=== PATIENT | male | born 1955 | race Caucasian/White ===

== ENCOUNTER 2016-12-11 21:05 | Inpatient (IN) | payer BC, OTHER ==
[~2016-12-11] VITALS: Ht 185.4 cm; Wt 97.2 kg
[~2016-12-11 21:05] MED LIST: ASPI81TA28 PO; ATOR-22 PO; CEPH-571 PO; GABA1CAP PO; GLC500 PO; GLIP5TAB11 PO; GLIP5TAB3 PO; LSN25 PO; OXYC-57 PO; PROP20TA67 PO
[2016-12-11] MEDS ORDERED: METF1TAB53 PO (21:40)
[2016-12-11] MEDS ORDERED: LISI-789 PO (21:40)
[2016-12-11] MEDS ORDERED: CYAN10005 PO (21:42)
[2016-12-11] MEDS ORDERED: CHOL2000 PO (21:42)
[2016-12-11] MEDS ORDERED: ONDANSETRON INJ 2 MG/ML 2 ML VIAL IV STA (22:08)
[2016-12-11] MEDS ORDERED: SODIUM CHLORIDE 0.9% 1000ML 1,000 ML IV STA (22:08)
[2016-12-11 22:21] LABS: BASO % 0.3 %; BASO ABS # 0.03 K/uL (0-0.2); COMPLETE YES; EOS % 0.2 %; IG% 0.2 %; LYMPH % 9.6 %; LYMPH ABS # 1.02 K/uL (1.2-3.4); MEAN CELL VOLUME 92.5 fL (80-100); MEAN CORPUSCULAR HEMOGLOBIN 32.1 pg (25-34); MEAN CORPUSCULAR HGB CONC 34.7 g/dl (32-36); MEAN PLATELET VOLUME 12.1 fL (7.4-10.4); MONO % 3.7 %; PLATELET COUNT 166 K/uL (130-400); RED BLOOD COUNT 4.11 M/uL (4.7-6.1); WHITE BLOOD COUNT 10.67 K/uL (4.8-10.8)
[2016-12-11 22:30] LABS: BUN/CREATININE RATIO 16.3 (10-20); CALCIUM 9.6 mg/dl (8.5-10.1); CREATININE 0.76 mg/dl (0.60-1.40); POTASSIUM 4.8 mmol/L (3.5-5.1)
[2016-12-11] MEDS ORDERED: OPTIRAY 320 IV PRN (23:00)
[2016-12-11] MEDS ORDERED: PANTOprazole INJ 80 MG in DEXTROSE 5% 100ML IV SCH (23:15)
[2016-12-11] MEDS ORDERED: PANTOprazole INJ 40 MG in DEXTROSE 5% 100ML IV SCH (23:30)
[2016-12-12] VITALS (8 sets, daily range): BP systolic 134–193; BP diastolic 70–102; PULSE 74–97; TEMP 36.6–36.9; O2SAT 94–97; Ht 185.4 cm; Wt 97.2 kg
[2016-12-12] MEDS ORDERED: PROMETHAZINE HCL INJ 25 MG/ML 1 ML VIAL IM STA (00:24)
[2016-12-12] MEDS ORDERED: ZOLPIDEM TARTRATE 5 MG TAB PO PRN (00:45)
[2016-12-12] MEDS ORDERED: ONDANSETRON INJ 2 MG/ML 2 ML VIAL IV PRN (00:45)
[2016-12-12] MEDS ORDERED: PROMETHAZINE HCL INJ 25 MG in SODIUM CHLORIDE 0.9% 50ML 50 ML IV PRN (00:45)
[2016-12-12] MEDS ORDERED: PROMETHAZINE HCL INJ 25 MG in SODIUM CHLORIDE 0.9% 50ML 50 ML IV STA (00:47)
--- NOTE | 2016-12-12 01:42 | History and Physical ---
History & Physical Date & Time of Service: Dec 12, 2016 at 01:36 Chief Complaint: Had Foot Surgery Yesterday, Vomiting Ever Since Primary Care Physician: Mila Dean C.R.N.PJack History of Present Illness Source: patient, spouse Mr Sheldon is a 60 yo M who underwent left foot wound debridement on 12/10 at [facility], then presents today with frequent nausea and vomiting. His reports the pt threw up 7-8 times, she gave him Zofran, but he could not keep anything down. They were concerned since they saw his vomit become red- tinged. He has never had blood in his vomit before. He does not consume alcohol. He does not have any chest pain. Past Medical/Surgical History Medical Problems: (1) Diabetes Status: Chronic (2) Staph infection Status: Resolved Family History Patient reports no known family medical history. Social History Smoking Status: Never Smoker Alcohol Use: none Drug Use: none Marital Status: , Housing status: lives with family Occupational Status: employed Immunizations History of Influenza Vaccine: N/A History of Tetanus Vaccine?: Yes Tetanus Immunization Date: April 19, 2011 History of Pneumococcal: Yes Pneumococcal Date: Mar 05, 2007 History of Hepatitis B Vaccine: No Multi-Drug Resistant Organisms History of MDRO: No Allergies Coded Allergies: Sulfamethoxazole w/Trimethoprim (Verified Adverse Reaction, Unknown, nausea, 10/30/16) Home Medications Scheduled Aspirin (Aspirin Ec), 81 MG PO QAM Atorvastatin (Lipitor), 20 MG PO HS Cephalexin (Keflex), 1 CAP PO TID Cholecalciferol (Vitamin D3), 1 CAP PO DAILY Cyanocobalamin (Vitamin B-12), 1,000 MCG PO DAILY Gabapentin (Neurontin), 100 MG PO TID Glipizide (Glucotrol), 5 MG PO QPM Glipizide (Glucotrol), 2.5 MG PO QAM Lisinopril (Zestril), 2.5 MG PO DAILY Metformin Hcl (Glucophage Ext Rel), 1,000 MG PO BIDM Propranolol (Inderal), 40 MG PO BID Scheduled PRN Oxycodone/Acetaminophen 5MG/325MG (Percocet 5MG/325MG), 1-2 TABLETS PO Q4H PRN for Pain Review of Systems See HPI for pertinent positives & negatives. A total of 10 systems reviewed and were otherwise negative. Physical Exam Vital Signs Date Time Temp Pulse Resp B/P Pulse Ox O2 Delivery O2 Flow Rate FiO2 12/12/16 01:27 36.4 84 18 181/88 98 12/12/16 01:19 84 18 181/88 98 Room Air 12/12/16 00:02 84 18 168/91 98 Room Air 12/11/16 21:09 36.4 82 18 163/93 94 Room Air General Appearance: WD/WN, + mild distress Head: normocephalic, atraumatic Eyes: normal inspection ENT: hearing grossly normal Neck: supple, no JVD Respiratory/Chest: lungs clear, normal breath sounds, no respiratory distress Cardiovascular: regular rate, rhythm, no JVD, no murmur, normal peripheral pulses Abdomen/GI: non tender, soft Back: no CVA tenderness, no muscle spasm, normal range of motion Extremities/Musculoskelatal: no calf tenderness, no pedal edema Neurologic/Psych: alert, normal mood/affect, oriented x 3 Skin: no rash Diagnostics Laboratory Results Results Past 24 Hours Test 12/11/16 21:55 Range/Units White Blood Count 10.67 4.8-10.8 K/uL Red Blood Count 4.11 4.7-6.1 M/uL Hemoglobin 13.2 14.0-18.0 g/dL Hematocrit 38.0 42-52 % Mean Corpuscular Volume 92.5 80-100 fL Mean Corpuscular Hemoglobin 32.1 25-34 pg Mean Corpuscular Hemoglobin Concent 34.7 32-36 g/dl Platelet Count 166 130-400 K/uL Mean Platelet Volume 12.1 7.4-10.4 fL Neutrophils (%) (Auto) 86.0 % Lymphocytes (%) (Auto) 9.6 % Monocytes (%) (Auto) 3.7 % Eosinophils (%) (Auto) 0.2 % Basophils (%) (Auto) 0.3 % Neutrophils # (Auto) 9.19 1.4-6.5 K/uL Lymphocytes # (Auto) 1.02 1.2-3.4 K/uL Monocytes # (Auto) 0.39 0.11-0.59 K/uL Eosinophils # (Auto) 0.02 0-0.5 K/uL Basophils # (Auto) 0.03 0-0.2 K/uL RDW Standard Deviation 41.7 36.4-46.3 fL RDW Coefficient of Variation 12.3 11.5-14.5 % Immature Granulocyte % (Auto) 0.2 % Immature Granulocyte # (Auto) 0.02 0.00-0.02 K/uL Sodium Level 141 136-145 mmol/L Potassium Level 4.8 3.5-5.1 mmol/L Chloride Level 105 98-107 mmol/L Carbon Dioxide Level 25 21-32 mmol/L Anion Gap 11.0 3-11 mmol/L Blood Urea Nitrogen 12 7-18 mg/dl Creatinine 0.76 0.60-1.40 mg/dl Est Creatinine Clear Calc Drug Dose 127.1 ml/min Estimated GFR () 114.9 Estimated GFR (Non- 99.2 BUN/Creatinine Ratio 16.3 10-20 Random Glucose 194 70-99 mg/dl Calcium Level 9.6 8.5-10.1 mg/dl Total Bilirubin 0.6 0.2-1 mg/dl Direct Bilirubin 0.1 0-0.2 mg/dl Aspartate Amino Transf (AST/SGOT) 13 15-37 U/L Alanine Aminotransferase (ALT/SGPT) 17 12-78 U/L Alkaline Phosphatase 86 45-117 U/L Total Protein 7.4 6.4-8.2 gm/dl Albumin 3.8 3.4-5.0 gm/dl Lipase 80 73-393 U/L Diagnostic Radiology Abd/pelvis CT completed but results not imported into system yet Impression Assessment and Plan Documented By: Manohar Fournier 60 yo T2DM with post-operative nausea and vomiting, with new hematemesis - Abbie-Cowart tear vs variceal bleed Hematemesis: NPO, will consult GI for potential scope in AM Nausea/vomiting: Received bolus in ED, continue maintenance fluids, Zofran and Phenergan available Hypertension: Hydralazine 10mg IV PRN for SBP > 160 T2DM: Hold metformin and glucotrol - will place glycemic consult VTE: SCDs, hold heparin since concern for bleed Dispo: Med/Surg Code Status: FULL Resident Physician Supervision Note: I was present with [Name of resident] during the history and exam. I discussed the case with the resident and agree with the findings and plan as documented in the note. Any exceptions or clarifications are listed here: Pt seen/examined personally Plan Pt is minimally symptomatic - vomiting may have induced irritation or a small tear leading to blood streaking Will monitor Hb, provide antiemetics and fluids and keep NPO if GI eval is needed Placed on SS for DM Level of Care Med/Surg Resuscitation Status FULL RESUSCITATION VTE Prophylaxis VTE Risk Assessment Done? Y/N: Yes Risk Level: Moderate Given or contraindicated: SCD's Resident Tracking Resident Involvement: Resident Care Provided Care Provided: Adult Hospital Medicine
[2016-12-12] MEDS ORDERED: HydrALAZINE HCL 20 MG/ML VIAL IV. PRN (01:45)
--- NOTE | 2016-12-12 02:10 | EMERGENCY ROOM VISIT NOTE ---
History Report prepared by Allie: Shahid Mueller Under the Supervision of: Alina ThaoO. First contact with patient: 21:52 Chief Complaint: VOMITING Stated Complaint: HAD FOOT SURGERY YESTERDAY, VOMITING EVER SINCE History of Present Illness The patient is a 60 year old male who presents to the Emergency Room with complaints of persistent vomiting beginning several hours prior to arrival. He currently rates his discomfort as a 5/10 in severity. The patient associates nausea and abdominal pain with today's symptoms. He states he had left foot surgery on his bunion yesterday at [place]. The patient notes the vomiting began this morning and was greenish-brown in color. As per , the patient began vomiting a reddish-brown color later in the day. She states there was about a teaspoon of blood in the vomit. The patient notes he has vomited 7-8 times today. He states he takes aspiring daily. He states he still has his gallbladder and appendix. The notes, she gave the patient Zofran six hours ago, but he vomited following the medication. Pt denies headache, change in vision, fevers, chest pain, shortness of breath, diarrhea, pain with urination, and melena. 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 A total of 10 systems reviewed and were otherwise negative. Past Medical & Surgical Medical Problems: (1) Diabetes (2) Diabetic peripheral neuropathy associated with type 2 diabetes mellitus (3) Hematemesis (4) History of diabetic ulcer of foot (5) Loss of sensation (6) Osteomyelitis (7) Staph infection (8) Status post partial amputation of foot Family History Patient reports no known family medical history. Social History Smoking Status: Never Smoker Alcohol Use: none Drug Use: none Marital Status: , Occupation Status: employed Current/Historical Medications Scheduled Aspirin (Aspirin Ec), 81 MG PO QAM Atorvastatin (Lipitor), 20 MG PO HS Cephalexin (Keflex), 1 CAP PO TID Cholecalciferol (Vitamin D3), 1 CAP PO DAILY Cyanocobalamin (Vitamin B-12), 1,000 MCG PO DAILY Gabapentin (Neurontin), 100 MG PO TID Glipizide (Glucotrol), 5 MG PO QPM Glipizide (Glucotrol), 2.5 MG PO QAM Lisinopril (Zestril), 2.5 MG PO DAILY Metformin Hcl (Glucophage Ext Rel), 1,000 MG PO BIDM Propranolol (Inderal), 40 MG PO BID Scheduled PRN Oxycodone/Acetaminophen 5MG/325MG (Percocet 5MG/325MG), 1-2 TABLETS PO Q4H PRN for Pain Allergies Coded Allergies: Sulfamethoxazole w/Trimethoprim (Verified Adverse Reaction, Unknown, nausea, 10/30/16) Physical Exam Vital Signs Date Time Temp Pulse Resp B/P Pulse Ox O2 Delivery O2 Flow Rate FiO2 12/12/16 00:02 84 18 168/91 98 Room Air 12/11/16 21:09 36.4 82 18 163/93 94 Room Air Physical Exam GENERAL: sitting up in bed, no acute distress, non-toxic EYE EXAM: normal conjunctiva OROPHARYNX: no exudate, no erythema, lips, buccal mucosa, and tongue normal and mucous membranes are moist NECK: supple, no nuchal rigidity, no adenopathy, non-tender LUNGS: Clear to auscultation. Normal chest wall mechanics HEART: no murmurs, S1 normal and S2 normal ABDOMEN: abdomen soft, non-tender, normo-active bowel sounds, no masses, no rebound or guarding. BACK: Back is symmetrical on inspection and there is no deformity, no midline tenderness, no CVA tenderness. RECTAL: No hemorrhoids or fissures. Heme negative. SKIN: no rashes and no bruising UPPER EXTREMITIES: upper extremities are grossly normal. LOWER EXTREMITIES: No pitting edema. Left foot was wrapped, good capillary refill. NEURO EXAM: Normal sensorium, cranial nerves II-XII grossly intact, normal speech, no gross weakness of arms, no gross weakness of legs. Medical Decision & Procedures ER Provider Diagnostic Interpretation: CT ABDOMEN & PELVIS No bowel dilation, free air, free fluid or evidence of wall thickening Solid organs and gallbladder appear within limits Normal caliber appendix without secondary signs Radiologist: Vikram Calderon M.D. Study ready at 23:34 and initial results transmitted at 23:56 Laboratory Results 12/11/16 21:55 Red Blood Count 4.11, Mean Corpuscular Volume 92.5, Mean Corpuscular Hemoglobin 32.1, Mean Corpuscular Hemoglobin Concent 34.7, Mean Platelet Volume 12.1, Neutrophils (%) (Auto) 86.0, Lymphocytes (%) (Auto) 9.6, Monocytes (%) (Auto) 3.7, Eosinophils (%) (Auto) 0.2, Basophils (%) (Auto) 0.3, Neutrophils # (Auto) 9.19, Lymphocytes # (Auto) 1.02, Monocytes # (Auto) 0.39, Eosinophils # (Auto) 0.02, Basophils # (Auto) 0.03 12/11/16 21:55 Test 12/11/16 21:55 White Blood Count 10.67 K/uL (4.8-10.8) Red Blood Count 4.11 M/uL (4.7-6.1) Hemoglobin 13.2 g/dL (14.0-18.0) Hematocrit 38.0 % (42-52) Mean Corpuscular Volume 92.5 fL (80-100) Mean Corpuscular Hemoglobin 32.1 pg (25-34) Mean Corpuscular Hemoglobin Concent 34.7 g/dl (32-36) Platelet Count 166 K/uL (130-400) Mean Platelet Volume 12.1 fL (7.4-10.4) Neutrophils (%) (Auto) 86.0 % Lymphocytes (%) (Auto) 9.6 % Monocytes (%) (Auto) 3.7 % Eosinophils (%) (Auto) 0.2 % Basophils (%) (Auto) 0.3 % Neutrophils # (Auto) 9.19 K/uL (1.4-6.5) Lymphocytes # (Auto) 1.02 K/uL (1.2-3.4) Monocytes # (Auto) 0.39 K/uL (0.11-0.59) Eosinophils # (Auto) 0.02 K/uL (0-0.5) Basophils # (Auto) 0.03 K/uL (0-0.2) RDW Standard Deviation 41.7 fL (36.4-46.3) RDW Coefficient of Variation 12.3 % (11.5-14.5) Immature Granulocyte % (Auto) 0.2 % Immature Granulocyte # (Auto) 0.02 K/uL (0.00-0.02) Anion Gap 11.0 mmol/L (3-11) Est Creatinine Clear Calc Drug Dose 127.1 ml/min Estimated GFR () 114.9 Estimated GFR (Non- 99.2 BUN/Creatinine Ratio 16.3 (10-20) Calcium Level 9.6 mg/dl (8.5-10.1) Total Bilirubin 0.6 mg/dl (0.2-1) Direct Bilirubin 0.1 mg/dl (0-0.2) Aspartate Amino Transf (AST/SGOT) 13 U/L (15-37) Alanine Aminotransferase (ALT/SGPT) 17 U/L (12-78) Alkaline Phosphatase 86 U/L (45-117) Total Protein 7.4 gm/dl (6.4-8.2) Albumin 3.8 gm/dl (3.4-5.0) Lipase 80 U/L (73-393) Laboratory results per my review. Medications Administered Medications (Trade) Dose Ordered Sig/Isael Route Start Time Stop Time Status Last Admin Dose Admin Sodium Chloride (Nss 1000ml) 1,000 ml @ 999 mls/hr Q1H1M STAT IV 12/11/16 22:08 12/11/16 23:08 DC 12/11/16 22:31 999 MLS/HR Ondansetron HCl (Zofran Inj) 4 mg NOW STAT IV 12/11/16 22:08 12/11/16 22:11 DC 12/11/16 22:30 4 MG Pantoprazole Sodium 1 ea 1 ea NOW STAT IV 12/11/16 22:58 12/11/16 22:59 DC 12/11/16 23:48 1 EA Pantoprazole Sodium 80 mg/ Dextrose 120 ml @ 480 mls/hr TODAY@2315 IV 12/11/16 23:15 12/11/16 23:29 DC 12/11/16 23:46 480 MLS/HR Pantoprazole Sodium/Dextrose (Protonix Inj/D5 100ml) 100 ml @ 20 mls/hr Q5H IV 12/11/16 23:30 12/12/16 04:29 12/11/16 23:47 20 MLS/HR ED Course ED COURSE: Vital signs were reviewed and showed normal vitals. The patients medical record was reviewed The above diagnostic studies were performed and reviewed. ED treatments and interventions as stated above. 2157: The patient was evaluated in room B6. A complete history and physical examination was performed. 2207: Ordered Zofran Inj 4 mg IV, Sodium Chloride 1,000 ml @ 999 mls/hr IV. 2257: Ordered Pantoprazole Sodium 1 ea IV. 2300: Reevaluated the patient at this time, and he is going over to CT. 2315: Ordered Pantoprazole Sodium 80 mg/ Dextrose 120 ml @ 480 mls/hr IV. 2330: Ordered Pantoprazole Sodium 40 mg/ Dextrose 100 ml @ 20 mls/hr IV. 000: I spoke to LINDY Nguyen (Hospitalist) about the patient's case, and he will follow the patient for further evaluation. []: Upon reevaluation, the patient is [].I discussed my findings with the [ patient] and [] understands and agrees with the treatment plan. Based on the patients age, coexisting illnesses, exam and lab findings the decision to treat as an [inpatient][outpatient] was made. The patient remained stable while under my care. [The patient appeared well at the time of discharge.] [The patient will be evaluated for further management.] Medical Decision Differential diagnosis: Etiologies such as gastroenteritis, food borne illness, infections, appendicitis , diverticulitis, inflammatory bowel disease, obstruction, GI bleed, biliary pathology, as well as others were entertained. Patient is a 60-year-old male who presents the ER with persistent vomiting. This started earlier today and has progressed to hematemesis and coffee-ground emesis. Patient denies any blood thinners. Vitals are stable. Hemoglobin is 13. BMP is unremarkable with a normal BUN. LFTs along with bilirubin and lipase are normal. CT of his abdomen pelvis was nondiagnostic. Patient was given a Protonix drip along with a bolus normal saline. I do favor his hematemesis is likely secondary to irritation of the esophagus/milton Eufemia tear. Cannot be certain at this time but since the patient admits to vomiting a tablespoon of blood with each vomited I did discuss case with GI who agreed with observation overnight and nothing by mouth. No additional vomiting while in the ER. Consults Time Called: 7 Consulting Physician: LINDY Nguyen (Hospitalist) Returned Call: 8 I spoke to LINDY Nguyen (Hospitalist) about the patient's case, and he will follow the patient for further evaluation. Impression Primary Impression: Upper GI bleed Scribe Attestation The scribe's documentation has been prepared under my direction and personally reviewed by me in its entirety. I confirm that the note above accurately reflects all work, treatment, procedures, and medical decision making performed by me. Departure Information Dispostion Being Evaluated By Hospitalist (LINDY Nguyen (Hospitalist)) Referrals Mila Dean C.R.N.PJack (PCP)
[2016-12-12] MEDS ORDERED: CEFTRIAXONE SOD INJ 2,000 MG in DEXTROSE 5% 50ML 50 ML IV SCH (03:00)
[2016-12-12] MEDS ORDERED: GLUCAGON FOR INJ 1 MG VIAL SQ PRN ×2 (03:15→17:00)
[2016-12-12] MEDS ORDERED: PHARMACY GLYCEMIC MGMT CONSULT PRN (03:15)
[2016-12-12] MEDS ORDERED: GLUCOSE 10 TABS/TUBE PO PRN ×2 (03:15→17:00)
[2016-12-12] MEDS ORDERED: DEXTROSE 50% 50 ML SYR IV PRN ×2 (03:15→17:00)
[2016-12-12] MEDS ORDERED: GLUCOSE 40% GEL 15 GM TUBE PO PRN ×2 (03:15→17:00)
[2016-12-12] MEDS: SODIUM CHLOR 0.45% + 20MEQ KCL 1,000 ML IV SCH ×2 (03:24→11:14)
[2016-12-12] MEDS: PANTOprazole INJ 40 MG in DEXTROSE 5% 100ML IV SCH ×3 (04:25→14:36)
[2016-12-12 06:10] LABS: ESTIMATED AVERAGE GLUCOSE 146 mg/dl; HA1C FLAG Normal (Normal)
--- NOTE | 2016-12-12 07:03 | DIAGNOSTIC IMAGING REPORT ---
CT ABD/PELVIS IV CONTRAST ONLY CLINICAL HISTORY: Hematemesis COMPARISON STUDY: None. TECHNIQUE: Following the IV administration of 92 mL of Optiray-320, CT scan of the abdomen and pelvis was performed from the lung bases to the proximal femurs. Images are reviewed in the axial, sagittal, and coronal planes. IV contrast was administered without complication. CT DOSE: 712.70 mGy.cm FINDINGS: Lower chest: There are minor basilar atelectatic changes. Liver: The contrast-enhanced liver is normal in size, contour, and attenuation. There is no intrahepatic biliary ductal dilatation. The hepatic veins and portal veins are patent. Gallbladder: Unremarkable. Spleen: Normal in size and attenuation. Pancreas: Unremarkable. Adrenal glands: Unremarkable. Kidneys: There is a to small to characterize 8 mm left renal hypodensity likely representing a cyst Bowel: There is small hiatal hernia. There are no transition zones indicate bowel obstruction. There is no evidence of acute appendicitis. There is no evidence of acute diverticulitis. Peritoneum: There is no intraperitoneal free air or abdominal ascites. Vasculature: The abdominal aorta is normal in course and caliber. Adenopathy: None. Pelvic viscera: There is mild prostamegaly. Skeletal structures: No destructive osseous lesions are seen. IMPRESSION: 1. No acute intra-abdominal findings 2. No evidence of bowel obstruction. No evidence of free air 3. Small hiatal hernia 4. No evidence of acute appendicitis. No evidence of acute diverticulitis. Electronically signed by: Lion Elam M.D. 12/12/2016 7:02 AM Dictated Date/Time: 12/12/2016 6:59 AM
[2016-12-12] MEDS: INSULIN ASPART 100 UNITS/ML 3 ML PEN SC SCH ×4 (08:56→20:41)
--- NOTE | 2016-12-12 10:05 | Gastrointestinal Consultation ---
Gastrointestinal Consultation Date of Consultation: Dec 12, 2016 Attending Physician: Dr. Chapa Consulting Physician: Dr. Saldana/BECKY Felipe Reason for Consultation: Hematemesis History of Present Illness Patient is a 60 year old male with a history of diabetes status post left foot wound debridement at [facility] on 12/10/16 admitted with intractable nausea with vomiting as well as hematemesis prior to arrival to the ER. He states he had taken 2 oxycodone for pain prior to the nausea and vomiting starting. He has not had any further episodes of vomiting or hematemesis since arrival. No reports of bloody or melanotic stools. On arrival , his hemoglobin was noted to be 13.2. Patient was started on a Protonix ggt at 8 mg/hr. He denies any dysphagia, odynophagia,abdominal pain or other GI complaints. Patient states that he has never undergone an upper endoscopy in the past. Last colonoscopy was performed by Dr. Carrero in 2012. Past Medical/Surgical History Medical Problems: (1) Diabetic ulcer of toe Status: Acute (2) Lymphangitis Status: Acute (3) Upper GI bleed Status: Acute Past Medical History: 1.Diabetes with complications 2. Anemia 3. Cellulitis 4. Obesity 5. Osteomyelitis 6. Sexual Dysfunction 7. Tremor Past Surgical History: 1. Complete colonoscopy 2. Foot debridement Family History Patient reports no known family medical history. Negative for GI malignancy and IBD Social History Smoking Status: Never Smoker Alcohol Use: other (history of use) Drug Use: none Marital Status: Occupation Status: employed Allergies Coded Allergies: Sulfamethoxazole w/Trimethoprim (Verified Adverse Reaction, Unknown, nausea, 10/30/16) Current Medications Home Meds and Scripts Medications Dose Route/Sig Max Daily Dose Days Date Category Dose Instructions Vitamin D3 (Cholecalciferol) 2,000 Unit Cap 1 Cap PO DAILY 90 12/11/16 Reported Vitamin B-12 (Cyanocobalamin) 1,000 Mcg Tab 1,000 Mcg PO DAILY 12/11/16 Reported Glucophage Ext Rel (Metformin Hcl) 1,000 Mg Tab 1,000 Mg PO BIDM 12/11/16 Reported Zestril (Lisinopril) 2.5 Mg Tab 2.5 Mg PO DAILY 12/11/16 Reported Keflex (Cephalexin) 500 Mg Cap 1 Cap PO TID 7 11/06/16 Rx Inderal (Propranolol HCl) 20 Mg Tab 40 Mg PO BID 09/28/16 Reported Percocet 5MG/325MG (Oxycodone/Acetaminophen) Tab 1-2 Tablets PO Q4H PRN 07/11/16 Rx Glucotrol (Glipizide) 5 Mg Tab 2.5 Mg PO QAM 06/08/16 Reported Glucotrol (Glipizide) 5 Mg Tab 5 Mg PO QPM 06/08/16 Reported Aspirin Ec (Aspirin) 81 Mg Tab 81 Mg PO QAM 06/08/16 Reported Lipitor (Atorvastatin Calcium) 20 Mg Tab 20 Mg PO HS 06/08/16 Reported Neurontin (Gabapentin) 100 Mg Cap 100 Mg PO TID 10/30/13 Reported CAN TAKE UP TO THREE TIMES DAILY Review of Systems Constitutional: No chills, No fever Eyes: No problem reported ENT: + see HPI Respiratory: No problem reported Cardiac: No problem reported Abdomen: + see HPI Musculoskeletal: + see HPI Neuro: No problem reported Psych: No problem reported Skin: No problem reported Physical Exam Date Time Temp Pulse Resp B/P Pulse Ox O2 Delivery O2 Flow Rate FiO2 12/12/16 08:02 36.9 88 18 171/90 96 Room Air 12/12/16 08:00 Room Air 12/12/16 04:08 36.8 87 18 193/102 95 Room Air 146/75 12/12/16 02:00 Room Air 12/12/16 01:27 36.4 84 18 181/88 98 12/12/16 01:19 84 18 181/88 98 Room Air 12/12/16 00:02 84 18 168/91 98 Room Air 12/11/16 21:09 36.4 82 18 163/93 94 Room Air General Appearance: WD/WN, no apparent distress Eyes: EOMI ENT: hearing grossly normal Neck: supple Respiratory/Chest: lungs clear, normal breath sounds, no respiratory distress Cardiovascular: regular rate, rhythm, no gallop, no murmur Abdomen: normal bowel sounds, non tender, soft Extremities: no pedal edema Neurologic/Psych: alert, normal mood/affect, oriented x 3 Skin: warm/dry Laboratory Results Last 24 Hours Test 12/11/16 21:55 12/12/16 07:43 12/12/16 09:15 White Blood Count 10.67 K/uL Red Blood Count 4.11 M/uL Hemoglobin 13.2 g/dL Hematocrit 38.0 % Mean Corpuscular Volume 92.5 fL Mean Corpuscular Hemoglobin 32.1 pg Mean Corpuscular Hemoglobin Concent 34.7 g/dl Platelet Count 166 K/uL Mean Platelet Volume 12.1 fL Neutrophils (%) (Auto) 86.0 % Lymphocytes (%) (Auto) 9.6 % Monocytes (%) (Auto) 3.7 % Eosinophils (%) (Auto) 0.2 % Basophils (%) (Auto) 0.3 % Neutrophils # (Auto) 9.19 K/uL Lymphocytes # (Auto) 1.02 K/uL Monocytes # (Auto) 0.39 K/uL Eosinophils # (Auto) 0.02 K/uL Basophils # (Auto) 0.03 K/uL RDW Standard Deviation 41.7 fL RDW Coefficient of Variation 12.3 % Immature Granulocyte % (Auto) 0.2 % Immature Granulocyte # (Auto) 0.02 K/uL Sodium Level 141 mmol/L Potassium Level 4.8 mmol/L Chloride Level 105 mmol/L Carbon Dioxide Level 25 mmol/L Anion Gap 11.0 mmol/L Blood Urea Nitrogen 12 mg/dl Creatinine 0.76 mg/dl Est Creatinine Clear Calc Drug Dose 127.1 ml/min Estimated GFR () 114.9 Estimated GFR (Non- 99.2 BUN/Creatinine Ratio 16.3 Random Glucose 194 mg/dl Estimated Average Glucose 146 mg/dl Hemoglobin A1c 6.7 % Calcium Level 9.6 mg/dl Total Bilirubin 0.6 mg/dl Direct Bilirubin 0.1 mg/dl Aspartate Amino Transf (AST/SGOT) 13 U/L Alanine Aminotransferase (ALT/SGPT) 17 U/L Alkaline Phosphatase 86 U/L Total Protein 7.4 gm/dl Albumin 3.8 gm/dl Lipase 80 U/L Bedside Glucose 173 mg/dl Impression Patient is a 60 year old male with a history of diabetes with complications of left foot ulceration [place] [facility] [place] with nausea and vomiting as well as hematemesis after initiating opioid analgesic therapy. Diff dx: PUD vs Doron's erosion vs Abbie-Cowart tear vs esophagitis vs malignancy vs other. Plan 1. Keep NPO for now. 2. EGD today with Dr. Saldana. 3. Continue Protonix ggt at 8 mg/hr at present. 4. Additional recommendations pending results of testing. Agree with BECKY Felipe as above Abd: Soft, NT, ND, +BS Proceed with EGD today Continue Protonix gtt.
[2016-12-12 10:47] LABS: BASO % 0.2 %; BASO ABS # 0.02 K/uL (0-0.2); COMPLETE YES; EOS % 0.1 %; HEMATOCRIT 35.1 % (42-52); IG% 0.3 %; LYMPH ABS # 1.68 K/uL (1.2-3.4); MEAN CELL VOLUME 90.9 fL (80-100); MEAN CORPUSCULAR HEMOGLOBIN 31.3 pg (25-34); MEAN CORPUSCULAR HGB CONC 34.5 g/dl (32-36); MEAN PLATELET VOLUME 11.4 fL (7.4-10.4); MONO % 6.8 %; NEUT % 78.6 %; PLATELET COUNT 166 K/uL (130-400); RED BLOOD COUNT 3.86 M/uL (4.7-6.1); WHITE BLOOD COUNT 11.99 K/uL (4.8-10.8)
[2016-12-12 11:09] LABS: CREATININE 0.8 mg/dl (0.60-1.40)
[2016-12-12 11:10] LABS: BUN/CREATININE RATIO 13.4 (10-20); CALCIUM 8.7 mg/dl (8.5-10.1); POTASSIUM 4.7 mmol/L (3.5-5.1)
--- NOTE | 2016-12-12 13:17 | Family Medicine Progress Note ---
Progress Note Date of Service Dec 12, 2016. Subjective Pt evaluation today including: conversation w/ patient, physical exam, chart review, lab review Pain: denies Voiding: no voiding problems 60 y/o M with a diabetic foot ulcer s/p debridement yesterday at [place] here after he had several episodes of blood tinged vomiting. denied any fevers/chills , abdominal pain, diarrhea/constipation, BRBPR, melena. Denied any sick contacts , travel, antibiotic use. - No new episodes today , has been fairly well controlled with Zofran. Constitutional: No chills, No fever Eyes: No worsening of vision ENT: No hearing loss Respiratory: No cough, No shortness of breath Cardiovascular: No chest pain Abdomen: + GI bleeding (hematemesis), + nausea, + vomiting Musculoskeletal: + problem reported (left foot diabetic ulcer) Male : No dysuria Medications Current Inpatient Medications Medications (Trade) Dose Ordered Sig/Isael Route Start Time Stop Time Status Last Admin Dose Admin Ioversol (Optiray 320) 100 ml UD PRN IV 12/11/16 23:00 12/15/16 22:59 Zolpidem Tartrate (Ambien Tab) 5 mg HSZ PRN PO 12/12/16 00:45 01/11/17 00:44 Ondansetron HCl 4 mg 4 mg Q6H PRN IV 12/12/16 00:45 01/11/17 00:44 Potassium Chloride/Sodium Chloride 1,000 ml @ 125 mls/hr Q8H IV 12/12/16 03:15 01/11/17 03:14 12/12/16 11:14 125 MLS/HR Promethazine HCl 25 mg/Sodium Chloride 51 ml @ 204 mls/hr Q6H PRN IV 12/12/16 00:45 01/11/17 00:44 Ceftriaxone Sodium/Dextrose (Rocephin Inj/D5 50ml) 70 ml @ 100 mls/hr Q24H IV 12/12/16 03:00 12/17/16 02:59 12/12/16 03:24 100 MLS/HR Hydralazine HCl (HydrALAZINE INJ) 10 mg Q6H PRN IV. 12/12/16 01:45 01/11/17 01:44 Miscellaneous Information 1 ea 1 ea UD PRN N/A 12/12/16 03:15 01/11/17 03:14 Pantoprazole Sodium/Dextrose (Protonix Inj/D5 100ml) 100 ml @ 20 mls/hr Q5H IV 12/12/16 04:30 01/11/17 04:29 12/12/16 08:58 20 MLS/HR Insulin Aspart (novoLOG ASPART) SLIDING SCALE ACHS SC 12/12/16 06:30 01/11/17 06:29 12/12/16 08:56 1 UNITS Glucose (Glucose 40% Gel) 15-30 GRAMS 15 GRAMS... UD PRN PO 12/12/16 03:15 01/11/17 03:14 Glucose (Glucose Chew Tab) 4-8 Tablets 4 Tabl... UD PRN PO 12/12/16 03:15 01/11/17 03:14 Dextrose (Dextrose 50% 50ML Syringe) 25-50ML OF 50% DW IV FOR... UD PRN IV 12/12/16 03:15 01/11/17 03:14 Glucagon (Glucagon Inj) 1 mg UD PRN SQ 12/12/16 03:15 01/11/17 03:14 Objective Vital Signs Date Time Temp Pulse Resp B/P Pulse Ox O2 Delivery O2 Flow Rate FiO2 12/12/16 12:28 36.3 83 18 137/73 95 Room Air 12/12/16 11:15 36.9 88 20 171/90 96 Room Air 12/12/16 08:02 36.9 88 18 171/90 96 Room Air 12/12/16 08:00 Room Air 12/12/16 04:08 36.8 87 18 193/102 95 Room Air 146/75 12/12/16 02:00 Room Air 12/12/16 01:27 36.4 84 18 181/88 98 12/12/16 01:19 84 18 181/88 98 Room Air 12/12/16 00:02 84 18 168/91 98 Room Air 12/11/16 21:09 36.4 82 18 163/93 94 Room Air Physical Exam General Appearance: WD/WN, no apparent distress Eyes: normal inspection ENT: normal ENT inspection, hearing grossly normal Neck: supple Respiratory/Chest: chest non-tender, lungs clear, normal breath sounds, no respiratory distress, no accessory muscle use Cardiovascular: regular rate, rhythm Abdomen: normal bowel sounds, soft Extremities: normal range of motion, + pertinent finding (diabetic foot ulcer left leg s/p debridement yesterday , covered in dressing) Neurologic/Psychiatric: alert, normal mood/affect, oriented x 3 Laboratory Results Last 24 Hours Test 12/11/16 21:55 12/12/16 07:43 12/12/16 10:27 12/12/16 11:40 White Blood Count 10.67 K/uL 11.99 K/uL Red Blood Count 4.11 M/uL 3.86 M/uL Hemoglobin 13.2 g/dL 12.1 g/dL Hematocrit 38.0 % 35.1 % Mean Corpuscular Volume 92.5 fL 90.9 fL Mean Corpuscular Hemoglobin 32.1 pg 31.3 pg Mean Corpuscular Hemoglobin Concent 34.7 g/dl 34.5 g/dl Platelet Count 166 K/uL 166 K/uL Mean Platelet Volume 12.1 fL 11.4 fL Neutrophils (%) (Auto) 86.0 % 78.6 % Lymphocytes (%) (Auto) 9.6 % 14.0 % Monocytes (%) (Auto) 3.7 % 6.8 % Eosinophils (%) (Auto) 0.2 % 0.1 % Basophils (%) (Auto) 0.3 % 0.2 % Neutrophils # (Auto) 9.19 K/uL 9.44 K/uL Lymphocytes # (Auto) 1.02 K/uL 1.68 K/uL Monocytes # (Auto) 0.39 K/uL 0.81 K/uL Eosinophils # (Auto) 0.02 K/uL 0.01 K/uL Basophils # (Auto) 0.03 K/uL 0.02 K/uL RDW Standard Deviation 41.7 fL 41.2 fL RDW Coefficient of Variation 12.3 % 12.4 % Immature Granulocyte % (Auto) 0.2 % 0.3 % Immature Granulocyte # (Auto) 0.02 K/uL 0.03 K/uL Sodium Level 141 mmol/L 143 mmol/L Potassium Level 4.8 mmol/L 4.7 mmol/L Chloride Level 105 mmol/L 107 mmol/L Carbon Dioxide Level 25 mmol/L 26 mmol/L Anion Gap 11.0 mmol/L 10.0 mmol/L Blood Urea Nitrogen 12 mg/dl 11 mg/dl Creatinine 0.76 mg/dl 0.80 mg/dl Est Creatinine Clear Calc Drug Dose 127.1 ml/min 120.6 ml/min Estimated GFR () 114.9 112.5 Estimated GFR (Non- 99.2 97.1 BUN/Creatinine Ratio 16.3 13.4 Random Glucose 194 mg/dl 182 mg/dl Estimated Average Glucose 146 mg/dl Hemoglobin A1c 6.7 % Calcium Level 9.6 mg/dl 8.7 mg/dl Total Bilirubin 0.6 mg/dl Direct Bilirubin 0.1 mg/dl Aspartate Amino Transf (AST/SGOT) 13 U/L Alanine Aminotransferase (ALT/SGPT) 17 U/L Alkaline Phosphatase 86 U/L Total Protein 7.4 gm/dl Albumin 3.8 gm/dl Lipase 80 U/L Bedside Glucose 173 mg/dl 155 mg/dl Assessment and Plan 60 y/o M with a diabetic foot ulcer s/p debridement yesterday at [place] here after he had several episodes of blood tinged vomiting. New onset Hematemesis: - Advance diet as tolerated - GI consult- appreciate input . - Endoscopy : Normal esophagus. - Small hiatus hernia. - Gastritis. Biopsied. - Normal examined duodenum. - Protonix drip switched to Protonix BID - Continue IV fluids - Zofran/Phenergan for N/V Elevated BP: ranging >160/90 - No known h/o HTN - Restart lisinopril 2.5 mg and propranolol 40 mg BID - Hydralazine 10mg IV PRN for SBP > 160 Diabetic foot ulcer: s/p debridement - Keflex 500 mg TID - Gabapentin for neuropathy - Morphine q4h for pain control DMT2: - Metformin restarted and Glucotrol held - Glycemic consult DVT; chemical anticoagulation contraindicated SCDs Full code Dispo: Med/Surg Reviewed: Pt Seen/Exam by Me, ANNA MARIE Notes, Labs History Resident Physician Supervision Note: I interviewed and examined the patient. Discussed with Dr. Graham and agree with findings and plan as documented in the note. Any exceptions or clarifications are listed here: Doing very well. Neto clears for dinner tonight and no more N/V, thinks it was from the oxycodone he took post-op. Foot feels fine, no pain, no CP/SOB/Abd pain. Vitals reviewed, BP improved CV RRR no mgr Pulm ctab no wcr Abd +BS, soft NT ND Left foot in large wrap with ANDI and not to be removed as per pt by direction of his Surgeon until Dec 25. A/p: 60 yo male with intractable N/V and very scant hematemesis, found to have mild gastritis on EGD. Continue PPI bid Plan for dc to home tomorrow if neto DM diet for breakfast Documented By: Bharti Wheeler
--- NOTE | 2016-12-12 13:32 | GI REPORT ---
Procedure Date: 12/12/2016 1:24 PM Procedure: Upper GI endoscopy Indications: Hematemesis Medicines: Monitored Anesthesia Care Complications: No immediate complications. Estimated Blood Loss: Estimated blood loss: none. Procedure: Pre-Anesthesia Assessment: - Prior to the procedure, a History and Physical was performed, and patient medications and allergies were reviewed. The patient's tolerance of previous anesthesia was also reviewed. The risks and benefits of the procedure and the sedation options and risks were discussed with the patient. All questions were answered, and informed consent was obtained. Prior Anticoagulants: The patient has taken aspirin, last dose was 1 day prior to procedure. ASA Grade Assessment: III - A patient with severe systemic disease. After reviewing the risks and benefits, the patient was deemed in satisfactory condition to undergo the procedure. After obtaining informed consent, the endoscope was passed under direct vision. Throughout the procedure, the patient's blood pressure, pulse, and oxygen saturations were monitored continuously. The scope was introduced through the mouth, and advanced to the second part of duodenum. The upper GI endoscopy was accomplished without difficulty. The patient tolerated the procedure well. Findings: The esophagus was normal. A small hiatus hernia was present. Localized mild inflammation characterized by erythema was found in the gastric antrum. Biopsies were taken with a cold forceps for histology. The examined duodenum was normal. Impression: - Normal esophagus. - Small hiatus hernia. - Gastritis. Biopsied. - Normal examined duodenum. Recommendation: - Return patient to hospital guidry for ongoing care. - Advance diet as tolerated. - Stop Protonix gtt. Start Protonix 40mg by mouth twice daily 1/2 hour prior to breakfast and dinner. Amadeo Saldana, DO 12/12/2016 1:32:14 PM This report has been signed electronically. Note Initiated On: 12/12/2016 1:24 PM
[2016-12-12] MEDS ORDERED: PROPOFOL IV EMULSION 10 MG/ML 20 ML VIAL IV ONE ×2 (13:37)
[2016-12-12] MEDS ORDERED: LIDOCAINE HCL 2% 2 ML VIAL (20MG/ML) ONE ×2 (13:37)
--- NOTE | 2016-12-12 14:33 | Anesthesiology Progress Note ---
Anesthesia Post Op Note Date & Time Dec 12, 2016 at 14:33 Vital Signs Pain Intensity: 0.0 Vital Signs Past 12 Hours Date Time Temp Pulse Resp B/P Pulse Ox O2 Delivery O2 Flow Rate FiO2 12/12/16 14:21 76 20 152/71 96 Room Air 12/12/16 13:51 80 20 136/66 97 Room Air 12/12/16 13:40 78 20 86/54 97 Room Air 12/12/16 12:28 36.3 83 18 137/73 95 Room Air 12/12/16 11:15 36.9 88 20 171/90 96 Room Air 12/12/16 08:02 36.9 88 18 171/90 96 Room Air 12/12/16 08:00 Room Air 12/12/16 04:08 36.8 87 18 193/102 95 Room Air 146/75 Notes Mental Status: alert / awake / arousable, participated in evaluation Pt Amnestic to Procedure: Yes Nausea / Vomiting: adequately controlled Pain: adequately controlled Airway Patency, RR, SpO2: stable & adequate BP & HR: stable & adequate Hydration State: stable & adequate Anesthetic Complications: no major complications apparent
--- NOTE | 2016-12-12 16:12 | Pharmacy Progress Note ---
Glycemic Control Intl Consult Date of Service Dec 12, 2016. Scope Glycemic Pharmacist consulted by Dr Chapa on 12/12/16 for glycemic control and to write orders per [facility] inpatient glycemic control protocol Objective Weight (Kilograms): 97.200 Accuchecks BSG (last 24hrs): Test 12/11/16 21:55 12/12/16 07:43 12/12/16 10:27 12/12/16 11:40 Random Glucose 194 mg/dl (70-99) 182 mg/dl (70-99) Bedside Glucose 173 mg/dl (70-99) 155 mg/dl (70-99) Laboratory Data (last 24hrs) Test 12/11/16 21:55 12/12/16 10:27 Anion Gap 11.0 mmol/L 10.0 mmol/L BUN/Creatinine Ratio 16.3 13.4 Blood Urea Nitrogen 12 mg/dl 11 mg/dl Creatinine 0.76 mg/dl 0.80 mg/dl Hemoglobin A1c 6.7 % Potassium Level 4.8 mmol/L 4.7 mmol/L Sodium Level 141 mmol/L 143 mmol/L White Blood Count 10.67 K/uL 11.99 K/uL Red Blood Count 4.11 M/uL 3.86 M/uL Hemoglobin 13.2 g/dL 12.1 g/dL Hematocrit 38.0 % 35.1 % Mean Corpuscular Volume 92.5 fL 90.9 fL Mean Corpuscular Hemoglobin 32.1 pg 31.3 pg Mean Corpuscular Hemoglobin Concent 34.7 g/dl 34.5 g/dl Platelet Count 166 K/uL 166 K/uL Mean Platelet Volume 12.1 fL 11.4 fL Neutrophils (%) (Auto) 86.0 % 78.6 % Lymphocytes (%) (Auto) 9.6 % 14.0 % Monocytes (%) (Auto) 3.7 % 6.8 % Eosinophils (%) (Auto) 0.2 % 0.1 % Basophils (%) (Auto) 0.3 % 0.2 % Neutrophils # (Auto) 9.19 K/uL 9.44 K/uL Lymphocytes # (Auto) 1.02 K/uL 1.68 K/uL Monocytes # (Auto) 0.39 K/uL 0.81 K/uL Eosinophils # (Auto) 0.02 K/uL 0.01 K/uL Basophils # (Auto) 0.03 K/uL 0.02 K/uL HbA1c Test 12/11/16 21:55 Hemoglobin A1c 6.7 % (4.5-5.6) H Recent Pertinent Medications Outpatient Anti-diabetic Regimen: * Glipizide 2.5 mg qam, 5 mg qpm, metformin 1 Gm bid * A1c = 6.7% 12/11/16 The patient is currently receiving: * Basal insulin: none * Correctional Insulin: Novolog Correction per scale ACHS Goal Range: Low 120 mg/dL - High 160 mg/dL Correction Factor: 25 mg/dL/unit * Prandial insulin: Per carb ratio of 1 unit per 8 grams CHO consumed * Oral Agents: none Risk Factors for Insulin Resistance: * Steroids: no * Infection: cellulitis, on Rocephin * Pressors: no * IVF: 1/2NS +KCl @ 125 ml/hr, Protonix drip mixed in D5W * Recent Surgery: EGD today * Diet: npo * Mechanical Ventilation: Assessment & Plan ASSESSMENT: * ADA & AACE recommend a goal blood sugar range 140-180 mg/dl for the majority of critically ill & non-critically ill patients. However, more stringent targets may be selected in individual cases. * 60 yo type 2 diabetic , well-controlled on oral meds (A1c 6.7%). Now with continuing foot infection and hematemesis. S/P EGD today.Will start weight- based Novolog coverage and reassess in am. PLAN FOR INPATIENT GLYCEMIC CONTROL: * Holding outpatient oral diabetes medications * No basal insulin at this time * Correctional Insulin with NOVOLOG per scale ACHS or Q6hrs while NPO * Goal Range: Low 120 mg/dL - High 160 mg/dL * Correction Factor: 25 mg/dL/unit * Nutritional / Prandial insulin per carb ratio of 1 unit per 8 grams CHO consumed * Please note that the plan above was derived based on current level of insulin resistance and hospital stress. These recommendations are appropriate for inpatient admission only. Plan of care upon discharge will need to be reassessed to avoid potential outpatient hypo/hyperglycemia. Thank you.
[2016-12-12] MEDS ORDERED: METFORMIN HCL 500 MG TABCR PO SCH (17:00)
[2016-12-12] MEDS ORDERED: OXYCODONE/ACETAMINOPHEN 5-325 TAB PO PRN (17:00)
[2016-12-12] MEDS: PROPRANOLOL HCL 20 MG TAB PO SCH (20:35)
[2016-12-12] MEDS: CEPHALEXIN MONOHYDRATE 500 MG CAP PO SCH (20:38)
[2016-12-12] MEDS: PANTOprazole SOD 40 MG TAB PO SCH (20:39)
[2016-12-12] MEDS: GABAPENTIN 100 MG CAP PO SCH (20:39)
[2016-12-12] MEDS ORDERED: INSULIN ASPART 100 UNITS/ML 3 ML PEN SC SCH (21:00)
[2016-12-12] MEDS ORDERED: ATORVASTATIN 20 MG TAB PO SCH (21:00)
[2016-12-13 07:27] VITALS: BP 143/83; PULSE 61; TEMP 36.6; O2SAT 92
[2016-12-13] MEDS: PROPRANOLOL HCL 20 MG TAB PO SCH (07:34)
[2016-12-13] MEDS: CEPHALEXIN MONOHYDRATE 500 MG CAP PO SCH ×2 (07:35→13:19)
[2016-12-13] MEDS: GABAPENTIN 100 MG CAP PO SCH ×2 (07:35→13:19)
[2016-12-13] MEDS: PANTOprazole SOD 40 MG TAB PO SCH (07:35)
[2016-12-13 07:52] LABS: BASO % 1.1 %; BASO ABS # 0.08 K/uL (0-0.2); COMPLETE YES; EOS % 1.1 %; HEMATOCRIT 33.8 % (42-52); IG% 0.1 %; LYMPH % 33.9 %; LYMPH ABS # 2.42 K/uL (1.2-3.4); MEAN CELL VOLUME 91.6 fL (80-100); MEAN CORPUSCULAR HEMOGLOBIN 31.7 pg (25-34); MEAN CORPUSCULAR HGB CONC 34.6 g/dl (32-36); MEAN PLATELET VOLUME 11.6 fL (7.4-10.4); MONO % 8.8 %; PLATELET COUNT 152 K/uL (130-400); RED BLOOD COUNT 3.69 M/uL (4.7-6.1); WHITE BLOOD COUNT 7.14 K/uL (4.8-10.8)
[2016-12-13 08:23] LABS: BUN/CREATININE RATIO 11.7 (10-20); CALCIUM 9.2 mg/dl (8.5-10.1); CREATININE 0.7 mg/dl (0.60-1.40); POTASSIUM 3.8 mmol/L (3.5-5.1)
[2016-12-13] MEDS: INSULIN ASPART 100 UNITS/ML 3 ML PEN SC SCH ×2 (08:26→12:03)
[2016-12-13] MEDS ORDERED: ASPIRIN 81 MG ECTAB PO SCH (09:00)
[2016-12-13] MEDS ORDERED: LISINOPRIL 2.5 MG TAB PO SCH (09:00)
[2016-12-13] MEDS ORDERED: CYANOCOBALAMIN 500 MCG TAB (VIT B-12) PO SCH (09:00)
--- NOTE | 2016-12-13 09:42 | Gastroenterology Progress Note ---
Progress Note Date of Service: Dec 13, 2016 Subjective Pt evaluation today including: conversation w/ patient, physical exam, lab review, review of inpatient medication list Patient reports feeling well. He has had complete resolution of symptoms of n/v and hematemesis. EGD performed yesterday with findings of small hiatus hernia and gastritis. No potential source of bleeding. Continues Protonix 40 mg BID. Patient verbalizes readiness for discharge. Review of Systems Constitutional: No problem reported Respiratory: No problem reported Cardiac: No problem reported Abdomen: + see HPI Medications Current Inpatient Medications Medications (Trade) Dose Ordered Sig/Isael Route Start Time Stop Time Status Last Admin Dose Admin Ioversol (Optiray 320) 100 ml UD PRN IV 12/11/16 23:00 12/15/16 22:59 Zolpidem Tartrate (Ambien Tab) 5 mg HSZ PRN PO 12/12/16 00:45 01/11/17 00:44 Ondansetron HCl 4 mg 4 mg Q6H PRN IV 12/12/16 00:45 01/11/17 00:44 Promethazine HCl/ Sodium Chloride (Phenergan Inj/ Nss 50ml) 51 ml @ 204 mls/hr Q6H PRN IV 12/12/16 00:45 01/11/17 00:44 Hydralazine HCl (HydrALAZINE INJ) 10 mg Q6H PRN IV. 12/12/16 01:45 01/11/17 01:44 Miscellaneous Information (Consult Glycemic Management Pharmacy) 1 ea UD PRN N/A 12/12/16 03:15 01/11/17 03:14 Insulin Aspart (novoLOG ASPART) SLIDING SCALE ACHS SC 12/12/16 06:30 01/11/17 06:29 12/13/16 08:26 9 UNITS Glucose (Glucose 40% Gel) 15-30 GRAMS 15 GRAMS... UD PRN PO 12/12/16 03:15 01/11/17 03:14 Glucose (Glucose Chew Tab) 4-8 Tablets 4 Tabl... UD PRN PO 12/12/16 03:15 01/11/17 03:14 Dextrose (Dextrose 50% 50ML Syringe) 25-50ML OF 50% DW IV FOR... UD PRN IV 12/12/16 03:15 01/11/17 03:14 Glucagon (Glucagon Inj) 1 mg UD PRN SQ 12/12/16 03:15 01/11/17 03:14 Pantoprazole Sodium (Protonix Tab) 40 mg BID PO 12/12/16 21:00 01/11/17 20:59 12/13/16 07:35 40 MG Aspirin (Ecotrin Tab) 81 mg QAM PO 12/13/16 09:00 01/12/17 08:59 12/13/16 07:34 81 MG Atorvastatin Calcium (Lipitor Tab) 20 mg HS PO 12/12/16 21:00 01/11/17 20:59 12/12/16 20:39 20 MG Cyanocobalamin (Vitamin B-12 Tab) 1,000 mcg DAILY PO 12/13/16 09:00 01/12/17 08:59 12/13/16 07:35 1,000 MCG Gabapentin (Neurontin Cap) 100 mg TID PO 12/12/16 21:00 01/11/17 20:59 12/13/16 07:35 100 MG Lisinopril (Zestril Tab) 2.5 mg DAILY PO 12/13/16 09:00 01/12/17 08:59 12/13/16 07:35 2.5 MG Oxycodone/ Acetaminophen (Percocet 5-325mg Tab) 1 tab Q4H PRN PO 12/12/16 17:00 12/26/16 16:59 Propranolol HCl (Inderal Tab) 40 mg BID PO 12/12/16 21:00 01/11/17 20:59 12/13/16 07:34 40 MG Cephalexin Monohydrate (Keflex Cap) 500 mg TID PO 12/12/16 21:00 12/22/16 20:59 12/13/16 07:35 500 MG Glucose (Glucose 40% Gel) 15-30 GRAMS 15 GRAMS... UD PRN PO 12/12/16 17:00 01/11/17 16:59 Glucose (Glucose Chew Tab) 4-8 Tablets 4 Tabl... UD PRN PO 12/12/16 17:00 01/11/17 16:59 Dextrose (Dextrose 50% 50ML Syringe) 25-50ML OF 50% DW IV FOR... UD PRN IV 12/12/16 17:00 01/11/17 16:59 Glucagon (Glucagon Inj) 1 mg UD PRN SQ 12/12/16 17:00 01/11/17 16:59 Objective Vital Signs Date Time Temp Pulse Resp B/P Pulse Ox O2 Delivery O2 Flow Rate FiO2 12/13/16 08:00 Room Air 12/13/16 07:27 36.6 61 20 143/83 92 12/13/16 00:00 Room Air 12/12/16 23:33 36.6 97 17 134/70 94 Room Air 12/12/16 20:37 74 144/85 12/12/16 15:50 97 Room Air 12/12/16 15:35 36.6 74 20 137/79 97 Room Air 12/12/16 14:36 36.6 87 20 146/82 94 Room Air 12/12/16 14:21 76 20 152/71 96 Room Air 12/12/16 13:51 80 20 136/66 97 Room Air 12/12/16 13:40 78 20 86/54 97 Room Air 12/12/16 12:28 36.3 83 18 137/73 95 Room Air 12/12/16 11:15 36.9 88 20 171/90 96 Room Air Physical Exam General Appearance: no apparent distress Eyes: EOMI ENT: hearing grossly normal Neck: supple Respiratory/Chest: lungs clear, normal breath sounds, no respiratory distress Cardiovascular: regular rate, rhythm, no gallop, no murmur Abdomen: normal bowel sounds, non tender, soft Neurologic/Psych: alert, normal mood/affect, oriented x 3 Laboratory Results Last 24 Hours Test 12/12/16 10:27 12/12/16 11:40 12/13/16 07:03 White Blood Count 11.99 K/uL 7.14 K/uL Red Blood Count 3.86 M/uL 3.69 M/uL Hemoglobin 12.1 g/dL 11.7 g/dL Hematocrit 35.1 % 33.8 % Mean Corpuscular Volume 90.9 fL 91.6 fL Mean Corpuscular Hemoglobin 31.3 pg 31.7 pg Mean Corpuscular Hemoglobin Concent 34.5 g/dl 34.6 g/dl Platelet Count 166 K/uL 152 K/uL Mean Platelet Volume 11.4 fL 11.6 fL Neutrophils (%) (Auto) 78.6 % 55.0 % Lymphocytes (%) (Auto) 14.0 % 33.9 % Monocytes (%) (Auto) 6.8 % 8.8 % Eosinophils (%) (Auto) 0.1 % 1.1 % Basophils (%) (Auto) 0.2 % 1.1 % Neutrophils # (Auto) 9.44 K/uL 3.92 K/uL Lymphocytes # (Auto) 1.68 K/uL 2.42 K/uL Monocytes # (Auto) 0.81 K/uL 0.63 K/uL Eosinophils # (Auto) 0.01 K/uL 0.08 K/uL Basophils # (Auto) 0.02 K/uL 0.08 K/uL RDW Standard Deviation 41.2 fL 42.2 fL RDW Coefficient of Variation 12.4 % 12.6 % Immature Granulocyte % (Auto) 0.3 % 0.1 % Immature Granulocyte # (Auto) 0.03 K/uL 0.01 K/uL Sodium Level 143 mmol/L 145 mmol/L Potassium Level 4.7 mmol/L 3.8 mmol/L Chloride Level 107 mmol/L 110 mmol/L Carbon Dioxide Level 26 mmol/L 24 mmol/L Anion Gap 10.0 mmol/L 11.0 mmol/L Blood Urea Nitrogen 11 mg/dl 8 mg/dl Creatinine 0.80 mg/dl 0.70 mg/dl Est Creatinine Clear Calc Drug Dose 120.6 ml/min 137.8 ml/min Estimated GFR () 112.5 118.9 Estimated GFR (Non- 97.1 102.6 BUN/Creatinine Ratio 13.4 11.7 Random Glucose 182 mg/dl 130 mg/dl Calcium Level 8.7 mg/dl 9.2 mg/dl Bedside Glucose 155 mg/dl Assessment and Plan Patient is a 60 year old male with a history of diabetes with complications of left foot ulceration status post debridement at [facility] presenting with nausea and vomiting as well as hematemesis (now resolved) after initiating opioid analgesic therapy with findings of gastritis on EGD yesterday. 1. Continue Protonix 40 mg po BID. 2. Diabetic diet as tolerated. 3. Stable for discharge from GI standpoint if cleared by primary team. Patient discharged prior to my evaluation.
--- NOTE | 2016-12-13 11:49 | Discharge Instructions ---
Discharge Instructions Admission Reason for Admission: Hematemesis (See Pinon MD) Discharge Discharge Diagnosis / Problem: Gastritis (See Pinon MD) Discharge Goals Goal(s): Decrease discomfort, Improve function, Increase independence, Improve disease control, Improve nutritional status, Learn about illness, Diagnostic testing, Therapeutic intervention, Screening, Prevent Disease Progression (See Pinon MD) Activity Recommendations Activity Limitations: per Instructions/Follow-up section . (See Pinon MD) Instructions / Follow-Up Instructions / Follow-Up 1.Followup with Gastroenterology for Biopsy results from Endoscopy 2. Take Protonix (Pantoprazole) 40 mg orally twice a day 3. Followup with primary care doctor 4. Continue to take Antibiotics (Keflex) as prescribed (See Pinon MD) Current Hospital Diet Patient's current hospital diet: Diabetes Type 2 Diet (See Pinon MD) Discharge Diet Recommended Diet: Diabetes Type 2 Diet (See Pinon MD) Procedures Procedures Performed: EGD WITH BIOPSY (See Pinon MD) Pending Studies Studies pending at discharge: yes List of pending studies: Gastric Biopsy Pathology (See Pinon MD) Laboratory Results Hemoglobin A1c Test 12/11/16 21:55 Range/Units Estimated Average Glucose 146 mg/dl Hemoglobin A1c 6.7 H 4.5-5.6 % Lipid Panel Test 09/17/16 07:37 Range/Units Triglycerides Level 194 H 0-150 mg/dl Cholesterol Level 205 H 0-200 mg/dl HDL Cholesterol 56 mg/dl Cholesterol/HDL Ratio 3.7 LDL Cholesterol, Calculated 110 mg/dl (See Pinon MD) Medical Emergencies . Who to Call and When: Medical Emergencies: If at any time you feel your situation is an emergency, please call 911 immediately. . (See Pinon MD) Non-Emergent Contact Non-Emergency issues call your: Primary Care Provider, Tobacco Drying Machine Operator Call Non-Emergent contact if: you have a fever, your pain is not controlled, your pain is worsening, your pain is concerning you . (See Pinon MD) . "Provider Documentation" section prepared by See Pinon. (See Pinon MD) VTE Core Measure Inpt VTE Proph given/why not?: SCD's, Contraindicated (Hematemesis) (See Pinon MD)
[2016-12-13] MEDS ORDERED: PRT40 PO (13:42)
[2016-12-13 13:54] VITALS: BP 143/83; PULSE 61; TEMP 36.6; O2SAT 92
--- NOTE | 2016-12-13 21:24 | Discharge Summary ---
Discharge Summary Admission Date: Dec 12, 2016 at 00:39 Discharge Date: Dec 13, 2016 Discharge Disposition: Home Principal Diagnosis: Hematemesis Problems/Secondary Diagnoses: gatritis Immunizations: Have You Had Influenza Vaccine: N/A History of Tetanus Vaccine?: Yes Tetanus Immunization Date: April 19, 2011 History of Pneumococcal: Yes Pneumococcal Date: Mar 05, 2007 History of Hepatitis B Vaccine: No Procedures: EGD - Normal esophagus. - Small hiatus hernia. - Gastritis. Biopsied. Normal examined duodenum. Bx Pathology FINAL DIAGNOSIS STOMACH, ANTRUM, BIOPSY: 1. CHRONIC GASTRITIS WITH SOME FEATURES OF LYMPHOCYTIC GASTRITIS. 2. MILD ACTIVITY (ACUTE INFLAMMATION) PRESENT. 3. IMMUNOSTAIN FOR HELICOBACTER PYLORI: NEGATIVE. Consultations: Gastroenterology (See Pinon MD) Medication Reconciliation New Medications: Pantoprazole (Pantoprazole Sodium) 40 Mg Tab 40 MG PO BID for 14 Days, #28 TAB Continued Medications: Aspirin (Aspirin Ec) 81 Mg Tab 81 MG PO QAM Atorvastatin (Lipitor) 20 Mg Tab 20 MG PO HS, TAB Cephalexin (Keflex) 500 Mg Cap 1 CAP PO TID for 7 Days, #21 CAP Cholecalciferol (Vitamin D3) 2,000 Unit Cap 1 CAP PO DAILY for 90 Days Cyanocobalamin (Vitamin B-12) 1,000 Mcg Tab 1000 MCG PO DAILY, TAB Gabapentin (Neurontin) 100 Mg Cap 100 MG PO TID, CAP CAN TAKE UP TO THREE TIMES DAILY Glipizide (Glucotrol) 5 Mg Tab 5 MG PO QPM, TAB Glipizide (Glucotrol) 5 Mg Tab 2.5 MG PO QAM, TAB Lisinopril (Zestril) 2.5 Mg Tab 2.5 MG PO DAILY Metformin Hcl (Glucophage Ext Rel) 1,000 Mg Tab 1000 MG PO BIDM, TAB Propranolol (Inderal) 20 Mg Tab 40 MG PO BID, TAB Discontinued Medications: Oxycodone/Acetaminophen 5MG/325MG (Percocet 5MG/325MG) Tab 1-2 TABLETS PO Q4H PRN for Pain, #30 TAB Discharge Exam Review of Systems: Constitutional: No chills, No fever Respiratory: No cough, No shortness of breath Cardiovascular: No chest pain, No edema, No palpitations Abdomen: No constipation, No diarrhea, No nausea, No pain, No vomiting Genitourinary - Male: No urinary frequency, No urinary urgency Integumentary: No itch, No rash Physical Exam: General Appearance: WD/WN, no apparent distress Eyes: PERRL, EOMI Neck: supple, trachea midline Respiratory/Chest: lungs clear, normal breath sounds, no respiratory distress Cardiovascular: regular rate, rhythm, no murmur Abdomen / GI: normal bowel sounds, non tender, soft Extremities: normal inspection, no calf tenderness Neurologic/Psychiatric: alert, normal mood/affect Skin: normal color, warm/dry (See Pinon MD) Hospital Course 60 yo M w/ hx of diabetic foot ulcer s/p left foot wound debridement ( 12/10) at [facility], on keflex prior to arrival, p/w (12/11/16) N/v with blood. Pt was stable, afebrile. White ct normal. H/H 13.2/38. Pt received IV fluids, Zofran, Phenergan. Pt was admitted, GI consulted.No acute intra- abdominal findings per CT Abdomen. Pt sent for EGD which showed Gatritis. Final Pathological dx showed CHRONIC GASTRITIS WITH SOME FEATURES OF LYMPHOCYTIC GASTRITIS. Pt discharged 12/13 with Followup with Gastroenterology on Protonix ( Pantoprazole) 40 mg orally twice a day with Followup to primary care doctor and Gastroenterology Dr. Saldana Total Time Spent: Less than 30 minutes This includes examination of the patient, discharge planning, medication reconciliation, and communication with other providers. (See Pinon MD) Discharge Instructions Please refer to the electronic Patient Visit Report (Discharge Instructions) for additional information. (See Pinon MD) Follow-Up Dr. Saldana, Gastroenterolgy, 1-2 wks Primary care Provider (See Pinon MD) Additional Copies To Mila Dean C.[email or web address] Resident Tracking Resident Involvement: Resident Care Provided Care Provided: Adult Hospital Medicine (See Pinon MD) Reviewed: Pt Seen/Exam by Me, HO Notes, Labs (Bharti Weheler MD) History Resident Physician Supervision Note: I interviewed and examined the patient. Discussed with Dr. Pinon and agree with findings and plan as documented in the note. Any exceptions or clarifications are listed here: Doing very well. Neto diabetic diet the day after EGD and no more N/V, no more hematemesis which was quite scant to begin with on admisison. Pt thinks it was from the oxycodone he took post-op. Foot feels fine, no pain, no CP/SOB/Abd pain. Vitals reviewed, BP improved CV RRR no mgr Pulm ctab no wcr Abd +BS, soft NT ND Left foot in large wrap with ANDI and not to be removed as per pt by direction of his Surgeon until Dec 25. A/p: 60 yo male with intractable N/V and very scant hematemesis, found to have mild gastritis on EGD. H/H fairly stable, was 11.7 on day of duscharge which was somewhat hemodiluted from IVFs received. Continue PPI bid Plan for dc to home today F/U as scheduled with surgeon at [facility] for foot surgery and remain on keflex as per Surgeon Documented By: Bharti Wheeler (Bharti Wheeler MD)
[2016-12-31] MEDS ORDERED: AMOX500T PO (10:28)
[2017-01-04] MEDS ORDERED: AMOX400C PO (10:16)
== END 2016-12-13 14:40 | disposition home or self-care (01) | DRG 379 ==
LOC: ENRESERVTM → ENRESERVDT → C.EDB 21:06 → C.MS2W 12-12 00:39
PROVIDERS: ADMIT Internal Medicine; ATTEND Family Medicine
PROC: 0DB68ZX Excision of Stomach, Via Natural or Artificial Opening Endoscopic, Diagnostic (ICD-10-PCS; principal; 2016-12-12 12:25)
DX: K92.0 Hematemesis (principal); K29.50 Unspecified chronic gastritis without bleeding; I10 Essential (primary) hypertension; E66.9 Obesity, unspecified; D64.9 Anemia, unspecified; E78.5 Hyperlipidemia, unspecified; K44.9 Diaphragmatic hernia without obstruction or gangrene; R25.1 Tremor, unspecified; N53.9 Unspecified male sexual dysfunction; E11.42 Type 2 diabetes mellitus with diabetic polyneuropathy; K29.60 Other gastritis without bleeding; Z87.2 Personal history of diseases of the skin and subcutaneous tissue; Z87.39 Personal history of other diseases of the musculoskeletal system and connective tissue; Z86.14 Personal history of Methicillin resistant Staphylococcus aureus infection; Z89.439 Acquired absence of unspecified foot; Z86.31 Personal history of diabetic foot ulcer; Z79.82 Long term (current) use of aspirin; Z79.84 Long term (current) use of oral hypoglycemic drugs; Z79.899 Other long term (current) drug therapy; Z79.891 Long term (current) use of opiate analgesic

== ENCOUNTER → 2017-01-09 | Outpatient (CLI) | payer BC ==
[~2017-01-09] MED LIST changes: +AMOX400C PO; -CEPH-571 PO; +CHOL2000 PO; +CIPR1TAB11 PO; +CYAN10005 PO; -GLC500 PO; +LISI-789 PO; -LSN25 PO; +METF1TAB53 PO; -OXYC-57 PO; +PRT40 PO
[2017-01-09 12:55] LABS: HEMATOCRIT 37.2 % (42-52); MEAN CELL VOLUME 92.5 fL (80-100); MEAN CORPUSCULAR HEMOGLOBIN 31.3 pg (25-34); MEAN CORPUSCULAR HGB CONC 33.9 g/dl (32-36); MEAN PLATELET VOLUME 11.8 fL (7.4-10.4); PLATELET COUNT 178 K/uL (130-400); RED BLOOD COUNT 4.02 M/uL (4.7-6.1); WHITE BLOOD COUNT 7.85 K/uL (4.8-10.8)
--- NOTE | 2017-02-13 05:56 | CODING QUERY NO DIAGNOSIS ---
TREATMENT RENDERED WITHOUT A DIAGNOSIS To promote full compliance with coding requirements relating to patient care, physician participation is requested in all cases of braille coder uncertainty. Please assist us with providing a diagnosis/symptom for the test(s) below: A diagnosis/symptom was not documented on your Order. A valid diagnosis/symptom is required to bill all insurances. Please remember that we are unable to code a diagnosis of rule out, probable, possible, questionable, or suspected. Tests that require a diagnosis: * CBC W/O DIFF DIAGNOSIS: * ERYTHROCYTE SEDIMENTATION RATE DIAGNOSIS: * C-REACTIVE PROTEIN DIAGNOSIS: Provider Signature: Date: Thank you [place] [email or web address] Information Management Once completed, please kindly fax back to [phone] For questions please call [phone]
== END | disposition home or self-care (01) ==
LOC: C.LABBFT 08:17
PROVIDERS: ATTEND Student in an Organized Health Care Education/Training Program
DX: Z00.00 Encounter for general adult medical examination without abnormal findings (principal)

== ENCOUNTER → 2017-03-20 | Outpatient (CLI) | payer BC ==
[2017-03-20 12:48] LABS: ALT/SGPT 16 U/L (12-78); BLOOD UREA NITROGEN 13 mg/dl (7-18); CARBON DIOXIDE 29 mmol/L (21-32); CHLORIDE 107 mmol/L (98-107); CHOLESTEROL 194 mg/dl (0-200); CREATININE 0.71 mg/dl (0.60-1.40); GLUCOSE 123 mg/dl (70-99); POTASSIUM 4.7 mmol/L (3.5-5.1); SODIUM 143 mmol/L (136-145)
[2017-03-20 12:50] LABS: ESTIMATED AVERAGE GLUCOSE 134 mg/dl; HA1C FLAG Normal (Normal)
[2017-03-20 12:52] LABS: ALB/GLOB RATIO 1.1 (0.9-2); ALKALINE PHOSPHATASE 92 U/L (45-117); AST/SGOT 9 U/L (15-37); CHOLESTEROL/HDL RATIO 3.8; HDL CHOLESTEROL 51 mg/dl; LDL CHOLESTEROL CALCULATED 106 mg/dl; TRIGLYCERIDES 187 mg/dl (0-150); VERY LOW DENSITY LIPOPROT CALC 37 mg/dl
[2017-03-20 13:03] LABS: CALCIUM 9.6 mg/dl (8.5-10.1)
== END | disposition home or self-care (01) ==
LOC: C.LABBFT 07:36
PROVIDERS: ATTEND Nurse Practitioner
DX: Z12.5 Encounter for screening for malignant neoplasm of prostate (principal); E11.49 Type 2 diabetes mellitus with other diabetic neurological complication

== ENCOUNTER → 2017-04-01 | Outpatient (CLI) | payer BC ==
--- NOTE | 2017-04-01 11:45 | DIAGNOSTIC IMAGING REPORT ---
RIGHT FOOT MIN 3 VIEWS ROUTINE CLINICAL HISTORY: Right foot pain and deformity. Hallux rigidus. COMPARISON: Right foot radiograph November 30, 2010. FINDINGS: Tarsometatarsal joints are intact. Hallux valgus deformity is noted. This is increased since exam of November 30, 2010. Moderate joint space narrowing with extensive osteophytosis of the right first metatarsophalangeal joint has progressed. This reflects severe osteoarthritis. Extensive vascular calcification is present. There is chronic deformity of the second, third and fourth toes which makes evaluation difficult. IMPRESSION: 1. 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 These findings have significantly progressed since exam of November 30, 2010. 2. No acute fracture or dislocation of the right foot. 3. Deformity of the second, third and fourth toes which is chronic but make evaluation difficult. Electronically signed by: Gurmeet Galindo M.D. 04/01/2017 11:43 AM Dictated Date/Time: 04/01/2017 11:40 AM
== END | disposition home or self-care (01) ==
LOC: C.RAD1850 11:01
PROVIDERS: ATTEND Student in an Organized Health Care Education/Training Program
DX: Z09 Encounter for follow-up examination after completed treatment for conditions other than malignant neoplasm (principal); M20.22 Hallux rigidus, left foot; M79.671 Pain in right foot

== ENCOUNTER → 2017-04-04 | Outpatient (CLI) | payer BC ==
--- NOTE | 2017-04-04 11:04 | DIAGNOSTIC IMAGING REPORT ---
LEFT FOOT MIN 3 VIEWS ROUTINE CLINICAL HISTORY: Left foot infection. History of surgery March 14, 2017 COMPARISON: 06/08/2016 DISCUSSION: There are no acute fractures. The bones are osteopenic. There are vascular calcifications present. There is an amputation the fourth toe at the level of the proximal phalanx. Postsurgical changes involve the second and third metatarsal heads. There are postsurgical changes of a first metatarsal bunionectomy and first metatarsal phalangeal joint fusion with a dorsal metallic plate and multiple screws. There is no evidence of bony fusion. There is possible loosening of the hardware at the level of the proximal phalanx. There is no conventional radiographic evidence of osteomyelitis. IMPRESSION: 1. No acute fractures 2. Postsurgical changes as described above 3. Possible loosening of the first digit hardware at the level of the proximal phalanx. 4. No conventional radiographic evidence of osteomyelitis. Electronically signed by: Lion Elam M.D. 04/04/2017 11:03 AM Dictated Date/Time: 04/04/2017 11:00 AM
== END | disposition home or self-care (01) ==
LOC: C.RAD1850 10:40
PROVIDERS: ATTEND Nurse Practitioner
DX: L08.9 Local infection of the skin and subcutaneous tissue, unspecified (principal)

== ENCOUNTER 2017-10-12 13:58 | Emergency (ER) | payer BC ==
[~2017-10-12] VITALS: Ht 185.4 cm; Wt 98.0 kg
[~2017-10-12 13:58] MED LIST changes: -AMOX400C PO; -CIPR1TAB11 PO; -PRT40 PO
[2017-10-12 14:01] VITALS: TEMP 36.6; Ht 185.4 cm; Wt 98.0 kg
[2017-10-12] MEDS ORDERED: SODIUM CHLORIDE 0.9% 500ML 500 ML IV STA (14:23)
[2017-10-12] MEDS ORDERED: ONDANSETRON 8 MG/54 ML D5W IV STA (14:23)
[2017-10-12 14:30] LABS: BASO % 0.7 %; BASO ABS # 0.08 K/uL (0-0.2); COMPLETE YES; EOS % 2.1 %; HEMATOCRIT 39.6 % (42-52); IG% 0.3 %; LYMPH % 12.9 %; LYMPH ABS # 1.56 K/uL (1.2-3.4); MEAN CELL VOLUME 93.8 fL (80-100); MEAN CORPUSCULAR HEMOGLOBIN 31.3 pg (25-34); MEAN CORPUSCULAR HGB CONC 33.3 g/dl (32-36); MEAN PLATELET VOLUME 10.9 fL (7.4-10.4); MONO % 2.9 %; NEUT % 81.1 %; PLATELET COUNT 190 K/uL (130-400); RED BLOOD COUNT 4.22 M/uL (4.7-6.1); WHITE BLOOD COUNT 12.11 K/uL (4.8-10.8)
[2017-10-12] MEDS ORDERED: ONDANSETRON INJ 8 MG in DEXTROSE 5% 50ML 50 ML IV ONE (14:45)
[2017-10-12 14:49] LABS: BUN/CREATININE RATIO 14.7 (10-20); CALCIUM 9.4 mg/dl (8.5-10.1); CREATININE 0.86 mg/dl (0.60-1.40); POTASSIUM 4.4 mmol/L (3.5-5.1)
[2017-10-12 14:57] LABS: URINE APPEARANCE CLEAR (CLEAR); URINE BILIRUBIN NEG (NEG); URINE COLOR YELLOW; URINE NITRITE NEG (NEG); URINE SPECIFIC GRAVITY 1.018 (1.000-1.030); UROBILINOGEN NEG (NEG); ZZUR CULT IF INDIC CLEAN CATCH NO
[2017-10-12 14:58] LABS: REVIEW REQ? NO
[2017-10-12 14:59] LABS: MANUAL MICROSCOPIC REQUIRED? NO
[2017-10-12] MEDS ORDERED: METOCLOPRAMIDE HCL INJ 5 MG/ML 2 ML VIAL IV STA (15:00)
[2017-10-12] MEDS ORDERED: DiphenhydrAMINE HCL 50 MG/ML VIAL IV STA (15:00)
[2017-10-12] MEDS ORDERED: ONDANSETRON HOME PACK 4MG OD TAB PO ONE (17:00)
[2017-10-12 17:10] VITALS: BP 145/83; PULSE 67; O2SAT 97
--- NOTE | 2017-10-12 18:11 | EMERGENCY ROOM VISIT NOTE ---
History Report prepared by Allie: Dacia Stubbs Under the Supervision of: Dr. Alfie Ivory M.D. First contact with patient: 14:09 Chief Complaint: VOMITING Stated Complaint: VOMITING FOR 2 HOURS PT IS DIABETIC Nursing Triage Summary: triage note: pt reports nausea and vomitting since this am. History of Present Illness The patient is a 61 year old male who presents to the Emergency Room with complaints of episodes of vomiting beginning 3 hours ago. The patient denies any sick contact. His blood sugar this morning was 124. The patient has a history of diabetes. The patient has no history of abdominal surgeries. He was released yesterday from wound clinic for his foot. Pt denies LOC, headache, fevers, chills, diaphoresis, visual changes, neck pain , chest pain, breathing difficulties, abdominal pain, back pain, melena, hematochezia, urinary symptoms, numbness, weakness, lymphadenopathy, rash, or other complaints. Source of History: patient Onset: 3 hours ago Position: other (generalized) Quality: other (vomiting) Timing: other (episode) Associated Symptoms: + nausea, + vomiting Review of Systems See HPI for pertinent positives and negatives. A total of ten systems were reviewed and were otherwise negative. Past Medical & Surgical Medical Problems: (1) Diabetes (2) Diabetic peripheral neuropathy associated with type 2 diabetes mellitus (3) Hematemesis (4) History of diabetic ulcer of foot (5) Loss of sensation (6) Osteomyelitis (7) Staph infection (8) Status post partial amputation of foot Family History Patient reports no known family medical history. Social History Smoking Status: Never Smoker Alcohol Use: other Drug Use: none Marital Status: , in relationship Occupation Status: disabled Current/Historical Medications Scheduled Aspirin (Aspirin Ec), 81 MG PO QAM Atorvastatin (Lipitor), 20 MG PO HS Cholecalciferol (Vitamin D3), 1 CAP PO DAILY Cyanocobalamin (Vitamin B-12), 1,000 MCG PO DAILY Gabapentin (Neurontin), 100 MG PO TID Glipizide (Glucotrol), 5 MG PO QPM Glipizide (Glucotrol), 2.5 MG PO QAM Lisinopril (Zestril), 2.5 MG PO DAILY Metformin Hcl (Glucophage Ext Rel), 1,000 MG PO BIDM Propranolol (Inderal), 40 MG PO BID Allergies Coded Allergies: Sulfamethoxazole w/Trimethoprim (Verified Adverse Reaction, Unknown, nausea, 10/12/17) Physical Exam Vital Signs Date Time Temp Pulse Resp B/P (MAP) Pulse Ox O2 Delivery O2 Flow Rate FiO2 10/12/17 17:10 67 18 145/83 97 10/12/17 16:02 69 18 165/74 97 Room Air 10/12/17 15:05 62 10/12/17 14:01 36.6 58 20 188/83 97 Room Air Physical Exam GENERAL: Awake, alert, mildly ill-appearing, in no distress HENT: Normocephalic, atraumatic. Oropharynx unremarkable. EYES: Normal conjunctiva. Sclera non-icteric. NECK: Supple. No nuchal rigidity. FROM. No JVD. RESPIRATORY: Clear to auscultation. CARDIAC: Regular rate, normal rhythm. Extremities warm and well perfused. Pulses equal. ABDOMEN: Soft, non-distended. No tenderness to palpation. No rebound or guarding. No masses. RECTAL: Deferred. MUSCULOSKELETAL: Chest examination reveals no tenderness. The back is symmetrical on inspection without obvious abnormality. There is no CVA tenderness to palpation. No joint edema. LOWER EXTREMITIES: Calves are equal size bilaterally and non-tender. No edema. No discoloration. NEURO: Normal sensorium. No sensory or motor deficits noted. SKIN: No rash or jaundice noted. Medical Decision & Procedures Laboratory Results 10/12/17 14:21 Red Blood Count 4.22, Mean Corpuscular Volume 93.8, Mean Corpuscular Hemoglobin 31.3, Mean Corpuscular Hemoglobin Concent 33.3, Mean Platelet Volume 10.9, Neutrophils (%) (Auto) 81.1, Lymphocytes (%) (Auto) 12.9, Monocytes (%) (Auto) 2.9, Eosinophils (%) (Auto) 2.1, Basophils (%) (Auto) 0.7, Neutrophils # (Auto) 9.82, Lymphocytes # (Auto) 1.56, Monocytes # (Auto) 0.35, Eosinophils # (Auto) 0.26, Basophils # (Auto) 0.08 10/12/17 14:21 Test 10/12/17 14:21 10/12/17 14:36 10/12/17 16:46 White Blood Count 12.11 K/uL (4.8-10.8) Red Blood Count 4.22 M/uL (4.7-6.1) Hemoglobin 13.2 g/dL (14.0-18.0) Hematocrit 39.6 % (42-52) Mean Corpuscular Volume 93.8 fL (80-100) Mean Corpuscular Hemoglobin 31.3 pg (25-34) Mean Corpuscular Hemoglobin Concent 33.3 g/dl (32-36) Platelet Count 190 K/uL (130-400) Mean Platelet Volume 10.9 fL (7.4-10.4) Neutrophils (%) (Auto) 81.1 % Lymphocytes (%) (Auto) 12.9 % Monocytes (%) (Auto) 2.9 % Eosinophils (%) (Auto) 2.1 % Basophils (%) (Auto) 0.7 % Neutrophils # (Auto) 9.82 K/uL (1.4-6.5) Lymphocytes # (Auto) 1.56 K/uL (1.2-3.4) Monocytes # (Auto) 0.35 K/uL (0.11-0.59) Eosinophils # (Auto) 0.26 K/uL (0-0.5) Basophils # (Auto) 0.08 K/uL (0-0.2) RDW Standard Deviation 43.2 fL (36.4-46.3) RDW Coefficient of Variation 12.6 % (11.5-14.5) Immature Granulocyte % (Auto) 0.3 % Immature Granulocyte # (Auto) 0.04 K/uL (0.00-0.02) Anion Gap 6.0 mmol/L (3-11) Est Creatinine Clear Calc Drug Dose 111.2 ml/min Estimated GFR () 108.5 Estimated GFR (Non- 93.6 BUN/Creatinine Ratio 14.7 (10-20) Calcium Level 9.4 mg/dl (8.5-10.1) Total Bilirubin 0.7 mg/dl (0.2-1) Direct Bilirubin 0.1 mg/dl (0-0.2) Aspartate Amino Transf (AST/SGOT) 15 U/L (15-37) Alanine Aminotransferase (ALT/SGPT) 18 U/L (12-78) Alkaline Phosphatase 88 U/L (45-117) Total Protein 7.7 gm/dl (6.4-8.2) Albumin 4.0 gm/dl (3.4-5.0) Lipase 201 U/L (73-393) Urine Color YELLOW Urine Appearance CLEAR (CLEAR) Urine pH 5.0 (4.5-7.5) Urine Specific [place] 1.018 (1.000-1.030) Urine Protein NEG (NEG) Urine Glucose (UA) 1+ (NEG) Urine Ketones NEG (NEG) Urine Occult Blood NEG (NEG) Urine Nitrite NEG (NEG) Urine Bilirubin NEG (NEG) Urine Urobilinogen NEG (NEG) Urine Leukocyte Esterase NEG (NEG) Bedside Glucose 153 mg/dl (70-99) Laboratory results reviewed by me Medications Administered Medications (Trade) Dose Ordered Sig/Isael Route Start Time Stop Time Status Last Admin Dose Admin Sodium Chloride 500 ml @ 999 mls/hr Q31M STAT IV 10/12/17 14:23 10/12/17 14:53 DC 10/12/17 14:49 999 MLS/HR Ondansetron HCl 8 mg/Dextrose 54 ml @ 216 mls/hr NOW ONCE IV 10/12/17 14:45 10/12/17 14:59 DC 10/12/17 14:49 216 MLS/HR Metoclopramide HCl (Reglan Inj) 10 mg NOW STAT IV 10/12/17 15:00 10/12/17 15:01 DC 10/12/17 15:07 10 MG Diphenhydramine HCl (Benadryl Inj) 12.5 mg NOW STAT IV 10/12/17 15:00 10/12/17 15:01 DC 10/12/17 15:07 12.5 MG Ondansetron HCl (ZOFRAN ODT 4MG Home Pack) 1 homepack UD ONCE PO 10/12/17 17:00 10/12/17 17:01 DC 10/12/17 17:05 1 HOMEPACK ECG Indication: vomiting Rate (beats per minute): 62 Rhythm: normal sinus Findings: no acute ischemic change, no ectopy ED Course 1422: The patient was evaluated in room B11B. A complete history and physical exam was performed. 1423:Sodium Chloride 500 ml @ 999 mls/hr IV. 1445: Ondansetron HCl 8 mg/Dextrose 54 ml @ 216 mls/hr. 1458:I reevaluated the patient, he is still nauseated. 1500: Benadryl Inj 12.5 mg IV, Reglan Inj 10 mg IV. 1619: The patient is doing well and is resting comfortably. 1653: The patient is feeling much better and was able to keep down crackers and tri brandi. 1700: Ondansetron HCl 1 homepack PO. 1704: I reevaluated the patient. Discussed results and discharge instructions: He verbalized understanding and agreement. The patient is ready for discharge. Medical Decision Triage Nursing notes reviewed. The patient's presentation and history were concerning for vomiting. Etiologies such as food borne illness, infections, obstruction, pancreatitis, appendicitis, diverticulitis, inflammatory bowel disease, gastroenteritis,GI bleed, biliary pathology, toxicologic as well as others were entertained. The patient was evaluated. Clinically looks well. He had a benign abdomen. He had no abdominal pain. The patient had no chest pain. He has been diabetic for about 5-6 years. The patient had an ECG performed and this was unremarkable. His blood work was unremarkable except for a slight leukocytosis. The patient was hydrated. He was given Zofran. He was reassessed and was doing better but still had some slight nausea. He was given a dose of Reglan and Benadryl. He was reassessed and felt much better. She was observed. The patient was given an oral challenge and did very well with this. He had complete resolution of symptoms. The patient has no other complaints and review of systems otherwise completely negative. As he is doing very well and all symptoms have resolved I discussed conservative management with him and family. He will follow-up closely in the outpatient clinic. I'll give him a home pack of Zofran. If he has any recurrent vomiting or other symptoms develop he will come back to the department for reevaluation. I gave my usual and customary discussion regarding this issue. By the evaluation outlined above other emergent etiologies such as those listed in the differential, as well as others, were deemed relatively unlikely. The patient was educated about the findings as listed above. All questions were answered and the patient was pleased with the treatment. Return instructions were outlined and the patient was discharged in stable condition. The patient was referred to his PCP for follow-up for a recheck of the current condition. Blood Pressure Screening Patient's blood pressure: Elevated blood pressure Blood pressure disposition: Referred to PCP Impression Primary Impression: Vomiting Scribe Attestation The scribe's documentation has been prepared under my direction and personally reviewed by me in its entirety. I confirm that the note above accurately reflects all work, treatment, procedures, and medical decision making performed by me. Departure Information Dispostion Home / Self-Care Referrals Mila Dean C.R.N.P. (PCP) Forms HOME CARE DOCUMENTATION FORM, IMPORTANT VISIT INFORMATION Patient Instructions My [facility] Additional Instructions VOMITING INSTRUCTIONS: DO NOT drive, drink alcohol, operate machinery, or perform dangerous activities today. You were given medications in the ER that can affect your ability to safely function or operate a vehicle. Zofran(odansetron) tablets 4mg: Take one and allow it to dissolve in your mouth every four to six hours as needed for nausea or vomiting. Ibuprofen(Motrin, Advil) may be used for fever or pain. Use 600mg every six hours as needed. Take with food. Avoid using more than 2400mg in a 24 hour period. Do not use 2400mg per day for more than three consecutive days without physician direction. Prolonged inappropriate use can lead to stomach upset or ulcers. (AND/OR) Acetaminophen(Tylenol) may be used for fever or pain. Use 1000mg every six hours as needed. Avoid using more than 4000mg in a 24 hour period. Rest and drink plenty of fluids as tolerated. Slow sips of water or sports drinks are recommended instead of large amounts all at once. Continue current medications. Once your stomach is settled start with a clear liquid diet (jello, soup broth, etc.) and then advance as tolerated. You should avoid full, heavy meals for about 24 hrs from the time your symptoms resolved. Return to the ER for persistent vomiting, fevers, abdominal pain, chest pains, difficulty breathing, black or bloody stools, worsening of your condition, or as needed. Follow up with your primary physician in 2-3 days for a recheck of your current condition
== END 2017-10-12 17:11 | disposition home or self-care (01) ==
LOC: C.EDB 13:59
DX: R11.10 Vomiting, unspecified (principal); E11.40 Type 2 diabetes mellitus with diabetic neuropathy, unspecified; Z79.82 Long term (current) use of aspirin; Z79.899 Other long term (current) drug therapy

== ENCOUNTER → 2017-10-16 | Outpatient (CLI) | payer BC ==
[2017-10-16 12:19] LABS: BASO % 1.8 %; BASO ABS # 0.13 K/uL (0-0.2); COMPLETE YES; EOS % 2.5 %; HEMATOCRIT 37.6 % (42-52); IG% 0.3 %; LYMPH ABS # 1.86 K/uL (1.2-3.4); MEAN CELL VOLUME 94.2 fL (80-100); MEAN CORPUSCULAR HEMOGLOBIN 30.8 pg (25-34); MEAN CORPUSCULAR HGB CONC 32.7 g/dl (32-36); MEAN PLATELET VOLUME 11.6 fL (7.4-10.4); MONO % 6.8 %; NEUT % 62.6 %; PLATELET COUNT 176 K/uL (130-400); RED BLOOD COUNT 3.99 M/uL (4.7-6.1); WHITE BLOOD COUNT 7.16 K/uL (4.8-10.8)
== END | disposition home or self-care (01) ==
LOC: C.LABBFT 09:28
PROVIDERS: ATTEND Nurse Practitioner
DX: R11.2 Nausea with vomiting, unspecified (principal)

== ENCOUNTER → 2018-04-07 | Outpatient (CLI) | payer BC ==
[~2018-04-07] MED LIST changes: +GABA100C13 PO; -GABA1CAP PO
[2018-04-07 12:24] LABS: HEMATOCRIT 40.2 % (42-52); HEMOGLOBIN 13.2 g/dL (14.0-18.0); MEAN CELL VOLUME 93.9 fL (80-100); MEAN CORPUSCULAR HEMOGLOBIN 30.8 pg (25-34); MEAN CORPUSCULAR HGB CONC 32.8 g/dl (32-36); MEAN PLATELET VOLUME 11.2 fL (7.4-10.4); PLATELET COUNT 213 K/uL (130-400); RED CELL DISTRIBUTION WIDTH CV 12.7 % (11.5-14.5); RED CELL DISTRIBUTION WIDTH SD 43.6 fL (36.4-46.3); WHITE BLOOD COUNT 9.97 K/uL (4.8-10.8)
[2018-04-07 12:42] LABS: HEMOGLOBIN A1C 7.6 % (4.5-5.6)
[2018-04-07 12:50] LABS: ALBUMIN 3.8 gm/dl (3.4-5.0); ALKALINE PHOSPHATASE 84 U/L (45-117); ALT/SGPT 20 U/L (12-78); AST/SGOT 15 U/L (15-37); BLOOD UREA NITROGEN 18 mg/dl (7-18); CALCIUM 9.2 mg/dl (8.5-10.1); CARBON DIOXIDE 28 mmol/L (21-32); CHOLESTEROL 215 mg/dl (0-200); CREATININE 0.98 mg/dl (0.60-1.40); GLUCOSE 162 mg/dl (70-99); POTASSIUM 4.7 mmol/L (3.5-5.1); SODIUM 140 mmol/L (136-145)
[2018-04-07 13:00] LABS: LDL CHOLESTEROL CALCULATED 122 mg/dl; TOTAL PROTEIN 7.4 gm/dl (6.4-8.2)
== END | disposition home or self-care (01) ==
LOC: C.LABBFT 08:50
PROVIDERS: ATTEND Nurse Practitioner Adult Health
DX: E11.42 Type 2 diabetes mellitus with diabetic polyneuropathy (principal); E78.00 Pure hypercholesterolemia, unspecified; E11.49 Type 2 diabetes mellitus with other diabetic neurological complication; E11.319 Type 2 diabetes mellitus with unspecified diabetic retinopathy without macular edema; Z12.5 Encounter for screening for malignant neoplasm of prostate

== ENCOUNTER 2019-07-29 11:53 | Inpatient (IN) ==
[2019-07-29] MEDS ORDERED: ONDANSETRON INJ 2 MG/ML 2 ML VIAL IV STA (12:33)
[2019-07-29] MEDS ORDERED: MoRPHine SULFATE 4 MG/ML 1 ML CARP\\VIAL IV PRN (12:34)
[2019-07-29] MEDS ORDERED: SODIUM CHLORIDE 0.9% 1000ML 1,000 ML IV SCH (12:45)
--- NOTE | 2019-07-29 12:47 | XRay Report ---
XR chest 1V portable CLINICAL HISTORY: Pain, radiating to the abdomen. COMPARISON STUDY: 03/31/2019 FINDINGS: The cardiac and mediastinal contours are normal. There is no evidence of focal pulmonary co nsolidation. There is no evidence of failure. No pleural effusions are visualized.[There is no free i ntraperitoneal air. IMPRESSION: No active disease in the chest. Electronically signed by: Lion Elam M.D. 07/29/2019 12:45 PM
[2019-07-29 12:55] LABS: iSTAT Creatinine 1.4 mg/dl (0.6-1.3); iSTAT Hemoglobin 11.6 g/dl (14.0-18.0); iSTAT Ionized Calcium 1.28 mmol/l (1.12-1.32); iSTAT Potassium 5.1 mEq/L (3.3-5.0)
[2019-07-29 12:56] LABS: Basophils # (auto) 0.06 K/uL (0-0.2); Basophils % (auto) 0.7 %; Eosinophils # (auto) 0.05 K/uL (0-0.5); Eosinophils % (auto) 0.6 %; Hematocrit (blood only) 36.1 % (42-52); Immature Granulocytes # (auto) 0.02 K/uL (0.00-0.02); Immature Granulocytes % (auto) 0.2 %; Mean Corpuscular Hgb Conc 33.2 g/dL (32-36); Mean Platelet Volume 11.3 fL (7.4-10.4); Monocytes % (auto) 3.5 %; Neutrophils # (auto) 6.96 K/uL (1.4-6.5); Platelet Count 180 K/uL (130-400); RDW Coefficient of Variation 12.4 % (11.5-14.5); RDW Standard Deviation 42.2 fL (36.4-46.3); Red Blood Count 3.88 M/uL (4.7-6.1); White Blood Count 8.69 K/uL (4.8-10.8)
[2019-07-29] MEDS ORDERED: IOVERSOL 100ml IV PRN (13:05)
[2019-07-29 13:06] LABS: INR 1.1 (0.9-1.1); Prothrombin Time 11.1 Seconds (9.0-12.0)
[2019-07-29 13:14] LABS: Albumin Level 3.5 gm/dl (3.4-5.0); BUN Creatinine Ratio 15.1 (10-20); Calcium 9.3 mg/dl (8.5-10.1); Est GFR (African American) 62.6; Potassium 4.9 mmol/L (3.5-5.1)
[2019-07-29 13:17] LABS: Albumin Globulin Ratio 0.9 (0.9-2); Bilirubin,Total 0.4 mg/dl (0.2-1); Globulin 3.7 gm/dl (2.5-4.0); Total Protein 7.2 gm/dl (6.4-8.2)
--- NOTE | 2019-07-29 13:44 | CT Scan Report ---
ABDOMEN AND PELVIS CT WITH IV CONTRAST CT DOSE: 843.34 mGy.cm HISTORY: Acute vomiting vomiting TECHNIQUE: Multiaxial CT images of the abdomen and pelvis were performed following the IV administrat ion of 93 cc of Optiray 320, A dose lowering technique was utilized adhering to the principles of AL NILA. COMPARISON STUDY: CT abdomen and pelvis 12/11/2016 FINDINGS: Lung bases are generally clear. There is no pneumatosis or pneumoperitoneum. The imaged inferior card iac chambers are unremarkable with coronary arterial calcifications. Spleen, pancreas, adrenal glands , gallbladder and liver appear unremarkable. There is no biliary ductal dilation. Mild nonspecific bi lateral perinephric stranding. No renal or ureteral calculi or obstructive uropathy. Probable cyst of the inferior pole left kidney, 5 mm. Ureters are unremarkable. Prostamegaly with median lobe hypertr ophy. Mild urinary bladder wall thickening with mild perivesicular stranding. Calcified plaque of the abdominal aorta without aneurysm. No adenopathy. Small hiatal hernia with mild wall thickening of the distal esophagus. There is no bowel obstruction or bowel wall thickening identified. Normal appendix. Soft tissues are within normal limits. Degenera tive changes of the spine, pelvis and hips. No suspicious bone lesions or acute fracture. IMPRESSION: 1. No bowel obstruction or bowel wall thickening. Normal appendix. 2. Prostamegaly with mild urinary bladder wall thickening suggestive of chronic bladder outlet obstru ction. Correlate with urinalysis to exclude cystitis. 3. Small hiatal hernia with mild wall thickening of the distal esophagus. 4. Additional findings as above. Electronically signed by: Manoj Lei M.D. 07/29/2019 1:43 PM
[2019-07-29 15:17] LABS: Appearance Urine Clear (Clear); Bacteria Urine Automated Negative (Negative); Bilirubin Urine Negative (Negative); Blood Urine 2+ (Negative); Color Urine Yellow; Epithelial Cell Urine Auto >30 /lpf (0-5); Glucose Urine UA 1+ (Negative); Ketones Urine Trace (Negative); Leukocyte Esterase Urine Negative (Negative); Nitrite Urine Negative (Negative); Protein Urine 1+ (Negative); Specific Gravity Urine > 1.045 (1.000-1.030); Urobilinogen Urine Negative (Negative)
[2019-07-29] MEDS ORDERED: ACETAMINOPHEN 325 MG TAB ONE (15:26)
[2019-07-29] MEDS ORDERED: SODIUM CHLORIDE 0.9% 1000ML 1,000 ML IV ONE ×2 (15:28→17:21)
[2019-07-29 15:40] LABS: Cast Urine Automated >30 /lpf (0-5)
[2019-07-29 15:41] LABS: Renal Epithelial Cells Urine 0-5 /lpf (0-5)
[2019-07-29] MEDS ORDERED: CIPROFLOXACIN 500 MG TAB PO STA (16:48)
--- NOTE | 2019-07-29 17:03 | Emergency Department Note ---
Entered by Patrick Fierro acting as a scribe for History of Present Illness General Chief complaint: Vomiting Stated complaint: vomit/nausea Source: patient History of Present Illness Onset (ago): day(s) 5 Location: abdomen Radiation: non-radiation Pain Consistency: + other (multiple episodes) Maximum Pain Intensity: 4 Quality: + other (nausea and vomiting ) Associated symptoms: + other (+felt sick; +abdominal pain and cramps; +sweats; -black/bloody stool ) The patient is a 63 year old male who presents to the Emergency Room with complaints of multiple episodes of nausea and vomiting beginning 5 days ago. The patient states he has felt sick beginning 5 days ago and has been experiencing abdominal cramps and pain as well. The patient reports the abdominal pain does not radiate to chest or back. The patient also notes episodes of sweats. The patient denies black or bloody stool. The patient states he still has his gallbladder and appendix, and he denies ever having abdominal surgeries. The patient states he does not smoke and drinks very little alcohol. The patient notes history of diabetes. The patient also reports taking aspirin. Home Medications Home Medications Medication Instructions Recorded Confirmed Type aspirin 81 mg PO QAM 12/24/18 07/29/19 History cholecalciferol (vitamin D3) 5,000 unit PO QAM 12/24/18 07/29/19 History [Vitamin D3] cyanocobalamin (vitamin B-12) 1,000 mcg PO QAM 12/24/18 07/29/19 History [Vitamin B-12] duloxetine 60 mg PO QAM 12/24/18 07/29/19 History glipizide 5 mg PO BID 12/24/18 07/29/19 History rosuvastatin 40 mg PO QPM 12/24/18 07/29/19 History lisinopril 2.5 mg tablet 2.5 mg PO QAM #90 tab 05/18/19 07/29/19 Rx lancets MS 07/13/19 07/13/19 History semaglutide 0.25 mg or 0.5 mg (2 0.5 mg SQ WEEKLY #3 ml 07/15/19 07/29/19 Rx mg/1.5 mL) subcutaneous pen injector gabapentin 0 mg PO BID 07/29/19 07/29/19 History insulin glargine [Basaglar KwikPen 30 unit SUBCUT DAILY 07/29/19 07/29/19 History U-100 Insulin] metformin 1,000 mg PO BID 07/29/19 07/29/19 History Allergies Allergy/AdvReac Type Severity Reaction Status Date / Time Bactrim AdvReac Unknown nausea Verified 10/12/17 14:46 sulfamethoxazole AdvReac Unknown nausea Verified 07/29/19 13:28 trimethoprim AdvReac Unknown nausea Verified 07/29/19 13:28 oxycodone AdvReac Nausea Verified 07/29/19 13:28 Past Med/Surg History Medical History Diabetes mellitus with diabetic polyneuropathy (Acute) Type 2 diabetes mellitus with diabetic peripheral angiopathy without gangrene (Acute) Acquired hallux valgus of right foot (Acute) Hallux valgus (acquired), left foot (Acute) Diabetes mellitus, type 2 NIDDM Hyperlipidemia Hypertension PVD (peripheral vascular disease) Parkinsonism Presence of arterial stent LEFT LEG Snores Surgical History History of amputation of lesser toe of left foot (Acute) History of amputation LEFT TOE History of bunionectomy History of cataract surgery RIGHT CATARACT. 01/07/2019. 2mg versed. no issues History of colonoscopy History of esophagogastroduodenoscopy (EGD) History of tonsillectomy Status post arterial stent LEFT LEG Family History Family/Other No pertinent family history Social History Preferred Language: Sinhala Communication Ability: Effective Park Attendant Required: No Beliefs That Will Affect Care: None Current Living Situation: Spouse Feels Safe at Home: Yes Smoking Status: Never smoker Second Hand Exposure: No ; Hx Alcohol Use: No Hx Substance Use: No Review of Systems See HPI for pertinent positives & negatives. and A total of 10 systems reviewed and were otherwise negative Physical Exam Vital Signs Vital Signs - 24 hr 07/29/19 11:44 07/29/19 12:00 07/29/19 12:04 Temperature 36.7 C Temperature Source Oral Sepsis Recent Fever Within 48 Hours No Sepsis New/Unexplained Change in Mental Status No Sepsis Action Taken by Nursing No Action Required Pulse Rate - Lying Pulse Rate - Sitting Pulse Rate - Standing Pulse Rate 82 77 77 Pulse Rate from SpO2 Sensor Pulse Rhythm Regular Pulse Strength Normal Respiratory Rate 20 19 24 Respiratory Effort / Characteristics Non-Labored Spontaneous Respiratory Depth Normal Respiratory Pattern Regular Blood Pressure - Lying Blood Pressure - Sitting Blood Pressure- Standing Blood Pressure 150/79 H 97/59 L Blood Pressure Mean 102 71 Blood Pressure Position Sitting Pulse Oximetry 99 Oxygen Delivery Method Room Air 07/29/19 12:13 07/29/19 12:23 07/29/19 12:30 Temperature Temperature Source Sepsis Recent Fever Within 48 Hours Sepsis New/Unexplained Change in Mental Status Sepsis Action Taken by Nursing Pulse Rate - Lying 81 Pulse Rate - Sitting 79 Pulse Rate - Standing 93 H Pulse Rate 77 75 Pulse Rate from SpO2 Sensor 77 75 Pulse Rhythm Pulse Strength Respiratory Rate 18 19 Respiratory Effort / Characteristics Respiratory Depth Respiratory Pattern Blood Pressure - Lying 150/79 H Blood Pressure - Sitting 154/68 H Blood Pressure- Standing 98/59 L Blood Pressure 125/68 124/73 Blood Pressure Mean 87 90 Blood Pressure Position Pulse Oximetry 98 97 Oxygen Delivery Method 07/29/19 12:33 07/29/19 13:14 07/29/19 13:15 Temperature Temperature Source Sepsis Recent Fever Within 48 Hours Sepsis New/Unexplained Change in Mental Status Sepsis Action Taken by Nursing Pulse Rate - Lying Pulse Rate - Sitting Pulse Rate - Standing Pulse Rate 86 83 Pulse Rate from SpO2 Sensor Pulse Rhythm Pulse Strength Respiratory Rate 18 18 Respiratory Effort / Characteristics Respiratory Depth Respiratory Pattern Blood Pressure - Lying Blood Pressure - Sitting Blood Pressure- Standing Blood Pressure 143/69 H Blood Pressure Mean 93 Blood Pressure Position Pulse Oximetry 97 Oxygen Delivery Method Room Air 07/29/19 13:30 07/29/19 14:00 07/29/19 14:38 Temperature Temperature Source Sepsis Recent Fever Within 48 Hours Sepsis New/Unexplained Change in Mental Status Sepsis Action Taken by Nursing Pulse Rate - Lying Pulse Rate - Sitting Pulse Rate - Standing Pulse Rate 81 78 77 Pulse Rate from SpO2 Sensor Pulse Rhythm Pulse Strength Respiratory Rate 15 14 15 Respiratory Effort / Characteristics Respiratory Depth Respiratory Pattern Blood Pressure - Lying Blood Pressure - Sitting Blood Pressure- Standing Blood Pressure 127/61 140/74 122/68 Blood Pressure Mean 83 96 86 Blood Pressure Position Pulse Oximetry Oxygen Delivery Method 07/29/19 15:00 07/29/19 15:30 07/29/19 16:00 Temperature Temperature Source Sepsis Recent Fever Within 48 Hours Sepsis New/Unexplained Change in Mental Status Sepsis Action Taken by Nursing Pulse Rate - Lying Pulse Rate - Sitting Pulse Rate - Standing Pulse Rate 76 75 76 Pulse Rate from SpO2 Sensor Pulse Rhythm Pulse Strength Respiratory Rate 21 17 20 Respiratory Effort / Characteristics Respiratory Depth Respiratory Pattern Blood Pressure - Lying Blood Pressure - Sitting Blood Pressure- Standing Blood Pressure 118/64 145/80 H 124/77 Blood Pressure Mean 82 101 92 Blood Pressure Position Pulse Oximetry Oxygen Delivery Method 07/29/19 16:30 07/29/19 16:53 07/29/19 16:54 Temperature Temperature Source Sepsis Recent Fever Within 48 Hours Sepsis New/Unexplained Change in Mental Status Sepsis Action Taken by Nursing Pulse Rate - Lying 69 Pulse Rate - Sitting 73 Pulse Rate - Standing 82 Pulse Rate 75 70 73 Pulse Rate from SpO2 Sensor Pulse Rhythm Pulse Strength Respiratory Rate 17 14 18 Respiratory Effort / Characteristics Respiratory Depth Respiratory Pattern Blood Pressure - Lying 131/72 Blood Pressure - Sitting 139/80 Blood Pressure- Standing 100/65 Blood Pressure 131/71 131/72 139/80 Blood Pressure Mean 91 91 99 Blood Pressure Position Pulse Oximetry Oxygen Delivery Method 07/29/19 16:55 07/29/19 17:00 07/29/19 17:30 Temperature Temperature Source Sepsis Recent Fever Within 48 Hours Sepsis New/Unexplained Change in Mental Status Sepsis Action Taken by Nursing Pulse Rate - Lying Pulse Rate - Sitting Pulse Rate - Standing Pulse Rate 76 71 72 Pulse Rate from SpO2 Sensor Pulse Rhythm Pulse Strength Respiratory Rate 17 20 24 Respiratory Effort / Characteristics Respiratory Depth Respiratory Pattern Blood Pressure - Lying Blood Pressure - Sitting Blood Pressure- Standing Blood Pressure 100/65 147/85 H Blood Pressure Mean 76 105 Blood Pressure Position Pulse Oximetry Oxygen Delivery Method 07/29/19 17:31 Temperature Temperature Source Sepsis Recent Fever Within 48 Hours Sepsis New/Unexplained Change in Mental Status Sepsis Action Taken by Nursing Pulse Rate - Lying Pulse Rate - Sitting Pulse Rate - Standing Pulse Rate 77 Pulse Rate from SpO2 Sensor Pulse Rhythm Pulse Strength Respiratory Rate 15 Respiratory Effort / Characteristics Respiratory Depth Respiratory Pattern Blood Pressure - Lying Blood Pressure - Sitting Blood Pressure- Standing Blood Pressure 165/87 H Blood Pressure Mean 113 Blood Pressure Position Pulse Oximetry Oxygen Delivery Method GENERAL: Patient is awake, alert, and somewhat anxious appearing and uncomfortable. EYES: The conjunctivae are clear. The pupils are round and reactive. EARS, NOSE, MOUTH AND THROAT: The nose is without any evidence of any deformity. Mucous membranes are moist.Tongue is midline NECK: The neck is nontender and supple. RESPIRATORY: Normal respiratory effort is noted. There is no evidence of whe ezing rhonchi or rales to auscultation. CARDIOVASCULAR: Regular rate and rhythm noted. There no murmurs rubs or gallops normal S1 normal S2 GASTROINTESTINAL: The abdomen is moderately distended, diffused tenderness to palpation, guarding noted in right lower quadrant. MUSCULOSKELETAL/EXTREMITIES: There is no evidence of gross deformity. Full range of motion is noted in the hips and shoulders. SKIN: There is no obvious evidence of any rash. There are no petechiae, pallor or cyanosis noted. NEUROLOGIC: Patient is awake alert and oriented x3. Strength is symmetric. Patellar reflexes are 2+ bilaterally. Course 1231: Past medical records reviewed. The patient was evaluated in room C8. A complete history and physical exam was performed. 1616: I reevaluated and updated the patient on his case. 1735: I reviewed the patient's case with Dr. Wilkins-Savage Sousa. Dr. Wilkins will evaluate the patient for further management. Consultations Consultation #1: I reviewed the patient's case with Dr. Wilkins-Savage Sousa. Dr. Wilkins will evaluate the patient for further management. Time: 17:35 Administered Medications Sodium Chloride (Nss 1000ml) 1,000 mls @ 999 mls/hr IV .Q1H1M ONE Stop: 07/29/19 18:21 Last Admin: 07/29/19 17:40 Dose: 999 mls/hr Documented by: [id number] Ioversol (Optiray 320 100ml) 95 ml IV ONCE PRN PRN Reason: Interaction Checking Stop: 08/02/19 13:04 Last Admin: 07/29/19 13:05 Dose: 95 ml Documented by: [id number] Discontinued Medications Acetaminophen (Tylenol) Confirm Administered Dose 650 mg .ROUTE .STK-MED ONE Stop: 07/29/19 15:27 Last Admin: 07/29/19 15:28 Dose: 650 mg Documented by: [id number] Ciprofloxacin (Cipro) 500 mg PO NOW STA Stop: 07/29/19 16:49 Last Admin: 07/29/19 16:56 Dose: 500 mg Documented by: [id number] Sodium Chloride (Nss 1000ml) 1,000 mls @ 999 mls/hr IV .Q1H1M JOESPH Stop: 07/29/19 13:45 Last Infusion: 07/29/19 13:31 Dose: 0 mls/hr Documented by: [id number] Admin: 07/29/19 11:58 Dose: 999 mls/hr Documented by: [id number] Sodium Chloride (Nss 1000ml) 1,000 mls @ 999 mls/hr IV .Q1H1M ONE Stop: 07/29/19 16:28 Last Infusion: 07/29/19 17:41 Dose: 999 mls/hr Documented by: [id number] Admin: 07/29/19 15:29 Dose: 999 mls/hr Documented by: [id number] Ondansetron HCl (Zofran) 4 mg IV NOW STA Stop: 07/29/19 12:34 Last Admin: 07/29/19 12:49 Dose: 4 mg Documented by: [id number] Ondansetron HCl (Zofran) Confirm Administered Dose 4 mg .ROUTE .STK-MED ONE Stop: 07/29/19 17:38 Last Admin: 07/29/19 17:40 Dose: 4 mg Documented by: [id number] Medical Decision Making Differential Diagnosis Etiologies such as appendicitis, diverticulitis, obstruction, inflammatory bowel disease, renal colic, PUD, biliary pathology, pancreatitis, mesenteric ischemia, aortic pathology, infections, genitourinary, UTI, perforated viscus, as well as others were entertained. Medical Records Attestation: I reviewed the patient's medical records. Home Medications Current Medication List: was personally reviewed by me Laboratory Data Attestation: I reviewed the patient's lab results. Result diagrams: 07/29/19 12:40 07/29/19 12:40 Lab Results 07/29/19 07/29/19 07/29/19 Range/Units 12:40 12:40 12:40 WBC 8.69 (4.8-10.8) K/uL RBC 3.88 L (4.7-6.1) M/uL Hgb 12.0 L (14.0-18.0) g/dL POC Hgb (14.0-18.0) g/dl Hct 36.1 L (42-52) % POC Hct (42-52) % MCV 93.0 (80-100) fL MCH 30.9 (25-34) pg MCHC 33.2 (32-36) g/dL RDW Std Deviation 42.2 (36.4-46.3) fL RDW Coeff of Margarito 12.4 (11.5-14.5) % Plt Count 180 (130-400) K/uL MPV 11.3 H (7.4-10.4) fL Immature Gran % (Auto) 0.2 % Neut % (Auto) 80.0 % Lymph % (Auto) 15.0 % [place] % (Auto) 3.5 % Eos % (Auto) 0.6 % Baso % (Auto) 0.7 % Immature Gran # (Auto) 0.02 (0.00-0.02) K/uL Neut # (Auto) 6.96 H (1.4-6.5) K/uL Lymph # (Auto) 1.30 (1.2-3.4) K/uL [place] # (Auto) 0.30 (0.11-0.59) K/uL Eos # (Auto) 0.05 (0-0.5) K/uL Baso # (Auto) 0.06 (0-0.2) K/uL PT 11.1 (9.0-12.0) Seconds INR 1.1 (0.9-1.1) POC Sodium (135-144) mEq/L Sodium 141 (136-145) mmol/L POC Potassium (3.3-5.0) mEq/L Potassium 4.9 (3.5-5.1) mmol/L POC Chloride (101-112) mEq/L Chloride 110 H (98-107) mmol/L Carbon Dioxide 26 (21-32) mmol/L POC Total CO2 (24-31) mEq/l Anion Gap 5.0 (3-11) POC Anion Gap (16-25) mmol/L POC BUN (7-18) mg/dl BUN 21 H (7-18) mg/dl Creatinine 1.38 (0.6-1.4) mg/dl POC Creatinine (0.6-1.3) mg/dl Est Cr Clr Drug Dosing 60.0 ml/min Est GFR ( Amer) 62.6 Est GFR (Non-Af Amer) 54.0 BUN/Creatinine Ratio 15.1 (10-20) Glucose 186 H (70-99) mg/dl POC Glucose (70-99) POC Glucose (other) (70-99) mg/dl Calcium 9.3 (8.5-10.1) mg/dl POC Ioniz Calcium Luke (1.12-1.32) mmol/l Total Bilirubin 0.4 (0.2-1) mg/dl AST 14 L (15-37) U/L ALT 26 (12-78) U/L Alkaline Phosphatase 60 (45-117) U/L Total Protein 7.2 (6.4-8.2) gm/dl Albumin 3.5 (3.4-5.0) gm/dl Globulin 3.7 (2.5-4.0) gm/dl Albumin/Globulin Ratio 0.9 (0.9-2) Lipase 151 (73-393) U/L Urine Color Urine Appearance (Clear) Urine pH (4.5-7.5) Ur Specific [place] (1.000-1.030) Urine Protein (Negative) Urine Glucose (UA) (Negative) Urine Ketones (Negative) Urine Blood (Negative) Urine Nitrite (Negative) Urine Bilirubin (Negative) Urine Urobilinogen (Negative) Ur Leukocyte Esterase (Negative) Urine WBC (Auto) (0-5) /hpf Urine RBC (Auto) (0-4) /hpf U Hyaline Cast (Auto) (0-5) /lpf U Epithel Cells (Auto) (0-5) /lpf Urine Bacteria (Auto) (Negative) Ur Renal Epithelial Cell (0-5) /lpf Granular Casts (0) /lpf RBC Casts (0) /lpf 07/29/19 07/29/19 07/29/19 Range/Units 12:43 14:39 16:58 WBC (4.8-10.8) K/uL RBC (4.7-6.1) M/uL Hgb (14.0-18.0) g/dL POC Hgb 11.6 L (14.0-18.0) g/dl Hct (42-52) % POC Hct 34 L (42-52) % MCV (80-100) fL MCH (25-34) pg MCHC (32-36) g/dL RDW Std Deviation (36.4-46.3) fL RDW Coeff of Margarito (11.5-14.5) % Plt Count (130-400) K/uL MPV (7.4-10.4) fL Immature Gran % (Auto) % Neut % (Auto) % Lymph % (Auto) % [place] % (Auto) % Eos % (Auto) % Baso % (Auto) % Immature Gran # (Auto) (0.00-0.02) K/uL Neut # (Auto) (1.4-6.5) K/uL Lymph # (Auto) (1.2-3.4) K/uL [place] # (Auto) (0.11-0.59) K/uL Eos # (Auto) (0-0.5) K/uL Baso # (Auto) (0-0.2) K/uL PT (9.0-12.0) Seconds INR (0.9-1.1) POC Sodium 141 (135-144) mEq/L Sodium (136-145) mmol/L POC Potassium 5.1 H (3.3-5.0) mEq/L Potassium (3.5-5.1) mmol/L POC Chloride 107 (101-112) mEq/L Chloride (98-107) mmol/L Carbon Dioxide (21-32) mmol/L POC Total CO2 24 (24-31) mEq/l Anion Gap (3-11) POC Anion Gap 16.0 (16-25) mmol/L POC BUN 22 H (7-18) mg/dl BUN (7-18) mg/dl Creatinine (0.6-1.4) mg/dl POC Creatinine 1.4 H (0.6-1.3) mg/dl Est Cr Clr Drug Dosing ml/min Est GFR ( Amer) Est GFR (Non-Af Amer) BUN/Creatinine Ratio (10-20) Glucose (70-99) mg/dl POC Glucose 110 H (70-99) POC Glucose (other) 187 H (70-99) mg/dl Calcium (8.5-10.1) mg/dl POC Ioniz Calcium Luke 1.28 (1.12-1.32) mmol/l Total Bilirubin (0.2-1) mg/dl AST (15-37) U/L ALT (12-78) U/L Alkaline Phosphatase (45-117) U/L Total Protein (6.4-8.2) gm/dl Albumin (3.4-5.0) gm/dl Globulin (2.5-4.0) gm/dl Albumin/Globulin Ratio (0.9-2) Lipase (73-393) U/L Urine Color Yellow Urine Appearance Clear (Clear) Urine pH 5.0 (4.5-7.5) Ur Specific [place] > 1.045 H (1.000-1.030) Urine Protein 1+ H (Negative) Urine Glucose (UA) 1+ H (Negative) Urine Ketones Trace H (Negative) Urine Blood 2+ H (Negative) Urine Nitrite Negative (Negative) Urine Bilirubin Negative (Negative) Urine Urobilinogen Negative (Negative) Ur Leukocyte Esterase Negative (Negative) Urine WBC (Auto) 5-10 H (0-5) /hpf Urine RBC (Auto) 5-10 H (0-4) /hpf U Hyaline Cast (Auto) >30 H (0-5) /lpf U Epithel Cells (Auto) >30 H (0-5) /lpf Urine Bacteria (Auto) Negative (Negative) Ur Renal Epithelial Cell 0-5 (0-5) /lpf Granular Casts 5-10 H (0) /lpf RBC Casts 1-5 H (0) /lpf Imaging Data Radiologist's Impression: Radiology results as stated below per my review and the radiologist's interpretation: ABDOMEN AND PELVIS CT WITH IV CONTRAST CT DOSE: 843.34 mGy.cm HISTORY: Acute vomiting vomiting TECHNIQUE: Multiaxial CT images of the abdomen and pelvis were performed following the IV administration of 93 cc of Optiray 320, A dose lowering technique was utilized adhering to the principles of ALARA. COMPARISON STUDY: CT abdomen and pelvis 12/11/2016 FINDINGS: Lung bases are generally clear. There is no pneumatosis or pneumoperitoneum. The imaged inferior cardiac chambers are unremarkable with coronary arterial calcifications. Spleen, pancreas, adrenal glands, gallbladder and liver appear unremarkable. There is no biliary ductal dilation. Mild nonspecific bilateral perinephric stranding. No renal or ureteral calculi or obstructive uropathy. Probable cyst of the inferior pole left kidney, 5 mm. Ureters are unremarkable. Prostamegaly with median lobe hypertrophy. Mild urinary bladder wall thickening with mild perivesicular stranding. Calcified plaque of the abdominal aorta without aneurysm. No adenopathy. Small hiatal hernia with mild wall thickening of the distal esophagus. There is no bowel obstruction or bowel wall thickening identified. Normal appendix. Soft tissues are within normal limits. Degenerative changes of the spine, pelvis and hips. No suspicious bone lesions or acute fracture. IMPRESSION: 1. No bowel obstruction or bowel wall thickening. Normal appendix. 2. Prostamegaly with mild urinary bladder wall thickening suggestive of chronic bladder outlet obstruction. Correlate with urinalysis to exclude cystitis. 3. Small hiatal hernia with mild wall thickening of the distal esophagus. 4. Additional findings as above. Electronically signed by: Manoj Lei M.D. 07/29/2019 1:43 PM XR chest 1V portable CLINICAL HISTORY: Pain, radiating to the abdomen. COMPARISON STUDY: 03/31/2019 FINDINGS: The cardiac and mediastinal contours are normal. There is no evidence of focal pulmonary consolidation. There is no evidence of failure. No pleural effusions are visualized.[There is no free intraperitoneal air. IMPRESSION: No active disease in the chest. Electronically signed by: Lion Elam M.D. 07/29/2019 12:45 PM ECG Data Attestation: I personally reviewed and interpreted this ECG as follows: Indication: vomiting Rate (beats per minute): 78 Rhythm: normal sinus Findings: + other (No acute ST segment ); no PAC, no PVC and no ectopy Comparison ECG Date: from (03/31/19) Change: no significant change Blood Pressure Blood Pressure Findings: Elevated blood pressure Blood Pressure Disposition: further management by hospitalist ALYSON Anderson The patient is a 63-year-old male who presented to the emergency department for an evaluation of abdominal pain. The patient has been having abdominal pain nausea and vomiting over the last few days. The patient's abdominal exam was consistent with very significant abdominal tenderness and some guarding. I was concerned that this represented a surgical abdomen. For this reason further lab oratory and radiographic studies were obtained. The patient was treated with IV fluids as well as IV antiemetics. He was also started on an antibiotic for possible urinary infection. I discussed the patient's laboratory and radiographic studies with him and his family member. At this time he was able to tolerate liquids. He did have some orthostatic hypotension but this appears to have improved. I did recommend that he rest and avoid any strenuous activity. He was also encouraged to continue drinking plenty clear liquids. I did recommend that he call his family doctor to schedule a follow-up appointment or return to the emergency department immediately if symptoms do not improve if they worsen or if the need arises. The patient was reevaluated again prior to discharge. Standing and continues to have orthostatic hypotension. Given his past medical history and findings I will discuss his case with the on-call [facility] hospitalist group. They will evaluate the patient in the emergency department for further management disposition. I will offer give him further IV hydration. Impression & Plan Abdominal pain, Nausea & vomiting, Acute dehydration, Orthostatic hypotension, Acute UTI Discharge Plan Visit Data Chief Complaint: Vomiting Stated Complaint: vomit/nausea ED Provider: Erwin Armendariz Discharge Problem: Abdominal pain, Nausea & vomiting, Acute dehydration, Orthostatic hypotension, Acute UTI Patient Disposition: Being Evaluated by Hospitalist Forms Stand Alone Forms: My [facility] Prescriptions Prescriptions: No Action lisinopril 2.5 mg tablet 2.5 mg PO QAM Qty: 90 RF: 2 Ozempic 0.25 mg or 0.5 mg(2 mg/1.5 mL) pen injector 0.5 mg SQ WEEKLY Qty: 3 RF: 0 lancets MS RF: 0 cyanocobalamin (vitamin B-12) [Vitamin B-12] 1,000 mcg Tablet 1,000 mcg PO QAM RF: 0 aspirin 81 mg Tablet,Delayed Release (Dr/Ec) 81 mg PO QAM RF: 0 glipizide 5 mg Tablet 5 mg PO BID RF: 0 rosuvastatin 40 mg Tablet 40 mg PO QPM RF: 0 duloxetine 60 mg Capsule,Delayed Release(Dr/Ec) 60 mg PO QAM RF: 0 cholecalciferol (vitamin D3) [Vitamin D3] 5,000 unit Tablet 5,000 unit PO QAM RF: 0 metformin 500 mg tablet 1,000 mg PO BID RF: 0 Basaglar KwikPen U-100 Insulin 100 unit/mL (3 mL) Insulin Pen 30 unit SUBCUT DAILY RF: 0 gabapentin 300 mg Capsule PO BID RF: 0 Referrals Referrals: Mila Dean CRNP [Primary Care Provider] - Discharge Problem: Abdominal pain Qualifiers: Abdominal location: unspecified location Qualified Code(s): R10.9 - Unspecified abdominal pain Nausea & vomiting Qualifiers: Vomiting type: unspecified Vomiting Intractability: unspecified Qualified Code(s): R11.2 - Nausea with vomiting, unspecified The scribe's documentation has been prepared under my direction and personally reviewed by me in its entirety. I confirm that the note above accurately reflects all work, treatment, procedures, and medical decision making performed by me.
[2019-07-29] MEDS ORDERED: ONDANSETRON INJ 2 MG/ML 2 ML VIAL ONE (17:37)
[2019-07-29] MEDS ORDERED: GLUCAGON FOR INJ 1 MG VIAL SQ PRN (23:07)
[2019-07-29] MEDS ORDERED: PROMETHAZINE HCL 25 MG in SODIUM CHLORIDE 0.9% 50 ML IV PRN (23:07)
[2019-07-29] MEDS ORDERED: GLUCOSE 10 TABS/TUBE PO PRN (23:07)
[2019-07-29] MEDS ORDERED: DEXTROSE 50% 50 ML SYRINGE IV PRN (23:07)
[2019-07-29] MEDS ORDERED: ZOLPIDEM TARTRATE 5 MG TAB PO PRN (23:07)
[2019-07-29] MEDS ORDERED: CARBOHYDRATES FOR HYPOGLYCEMIA PO PRN (23:07)
[2019-07-29] MEDS ORDERED: ACETAMINOPHEN 325 MG TAB PO PRN (23:07)
[2019-07-29] MEDS ORDERED: GLUCOSE 40% GEL 15 GM TUBE PO PRN (23:07)
[2019-07-29] MEDS ORDERED: PHARMACY GLYCEMIC MGMT CONSULT PRN (23:25)
[2019-07-29] MEDS ORDERED: INSULIN ASPART 100 UNITS/ML 3 ML PEN SC SCH (23:30)
[2019-07-30] MEDS: ENOXAPARIN INJ 40 MG/0.4 ML SYR SQ SCH ×2 (00:09→21:17)
[2019-07-30] MEDS: ROSUVASTATIN CALCIUM 20 MG TAB PO SCH ×2 (00:10→21:17)
[2019-07-30] MEDS: GABAPENTIN 300 MG CAP PO SCH ×3 (00:10→21:17)
[2019-07-30] MEDS: SODIUM CHLORIDE 0.9% 1000ML 1,000 ML IV SCH ×2 (00:11→12:44)
[2019-07-30] MEDS: cefTRIAXone SODIUM 2,000 MG/70 ML BAG IV SCH (00:11)
--- NOTE | 2019-07-30 00:17 | History & Physical Report ---
Date of Service July 30, 2019 Assessment & Plan (1) Abdominal pain: Admit to inpatient on telemetry Vital signs every 4 hours CBC CMP BNP Replenish electrolytes A1c Continue ceftriaxone 2000 mg every 24 and ciprofloxacin 400 mg twice daily for urinary tract infection empirically Gentle IV fluid hydration Promethazine IV every 6 hours as needed for nausea and vomiting Monitoring in and out and daily weight to prevent volume overload DVT prophylaxis Lovenox Full code Present on Admission?: Yes (2) Nausea & vomiting: As above Present on Admission?: Yes (3) Acute dehydration: Gentle IV fluid hydration Monitor in and out to prevent volume overload Present on Admission?: Yes (4) Orthostatic hypotension: Patient received 3 L of fluid in the ER. Continue monitoring onto orthostatics. Prevent fall Present on Admission?: Yes (5) Acute UTI: Antibiotics as above Present on Admission?: Yes (6) Diabetes: Glycemic control per pharmacy Present on Admission?: Yes (7) Diabetic peripheral neuropathy associated with type 2 diabetes mellitus: As above Present on Admission?: Yes History of Present Illness Chief Complaint: Abdominal pain nausea and vomiting Primary Care Provider: BECKY Romano Patient is a 63 years old male with past medical history of diabetes mellitus type 2, peripheral neuropathy and peripheral angiopathy, who presents with acute dehydration, orthostatic hypotension tension, nausea vomiting and abdominal pain.. Patient said this started approximately last night. Patient reports that abdominal pain does not radiate to the chest or back. Patient reports no episodes of sweats syncope near syncope. Patient denies melena or bloody stool. Patient denies fever chills headache chest pain shortness of breath hemoptysis hematemesis frequency urgency melena. Labs are reviewed: White blood cell count 8.69, hemoglobin 12 hematocrit 36.1 platelet 180. PT 11.1 INR 1.1. Sodium 141, potassium 4.9 chloride 110 onion gap 5 BUN 21 creatinine 1.38 GFR 54 glucose 187. AST 14, ALT 26 . Urinary tract infection: 5-10 white blood cells, negative leukocyte esterase, negative nitrate, trace ketones. No active disease in the chest and the chest x-rays.. CT abdomen pelvis with IV contrast: No bowel obstruction or bowel wall thickening. Normal appendix. Prostatomegaly with mild urinary bladder wall thickening suggestive of chronic bladder outlet obstruction. Correlate with urine analysis to exclude cystitis. Small hiatal hernia with mild wall thickening of the distal esophagus. The case was discussed with patient and decision was made to admit him to the hospital for nausea and vomiting and dehydration. Allergies Allergy/AdvReac Type Severity Reaction Status Date / Time Bactrim AdvReac Unknown nausea Verified 10/12/17 14:46 sulfamethoxazole AdvReac Unknown nausea Verified 07/29/19 13:28 trimethoprim AdvReac Unknown nausea Verified 07/29/19 13:28 oxycodone AdvReac Nausea Verified 07/29/19 13:28 Home Medications Home Medications Medication Instructions Recorded Confirmed Type aspirin 81 mg PO QAM 12/24/18 07/29/19 History cholecalciferol (vitamin D3) 5,000 unit PO QAM 12/24/18 07/29/19 History [Vitamin D3] cyanocobalamin (vitamin B-12) 1,000 mcg PO QAM 12/24/18 07/29/19 History [Vitamin B-12] duloxetine 60 mg PO QAM 12/24/18 07/29/19 History glipizide 5 mg PO BID 12/24/18 07/29/19 History rosuvastatin 40 mg PO QPM 12/24/18 07/29/19 History lisinopril 2.5 mg tablet 2.5 mg PO QAM #90 tab 05/18/19 07/29/19 Rx lancets MS 07/13/19 07/13/19 History semaglutide 0.25 mg or 0.5 mg (2 0.5 mg SQ WEEKLY #3 ml 07/15/19 07/29/19 Rx mg/1.5 mL) subcutaneous pen injector gabapentin 0 mg PO BID 07/29/19 07/29/19 History insulin glargine [Basaglar KwikPen 30 unit SUBCUT DAILY 07/29/19 07/29/19 History U-100 Insulin] metformin 1,000 mg PO BID 07/29/19 07/29/19 History Past Med/Surg History Medical History Diabetes mellitus with diabetic polyneuropathy (Acute) Type 2 diabetes mellitus with diabetic peripheral angiopathy without gangrene (Acute) Acquired hallux valgus of right foot (Acute) Hallux valgus (acquired), left foot (Acute) Diabetes mellitus, type 2 NIDDM Hyperlipidemia Hypertension PVD (peripheral vascular disease) Parkinsonism Presence of arterial stent LEFT LEG Snores Surgical History History of amputation of lesser toe of left foot (Acute) History of amputation LEFT TOE History of bunionectomy History of cataract surgery RIGHT CATARACT. 01/07/2019. 2mg versed. no issues History of colonoscopy History of esophagogastroduodenoscopy (EGD) History of tonsillectomy Status post arterial stent LEFT LEG Family History Family/Other No pertinent family history Social History Preferred Language: German Communication Ability: Effective Gas Charger Required: No Beliefs That Will Affect Care: None Current Living Situation: Spouse Feels Safe at Home: Yes Smoking Status: Never smoker Second Hand Exposure: No ; Hx Alcohol Use: No Hx Substance Use: No Review of Systems Review of Systems: All systems reviewed & are unremarkable except as noted in HPI & below Physical Exam Constitutional: WD/WN, vitals as above Eyes: PERRL, conjunctivae normal, anicteric sclerae ENMT: external ear and nose normal, oropharynx normal Neck: trachea midline, no thyromegaly Respiratory: normal respiratory effort, lungs clear to auscultation Cardiovascular: RRR, no murmur, no edema Gastrointestinal (Abdomen): normal bowel sounds, soft, nontender, no hepatosplenomegaly Musculoskeletal: no cyanosis or clubbing, extremities motor strength 5/5 Skin: no rashes, warm and dry Neurologic: patellar DTR's 2+ bilat, sensation intact Psychiatric: A+Ox3, euthymic affect Genitourinary: no testicular masses, no penis abnormality Lymphatic: no cervical or axillary lymphadenopathy Results & Data Vital Signs (Past 12 Hours) Vital Signs Pulse Resp BP Pulse Ox 07/29/19 22:30 75 23 141/84 H 97 07/29/19 22:00 73 18 144/79 H 95 07/29/19 21:30 77 21 139/73 96 07/29/19 21:14 74 18 97 07/29/19 20:30 73 15 133/72 96 07/29/19 20:00 74 17 132/71 97 07/29/19 19:30 78 20 168/90 H 96 07/29/19 19:01 81 22 156/86 H 07/29/19 19:00 76 17 07/29/19 18:30 77 18 140/76 07/29/19 18:01 76 20 150/67 H 07/29/19 18:00 78 20 07/29/19 17:32 71 23 07/29/19 17:31 77 15 165/87 H 07/29/19 17:30 72 24 07/29/19 17:00 71 20 147/85 H 07/29/19 16:55 76 17 100/65 07/29/19 16:54 73 18 139/80 07/29/19 16:53 70 14 131/72 07/29/19 16:30 75 17 131/71 07/29/19 16:00 76 20 124/77 07/29/19 15:30 75 17 145/80 H 07/29/19 15:00 76 21 118/64 07/29/19 14:38 77 15 122/68 07/29/19 14:00 78 14 140/74 07/29/19 13:30 81 15 127/61 07/29/19 13:15 83 18 07/29/19 13:14 86 18 143/69 H 07/29/19 12:33 97 07/29/19 12:30 75 19 124/73 97 07/29/19 12:13 77 18 125/68 98 07/29/19 12:04 77 24 Code Status & VTE Plan Code Status Full code VTE Prophylaxis Plan VTE Prophylaxis will be ordered: Yes PG Care Time/CCT Total # of Minutes Spent Total Time Spent with Patient: Total time spent is greater than 50% in coordination of care (as documented) at patient's floor/unit and/or counseling patient: (1) Abdominal pain Abdominal location: unspecified location Qualified Code(s): R10.9 - Unspecified abdominal pain (2) Nausea & vomiting Vomiting Intractability: unspecified Vomiting type: unspecified Qualified Code(s): R11.2 - Nausea with vomiting, unspecified
[2019-07-30] MEDS ORDERED: CIPROFLOXACIN 400 MG/200 ML BAG IV SCH (06:00)
[2019-07-30] MEDS: INSULIN ASPART 100 UNITS/ML 3 ML PEN SC SCH ×5 (06:12→21:31)
[2019-07-30] MEDS: ASPIRIN 81 MG ECTAB PO SCH (07:27)
[2019-07-30] MEDS: DULOXETINE HCL 60 MG CAP PO SCH (07:27)
[2019-07-30] MEDS: CYANOCOBALAMIN 500 MCG TABLET (VITAMIN B-12) PO SCH (07:28)
[2019-07-30] MEDS: LISINOPRIL 2.5 MG TAB PO SCH (07:28)
[2019-07-30] MEDS: CHOLECALCIFEROL 1,000 UNITS TAB PO SCH (07:28)
[2019-07-30 08:00] LABS: Basophils # (auto) 0.06 K/uL (0-0.2); Basophils % (auto) 0.8 %; Eosinophils # (auto) 0.13 K/uL (0-0.5); Eosinophils % (auto) 1.7 %; Hemoglobin 11.6 g/dL (14.0-18.0); Immature Granulocytes # (auto) 0.01 K/uL (0.00-0.02); Immature Granulocytes % (auto) 0.1 %; Lymphocytes # (auto) 2.16 K/uL (1.2-3.4); Lymphocytes % (auto) 27.4 %; Mean Corpuscular Hgb Conc 33.1 g/dL (32-36); Mean Corpuscular Volume 94.3 fL (80-100); Monocytes # (auto) 0.54 K/uL (0.11-0.59); Monocytes % (auto) 6.9 %; Neutrophils # (auto) 4.97 K/uL (1.4-6.5); Neutrophils % (auto) 63.1 %; Platelet Count 160 K/uL (130-400); RDW Coefficient of Variation 12.3 % (11.5-14.5); Red Blood Count 3.71 M/uL (4.7-6.1); White Blood Count 7.87 K/uL (4.8-10.8)
[2019-07-30 08:18] LABS: Estimated Average Glucose 154 mg/dl
[2019-07-30 08:26] LABS: Albumin Level 3.2 gm/dl (3.4-5.0); BUN Creatinine Ratio 11.4 (10-20); Calcium 7.8 mg/dl (8.5-10.1); Creatinine Clr Calc Pharmacy 72.5 ml/min; Est GFR (African American) 70.6; Est GFR (Non-African American) 60.9; Potassium 4.7 mmol/L (3.5-5.1)
[2019-07-30 08:29] LABS: Albumin Globulin Ratio 0.9 (0.9-2); Bilirubin,Total 0.3 mg/dl (0.2-1); Globulin 3.5 gm/dl (2.5-4.0); Total Protein 6.7 gm/dl (6.4-8.2)
--- NOTE | 2019-07-30 09:04 | Pharmacy Report ---
Glycemic Control Consultation - Date of Service July 30, 2019 - Scope Scope: Glycemic Pharmacist consulted by Dr Wilkins on 07/29/19 for glycemic control and to write orders per [facility] inpatient glycemic control protocol - Objective Weight: 95.5 kg Accuchecks BSG (last 24hrs): 07/29/19 07/29/19 07/29/19 12:40 12:43 16:58 Glucose 186 H POC Glucose 110 H POC Glucose (other) 187 H 07/30/19 07/30/19 07/30/19 00:08 05:34 07:46 Glucose 119 H POC Glucose 83 96 POC Glucose (other) Laboratory Data (last 24hrs): 07/29/19 07/30/19 12:40 07:46 Potassium 4.9 4.7 Carbon Dioxide 26 26 Anion Gap 5.0 5.0 Creatinine 1.38 1.25 Est Cr Clr Drug Dosing 60.0 72.5 HbA1c: Hemoglobin A1c 7.0 % (4.5-5.6) H 07/30/19 07:46 - Recent Pertinent Medications Outpatient Anti-diabetic Regimen: * Lantus 30 units daily * Metformin 1000mg PO BID * Glimepiride 5mg PO BID * A1c = 7 % 07/30/19 Risk Factors for Insulin Resistance: * Infection: UTI? IV Cipro and Ceftriaxone * Diet: NPO - Assessment & Plan Assessment & Plan: ASSESSMENT: * 63 year old male admitted with nausea, vomiting, abdominal pain, possible UTI, started on IV antibiotics. UA likely contaminant/ negative, and urine culture normal beryl, non-symptomatic, will speak with provider about discontinuation. 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 * Will continue to hold basal insulin at this time and follow blood sugars/diet and resume when needed. Will place order on for tonight for elevated blood sugar. * Patient is also maintained on oral antidiabetic agents as an outpatient * Oral agents are not recommended for inpatient use d/t drug interactions, changing PO intake, and difficulty titrating for acute hyper/hypoglycemia. ADA recommends re-initiating outpatient oral agents 1-2 days prior to discharge if/when appropriate if they were held on admission. * ADA & AACE recommend a goal blood sugar range 140-180 mg/dl for the majority of critically ill & non-critically ill patients. However, more stringent targets may be selected in individual cases. Will utilize more stringent goal of 110-140mg/dl based on patient age & comorbidities. Additionally, tighter glycemic control is warranted to facilitate wound/infection healing. PLAN FOR INPATIENT GLYCEMIC CONTROL: * Holding outpatient oral diabetes medications * Basal insulin - none at this time, resume when diet resumed and/or blood sugars trend up. * PRN order tonight - BSG < 140mg/dl - 0 units; 140-180mg/dl - 15 units; > 180mg/dl - 30 units * Bolus insulin * NovoLog per scale ACHS or Q6hrs while NPO * Goal Range: Low 110 mg/dL - High 140 mg/dL * Correction Factor: 30 mg/dL/unit * Nutritional / Prandial insulin per carb ratio of 1 unit per 10 grams CHO consumed DISCHARGE RECOMMENDATIONS: * A1c 7.0%, at goal, continue home regimen as long as not having hypoglycemia. * Please note that the plan above was derived based on current level of insulin resistance and hospital stress. These recommendations are appropriate for inpatient admission only. Plan of care upon discharge will need to be reassessed to avoid potential outpatient hypo/hyperglycemia. Thank you.
[2019-07-30] MEDS ORDERED: Nursing to Pharmacy Communication ONE (12:51)
[2019-07-30] MEDS ORDERED: INSULIN GLARGINE SOLOSTAR 100 UNITS/ML 3 ML PEN SC ONE (13:00)
--- NOTE | 2019-07-30 20:15 | Communication Note ---
Date of Service: July 30, 2019 Patient was seen and examined and interviewed by myself I agree with physical exam, assessment and plan of my colleague that admitted the patient this morning Urine analysis appears to have lots of epithelial cells in blood We will repeat UA again Hold Cipro and continue only and ceftriaxone His abdominal pain resolved We will order CPK/troponin/lactic acid/procalcitonin Will order labs in a.m. Physical exam is within normal limits Discussed plan with patient and felt
[2019-07-30] MEDS ORDERED: INSULIN GLARGINE SOLOSTAR 100 UNITS/ML 3 ML PEN SC SCH (21:00)
[2019-07-30 21:46] LABS: Creatine Kinase MB 1.6 ng/ml (0.5-3.6); Troponin I 0.023 ng/ml (0-0.045)
[2019-07-30 22:20] LABS: Appearance Urine Clear (Clear); Bacteria Urine Automated Negative (Negative); Bilirubin Urine Negative (Negative); Blood Urine Trace (Negative); Color Urine Yellow; Glucose Urine UA Trace (Negative); Ketones Urine Negative (Negative); Leukocyte Esterase Urine Negative (Negative); Nitrite Urine Negative (Negative); Protein Urine Negative (Negative); RBC Urine Automated 0-4 /hpf (0-4); Specific Gravity Urine 1.015 (1.000-1.030); Urobilinogen Urine Negative (Negative); WBC Urine Automated 0 /hpf (0-5); pH Urine 5.5 (4.5-7.5)
[2019-07-31] MEDS: cefTRIAXone SODIUM 2,000 MG/70 ML BAG IV SCH (00:42)
[2019-07-31] MEDS: SODIUM CHLORIDE 0.9% 1000ML 1,000 ML IV SCH (00:42)
[2019-07-31] MEDS: GABAPENTIN 300 MG CAP PO SCH (08:06)
[2019-07-31] MEDS: ASPIRIN 81 MG ECTAB PO SCH (08:07)
[2019-07-31] MEDS: LISINOPRIL 2.5 MG TAB PO SCH (08:07)
[2019-07-31 08:16] LABS: Basophils # (auto) 0.07 K/uL (0-0.2); Basophils % (auto) 1.1 %; Eosinophils # (auto) 0.11 K/uL (0-0.5); Eosinophils % (auto) 1.7 %; Hematocrit (blood only) 36.4 % (42-52); Hemoglobin 12.2 g/dL (14.0-18.0); Immature Granulocytes # (auto) 0.01 K/uL (0.00-0.02); Immature Granulocytes % (auto) 0.2 %; Lymphocytes # (auto) 1.92 K/uL (1.2-3.4); Lymphocytes % (auto) 30.2 %; Mean Corpuscular Hgb Conc 33.5 g/dL (32-36); Mean Corpuscular Volume 93.1 fL (80-100); Mean Platelet Volume 11.1 fL (7.4-10.4); Monocytes # (auto) 0.38 K/uL (0.11-0.59); Neutrophils # (auto) 3.86 K/uL (1.4-6.5); Neutrophils % (auto) 60.8 %; Platelet Count 171 K/uL (130-400); RDW Coefficient of Variation 12.3 % (11.5-14.5); RDW Standard Deviation 41.8 fL (36.4-46.3); Red Blood Count 3.91 M/uL (4.7-6.1); White Blood Count 6.35 K/uL (4.8-10.8)
[2019-07-31] MEDS: INSULIN ASPART 100 UNITS/ML 3 ML PEN SC SCH ×2 (08:41→12:38)
[2019-07-31] MEDS ORDERED: INSULIN GLARGINE SOLOSTAR 100 UNITS/ML 3 ML PEN SC SCH (09:00)
[2019-07-31] MEDS: DULOXETINE HCL 60 MG CAP PO SCH (09:11)
[2019-07-31] MEDS: CHOLECALCIFEROL 1,000 UNITS TAB PO SCH (09:11)
[2019-07-31] MEDS: CYANOCOBALAMIN 500 MCG TABLET (VITAMIN B-12) PO SCH (09:11)
[2019-07-31 09:18] LABS: Albumin Level 3.3 gm/dl (3.4-5.0); BUN Creatinine Ratio 8.9 (10-20); Bilirubin,Total 0.3 mg/dl (0.2-1); Creatinine Clr Calc Pharmacy 79.1 ml/min; Est GFR (African American) 78.9; Est GFR (Non-African American) 68.1; Globulin 3.4 gm/dl (2.5-4.0); Potassium 4.1 mmol/L (3.5-5.1); Total Protein 6.7 gm/dl (6.4-8.2)
[2019-07-31 11:40] VITALS: TEMP 97.9; O2SAT 98
[2019-07-31 12:57] VITALS: BP 121/77; PULSE 77
--- NOTE | 2019-07-31 17:04 | Discharge Summary ---
Date of Service July 31, 2019 Admission HPI Per Admitting Provider Patient is a 63 years old male with past medical history of diabetes mellitus type 2, peripheral neuropathy and peripheral angiopathy, who presents with acute dehydration, orthostatic hypotension tension, nausea vomiting and abdominal pain.. Patient said this started approximately last night. Patient reports that abdominal pain does not radiate to the chest or back. Patient reports no episodes of sweats syncope near syncope. Patient denies melena or bloody stool. Patient denies fever chills headache chest pain shortness of breath hemoptysis hematemesis frequency urgency melena. Labs are reviewed: White blood cell count 8.69, hemoglobin 12 hematocrit 36.1 platelet 180. PT 11.1 INR 1.1. Sodium 141, potassium 4.9 chloride 110 onion gap 5 BUN 21 creatinine 1.38 GFR 54 glucose 187. AST 14, ALT 26 . Urinary tract infection: 5-10 white blood cells, negative leukocyte esterase, negative nitrate, trace ketones. No active disease in the chest and the chest x-rays.. CT abdomen pelvis with IV contrast: No bowel obstruction or bowel wall thickening. Normal appendix. Prostatomegaly with mild urinary bladder wall thickening suggestive of chronic bladder outlet obstruction. Correlate with urine analysis to exclude cystitis. Small hiatal hernia with mild wall thickening of the distal esophagus. The case was discussed with patient and decision was made to admit him to the hospital for nausea and vomiting and dehydration. Principal Diagnosis Abdominal pain/nausea/vomiting Suspected urinary tract infection Suspected gastroenteritis Diabetes mellitus type 2 with peripheral neuropathy Tremors for which she is following up with neurology Discharge Exam Physical examination General patient appears to be comfortable, not in acute distress HEENT: Atraumatic , normocephalic /no jaundice /no pallor /anicteric /no dry mucous membrane /normal external ear inspection Neck: Supple /no swelling /central trach Heart: S1/S2 normal/regular rate and rhythm/no gallop /no rub /no murmur Lungs: Clear to auscultation bilaterally/normal chest with expansion/no rhonchi/no rales/no wheezing/no use of accessory muscles of respiration Abdomen: Soft/nontender/no guarding/no rebound/no organomegaly/no pulsatile mass Musculoskeletal: No swelling/no edema/no tenderness/normal range of motion Neuro exam: Awake alert oriented 3/cranial nerves II through XII appear to be intact/sensation intact/moves all extremities/no abnormal movements Psychiatric evaluation: No depressed mood/normal affect Skin: No rash on exposed skin area/no erythema Extremity: Normal pulse/no pitting edema/no clubbing or cyanosis Endocrine/lymphatic: No obvious lymphadenopathy /no lymphedema Discharge Data Allergies Allergy/AdvReac Type Severity Reaction Status Date / Time Bactrim AdvReac Unknown nausea Verified 10/12/17 14:46 sulfamethoxazole AdvReac Unknown nausea Verified 07/29/19 13:28 trimethoprim AdvReac Unknown nausea Verified 07/29/19 13:28 oxycodone AdvReac Nausea Verified 07/29/19 13:28 Consultations 07/29/19 17:21 ED Decision to Admit Stat Ordered Studies 07/29/19 12:33 CT abd pelvis IV con only Stat Hospital Course (1) Abdominal pain: Sepsis present on admission secondary to below Suspected urinary tract infection, cannot clinically determine but improved on ceftriaxone Suspected gastroenteritis CT scan showed thickened urinary bladder wall and enlarged prostate, he was instructed to follow-up with his urologist. Also he had a colonoscopy about 8 years ago, he was instructed to follow-up with GI physician for possible repeat colonoscopy if the pain reoccurred His abdominal pain, his nausea all resolved And he was found to be within acceptable medical stability for discharge to (2) Nausea & vomiting: As above (3) Acute dehydration: Improved status post gentle IV fluid hydration (4) Orthostatic hypotension: Patient received 3 L of fluid in the ER. Was mainly secondary to dehydration Currently result (5) Acute UTI: Not confirmed but was treated empirically with ceftriaxone and improved Patient was discharged on cefdinir to continue 7 days total (6) Diabetes: Blood sugar was controlled here, he will follow-up with primary care physician about (7) Diabetic peripheral neuropathy associated with type 2 diabetes mellitus: As above Total Time Total Time Spent Total Time Spent (In Minutes): 30 minutes total time spent is greater than 50% in coordination of care (as documented) at patient's floor/unit and/or counseling patient/family discussion of care with nursing staff Discharge Plan Discharge Items Patient Disposition: Home - Self-Care Reason For Visit: ABDOMINAL PAIN, NAUSEA, VOMITING Discharge Diagnosis: Abdominal pain/nausea/vomiting Suspected urinary tract infection Suspected gastroenteritis Diabetes mellitus type 2 with peripheral neuropathy Tremors for which she is following up with neurology Discharge Goals: Decrease discomfort Activity: Resume your previous activity Lifting: Gradually increase as tolerated Bathing: May shower/bathe in 3 days Sexual Activity: When tolerated Exercise/Sports: Gradually increase as tolerated Driving/Machine Use: Resume 3 days after discharge Weightbearing: Full weightbearing Non-emergency contact: Primary Care Provider, Clinical Resource Director and Urologist Call non-emergency contact if: you have any medication questions, your symptoms worsen and your pain is worsening Follow-up/Referrals: Mila Dean CRNP [Primary Care Provider] - 08/11/19 2:00 pm (Please, follow up with Mila Dean on SaturdayAugust 11 at 2:00 pm. *If you have any questions, call the office at [phone].) Diet: Carb Consistent or DM2 Addtl Provider Instructions: You will be on antibiotics for 4 days With antibiotics you need to take probiotics to replace your good bacteria You need to follow-up with urologist for urinary obstruction You need to follow-up with GI doctor for abdominal pain, possible colonoscopy and endoscopy if you get the pain again. Also follow-up with neurologist if your tremors got worse Prescriptions: New cefdinir 300 mg capsule 300 mg PO BID 4 Days Qty: 8 RF: 0 Continued lisinopril 2.5 mg tablet 2.5 mg PO QAM Qty: 90 RF: 2 Ozempic 0.25 mg or 0.5 mg(2 mg/1.5 mL) pen injector 0.5 mg SQ WEEKLY Qty: 3 RF: 0 lancets MS RF: 0 cyanocobalamin (vitamin B-12) [Vitamin B-12] 1,000 mcg Tablet 1,000 mcg PO QAM RF: 0 aspirin 81 mg Tablet,Delayed Release (Dr/Ec) 81 mg PO QAM RF: 0 glipizide 5 mg Tablet 5 mg PO BID RF: 0 rosuvastatin 40 mg Tablet 40 mg PO QPM RF: 0 duloxetine 60 mg Capsule,Delayed Release(Dr/Ec) 60 mg PO QAM RF: 0 cholecalciferol (vitamin D3) [Vitamin D3] 5,000 unit Tablet 5,000 unit PO QAM RF: 0 metformin 500 mg tablet 1,000 mg PO BID RF: 0 Basaglar KwikPen U-100 Insulin 100 unit/mL (3 mL) Insulin Pen 10 unit SUBCUT DAILY RF: 0 gabapentin 300 mg Capsule PO BID RF: 0 Stand-Alone Forms: [facility] Discharge Orders: Discharge Order (Routine); Ordered 07/31/19 Ordered By: Brianne Gregory Admission Data Admit Date/Time: 07/29/19 21:03 Attending Provider: Brianne Mullins Admit Provider: Kirstyn Wilkins Primary Care Provider: Mila Dean Other Providers: Kristyn Wilkins Service: Telemetry Medical Other Interventions: Discharge Summary Assessment (RN) Last Done: 07/31/19 12:55 DC Date/Time DO NOT enter until pt leaves facility: 07/31/19 15:09
== END 2019-07-31 15:09 | disposition home or self-care (01) | DRG 872 ==
LOC: ED 11:53 → SUATTDRO 21:03 → 2W 21:03
DX: N40.1 Benign prostatic hyperplasia with lower urinary tract symptoms; Z88.1 Allergy status to other antibiotic agents; N13.8 Other obstructive and reflux uropathy; I95.1 Orthostatic hypotension; A41.9 Sepsis, unspecified organism; E86.0 Dehydration; Z79.82 Long term (current) use of aspirin; K52.9 Noninfective gastroenteritis and colitis, unspecified; Z89.422 Acquired absence of other left toe(s); N39.0 Urinary tract infection, site not specified; Z88.5 Allergy status to narcotic agent; E11.42 Type 2 diabetes mellitus with diabetic polyneuropathy; Z88.2 Allergy status to sulfonamides; E11.51 Type 2 diabetes mellitus with diabetic peripheral angiopathy without gangrene; Z79.899 Other long term (current) drug therapy; Z79.4 Long term (current) use of insulin

== ENCOUNTER 2019-08-08 13:04 | Inpatient (IN) ==
[2019-08-08] MEDS ORDERED: SODIUM CHLORIDE 0.9% 1000ML 1,000 ML IV ONE ×2 (13:42→15:51)
[2019-08-08] MEDS ORDERED: ONDANSETRON INJ 2 MG/ML 2 ML VIAL IV STA (13:45)
--- NOTE | 2019-08-08 14:16 | XRay Report ---
XR chest 1V portable CLINICAL HISTORY: 63 years-old Male presenting with nausea, weakness. TECHNIQUE: Portable upright AP view of the chest was obtained. COMPARISON: 08/05/2019. FINDINGS: Atherosclerosis of the aortic arch. Cardiac silhouette normal in size. No focal opacity. No large eff usion or pneumothorax. Osseous structures normal. Upper abdomen normal. IMPRESSION: 1. No acute cardiopulmonary disease. Electronically signed by: Ronaldo Gruber M.D. 08/08/2019 2:15 PM
[2019-08-08 14:40] LABS: Basophils # (auto) 0.04 K/uL (0-0.2); Basophils % (auto) 0.5 %; Eosinophils # (auto) 0.02 K/uL (0-0.5); Eosinophils % (auto) 0.3 %; Hematocrit (blood only) 35.8 % (42-52); Hemoglobin 11.9 g/dL (14.0-18.0); Immature Granulocytes # (auto) 0.01 K/uL (0.00-0.02); Immature Granulocytes % (auto) 0.1 %; Lymphocytes # (auto) 1.23 K/uL (1.2-3.4); Lymphocytes % (auto) 16.6 %; Mean Corpuscular Hemoglobin 31.1 pg (25-34); Mean Corpuscular Hgb Conc 33.2 g/dL (32-36); Mean Corpuscular Volume 93.5 fL (80-100); Mean Platelet Volume 10.8 fL (7.4-10.4); Monocytes % (auto) 5.4 %; Neutrophils # (auto) 5.69 K/uL (1.4-6.5); Neutrophils % (auto) 77.1 %; Platelet Count 188 K/uL (130-400); RDW Coefficient of Variation 12.6 % (11.5-14.5); RDW Standard Deviation 42.7 fL (36.4-46.3); Red Blood Count 3.83 M/uL (4.7-6.1); White Blood Count 7.39 K/uL (4.8-10.8)
--- NOTE | 2019-08-08 14:48 | Emergency Department Note ---
Entered by Shu Napoles acting as a scribe for Milind Chu MD History of Present Illness General Chief complaint: Nausea Stated complaint: headache/vomit Time Seen by Provider: 08/08/19 13:37 Source: patient History of Present Illness Provider complaint: nausea and vomiting Onset (ago): hour(s) 10 Severity: similar to prior episodes Pain Consistency: + constant Maximum Pain Intensity: 9 Relieved By: + none Associated symptoms: + fever/chills (-fever, +chills) and + headaches; no chest pain and no shortness of breath The patient is a 63 year old male who presents to the Emergency Room with complaints of nausea and vomiting for the past 10 hours. The patient reports that he woke up at 0400 today with nausea. He states that he vomited multiple times until 0800. He denies any blood in his vomit. He denies any chest pain, shortness of breath, or fever. He notes that he has been experiencing chills. He states that he has a headache. The patient reports that he was at an ED on Saturday for similar symptoms. He notes that they believed that it was a UTI. He reports that he is on Aspirin. Home Medications Home Medications Medication Instructions Recorded Confirmed Type aspirin 81 mg PO QAM 12/24/18 08/08/19 History cholecalciferol (vitamin D3) 5,000 unit PO QAM 12/24/18 08/08/19 History [Vitamin D3] cyanocobalamin (vitamin B-12) 1,000 mcg PO QAM 12/24/18 08/08/19 History [Vitamin B-12] duloxetine 60 mg PO QAM 12/24/18 08/08/19 History glipizide 5 mg PO BID 12/24/18 08/08/19 History rosuvastatin 40 mg PO QPM 12/24/18 08/08/19 History lisinopril 2.5 mg tablet 2.5 mg PO QAM #90 tab 05/18/19 08/08/19 Rx Basaglbianca AlonzoPen U-100 Insulin 10 unit SUBCUT DAILY 07/29/19 08/08/19 History metformin 1,000 mg PO BID 07/29/19 08/08/19 History ranitidine 150 mg tablet 150 mg PO DAILY 08/05/19 08/08/19 History ropinirole 1 mg tablet 1 mg PO TID 08/05/19 08/08/19 History semaglutide 0.25 mg or 0.5 mg (2 0.25 mg SQ WEEKLY #3 ml 08/05/19 08/08/19 Rx mg/1.5 mL) subcutaneous pen injector Allergies Allergy/AdvReac Type Severity Reaction Status Date / Time Bactrim AdvReac Unknown nausea Verified 10/12/17 14:46 sulfamethoxazole AdvReac Unknown nausea Verified 08/08/19 14:24 trimethoprim AdvReac Unknown nausea Verified 08/08/19 14:24 oxycodone AdvReac Nausea Verified 08/08/19 14:24 Past Med/Surg History Medical History History of diabetic ulcer of foot (Resolved) Osteomyelitis (Resolved) Type 2 diabetes mellitus with diabetic peripheral angiopathy without gangrene (Acute) Acquired hallux valgus of right foot (Acute) Hallux valgus (acquired), left foot (Acute) Diabetes mellitus, type 2 NIDDM Hyperlipidemia Hypertension PVD (peripheral vascular disease) Parkinsonism Presence of arterial stent LEFT LEG Snores Surgical History History of amputation of lesser toe of left foot (Acute) History of amputation LEFT TOE History of bunionectomy History of cataract surgery RIGHT CATARACT. 01/07/2019. 2mg versed. 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 and A total of 10 systems reviewed and were otherwise negative Physical Exam Vital Signs Vital Signs - 24 hr 08/08/19 13:05 08/08/19 13:22 08/08/19 14:19 Temperature 36.7 C Temperature Source Oral Sepsis Recent Fever Within 48 Hours No Sepsis Action Taken by Nursing No Action Required Pulse Rate - Lying Pulse Rate - Sitting Pulse Rate - Standing Pulse Rate 96 H Pulse Rate [Right Finger] 88 Respiratory Rate 20 20 Respiratory Effort / Characteristics Non-Labored Non-Labored Respiratory Depth Normal Normal Blood Pressure - Lying Blood Pressure - Sitting Blood Pressure- Standing Blood Pressure 111/66 Blood Pressure [Right Arm] 127/77 Blood Pressure Mean 81 Blood Pressure Mean [Right Arm] 93 Pulse Oximetry 96 95 Oxygen Delivery Method Room Air Room Air Room Air 08/08/19 15:52 08/08/19 16:58 Temperature Temperature Source Sepsis Recent Fever Within 48 Hours Sepsis Action Taken by Nursing Pulse Rate - Lying 78 Pulse Rate - Sitting 82 Pulse Rate - Standing 102 H Pulse Rate Pulse Rate [Right Finger] 82 Respiratory Rate 20 Respiratory Effort / Characteristics Non-Labored Respiratory Depth Normal Blood Pressure - Lying 158/82 H Blood Pressure - Sitting 123/85 Blood Pressure- Standing 120/66 Blood Pressure Blood Pressure [Right Arm] 145/77 H Blood Pressure Mean Blood Pressure Mean [Right Arm] 99 Pulse Oximetry 98 Oxygen Delivery Method Room Air General: Non-ill appearing older male in no acute distress. HEENT: Normal cephalic atraumatic. Pupils are equal round and reactive to light. Extraocular movements are intact. Oropharynx is pink with moist mucous membranes. No swelling of the mouth lips or tongue. Neck: Supple with a midline trachea. No meningeal signs or stiffness, no JVD or bruits. No Stridor. Chest: Clear to auscultation bilaterally. No wheezes or rhonchi. No increased work of breathing. Heart: regular rate and rhythm. Abdomen: Minimal tendnerness, nondistended without rebound guarding or rigidity. Extremities: No cyanosis clubbing or edema. No calf tenderness or asymmetry Spine/Back. Non tender to palpation. No CVA tenderness Skin: Good turgor without rashes. Neurologic exam: Cranial nerves two through 12 are intact. Motor and sensation are intact and symmetrical throughout. Course 1341: The patient was evaluated in room C2B, and a complete history and physical examination were performed. 19672: I reevaluated the patient and updated him on his results. The patient is feeling better and I gave him Toradol for his headache. 1720: I reevaluated the patient, and when he stood up, his blood pressure had dropped. The patient states that he does not feel well. The patient's family says that he falls a lot at home. 1736: I discussed the patient's case with Dr. Weber- [facility], she will accept the patient for further evaluation. Administered Medications Discontinued Medications Sodium Chloride (Nss 1000ml) 1,000 mls @ 999 mls/hr IV .Q1H1M ONE Stop: 08/08/19 14:42 Last Infusion: 08/08/19 16:52 Dose: 0 mls/hr Documented by: [id number] Admin: 08/08/19 14:15 Dose: 999 mls/hr Documented by: [id number] Sodium Chloride (Nss 1000ml) 1,000 mls @ 999 mls/hr IV .Q1H1M ONE Stop: 08/08/19 16:51 Last Infusion: 08/08/19 18:00 Dose: 0 mls/hr Documented by: [id number] Admin: 08/08/19 16:52 Dose: 999 mls/hr Documented by: [id number] Ketorolac Tromethamine (Toradol) 30 mg IV NOW ONE Stop: 08/08/19 15:53 Last Admin: 08/08/19 16:52 Dose: 30 mg Documented by: [id number] Ondansetron HCl (Zofran) 4 mg IV NOW STA Stop: 08/08/19 13:46 Last Admin: 08/08/19 14:15 Dose: 4 mg Documented by: [id number] Medical Decision Making Differential Diagnosis Differential diagnoses include but are not limited to intracranial process, dehydration, metabolic and electrolyte abnormality. Medical Records Attestation: I reviewed the patient's medical records. Home Medications Current Medication List: was personally reviewed by me Laboratory Data Attestation: I reviewed the patient's lab results. Result diagrams: 08/08/19 14:21 08/08/19 14:21 Lab Results 08/08/19 08/08/19 Range/Units 14:21 14:21 WBC 7.39 (4.8-10.8) K/uL RBC 3.83 L (4.7-6.1) M/uL Hgb 11.9 L (14.0-18.0) g/dL Hct 35.8 L (42-52) % MCV 93.5 (80-100) fL MCH 31.1 (25-34) pg MCHC 33.2 (32-36) g/dL RDW Std Deviation 42.7 (36.4-46.3) fL RDW Coeff of Margarito 12.6 (11.5-14.5) % Plt Count 188 (130-400) K/uL MPV 10.8 H (7.4-10.4) fL Immature Gran % (Auto) 0.1 % Neut % (Auto) 77.1 % Lymph % (Auto) 16.6 % [place] % (Auto) 5.4 % Eos % (Auto) 0.3 % Baso % (Auto) 0.5 % Immature Gran # (Auto) 0.01 (0.00-0.02) K/uL Neut # (Auto) 5.69 (1.4-6.5) K/uL Lymph # (Auto) 1.23 (1.2-3.4) K/uL [place] # (Auto) 0.40 (0.11-0.59) K/uL Eos # (Auto) 0.02 (0-0.5) K/uL Baso # (Auto) 0.04 (0-0.2) K/uL Sodium 140 (136-145) mmol/L Potassium 4.7 (3.5-5.1) mmol/L Chloride 107 (98-107) mmol/L Carbon Dioxide 28 (21-32) mmol/L Anion Gap 5.0 (3-11) BUN 21 H (7-18) mg/dl Creatinine 1.25 (0.6-1.4) mg/dl Est Cr Clr Drug Dosing Not Reportable Est GFR ( Amer) 70.6 Est GFR (Non-Af Amer) 60.9 BUN/Creatinine Ratio 16.7 (10-20) Glucose 156 H (70-99) mg/dl Calcium 9.5 (8.5-10.1) mg/dl Total Bilirubin 0.5 (0.2-1) mg/dl AST 18 (15-37) U/L ALT 29 (12-78) U/L Alkaline Phosphatase 57 (45-117) U/L Troponin I 0.024 (0-0.045) ng/ml Total Protein 7.4 (6.4-8.2) gm/dl Albumin 3.4 (3.4-5.0) gm/dl Globulin 4.0 (2.5-4.0) gm/dl Albumin/Globulin Ratio 0.8 L (0.9-2) Imaging Data Radiologist's Impression: Radiology results as stated below per my review and the radiologist's interpretation: CT head/brain wo con CLINICAL HISTORY: 63 years-old Male presenting with headache. TECHNIQUE: Multidetector CT imaging of the head was performed without the use of intravenous contrast. IV contrast: None. One or more dose lowering techniques were used consistent with the principles of ALARA (as low as reasonably achievable), including automatic exposure control, mA or kV adjustment to individual patient size, and/or use of iterative reconstruction. COMPARISON: Brain MR from 2008. CT DOSE (mGy.cm): The estimated cumulative dose is 537.48 mGy.cm. FINDINGS: Mineral Economist topogram: The patient is edentulous. Ventricles and sulci normal in size. No hemorrhage. Brain parenchyma normal in appearance with preserved zee-white differentiation. No acute territorial infarct. No mass effect or midline shift. No extra-axial fluid collection. Paranasal sinuses and mastoid air cells clear. Calvarium intact. IMPRESSION: 1. No acute intracranial abnormality. Electronically signed by: Ronaldo Gruber M.D. 08/08/2019 2:52 PM XR chest 1V portable CLINICAL HISTORY: 63 years-old Male presenting with nausea, weakness. TECHNIQUE: Portable upright AP view of the chest was obtained. COMPARISON: 08/05/2019. FINDINGS: Atherosclerosis of the aortic arch. Cardiac silhouette normal in size. No focal opacity. No large effusion or pneumothorax. Osseous structures normal. Upper abdomen normal. IMPRESSION: 1. No acute cardiopulmonary disease. Electronically signed by: Ronaldo Gruber M.D. 08/08/2019 2:15 PM ECG Data Attestation: I personally reviewed and interpreted this ECG as follows: Indication: nausea Rate (beats per minute): 91 Rhythm: normal sinus Findings: no PAC, no PVC, no acute ischemic change and no ectopy Comparison ECG Date: from (07/30/19) Change: no significant change Blood Pressure Blood Pressure Findings: Elevated blood pressure Blood Pressure Disposition: further management by hospitalist [facility] Narrative This patient comes in as described above he has had some nausea he is also had a headache. his headache is not severe he said he was admitted for similar symptoms about a week ago. He looks well on exam he has a normal logic afebrile. He had no fall or trauma. IV access established and he was given an IV normal saline bolus. He was reassessed frequently. He was also given IV Zofran. We did a CAT scan of his head and it was unremarkable. He has no acute electrolyte or metabolic abnormality. EKG does not suggest acute coronary syndrome. Urinalysis does not suggest a UTI. After 1 liter IV fluid, he does not feel much better. When I had him stand up his blood pressure went from 150 systolic to 120 systolic and the pulse went from 78 to 102. The family is concerned that he has been weak and dizzy at home with standing and is still orthostatic. They did stop his beta-gaurang couple days ago. He will be admitted/observe for further treatment and evaluation. Impression & Plan Dizziness, Nausea & vomiting, Orthostasis, Headache Discharge Plan Visit Data Chief Complaint: Nausea Stated Complaint: headache/vomit ED Provider: Milind Chu Discharge Problem: Dizziness, Nausea & vomiting, Orthostasis, Headache Patient Disposition: Being Evaluated by Hospitalist Forms Stand Alone Forms: My [facility] Prescriptions Prescriptions: No Action lisinopril 2.5 mg tablet 2.5 mg PO QAM Qty: 90 RF: 2 ranitidine HCl 150 mg tablet 150 mg PO DAILY RF: 0 ropinirole 1 mg tablet 1 mg PO TID RF: 0 Ozempic 0.25 mg or 0.5 mg(2 mg/1.5 mL) pen injector 0.25 mg SQ WEEKLY Qty: 3 RF: 0 cyanocobalamin (vitamin B-12) [Vitamin B-12] 1,000 mcg Tablet 1,000 mcg PO QAM RF: 0 aspirin 81 mg Tablet,Delayed Release (Dr/Ec) 81 mg PO QAM RF: 0 glipizide 5 mg Tablet 5 mg PO BID RF: 0 rosuvastatin 40 mg Tablet 40 mg PO QPM RF: 0 duloxetine 60 mg Capsule,Delayed Release(Dr/Ec) 60 mg PO QAM RF: 0 cholecalciferol (vitamin D3) [Vitamin D3] 5,000 unit Tablet 5,000 unit PO QAM RF: 0 metformin 500 mg tablet 1,000 mg PO BID RF: 0 Basaglar KwikPen U-100 Insulin 100 unit/mL (3 mL) Insulin Pen 10 unit SUBCUT DAILY RF: 0 Referrals Referrals: Mila Dean CRNP [Primary Care Provider] - Discharge Problem: Nausea & vomiting Qualifiers: Vomiting type: unspecified Vomiting Intractability: non-intractable Qualified Code(s): R11.2 - Nausea with vomiting, unspecified Headache Qualifiers: Headache type: unspecified Headache chronicity pattern: acute headache Intractability: not intractable Qualified Code(s): R51 - Headache The scribe's documentation has been prepared under my direction and personally reviewed by me in its entirety. I confirm that the note above accurately ref lects all work, treatment, procedures, and medical decision making performed by me.
[2019-08-08 14:53] LABS: Alanine Aminotransferase 29 U/L (12-78); Albumin Level 3.4 gm/dl (3.4-5.0); Aspartate Aminotransferase 18 U/L (15-37); BUN Creatinine Ratio 16.7 (10-20); Blood Urea Nitrogen 21 mg/dl (7-18); Calcium 9.5 mg/dl (8.5-10.1); Carbon Dioxide 28 mmol/L (21-32); Chloride 107 mmol/L (98-107); Est GFR (African American) 70.6; Est GFR (Non-African American) 60.9; Glucose 156 mg/dl (70-99); Potassium 4.7 mmol/L (3.5-5.1); Sodium 140 mmol/L (136-145)
--- NOTE | 2019-08-08 14:54 | CT Scan Report ---
CT head/brain wo con CLINICAL HISTORY: 63 years-old Male presenting with headache. TECHNIQUE: Multidetector CT imaging of the head was performed without the use of intravenous contrast . IV contrast: None. One or more dose lowering techniques were used consistent with the principles of ALARA (as low as reasonably achievable), including automatic exposure control, mA or kV adjustment t o individual patient size, and/or use of iterative reconstruction. COMPARISON: Brain MR from 2008. CT DOSE (mGy.cm): The estimated cumulative dose is 537.48 mGy.cm. FINDINGS: Vascular Neurologist topogram: The patient is edentulous. Ventricles and sulci normal in size. No hemorrhage. Brain parenchyma normal in appearance with preser shanika zee-white differentiation. No acute territorial infarct. No mass effect or midline shift. No ext ra-axial fluid collection. Paranasal sinuses and mastoid air cells clear. Calvarium intact. IMPRESSION: 1. No acute intracranial abnormality. Electronically signed by: Ronaldo Gruber M.D. 08/08/2019 2:52 PM
[2019-08-08 14:58] LABS: Albumin Globulin Ratio 0.8 (0.9-2); Alkaline Phosphatase 57 U/L (45-117); Bilirubin,Total 0.5 mg/dl (0.2-1); Total Protein 7.4 gm/dl (6.4-8.2); Troponin I 0.024 ng/ml (0-0.045)
[2019-08-08] MEDS ORDERED: KETOROLAC 30 MG/ML VIAL IV ONE (15:52)
[2019-08-08 18:38] LABS: Appearance Urine Clear (Clear); Bilirubin Urine Negative (Negative); Blood Urine 1+ (Negative); Color Urine Yellow; Glucose Urine UA Trace (Negative); Ketones Urine 1+ (Negative); Leukocyte Esterase Urine Negative (Negative); Nitrite Urine Negative (Negative); Protein Urine 2+ (Negative); Specific Gravity Urine >= 1.030 (1.000-1.030); Urobilinogen Urine Negative (Negative)
--- NOTE | 2019-08-08 18:41 | History & Physical Report ---
Date of Service August 08, 2019 Assessment & Plan (1) Nausea & vomiting: Uncertain etiology, however was notably improving while on abx and has return s/p completion of abx WBC WNL, afebrile ?? of UTI on prior admission given CTAP findings. UA at that time with blood only and no cx sent Presumed UTI and finished course of cefdenir as outpt Was on ceftriaxone and cipro during admission ?? Lyme vs prostatitis that was improving but requires longer course of tx?? UA today noted again for blood only, cx pending Lyme pending Will restart ceftriaxone and cipro given improvement on both and monitor t/c n/v is related to ozempic dosing. Sx were improving over the course of the week during admission as he moved away from day of dosing and then started to return after returning home and taking his next dose (2) Hematuria: Seen on prior admission and again today CTAP noted for prostatitis with urinary outlet obstruction Denies urinary sx Monitor for now Urine cx pending t/c urology c/s vs repeat CTAP vs US pending cx results Aspirin 81mg for prevention only, will hold for now (3) Orthostasis: Possibly related to untx infection Was also improving on abx Monitor (4) Hypertension: continue home meds (5) Periodic limb movement disorder: Hx of recent d/c of propranolol use to determine if this helped orthostatis Monitor (6) Uncontrolled type 2 diabetes mellitus with neurologic complication: SSI PRN during n/v and low PO intake Pt is on ozempic, new in the last month A1c pending (7) GERD (gastroesophageal reflux disease): continue home meds (8) Hypercholesterolemia: Holding for now (9) DVT prophylaxis: SCDs given hematuria History of Present Illness Primary Care Provider: BECKY Romano 63 y/o M c/o persistent n/v. Pt states this has been ongoing for the last 3 weeks. He was admitted to [facility] on 07/29 for the same sx. He was dx with possible UTI/GE and tx with IV cipro and ceftriaxone. His UA was noted for blood only (clean catch specimen), cx was not done. CTAP noted for possible cystitis. Pt was noted to have improved on 07/31 and was tolerating light PO intake of liquids. He was d/c'd home with cefdinir to finish abx course. He did complete this. He was continuing to feel improved until a few days off of abx when he had return of n/v with all PO intake. He was lightheaded with moving from standing to sitting, which had been an issue prior to admission but had resolved during abx tx. This returned and pt fell on Saturday x2. He did not pass out, but was "close to it". N/V had been associated with PO intake, however pt woke up from sleep around 4a today with emesis. He had another episode s/p breakfast around 8a and so they came to the ED. He has not eaten since this time. No other sx noted. Pt denies fever, SOB, chest pain, abd pain, c/d, LE pain or swelling. Denies any urinary sx or frequent urination. Pt had f/u with PCP and it was thought that his lightheadedness was possibly related to the propranolol he takes for management of a tremor. He has been off of this x4 days and feels no better. Pt and family were camping just prior to onset of sx. He has a dog and there are ticks in his area. He is outside a lot around his home. Pt was recently started on ozempic, a weekly injectable medication for diabetes. He was started on 5mg but this was decreased to 2.5mg recently. He takes this medication on Sundays. Saturday was when his sx returned. He has been on it for less than a month. Allergies Allergy/AdvReac Type Severity Reaction Status Date / Time Bactrim AdvReac Unknown nausea Verified 10/12/17 14:46 sulfamethoxazole AdvReac Unknown nausea Verified 08/08/19 14:24 trimethoprim AdvReac Unknown nausea Verified 08/08/19 14:24 oxycodone AdvReac Nausea Verified 08/08/19 14:24 Home Medications Home Medications Medication Instructions Recorded Confirmed Type aspirin 81 mg PO QAM 12/24/18 08/08/19 History cholecalciferol (vitamin D3) 5,000 unit PO QAM 12/24/18 08/08/19 History [Vitamin D3] cyanocobalamin (vitamin B-12) 1,000 mcg PO QAM 12/24/18 08/08/19 History [Vitamin B-12] duloxetine 60 mg PO QAM 12/24/18 08/08/19 History glipizide 5 mg PO BID 12/24/18 08/08/19 History rosuvastatin 40 mg PO QPM 12/24/18 08/08/19 History lisinopril 2.5 mg tablet 2.5 mg PO QAM #90 tab 05/18/19 08/08/19 Rx Isidoroaglbianca Hathaway U-100 Insulin 10 unit SUBCUT DAILY 07/29/19 08/08/19 History metformin 1,000 mg PO BID 07/29/19 08/08/19 History ranitidine 150 mg tablet 150 mg PO DAILY 08/05/19 08/08/19 History ropinirole 1 mg tablet 1 mg PO TID 08/05/19 08/08/19 History semaglutide 0.25 mg or 0.5 mg (2 0.25 mg SQ WEEKLY #3 ml 08/05/19 08/08/19 Rx mg/1.5 mL) subcutaneous pen injector Past Med/Surg History Medical History History of diabetic ulcer of foot (Resolved) Osteomyelitis (Resolved) Type 2 diabetes mellitus with diabetic peripheral angiopathy without gangrene (Acute) Acquired hallux valgus of right foot (Acute) Hallux valgus (acquired), left foot (Acute) Diabetes mellitus, type 2 NIDDM Hyperlipidemia Hypertension PVD (peripheral vascular disease) Parkinsonism Presence of arterial stent LEFT LEG Snores Surgical History History of amputation of lesser toe of left foot (Acute) History of amputation LEFT TOE History of bunionectomy History of cataract surgery RIGHT CATARACT. 01/07/2019. 2mg versed. 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: No Beliefs That Will Affect Care: None Current Living Situation: Significant Other Feels Safe at Home: Yes Smoking Status: Never smoker Second Hand Exposure: No ; Hx Alcohol Use: No Hx Substance Use: No Review of Systems Review of Systems: Pertinent positives and negatives reviewed in HPI--all others negative Physical Exam Constitutional: WD/WN, vitals as above Eyes: normal visual gomez by confrontation and + anicteric sclerae Neck: normal visual inspection and trachea midline Respiratory: normal respiratory effort, lungs clear to auscultation Cardiovascular: Rate/Rhythm: regular rate and regular rhythm Gastrointestinal (Abdomen): Inspection/Auscultation: + abdomen distended Percussion/Palpation: abdomen soft; abdomen nontender Musculoskeletal: Head/Neck/Chest: normocephalic and head atraumatic negative for edema, peripheral pulses intact Skin: no rashes, warm and dry Neurologic: awake; not confused Speech / Cognition: normal speech Psychiatric: A+Ox3, euthymic affect Results & Data Vital Signs (Past 12 Hours) Vital Signs Temp Pulse Pulse Resp BP BP Pulse Ox 08/08/19 15:52 82 20 145/77 H 98 08/08/19 14:19 88 20 127/77 95 08/08/19 13:05 36.7 C 96 H 20 111/66 96 Diagnostic Findings CXR: neg for acute CT head: neg for acute CTAP 07/29: 1. No bowel obstruction or bowel wall thickening. Normal appendix. 2. Prostamegaly with mild urinary bladder wall thickening suggestive of chronic bladder outlet obstruction. Correlate with urinalysis to exclude cystitis. 3. Small hiatal hernia with mild wall thickening of the distal esophagus. 4. Additional findings as above. ECG Rhythm: normal sinus Code Status & VTE Plan Code Status Full code VTE Prophylaxis Plan VTE Prophylaxis will be ordered: Yes PG Care Time/CCT Total # of Minutes Spent Total Time Spent with Patient: Total time spent is greater than 50% in coordination of care (as documented) at patient's floor/unit and/or counseling patient: (1) Nausea & vomiting Vomiting Intractability: non-intractable Vomiting type: unspecified Qualified Code(s): R11.2 - Nausea with vomiting, unspecified
[2019-08-08 18:53] LABS: Bacteria Urine Negative (Negative); RBC Urine 0-4 /hpf (0-4); WBC Urine 0-5 /hpf (0-5)
[2019-08-08 18:54] LABS: Uric Acid Crystals Urine Present (None Prsent)
[2019-08-08] MEDS ORDERED: MAGNESIUM HYDROXIDE SUSP 30 ML UDC PO PRN (20:30)
[2019-08-08] MEDS ORDERED: GLUCAGON FOR INJ 1 MG VIAL SQ PRN (20:30)
[2019-08-08] MEDS ORDERED: DEXTROSE 50% 50 ML SYRINGE IV PRN (20:30)
[2019-08-08] MEDS ORDERED: GLUCOSE 40% GEL 15 GM TUBE PO PRN (20:30)
[2019-08-08] MEDS ORDERED: CARBOHYDRATES FOR HYPOGLYCEMIA PO PRN (20:30)
[2019-08-08] MEDS ORDERED: GLUCOSE 10 TABS/TUBE PO PRN (20:30)
[2019-08-08] MEDS ORDERED: ACETAMINOPHEN 325 MG TAB PO PRN (20:30)
[2019-08-08] MEDS: SODIUM CHLORIDE 0.45 % 1,000 ML IV SCH (20:54)
[2019-08-08] MEDS ORDERED: cefTRIAXone SODIUM 2,000 MG in DEXTROSE 5% 50 ML IV SCH (21:00)
[2019-08-08] MEDS: ROPINIROLE HCL 1 MG TABLET PO SCH (21:24)
[2019-08-08] MEDS: CIPROFLOXACIN 400 MG/200 ML BAG IV SCH (22:14)
[2019-08-08] MEDS: INSULIN ASPART 100 UNITS/ML 3 ML PEN SC SCH (22:30)
[2019-08-09] MEDS: ONDANSETRON INJ 2 MG/ML 2 ML VIAL IV PRN ×2 (03:17→09:36)
[2019-08-09] MEDS: LISINOPRIL 2.5 MG TAB PO SCH ×2 (03:41→09:49)
[2019-08-09] MEDS ORDERED: LISINOPRIL 5 MG TAB PO ONE (03:45)
[2019-08-09] MEDS: PROMETHAZINE HCL 12.5 MG in SODIUM CHLORIDE 0.9% 50 ML IV PRN ×2 (06:41→13:21)
[2019-08-09 06:42] LABS: Basophils # (auto) 0.05 K/uL (0-0.2); Basophils % (auto) 0.6 %; Eosinophils # (auto) 0.06 K/uL (0-0.5); Eosinophils % (auto) 0.7 %; Hematocrit (blood only) 34.5 % (42-52); Hemoglobin 11.5 g/dL (14.0-18.0); Immature Granulocytes # (auto) 0.02 K/uL (0.00-0.02); Immature Granulocytes % (auto) 0.2 %; Lymphocytes # (auto) 1.48 K/uL (1.2-3.4); Mean Corpuscular Hemoglobin 31.1 pg (25-34); Mean Corpuscular Hgb Conc 33.3 g/dL (32-36); Mean Corpuscular Volume 93.2 fL (80-100); Mean Platelet Volume 11.3 fL (7.4-10.4); Monocytes # (auto) 0.62 K/uL (0.11-0.59); Monocytes % (auto) 7.1 %; Neutrophils # (auto) 6.49 K/uL (1.4-6.5); Neutrophils % (auto) 74.4 %; Platelet Count 160 K/uL (130-400); RDW Coefficient of Variation 12.5 % (11.5-14.5); RDW Standard Deviation 42.5 fL (36.4-46.3); White Blood Count 8.72 K/uL (4.8-10.8)
[2019-08-09 07:20] LABS: BUN Creatinine Ratio 13.8 (10-20); Calcium 8.8 mg/dl (8.5-10.1); Creatinine Clr Calc Pharmacy 74.4 ml/min; Est GFR (African American) 73.4; Est GFR (Non-African American) 63.3; Potassium 4.3 mmol/L (3.5-5.1)
[2019-08-09 07:58] LABS: Lyme Ab IgM w/WB Rflx Negative (Negative)
[2019-08-09 07:59] LABS: Lyme Ab IgG w/WB Rflx Negative (Negative)
[2019-08-09] MEDS: CIPROFLOXACIN 400 MG/200 ML BAG IV SCH (09:36)
[2019-08-09] MEDS: SODIUM CHLORIDE 0.45 % 1,000 ML IV SCH ×2 (09:36→20:07)
[2019-08-09] MEDS: INSULIN ASPART 100 UNITS/ML 3 ML PEN SC SCH ×4 (09:37→20:07)
[2019-08-09] MEDS: DULOXETINE HCL 60 MG CAP PO SCH (09:48)
[2019-08-09] MEDS: ROPINIROLE HCL 1 MG TABLET PO SCH ×3 (09:48→20:07)
--- NOTE | 2019-08-09 09:55 | Urology Consultation ---
Date of Consultation August 09, 2019 Assessment & Plan (1) Hematuria: Asymptomatic microscopic hematuria Incidental identification of microscopic hematuria does not appear to be contributing to current GI symptoms or admission Based on CT it appears that he likely has a small intravesical lobe of his prostate He can follow-up as an outpatient for completion of an asymptomatic microscopic hematuria work-up No other intervention from us, please call if there are any further issues chris guardado this hospitalization History of Present Illness Attending Physician: Oskar Sanchez History of Present Illness Consult placed for asymptomatic microscopic hematuria and age 63-year-old gentleman admitted with severe nausea and vomiting for several days He denies any urinary symptoms [place] nocturia, never gross hematuria, no dysuria, no infections He was previously admitted around a week agoCT at that time: Appears to have an intravesical median lobe of his prostate but no other gross abnormalities, no significant stranding around the bladder or prostate, no kidney stones, no hydro-process UA today with microscopic blood1+ only No recent PSA in our system He adamantly reports that his only complaint relates to GI issues Allergies Allergy/AdvReac Type Severity Reaction Status Date / Time Bactrim AdvReac Unknown nausea Verified 10/12/17 14:46 sulfamethoxazole AdvReac Unknown nausea Verified 08/08/19 14:24 trimethoprim AdvReac Unknown nausea Verified 08/08/19 14:24 oxycodone AdvReac Nausea Verified 08/08/19 14:24 Home Medications Home Medications Medication Instructions Recorded Confirmed Type aspirin 81 mg PO QAM 12/24/18 08/08/19 History cholecalciferol (vitamin D3) 5,000 unit PO QAM 12/24/18 08/08/19 History [Vitamin D3] cyanocobalamin (vitamin B-12) 1,000 mcg PO QAM 12/24/18 08/08/19 History [Vitamin B-12] duloxetine 60 mg PO QAM 12/24/18 08/08/19 History glipizide 5 mg PO BID 12/24/18 08/08/19 History rosuvastatin 40 mg PO QPM 12/24/18 08/08/19 History lisinopril 2.5 mg tablet 2.5 mg PO QAM #90 tab 05/18/19 08/08/19 Rx Esequiel Hathaway U-100 Insulin 10 unit SUBCUT DAILY 07/29/19 08/08/19 History metformin 1,000 mg PO BID 07/29/19 08/08/19 History ranitidine 150 mg tablet 150 mg PO DAILY 08/05/19 08/08/19 History ropinirole 1 mg tablet 1 mg PO TID 08/05/19 08/08/19 History semaglutide 0.25 mg or 0.5 mg (2 0.25 mg SQ WEEKLY #3 ml 08/05/19 08/08/19 Rx mg/1.5 mL) subcutaneous pen injector Patient History Medical History History of diabetic ulcer of foot (Resolved) Osteomyelitis (Resolved) Type 2 diabetes mellitus with diabetic peripheral angiopathy without gangrene (Acute) Acquired hallux valgus of right foot (Acute) Hallux valgus (acquired), left foot (Acute) Diabetes mellitus, type 2 NIDDM Hyperlipidemia Hypertension PVD (peripheral vascular disease) Parkinsonism Presence of arterial stent LEFT LEG Snores Surgical History History of amputation of lesser toe of left foot (Acute) History of amputation LEFT TOE History of bunionectomy History of cataract surgery RIGHT CATARACT. 01/07/2019. 2mg versed. 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 Beliefs That Will Affect Care: None Current Living Situation: Significant Other Feels Safe at Home: Yes Smoking Status: Never smoker Second Hand Exposure: No ; Hx Alcohol Use: No Hx Substance Use: No Review of Systems Constitutional: no fever, no chills and no fatigue Eyes: no worsening vision Ear, Nose, Mouth, Throat: no facial pain and no pain with swallowing Respiratory: no cough and no dyspnea Cardiovascular: no chest pain and no palpitations Gastrointestinal: + bloating, + nausea and + vomiting Genitourinary: no dysuria, no urinary frequency, no nocturia and no hematuria Musculoskeletal: no back pain Integumentary: no rash and no urticaria Neurologic: no gait abnormality and no unsteadiness Psychiatric: no behavioral changes and no depression Endocrine: no fatigue Physical Exam Constitutional: well developed and well nourished Uncomfortable appearing Neck: neck nontender Respiratory: normal respiratory effort; no respiratory distress and does not use accessory muscles Cardiovascular: Rate/Rhythm: regular rate Vessels: radial pulses present Extremities: no edema Gastrointestinal (Abdomen): Inspection/Auscultation: abdomen normal to inspection Percussion/Palpation: abdomen soft; abdomen nontender and no guarding Musculoskeletal: Head/Neck/Chest: normocephalic and head atraumatic Extremities: extremities normal to inspection Skin: no rashes and no lesions Trauma: no evidence of skin trauma Neurologic: awake; not obtunded Speech / Cognition: normal speech Motor/Sensory: no tremor Psychiatric: Orientation: alert and oriented x 3 Genitourinary: no CVA tenderness Lymphatic: no lymphadenopathy Results & Data Vital Signs (Past 12 Hours) Vital Signs Temp Pulse Pulse Pulse Resp BP BP 08/09/19 08:50 78 08/09/19 08:39 36.7 C 87 18 174/97 H 207/84 H 08/09/19 02:25 36.7 C 82 18 191/90 H 08/09/19 00:00 78 08/08/19 23:46 36.7 C 90 20 141/78 H Pulse Ox 08/09/19 08:50 08/09/19 08:39 95 08/09/19 02:25 95 08/09/19 00:00 08/08/19 23:46 97 PG Care Time/CCT Total # of Minutes Spent Total Time Spent with Patient: Total time spent is greater than 50% in coordination of care (as documented) at patient's floor/unit and/or counseling patient:
--- NOTE | 2019-08-09 09:56 | Hospitalist Progress Note ---
Date of Service August 09, 2019 Assessment & Plan (1) Nausea & vomiting: At this point, I am perplexed as to what is casuing his nausea vomiting as patient lacks any other symptoms. Reviewing his outpatient records, it is likely that patient has diabteic gastroparesis, and likely worsened by semglutide. This actually makes sense with the timing. This medicine was held last hospital stay, patient improved, then received a smaller dose of it when he returnned home, worsening his sympptoms. Family though is requesting GI consult, since they are interested in a Upper scope. Family is worried that this could be an ulcer. Will give reglan as this may help with gastroparesis. Will hold off further antibiotics as patient does not appear to be complainig of urinary tract symptoms. Had discussion with urology who do not believe patient has chronic prostatitis. I did order an anplasmosis smear. For the moment, will continue to monitor patient. Patient will either improve, or perhpas have a second complaint that would point towards an other etiology. Uncertain etiology, however was notably improving while on abx and has return s/p completion of abx WBC WNL, afebrile ?? of UTI on prior admission given CTAP findings. UA at that time with blood only and no cx sent Presumed UTI and finished course of cefdenir as outpt Was on ceftriaxone and cipro during admission Lyme negativee (2) Hematuria: Seen on prior admission and again today CTAP noted for prostatitis with urinary outlet obstruction Denies urinary sx Monitor for now appreciate input from urology Aspirin 81mg for prevention only, will hold for now (3) Orthostasis: Possibly related to untx infection Was also improving on abx Monitor (4) Hypertension: continue home meds (5) Periodic limb movement disorder: Hx of recent d/c of propranolol use to determine if this helped orthostatis Monitor (6) Uncontrolled type 2 diabetes mellitus with neurologic complication: SSI PRN during n/v and low PO intake Pt is on ozempic, new in the last month A1c pending (7) GERD (gastroesophageal reflux disease): continue home meds (8) Hypercholesterolemia: Holding for now (9) DVT prophylaxis: SCDs given hematuria Subjective 63 yo male reports he continues to have nausea, vomiting. Patient reports when he eats he throws up. He states he has been having this problem for the past 3 weeks. He improved in last hospital stay. But this returned when he came home. His PCP thinks it could be the semaglutide. Patient denies any other symptoms such as abd. pain, fever, chills. Review of Systems Review of Systems: All systems reviewed & are unremarkable except as noted in HPI & below Physical Exam Physical Exam: Constitutional: WD/WN, vitals as above Eyes: normal visual gomez by confrontation and + anicteric sclerae Neck: normal visual inspection and trachea midline Respiratory: normal respiratory effort, lungs clear to auscultation Cardiovascular: Rate/Rhythm: regular rate and regular rhythm Gastrointestinal (Abdomen): Inspection/Auscultation: + abdomen distended Percussion/Palpation: abdomen soft; abdomen nontender Musculoskeletal: Head/Neck/Chest: normocephalic and head atraumatic negative for edema, peripheral pulses intact Skin: no rashes, warm and dry Neurologic: awake; not confused Speech / Cognition: normal speech Psychiatric: A+Ox3, euthymic affect Results & Data Vital Signs (Past 12 Hours) Vital Signs Temp Pulse Pulse Pulse Resp BP BP 08/09/19 08:50 78 08/09/19 08:39 36.7 C 87 18 174/97 H 207/84 H 08/09/19 02:25 36.7 C 82 18 191/90 H 08/09/19 00:00 78 08/08/19 23:46 36.7 C 90 20 141/78 H Pulse Ox 08/09/19 08:50 08/09/19 08:39 95 08/09/19 02:25 95 08/09/19 00:00 08/08/19 23:46 97 PG Care Time/CCT Total # of Minutes Spent Total Time Spent with Patient: Total time spent is greater than 50% in coordination of care (as documented) at patient's floor/unit and/or counseling patient: Prolonged Care Time Prolonged Care Time: Yes Total Prolonged Care Time: 75 spent 9:00 to 9:30 18:00 to 18:45 (1) Nausea & vomiting Vomiting Intractability: non-intractable Vomiting type: unspecified Qualified Code(s): R11.2 - Nausea with vomiting, unspecified
[2019-08-09] MEDS ORDERED: PROCHLORPERAZINE 5 MG in SYRINGE 4 ML IV ONE (14:30)
[2019-08-09] MEDS ORDERED: METOCLOPRAMIDE HCL INJ 5 MG/ML 2 ML VIAL IV SCH (18:00)
[2019-08-09] MEDS ORDERED: PROCHLORPERAZINE 10 MG in SYRINGE 8 ML IV PRN (18:13)
[2019-08-09] MEDS: METOCLOPRAMIDE HCL INJ 5 MG/ML 2 ML VIAL IV SCH (20:05)
[2019-08-10] MEDS: METOCLOPRAMIDE HCL INJ 5 MG/ML 2 ML VIAL IV SCH ×3 (04:04→18:28)
[2019-08-10] MEDS: INSULIN ASPART 100 UNITS/ML 3 ML PEN SC SCH ×4 (08:30→21:16)
[2019-08-10] MEDS: SODIUM CHLORIDE 0.45 % 1,000 ML IV SCH ×2 (08:30→21:21)
[2019-08-10] MEDS: ROPINIROLE HCL 1 MG TABLET PO SCH ×3 (08:32→21:15)
[2019-08-10] MEDS: DULOXETINE HCL 60 MG CAP PO SCH (08:32)
[2019-08-10] MEDS: LISINOPRIL 2.5 MG TAB PO SCH (08:32)
--- NOTE | 2019-08-10 12:24 | Gastrointestinal Consultation ---
Date of Consultation August 10, 2019 Assessment & Plan (1) Nausea & vomiting: Agree with Dr. Sanchez. Would suspect gastroparesis as the etiology for his nausea/vomiting. There is CT evidence of distal esophageal thickening as well as clinical concern for gastroparesis. Nausea & vomiting has stopped with antiemetic therapy. 1) Our office will contact this patient to arrange outpatient EGD & gastric emptying study with subsequent office follow-up. Please do not have case management make duplicate appointment. 2) Continue anti-emetic therapy as this has resolved his nausea & vomiting 3) Emphasize good control of diabetes 4) Would keep on Protonix 40 mg BID until outpatient work-up complete 5) Further recommendations pending results of GI work-up Thank you for allowing us to participate in the care of this patient. If you should have any further questions or concerns, do not hesitate to contact our office. Supervising Physician Co-Signing Physician Notes Agree with LEENA Thomason as above He is feeling much better this evening Abd: Soft, NT, ND, +BS Continue current therapy Outpatient workup to ensue History of Present Illness Attending Physician: Darion Rod DO History of Present Illness Patient is a 63 yo male with a PMH of GERD, diabetes mellitus (type 2), HLD, HTN, lymphangitis, parkinsonism, peripheral arterial occlusive disease, & halux valgus. GI has been consulted for episodes of nausea & vomiting. He reports this has been ongoing for 2-3 weeks several times daily. He denies dietary changes. He does report changes to his diabetes medication regimen prior to the onset of his symptoms. He is concerned Trulicity may have caused this. He is currently managed on Promethazine and has had no further nausea & vomiting since yesterday. He denies abdominal pain. He has a history of reflux & intermittently takes PPI therapy at home. He does have Zantac listed on his home med list. He has never been diagnosed with gastroparesis. he had an EGD in 2017 that indicated a small hiatal hernia & gastritis. He has no other GI symptoms at present. He reports that he does not have a history of GI malignancy in his family. He had a CT scan on 07/29 of the abdomen/pelvis that indicated a hiatal hernia and mild wall thickening of the distal esophagus. He denies NSAID use. His H/H was 11.5/34.5. WBC count is unremarkable as is his metabolic panel. Amylase & lipase upon admission were unremarkable. Allergies Allergy/AdvReac Type Severity Reaction Status Date / Time Bactrim AdvReac Unknown nausea Verified 10/12/17 14:46 sulfamethoxazole AdvReac Unknown nausea Verified 08/08/19 14:24 trimethoprim AdvReac Unknown nausea Verified 08/08/19 14:24 oxycodone AdvReac Nausea Verified 08/08/19 14:24 Home Medications Home Medications Medication Instructions Recorded Confirmed Type aspirin 81 mg PO QAM 12/24/18 08/08/19 History cholecalciferol (vitamin D3) 5,000 unit PO QAM 12/24/18 08/08/19 History [Vitamin D3] cyanocobalamin (vitamin B-12) 1,000 mcg PO QAM 12/24/18 08/08/19 History [Vitamin B-12] duloxetine 60 mg PO QAM 12/24/18 08/08/19 History glipizide 5 mg PO BID 12/24/18 08/08/19 History rosuvastatin 40 mg PO QPM 12/24/18 08/08/19 History lisinopril 2.5 mg tablet 2.5 mg PO QAM #90 tab 05/18/19 08/08/19 Rx Basaglar KwikPen U-100 Insulin 10 unit SUBCUT DAILY 07/29/19 08/08/19 History metformin 1,000 mg PO BID 07/29/19 08/08/19 History ranitidine 150 mg tablet 150 mg PO DAILY 08/05/19 08/08/19 History ropinirole 1 mg tablet 1 mg PO TID 08/05/19 08/08/19 History semaglutide 0.25 mg or 0.5 mg (2 0.25 mg SQ WEEKLY #3 ml 08/05/19 08/08/19 Rx mg/1.5 mL) subcutaneous pen injector Patient History Medical History History of diabetic ulcer of foot (Resolved) Osteomyelitis (Resolved) Type 2 diabetes mellitus with diabetic peripheral angiopathy without gangrene (Acute) Acquired hallux valgus of right foot (Acute) Hallux valgus (acquired), left foot (Acute) Diabetes mellitus, type 2 NIDDM Hyperlipidemia Hypertension PVD (peripheral vascular disease) Parkinsonism Presence of arterial stent LEFT LEG Snores Surgical History History of amputation of lesser toe of left foot (Acute) History of amputation LEFT TOE History of bunionectomy History of cataract surgery RIGHT CATARACT. 01/07/2019. 2mg versed. no issues History of colonoscopy History of esophagogastroduodenoscopy (EGD) History of tonsillectomy Status post arterial stent LEFT LEG Family History Family/Other No pertinent family history Social History Preferred Language: Korean Communication Ability: Effective Director Hematology Required: No Beliefs That Will Affect Care: None Current Living Situation: Significant Other Feels Safe at Home: Yes Smoking Status: Never smoker Second Hand Exposure: No ; Hx Alcohol Use: No Hx Substance Use: No Review of Systems Constitutional: no fever and no chills Eyes: no acute issues Ear, Nose, Mouth, Throat: no acute issues Respiratory: no cough and no dyspnea Cardiovascular: no chest pain Gastrointestinal: no abdominal pain, no belching, no heartburn, no vomiting, no dysphagia, no change in bowel habits, no blood in stools and no melena Integumentary: no rash Neurologic: no acute issues Psychiatric: no acute issues Endocrine: no fatigue Physical Exam Constitutional: WD/WN, vitals as above Eyes: PERRL, conjunctivae normal, anicteric sclerae ENMT: external ear and nose normal, oropharynx normal Neck: normal visual inspection Respiratory: normal respiratory effort, lungs clear to auscultation normal respiratory effort Cardiovascular: RRR, no murmur, no edema Gastrointestinal (Abdomen): normal bowel sounds, soft, nontender, no hepatosplenomegaly Musculoskeletal: no cyanosis or clubbing, extremities motor strength 5/5 Skin: no rashes, warm and dry Neurologic: normal speech Psychiatric: A+Ox3, euthymic affect Results & Data Vital Signs (Past 12 Hours) Vital Signs Temp Pulse Pulse Resp BP BP Pulse Ox 08/10/19 11:23 36.4 C L 52 L 16 107/72 97 08/10/19 07:17 36.5 C 81 20 129/77 96 08/10/19 03:26 36.9 C 83 18 152/81 H 95 PG Care Time/CCT Total # of Minutes Spent Total Time Spent with Patient: Total time spent is greater than 50% in coordin ation of care (as documented) at patient's floor/unit and/or counseling patient: (1) Nausea & vomiting Vomiting Intractability: non-intractable Vomiting type: unspecified Qualified Code(s): R11.2 - Nausea with vomiting, unspecified
--- NOTE | 2019-08-10 13:26 | Medical Student Progress Note ---
Date of Service August 10, 2019 Assessment & Plan (1) Nausea & vomiting: His nausea and vomiting have improved with the metoclopramide. It is suspected this is due to diabetic gastroparesis. GI will be consulted. Vomiting Intractability: non-intractable Vomiting type: unspecified Qualified Code(s): R11.2 - Nausea with vomiting, unspecified Present on Admission?: Yes (2) Hematuria: Seen on admission. Patient denies other urinary symptoms. Urology believes this is not related to his current symptoms and recommends outpatient follow-up. Present on Admission?: Yes Subjective Patient was admitted after presenting to the ER with nausea and vomiting. As of this morning, his nausea has improved: "I don't feel nauseous anymore." He attributes this to the metoclopramide that he was given. He reports diffuse abdominal pain all day yesterday, with the pain being "bad enough that all I wanted to do was sleep." He cannot remember the consultation with Dr. Wu yesterday, which he attributes to the pain. Today, he reports being pain-free. His appetite was decreased before being admitted to the hospital, but his appetite has now returned, and he would like to be switched from a liquid diet to a solid one. Reports a bowel movement the day before that was of a consistency that is normal for him. He is not very concerned about the hematuria. Dr. Wu, the urology consult, agrees that the hematuria is probably not contributing to his current symptoms and recommends a follow-up with urology in the future to investigate further. Review of Systems Gastrointestinal: as per Subjective / HPI Physical Exam Respiratory: normal respiratory effort, lungs clear to auscultation Cardiovascular: RRR, no murmur, no edema Gastrointestinal (Abdomen): normal bowel sounds, soft, nontender, no hepatosplenomegaly Results & Data Vital Signs (Past 12 Hours) Vital Signs Temp Pulse Pulse Resp BP BP Pulse Ox 08/10/19 11:23 36.4 C L 52 L 16 107/72 97 08/10/19 07:17 36.5 C 81 20 129/77 96 08/10/19 03:26 36.9 C 83 18 152/81 H 95
--- NOTE | 2019-08-10 19:00 | Hospitalist Progress Note ---
Date of Service August 10, 2019 Assessment & Plan (1) Nausea & vomiting: most likely gastroparesis responded well to Reglan TID will continue on discharge plan for follow up EGD and gastric emptying study (2) Hematuria: Seen on prior admission and again today CTAP noted for prostatitis with urinary outlet obstruction Denies urinary sx Monitor for now appreciate input from urology no further work up inpatient, can see in the office (3) Orthostasis: Possibly related to untx infection Was also improving on abx resolved (4) Hypertension: continue home meds (5) Periodic limb movement disorder: Hx of recent d/c of propranolol use to determine if this helped orthostatis Monitor (6) Uncontrolled type 2 diabetes mellitus with neurologic complication: SSI PRN during n/v and low PO intake monitor for hypoglycemia likely need to stop GLP-1 inhibitor (7) GERD (gastroesophageal reflux disease): continue PPI BID (8) Hypercholesterolemia: Holding for now (9) DVT prophylaxis: SCDs plan to d/c in the morning if he tolerating diet Subjective patient feels a lot better, no further vomiting he tolerating lunch and dinner he attributes it to Reglan appreciate gastro consult, plan for follow up with GI for EGD and gastric emptying study updated his , plan to d/c in the morning Review of Systems Review of Systems: All systems reviewed & are unremarkable except as noted in HPI & below Respiratory: no cough and no dyspnea Cardiovascular: no chest pain and no edema Gastrointestinal: no abdominal pain, no nausea, no vomiting, no constipation and no diarrhea/loose stools Physical Exam Constitutional: WD/WN, vitals as above + obese Eyes: PERRL, conjunctivae normal, anicteric sclerae ENMT: external ear and nose normal, oropharynx normal Neck: trachea midline, no thyromegaly Respiratory: normal respiratory effort, lungs clear to auscultation Cardiovascular: RRR, no murmur, no edema Gastrointestinal (Abdomen): normal bowel sounds, soft, nontender, no hepatosplenomegaly Musculoskeletal: no cyanosis or clubbing, extremities motor strength 5/5 Skin: no rashes, warm and dry Neurologic: patellar DTR's 2+ bilat, sensation intact and PERRL, EOMI, accommodation nl, no face palsy, no dysarthria Psychiatric: A+Ox3, euthymic affect Lymphatic: no cervical or axillary lymphadenopathy Results & Data Vital Signs (Past 12 Hours) Vital Signs Temp Pulse Pulse Resp BP BP Pulse Ox 08/10/19 16:15 86 08/10/19 15:32 36.8 C 80 18 98/61 L 95 08/10/19 11:23 36.4 C L 52 L 16 107/72 97 08/10/19 07:17 36.5 C 81 20 129/77 96 Laboratory Results Laboratory Results - last 24 hr 08/10/19 08/10/19 08/10/19 07:37 11:56 16:33 POC Glucose 121 H 142 H 128 H 08/10/19 20:29 POC Glucose 76 Medications Administered Current Inpatient Medications Acetaminophen (Tylenol) 650 mg PO Q4H PRN PRN Reason: Pain or Fever Stop: 09/07/19 20:29 Last Admin: 08/09/19 03:35 Dose: 650 mg Documented by: Dextrose (Dextrose 50%) 25 - 50 ml IV UD PRN; Protocol PRN Reason: Hypoglycemia Protocol Stop: 09/07/19 20:29 Duloxetine HCl (Cymbalta) 60 mg PO [facility] Stop: 09/08/19 08:59 Last Admin: 08/10/19 08:32 Dose: 60 mg Documented by: Glucagon (Glucagen) 1 mg SQ UD PRN; Protocol PRN Reason: Hypoglycemia Protocol Stop: 09/07/19 20:29 Glucose (Glucose 40%) 15 - 30 gm PO UD PRN; Protocol PRN Reason: Hypoglycemia Protocol Stop: 09/07/19 20:29 Glucose (Dex4 Glucose) 4 - 8 tabs PO UD PRN; Protocol PRN Reason: Hypoglycemia Protocol Stop: 09/07/19 20:29 Sodium Chloride (1/2 Nss) 1,000 mls @ 80 mls/hr IV .[id number] [facility] Stop: 09/07/19 20:29 Last Admin: 08/10/19 21:21 Dose: 80 mls/hr Documented by: Insulin Aspart (Novolog Flexpen) 0 units SC ACHS [facility] Stop: 09/07/19 20:59 Last Admin: 08/10/19 21:16 Dose: Not Given Documented by: Lisinopril (Zestril) 2.5 mg [facility] Stop: 09/08/19 08:59 Last Admin: 08/10/19 08:32 Dose: 2.5 mg Documented by: Magnesium Hydroxide (Milk Of Magnesia) 30 ml PO Q12H PRN PRN Reason: Constipation Stop: 09/07/19 20:29 Metoclopramide HCl (Reglan) 5 mg IV Q8H JOESPH Stop: 09/08/19 18:44 Last Admin: 08/10/19 18:28 Dose: 5 mg Documented by: Miscellaneous (Carbohydrates For Hypoglycemia) 15 - 30 gm PO UD PRN PRN Reason: Hypoglycemia Treatment Stop: 09/07/19 20:29 Ondansetron HCl (Zofran) 4 mg IV Q6H PRN PRN Reason: Nausea Stop: 09/07/19 20:29 Last Admin: 08/09/19 09:36 Dose: 4 mg Documented by: Ranitidine HCl (Zantac) 150 mg PO DAILY JOESPH Stop: 09/08/19 08:59 Last Admin: 08/10/19 08:32 Dose: 150 mg Documented by: Ropinirole HCl (Requip) 1 mg PO TID JOESPH Stop: 09/07/19 20:59 Last Admin: 08/10/19 21:15 Dose: 1 mg Documented by: PG Care Time/CCT Total # of Minutes Spent Total Time Spent with Patient: Total time spent is greater than 50% in coordination of care (as documented) at patient's floor/unit and/or counseling patient: (1) Nausea & vomiting Vomiting Intractability: non-intractable Vomiting type: unspecified Qualified Code(s): R11.2 - Nausea with vomiting, unspecified
[2019-08-11] MEDS: METOCLOPRAMIDE HCL INJ 5 MG/ML 2 ML VIAL IV SCH (03:23)
[2019-08-11] MEDS: ROPINIROLE HCL 1 MG TABLET PO SCH (08:02)
[2019-08-11] MEDS: DULOXETINE HCL 60 MG CAP PO SCH (08:03)
[2019-08-11] MEDS: LISINOPRIL 2.5 MG TAB PO SCH (08:03)
[2019-08-11] MEDS: INSULIN ASPART 100 UNITS/ML 3 ML PEN SC SCH (08:22)
--- NOTE | 2019-08-11 08:42 | Discharge Summary ---
Date of Service August 11, 2019 Admission HPI Per Admitting Provider 63 y/o M c/o persistent n/v. Pt states this has been ongoing for the last 3 weeks. He was admitted to [facility] on 07/29 for the same sx. He was dx with possible UTI/GE and tx with IV cipro and ceftriaxone. His UA was noted for blood only (clean catch specimen), cx was not done. CTAP noted for possible cystitis. Pt was noted to have improved on 07/31 and was tolerating light PO intake of liquids. He was d/c'd home with cefdinir to finish abx course. He did complete this. He was continuing to feel improved until a few days off of abx when he had return of n/v with all PO intake. He was lightheaded with moving from standing to sitting, which had been an issue prior to admission but had resolved during abx tx. This returned and pt fell on Saturday x2. He did not pass out, but was "close to it". N/V had been associated with PO intake, however pt woke up from sleep around 4a today with emesis. He had another episode s/p breakfast around 8a and so they came to the ED. He has not eaten since this time. No other sx noted. Pt denies fever, SOB, chest pain, abd pain, c/d, LE pain or swelling. Denies any urinary sx or frequent urination. Pt had f/u with PCP and it was thought that his lightheadedness was possibly related to the propranolol he takes for management of a tremor. He has been off of this x4 days and feels no better. Pt and family were camping just prior to onset of sx. He has a dog and there are ticks in his area. He is outside a lot around his home. Pt was recently started on ozempic, a weekly injectable medication for diabetes. He was started on 5mg but this was decreased to 2.5mg recently. He takes this medication on Sundays. Saturday was when his sx returned. He has been on it for less than a month. Principal Diagnosis Nausea and vomiting likely due to gastroparesis Discharge Exam Constitutional WD/WN, vitals as above + obese Eyes PERRL, conjunctivae normal, anicteric sclerae ENMT external ear and nose normal, oropharynx normal Neck trachea midline, no thyromegaly Respiratory normal respiratory effort, lungs clear to auscultation Cardiovascular RRR, no murmur, no edema Gastrointestinal (Abdomen) normal bowel sounds, soft, nontender, no hepatosplenomegaly Musculoskeletal no cyanosis or clubbing, extremities motor strength 5/5 Skin no rashes, warm and dry Neurologic patellar DTR's 2+ bilat, sensation intact and PERRL, EOMI, accommodation nl, no face palsy, no dysarthria Psychiatric A+Ox3, euthymic affect Lymphatic no cervical or axillary lymphadenopathy Discharge Data Allergies Allergy/AdvReac Type Severity Reaction Status Date / Time Bactrim AdvReac Unknown nausea Verified 10/12/17 14:46 sulfamethoxazole AdvReac Unknown nausea Verified 08/08/19 14:24 trimethoprim AdvReac Unknown nausea Verified 08/08/19 14:24 oxycodone AdvReac Nausea Verified 08/08/19 14:24 Consultations 08/08/19 17:28 ED Decision to Admit Stat 08/09/19 08:50 Consult Urology Routine 08/09/19 18:07 Consult Gastroenterology Routine Ordered Studies 08/08/19 13:42 CT head/brain wo con Stat Hospital Course (1) Nausea & vomiting: most likely gastroparesis responded well to Reglan TID continue Reglan 5mg TID with meals on discharge prescribed 10 days supply, discussed with patient that this would not be ideal adjunct faculty for medical terminology plan plan for follow up EGD and gastric emptying study will hold GLP-1 inhibitor on discharge as this can impair gastric motility (2) Hematuria: Seen on prior admission and again today CTAP noted for prostatitis with urinary outlet obstruction Denies urinary sx appreciate input from urology no further work up inpatient, can see in the office (3) Orthostasis: resolved (4) Hypertension: continue home meds (5) Periodic limb movement disorder: mild tremor off of propranolol currently to see if it would help orthostasis recommend follow up with PCP (6) Uncontrolled type 2 diabetes mellitus with neurologic complication: SSI PRN during n/v and low PO intake monitor for hypoglycemia stop GLP-1 inhibitor continue glipizide, metformin diabetic diet (7) GERD (gastroesophageal reflux disease): continue Protonix 40mg BID plan for EGD as outpatient (8) Hypercholesterolemia: (9) DVT prophylaxis: SCDs Total Time Total Time Spent Total Time Spent (In Minutes): 32 minutes Total Time Includes: Examination of the Patient, Discharge Planning, Medication Reconciliation, Communication With Other Providers (Jen Recio) and Other (discussion with patient's family) Discharge Plan Discharge Items Patient Disposition: Home - Self-Care Reason For Visit: N/V,HEMATURIA Discharge Diagnosis: Nausea and vomiting Possible gastroparesis Hematuria Condition on Discharge: Good Goals: follow up with Jen Recio next week for assessment, possible EGD and gastric emptying study control symptoms with Reglan Activity: Resume your previous activity Non-emergency contact: Primary Care Provider and Equipment Superintendent Call non-emergency contact if: you have any medication questions, your symptoms worsen, your pain is not controlled and you have a fever Follow-up/Referrals: Mila Dean CRNP [Primary Care Provider] - Diet: Carb Consistent or DM2 Addtl Attending Provider Instructions: Medications: - METOCLOPRAMIDE: new medication to promote motility of stomach, take 5mg three times a day short term prescription for 10 days, would not recommend this medication chcf potential for interaction with Duloxetine but typically you need to be taking it for a long time - PROTONIX: 40mg twice a day for next two weeks then daily Nausea and vomiting most likely etiology is gastroparesis but would need confirmed with outpatient emptying study also with some thickening of distal esophagus on CT scan recommend twice a day Protonix, possible EGD arranged by gastroenterology please follow up with Jen Recio next week Pending Studies at Discharge: No Stand-Alone Forms: My [facility] [employer] Medications and DC Order Prescriptions: New metoclopramide HCl 5 mg tablet 5 mg PO TIDM Qty: 30 RF: 0 pantoprazole 20 mg tablet,delayed release (DR/EC) 40 mg PO BID 14 Days Qty: 56 RF: 1 Continued lisinopril 2.5 mg tablet 2.5 mg PO QAM Qty: 90 RF: 2 ranitidine HCl 150 mg tablet 150 mg PO DAILY RF: 0 ropinirole 1 mg tablet 1 mg PO TID RF: 0 cyanocobalamin (vitamin B-12) [Vitamin B-12] 1,000 mcg Tablet 1,000 mcg PO QAM RF: 0 aspirin 81 mg Tablet,Delayed Release (Dr/Ec) 81 mg PO QAM RF: 0 glipizide 5 mg Tablet 5 mg PO BID RF: 0 rosuvastatin 40 mg Tablet 40 mg PO QPM RF: 0 duloxetine 60 mg Capsule,Delayed Release(Dr/Ec) 60 mg PO QAM RF: 0 cholecalciferol (vitamin D3) [Vitamin D3] 5,000 unit Tablet 5,000 unit PO QAM RF: 0 metformin 500 mg tablet 1,000 mg PO BID RF: 0 Basaglar KwikPen U-100 Insulin 100 unit/mL (3 mL) Insulin Pen 10 unit SUBCUT DAILY RF: 0 Discontinued Ozempic 0.25 mg or 0.5 mg(2 mg/1.5 mL) pen injector 0.25 mg SQ WEEKLY Qty: 3 RF: 0 Discharge Orders: Discharge Order (Routine); Ordered 08/11/19 Ordered By: Darion Rod Admission Data Admit Date/Time: 08/09/19 18:39 Attending Provider: Darion Rod Admit Provider: Winsome Weber Primary Care Provider: Mila Dean Other Providers: Winsome Weber ; Jamel Wu ; Amadeo Saldana
== END 2019-08-11 09:47 | disposition home or self-care (01) | DRG 74 ==
LOC: ED 13:04 → 2N 13:04 → SUATTDRO 18:33 → 2N 20:15 → SUATTDRO 08-09 18:39

== ENCOUNTER 2022-05-04 09:14 | Observation (INO) ==
--- NOTE | 2022-04-10 16:14 | PAT Medication Instructions ---
Medication Instructions Date of Service April 10, 2022 Home Medications Medication Instructions Recorded clotrimazole 1 % topical cream 1 appln TOP BID #30 gm 03/07/20 (Lotrimin AF (clotrimazole)) metformin 500 mg tablet 1,000 mg PO BID #360 tab 09/14/21 blood sugar diagnostic (OneTouch #300 ea 09/15/21 Ultra Test) carbidopa 25 mg-levodopa 100 mg 2 tab PO QID 90 Days #720 tab 01/09/22 tablet (Sinemet) Basaglar KwikPen U-100 Insulin 100 10 unit SUBCUT QAM 90 Days #15 ml 01/11/22 unit/mL (3 mL) subcutaneous NS (insulin glargine) duloxetine 60 mg capsule,delayed 60 mg PO QAM 90 Days #90 cap 01/11/22 release flash glucose sensor (FreeStyle #2 ea 01/19/22 Jim 2 Sensor) BD Ultra-Fine Mini Pen Needle 31 #400 ea NS 01/29/22 gauge x 3/16" (pen needle, diabetic) aspirin 81 mg tablet,delayed release 81 mg PO QAM cholecalciferol (vitamin D3) 125 mcg (5,000 unit) tablet (Vitamin D3) 5,000 unit PO QAM cyanocobalamin (vitamin B-12) 1,000 mcg tablet (Vitamin B-12) 1,000 mcg PO QAM lancets 33 gauge (OneTouch Delica Lancets) clotrimazole 1 % topical cream (Lotrimin AF (clotrimazole)) 1 appln TOP BID metformin 500 mg tablet 1,000 mg PO BID blood sugar diagnostic (OneTouch Ultra Test) ascorbate calcium (vitamin C) 500 mg tablet 500 mg PO QAM carbidopa 25 mg-levodopa 100 mg tablet (Sinemet) 2 tab PO QID Basaglar KwikPen U-100 Insulin 100 unit/mL (3 mL) subcutaneous (insulin glargine) 10 unit SUBCUT QAM duloxetine 60 mg capsule,delayed release 60 mg PO QAM flash glucose sensor (FreeStyle Jim 2 Sensor) BD Ultra-Fine Mini Pen Needle 31 gauge x 3/16" (pen needle, diabetic) dapagliflozin 10 mg tablet 10 mg PO QAM famotidine 20 mg tablet 20 mg PO QAM insulin lispro-aabc 100 unit/mL subcutaneous pen (Lyumjev KwikPen U-100 Insulin) See Rx Instructions .ROUTE .COMPLEX magnesium oxide 400 mg PO QPM pantoprazole 20 mg tablet,delayed release 20 mg PO QPM rosuvastatin 40 mg tablet 40 mg PO QAM STOP taking 24 hours before surgery clotrimazole 1 % topical cream (Lotrimin AF (clotrimazole)) 1 appln TOP BID DO NOT take the morning of surgery cholecalciferol (vitamin D3) 125 mcg (5,000 unit) tablet (Vitamin D3) 5,000 unit PO QAM cyanocobalamin (vitamin B-12) 1,000 mcg tablet (Vitamin B-12) 1,000 mcg PO QAM metformin 500 mg tablet 1,000 mg PO BID ascorbate calcium (vitamin C) 500 mg tablet 500 mg PO QAM insulin lispro-aabc 100 unit/mL subcutaneous pen (Lyumjev KwikPen U-100 Insulin) See Rx Instructions .ROUTE .COMPLEX Take morning of surgery With a small sip of water, OTHERWISE NOTHING TO EAT OR DRINK AFTER MIDNIGHT: aspirin 81 mg tablet,delayed release 81 mg PO QAM (unless directed otherwise by surgeon) carbidopa 25 mg-levodopa 100 mg tablet (Sinemet) 2 tab PO QID duloxetine 60 mg capsule,delayed release 60 mg PO QAM dapagliflozin 10 mg tablet 10 mg PO QAM famotidine 20 mg tablet 20 mg PO QAM rosuvastatin 40 mg tablet 40 mg PO QAM Take evening before surgery metformin 500 mg tablet 1,000 mg PO BID carbidopa 25 mg-levodopa 100 mg tablet (Sinemet) 2 tab PO QID agnesium oxide 400 mg PO QPM pantoprazole 20 mg tablet,delayed release 20 mg PO QPM Insulin Dependent Diabetic Patients * Test your blood sugar the morning of surgery * If Blood Sugar is GREATER THAN 150, take HALF of your regular dose of: Basaglar KwikPen U-100 Insulin 100 unit/mL (3 mL) subcutaneous (insulin glargine) 10 unit SUBCUT QAM-take 5 units * If Blood Sugar is LESS THAN 150, DO NOT TAKE ANY: Basaglar KwikPen U-100 Insulin 100 unit/mL (3 mL) subcutaneous (insulin glargine) Other Notes If you have any questions please call us at [phone] or [phone] or [phone] or [phone]
--- NOTE | 2022-04-12 13:50 | Anesthesiology Consultation ---
Date of Service April 12, 2022 Assessment & Plan (1) Encounter for pre-operative examination: - check BSG am DOS. - COVID screening: Per assessment on 04/12/2022: Travel screen negative, no known COVID-19 positive contacts or current COVID-19 related symptoms in past 2 weeks. Patient vaccinated. Surgeon arranging preop COVID testing, scheduled 05/02/2022. Awaiting results. Chart Review Chart Review: Acceptable Risk for Surgery and Patient seen in Pre Admission Testing History Surgery Operation Date: 05/04/22 07:00 Proposed Procedures p Left Total Shoulder Arthroplasty Reverse - Milind Tong DO Height/Weight Height: 6 ft Weight: 88.1 kg Allergies Allergy/AdvReac Type Severity Reaction Status Date / Time metoclopramide Allergy Unknown Tremor Verified 04/10/22 11:47 oxycodone AdvReac Unknown Nausea Verified 04/10/22 11:47 sulfamethoxazole AdvReac Unknown Nausea Verified 04/10/22 11:47 trimethoprim AdvReac Unknown Nausea Verified 04/10/22 11:47 Medications Home Medications Medication Instructions Recorded Confirmed Last Taken aspirin 81 mg tablet,delayed 81 mg PO QAM 12/24/18 04/10/22 10/01/21 release cholecalciferol (vitamin D3) 125 5,000 unit PO QAM 12/24/18 04/10/22 10/01/21 mcg (5,000 unit) tablet (Vitamin D3) cyanocobalamin (vitamin B-12) 1,000 mcg PO QAM 12/24/18 04/10/22 10/01/21 1,000 mcg tablet (Vitamin B-12) lancets 33 gauge (OneTouch Delica #100 ea 10/27/19 04/10/22 Unknown Lancets) clotrimazole 1 % topical cream 1 appln TOP BID #30 gm 03/07/20 04/10/22 10/01/21 (Lotrimin AF (clotrimazole)) metformin 500 mg tablet 1,000 mg PO BID #360 tab 09/14/21 04/10/22 10/01/21 blood sugar diagnostic (AdRollTouch #300 ea 09/15/21 04/10/22 Unknown Ultra Test) ascorbate calcium (vitamin C) 500 500 mg PO QAM 10/09/21 04/10/22 Unknown mg tablet carbidopa 25 mg-levodopa 100 mg 2 tab PO QID 90 Days #720 tab 01/09/22 04/10/22 Unknown tablet (Sinemet) Basaglar KwikPen U-100 Insulin 100 10 unit SUBCUT QAM 90 Days #15 ml 01/11/22 04/10/22 Unknown unit/mL (3 mL) subcutaneous NS (insulin glargine) duloxetine 60 mg capsule,delayed 60 mg PO QAM 90 Days #90 cap 01/11/22 04/10/22 Unknown release flash glucose sensor (FreeStyle #2 ea 01/19/22 04/10/22 Unknown Jim 2 Sensor) BD Ultra-Fine Mini Pen Needle 31 #400 ea NS 01/29/22 04/10/22 Unknown gauge x 3/16" (pen needle, diabetic) dapagliflozin 10 mg tablet 10 mg PO QAM 04/10/22 04/10/22 Unknown famotidine 20 mg tablet 20 mg PO QAM 04/10/22 04/10/22 Unknown insulin lispro-aabc 100 unit/mL See Rx Instructions .ROUTE .COMPLEX 04/10/22 04/10/22 Unknown subcutaneous pen (Lyumjev KwikPen U-100 Insulin) magnesium oxide 400 mg PO QPM 04/10/22 04/10/22 Unknown pantoprazole 20 mg tablet,delayed 20 mg PO QPM 04/10/22 04/10/22 Unknown release rosuvastatin 40 mg tablet 40 mg PO QAM 04/10/22 04/10/22 Unknown Additional Notes: Pt and caregiver aware to NOT take dapagliflozin am DOS, written on medication instructions. They confirmed understanding. They state can adjust FreeStyle sensor to right arm. Past Medical History Medical History (Updated 04/12/22 @ 13:51 by Josefa Puentes PA-C) Diabetes mellitus, type 2 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 Wilhelm Peripheral neuropathy Poor circulation IN THE FEET Restless leg syndrome Patient denies h/o stroke, seizures, heart attack, heart failure, blood clots or blood transfusions. Exercise / Class Metabolic Activity II 4-5 Yardwork/Stairs/Walk up hill (denies CP or SOB with 1 FOS) Past Family History Family History Family/Other No pertinent family history Brother Family history of diabetes mellitus Other No family history of adverse response to anesthesia Denies family history of Ovarian cancer Prostate cancer Myocardial infarction Breast cancer Colorectal cancer Past Surgical History Surgical History H/O elbow surgery L olecranon ORIF: 05/25/21: LMA#5. History of amputation of lesser toe of left foot History of bunionectomy History of cataract surgery R/L History of colonoscopy History of esophagogastroduodenoscopy (EGD) History of tonsillectomy History of tooth extraction Status post arterial stent LLE Past Anesthesia History No Hx of Anesthesia Complications and No Family Hx of Anesthesia Complications History of PONV No Hx of PONV and No Hx of Motion Sickness Social History Smoking Status: Never smoker Do You Dip or Chew Tobacco: No Hx Alcohol Use: Yes (HX, NONE CURRENT) substance use type: does not use Review of Systems Patient denies chest pain, shortness of breath, dyspnea on exertion, snoring, witnessed apneas, fever, chills, cough, wheezing, or palpitations. Physical Exam Vital Signs Vitals BP 102/68 P 86 TEMP 98.9 SP02 97% on RA RESP 17 Physical Full cervical extension range of motion without pain TMD 3.5 finger breaths Mallampati Score 3 Dentition: edentulous, full upper and lower dentures Lungs: normal respiratory effort. Clear throughout to auscultation, no adventitious breath sounds Cardiac: regular rate and rhythm, no murmurs noted Carotid arteries: negative bruit bilat Lab Results Anesthesia Preop Results Results Anesthesia Widget: WBC 7.56 K/uL (4.8-10.8) 04/12/22 Hgb 13.7 g/dL (14.0-18.0) L 04/12/22 Hct 42.2 % (42-52) 04/12/22 Plt 207 K/uL (130-400) 04/12/22 Na 142 mmol/L (136-145) 04/12/22 K 4.9 mmol/L (3.5-5.1) 04/12/22 Cl 107 mmol/L (98-107) 04/12/22 CO2 26 mmol/L (21-32) 04/12/22 BUN 20 mg/dl (6-23) 04/12/22 Creat 1.06 mg/dl (0.6-1.4) 04/12/22 Glucose Level 123 mg/dl (70-99(Fasting)) H 04/12/22 PT 10.7 Seconds (9.0-12.0) 04/12/22 PTT 25.1 Seconds (21.0-31.0) 04/12/22 INR 1.0 (0.9-1.1) 04/12/22 HA1c 8.8 % (4.5-5.6) H 04/12/22 Blood Type A Positive 04/12/22 Antibody Screen NEGATIVE 04/12/22 Testing Laboratory Results Juliane at surgeon's office made aware of elevated A1c. Electrocardiogram Date: 10/12/21 NSR, rate 86 bpm Left axis deviation Chest X-Ray Date: 04/12/22 The cardiomediastinal and hilar silhouettes are within normal limits. No pneumothorax, pleural effusion, airspace consolidation or overt pulmonary edema. The bones of the chest appear grossly intact. IMPRESSION: No acute process. Other Testing Carotid doppler 04/10/19 Atherosclerosis without hemodynamically significant stenosis in the carotid a kathleen
[~2022-05-04 09:14] MED LIST changes: +ACETAMINOPHEN 500 MG TAB PO SCH; -ASPI81TA28 PO; -ATOR-22 PO; +BUPIVACAINE 0.25% 30 ML VIAL ONE; -CHOL2000 PO; -CYAN10005 PO; -GABA100C13 PO; +GABAPENTIN 300 MG CAP PO SCH; -GLIP5TAB11 PO; -GLIP5TAB3 PO; +Ketorolac (*for OR use only*) 30 MG, dexAMETHasone 4 MG, KETAMINE HCL (**OR use only) 1... INFIL SCH; -LISI-789 PO; +LR 15ML/HR IV SCH; +LR 60ML/HR IV SCH; -METF1TAB53 PO; +METOCLOPRAMIDE HCL 10 MG TABLET PO SCH; -PROP20TA67 PO; +TRANEXAMIC ACID 1,000 MG **IV Intra-op IV SCH; +TRANEXAMIC ACID 1,000 MG **IV Pre-op IV SCH; +ceFAZolin 2000MG 2,000 MG/15 ML SYR IV SCH; +dexAMETHasone 4 MG TAB PO SCH
[2022-05-04] MEDS ORDERED: fentaNYL citrate 100 MCG/2 ML VIAL ONE (11:38)
[2022-05-04] MEDS ORDERED: MIDAZOLAM HCL 1 MG/ML 2ML VIAL ONE (11:38)
--- NOTE | 2022-05-04 11:38 | History & Physical Bridge Note ---
Date of Service May 04, 2022 History & Physical Bridge Note I have examined the patient, reviewed the History & Physical and in the interval since the performance of the History & Physical I have noted the following changes of clinical significance: no changes noted
[2022-05-04] MEDS ORDERED: PROPOFOL IV EMULSION 10 MG/ML 20 ML VIAL IV ONE (11:39)
[2022-05-04] MEDS ORDERED: LIDOCAINE 2% 2 ML VIAL/AMP(20MG/ML) INFIL ONE (11:39)
[2022-05-04] MEDS ORDERED: ORTHO JOINT ANESTHETIC ONE (11:59)
[2022-05-04] MEDS ORDERED: PROMETHAZINE HCL 6.25 MG in SODIUM CHLORIDE 0.9% 50 ML IV PRN (12:16)
[2022-05-04] MEDS ORDERED: ATROPINE SULFATE 0.1 MG/ML 10ML SYR IV PRN (12:16)
[2022-05-04] MEDS ORDERED: ONDANSETRON INJ 2 MG/ML 2 ML VIAL IV PRN ×2 (12:16→15:56)
[2022-05-04] MEDS ORDERED: ePHEDrine sulfate 50 MG/ML AMP IV PRN (12:16)
[2022-05-04] MEDS ORDERED: fentaNYL citrate 100 MCG/2 ML VIAL IV PRN (12:16)
--- NOTE | 2022-05-04 14:23 | Operative Report ---
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 tendon I identified the patient and participated in the time-out.: Yes Procedure Operation Date: 05/04/22 12:10 Actual Procedures p Left Reverse Total Shoulder Arthroplasty--Uncemented(Left) with open biceps tenodesis as a distinct and separate procedure (modifier 59)- Milind Tong DO Surgeon Milind Tong DO Patient Relations Manager Milind Mendosa PAC Estimated Blood Loss 150 Findings Consistent with Post-Op Diagnosis Specimens Left humeral head Complications none Disposition Disposition: Recovery Room Indications Rodrigue is a pleasant six 6-year-old male who is been dealing with chronic increasing left shoulder pain. X-rays and clinical examination were diagnostic for cuff arthropathy of the left shoulder. After failing years of conservative treatment, he elected proceed with a left reverse shoulder arthroplasty. Description of Procedure A CPT code modifier 59: The long head of the biceps tendon was enlarged and inflamed consistent with tendinopathy. A tenodesis was opted. This was a separate and distinct portion of the procedure. For these reasons, a CPT code modifier 59 will be added to this case. Implants used: I used a Biomet Comprehensive reverse total shoulder arthroplasty system with a size 14 press fit micro humeral stem, a +6 offset humeral tray and a standard humeral bearing, a 25 mm medium augment baseplate with a 6.5 mm central screw and superior and inferior locking screws, and a size 40 mm eccentric glenosphere. Rodrigue arrived at [facility] for the above procedure. He was seen in the preoperative holding area and the operative extremity was identified and signed. He was given a preoperative antibiotic, TXA, and an interscalene nerve block. He was taken back to the operating room, laid on table in supine position, and put under general anesthesia. He was then put into the beachchair position. The shoulder was then prepped and draped in sterile fashion. A timeout was done and the patient and the operative extremity was properly identified. A deltopectoral approach was used. Dissection was taken down through the fascia and the deltoid was retracted laterally and the conjoined tendon was retracted medially. The anterior shoulder was exposed. The biceps groove was opened up and the biceps tendon was examined extensively. The biceps tendon demonstrated enlargement and inflammatory changes consistent with longstanding inflammation in the context of osteoarthritis and cuff arthropathy. The long head of the biceps tendon was then tenodesed to the upper border of the pectoralis major. This was a separate and distinct portion of the procedure. The subscapularis was then directly released off the lesser tuberosity with a peel technique. The inferior capsule was released and the humeral head was dislocated. A canal finding reamer was sent down the center of the humeral canal. Sequential reaming up to a size 14 reamer was done. Off that reamer, a proximal humeral resection guide was placed. The proximal humerus was resected at 135 of inclination and 25 of retroversion. Osteophytes were then removed and the glenoid was exposed. Time was spent doing a complete capsular and labral release. The glenoid guide was then placed in the inferior aspect of the glenoid. A 3.2 mm Steinmann pin was then placed into the glenoid vault at 10 of inclination. The glenoid baseplate was then reamed. The final size 25 mm medium augment baseplate was then impacted in the place. A 6.5 mm central screw was then placed followed by superior and inferior locking screws. A 40 mm eccentric glenosphere was then impacted into place. Surrounding soft tissues were then injected with 100 cc an orthopedic pain control cocktail. The proximal humerus was then exposed. Sequential broaching of the humerus up to a size 14 broach was done. Off that broach a +6 offset humeral tray was trialed. The shoulder was then reduced, brought through a full range of motion, and felt to be stable. The shoulder was then dislocated and the broach was removed. The final size 14 micro press-fit humeral stem was then impacted into place. A standard humeral bearing was then snapped onto a +6 offset humeral tray. The humeral tray was then impacted onto the humeral stem. The shoulder was once again reduced, brought through a full range of motion, and felt to be stable. The subscapularis was retracted and not able to be repaired. A dilute betadyne lavage was then done for 3 minutes. The joint was then irrigated with normal saline solution. Hemostasis was obtained. The interval was closed with 2-0 Vicryl suture. The skin was then closed with 2-0 Vicryl and gabby. A Silverlon dressing was placed and the arm was rested in a regular arm sling. He was then extubated and transferred to a hospital bed. He taken to the postanesthesia care unit in stable condition. He tolerated the procedure well. Milind Mendosa PA-C, was present for the entire procedure. He was critical for patient positioning, prepping, draping, retraction exposure, wound closure and application of sterile dressing. I attest to the content of the Intraoperative Record and any orders documented therein. Any exceptions are noted below.
--- NOTE | 2022-05-04 14:59 | XRay Report ---
XR shoulder LT min 2V routine HISTORY: 66 years-old Male Post shoulder surgery left shoulder total joint arthroplasty COMPARISON: Chest radiographs 04/12/2022 TECHNIQUE: 2 views of the left shoulder FINDINGS: Reverse total joint arthroplasty demonstrates satisfactory alignment. No acute fracture or unexpected opaque foreign body. Overlying skin gabby are noted along with expected postoperative soft tissue swelling and deep tissue air. IMPRESSION: Reverse left shoulder total joint arthroplasty with expected postoperative changes. ACT 112: Negative or not required by law. The above report was generated using voice recognition software. It may contain grammatical, syntax o r spelling errors. Electronically signed by: Kaz Lei M.D. 05/04/2022 2:56 PM
--- NOTE | 2022-05-04 15:26 | Anesthesiology Progress Note ---
Date of Service May 04, 2022 Anesthesia Post Procedure Vital Signs Vital Signs: Temp Pulse Pulse Resp BP Pulse Ox 05/04/22 15:20 75 13 95/55 L 93 05/04/22 15:10 75 17 103/60 94 05/04/22 15:00 36.4 C L 79 19 99/54 L 93 05/04/22 14:50 72 13 113/61 98 05/04/22 14:40 72 14 121/67 98 05/04/22 14:30 74 14 125/59 L 100 05/04/22 14:21 36.3 C L 75 16 140/61 96 05/04/22 10:15 37.2 C 80 20 142/88 H 96 Transfer of Care Handoff Completed per policy Notes Mental Status: alert / awake / arousable and participated in evaluation Patient Amnestic to Procedure: Yes Nausea / Vomiting: adequately controlled Pain: adequately controlled Airway Patency, RR, SpO2: stable & adequate BP & HR: stable & adequate Hydration State: stable & adequate Anesthetic Complications: no major complications apparent and Pt Satisfied with anesthetic care
[2022-05-04] MEDS ORDERED: HYDROmorphone INJ 0.5 MG/0.5 ML SYR IV PRN (15:56)
[2022-05-04] MEDS ORDERED: MAGNESIUM HYDROXIDE SUSP 30 ML UDC PO PRN (15:56)
[2022-05-04] MEDS ORDERED: PHARMACY GLYCEMIC MGMT CONSULT PRN (15:56)
[2022-05-04] MEDS ORDERED: METOCLOPRAMIDE HCL INJ 5 MG/ML 2 ML VIAL IV PRN (15:56)
[2022-05-04] MEDS ORDERED: oxyCODONE HCL IR 5 MG TAB (IMMEDIATE RELEASE) PO PRN (15:56)
[2022-05-04] MEDS ORDERED: bisacodyL 10 MG SUPP PR PRN (15:56)
[2022-05-04] MEDS ORDERED: NALOXONE HCL 0.4 MG/1 ML VIAL/CARP IV PRN (15:56)
[2022-05-04] MEDS ORDERED: GLUCOSE 10 TABS/TUBE PO PRN (17:00)
[2022-05-04] MEDS ORDERED: DEXTROSE 50% 50 ML SYRINGE IV PRN (17:00)
[2022-05-04] MEDS ORDERED: CARBOHYDRATES FOR HYPOGLYCEMIA PO PRN (17:00)
[2022-05-04] MEDS ORDERED: GLUCOSE 40% GEL 15 GM TUBE PO PRN (17:00)
[2022-05-04] MEDS ORDERED: GLUCAGON FOR INJ 1 MG VIAL IM PRN (17:00)
[2022-05-04] MEDS: CARBIDOPA/LEVODOPA 25/100MG TAB PO SCH ×2 (17:27→20:16)
[2022-05-04] MEDS: SODIUM CHLORIDE 0.9% 1000ML 1,000 ML IV SCH (17:28)
[2022-05-04] MEDS: KETOROLAC TROMETHAMINE 15 MG/ML VIAL IV SCH ×2 (17:28→22:51)
[2022-05-04] MEDS ORDERED: NovoLIN-N (NPH) PER UNIT CHARGE SQ ONE (17:30)
[2022-05-04] MEDS: INSULIN ASPART PER UNIT SC SCH ×2 (17:50→21:19)
[2022-05-04] MEDS: CLOTRIMAZOLE 1% CR 15 GM TUBE TOP SCH (20:18)
[2022-05-04] MEDS: DOCUSATE SODIUM 100 MG CAP PO SCH (20:18)
[2022-05-04] MEDS: ceFAZolin 2000MG 2,000 MG/15 ML SYR IV SCH (20:22)
[2022-05-04] MEDS ORDERED: SENNA 8.6 MG TAB PO SCH (21:00)
[2022-05-04] MEDS ORDERED: PANTOprazole 40 MG TAB PO SCH (21:00)
[2022-05-04] MEDS ORDERED: MAGNESIUM OXIDE 400 MG TAB PO SCH (21:00)
[2022-05-04] MEDS: ACETAMINOPHEN 500 MG TAB PO SCH (22:51)
[2022-05-05] MEDS: INSULIN ASPART PER UNIT SC SCH ×3 (00:29→09:06)
[2022-05-05] MEDS: SODIUM CHLORIDE 0.9% 1000ML 1,000 ML IV SCH (03:09)
[2022-05-05] MEDS: KETOROLAC TROMETHAMINE 15 MG/ML VIAL IV SCH ×2 (04:24→10:32)
[2022-05-05] MEDS: ceFAZolin 2000MG 2,000 MG/15 ML SYR IV SCH (04:25)
[2022-05-05] MEDS: ACETAMINOPHEN 500 MG TAB PO SCH (06:03)
--- NOTE | 2022-05-05 08:41 | Orthopedic Progress Note ---
Date of Service May 05, 2022 Assessment & Plan (1) Status post reverse total replacement of left shoulder: Overall he is doing very well. He is not have any pain in the left shoulder. He will be seen by physical therapy today for ambulation and range of motion exercises. He can be discharged home later today. He will follow-up with orthopedics in 2 weeks. Subjective Rodrigue was seen and examined at bedside this morning. Overall is doing very well. Is not having much pain in the left shoulder. He is wearing his sling as instructed and has no complaints. Review of Systems All systems reviewed & are unremarkable except as noted in HPI & below. Physical Exam On physical examination of the left shoulder, the dressing is clean and dry. He is wearing his sling as instructed. He has no motion of his hand or his wrist or digital block. Results & Data Results & Data Laboratory Results . Diagnostic Findings Postoperative x-rays of the left shoulder show the prosthesis to be in anatomic alignment without any evidence of fracture, desiccation, or loosening.. PG Care Time/CCT Total # of Minutes Spent Total Time Spent with Patient: Total time spent is greater than 50% in coordination of care (as documented) at patient's floor/unit and/or counseling patient: Coding Level of Care Code 85816 Post Operative Follow-Up Diagnoses Status post reverse total replacement of left shoulder Z96.612
--- NOTE | 2022-05-05 08:48 | Discharge Summary ---
Date of Service May 05, 2022 Principal Diagnosis Same as "Discharge Diagnosis" noted below under Discharge Instructions. Discharge Exam On physical examination of the left shoulder, the dressing is clean and dry. He is wearing his sling as instructed. He has no motion of his hand or his wrist or digital block. Discharge Data Procedures Performed Operation Date: 05/04/22 12:10 Actual Procedures p Left Reverse Total Shoulder Arthroplasty--Uncemented(Left) - Milind Tong DO Ordered Studies 05/04/22 05:00 US - OR guided needle placemen Routine Hospital Course (1) Status post reverse total replacement of left shoulder: On May 04, 2022 Rodrigue arrived at [facility] and underwent a left reverse shoulder replacement without complication. He had a general anesthetic and a left interscalene nerve block. Postoperatively he was placed in a sling and transferred to the general orthopedic floors. His hospital course was uneventful. On postop day #1, his vital signs were stable and his pain was well controlled. He was able to participate well with physical therapy doing ambulation and range of motion exercises. He was then discharged home. He will follow-up with orthopedics in 2 weeks. PG Care Time/CCT Total # of Minutes Spent Total Time Spent with Patient: Total time spent is greater than 50% in coordination of care (as documented) at patient's floor/unit and/or counseling patient: Discharge Plan Discharge Items Patient Disposition: Home - Home Health Services Reason For Visit: Osteoarthritis Shoulder Left Discharge Diagnosis: Left reverse shoulder replacement Activity: As commented below Non-emergency contact: Surgeon Call non-emergency contact if: your wound has increased redness and your wound has increased drainage Follow-up/Referrals: Mila Martinez CRNP [Primary Care Provider] - Diet: Regular Addtl Attending Provider Instructions: Activity and Therapy Recommendations: * If you are using [facility] then therapy will be provided at your home until they feel you have accomplished all of your goals. * If you are using [facility] then Physical Therapy will be provided until they feel you are ready to start Outpatient Physical Therapy. * If you are not using home therapy then Outpatient Physical Therapy should start about 3-5 days from your day of surgery. Therapy will last about 8-12 weeks * Wear your sling for 3 weeks, unless otherwise instructed. You may remove your sling to shower and to dress, but otherwise, you should be in your sling at all times, including while sleeping * The shoulder replacement is very stable and you can use your hand while in the sling * You were shown a series of exercises in the hospital. Do these exercises daily including the exercises you were shown in physical therapy. Medications: * Narcotic You will likely be sent home from the hospital with a prescription for the narcotic pain medication that worked best throughout your stay. * Other medications may be prescribed for specific circumstances. If you have any questions, please call the office at . * Resume previous home medications unless otherwise instructed Dressing Care: Leave the Silverlon dressing in place for 7 days. After 7 days you may remove the dressing. If the incision is not draining then you may leave the gabby open to air. If there is a little bit of drainage or if the gabby are getting stuck on your clothing then cover the incision with a dry dressing. The gabby will be removed at your 2 week follow-up appointment. Showering: You may shower with the Silverlon dressing in place. Do not let the shower spray hit the dressing directly. Pat the Silverlon dressing dry. If the dressing becomes wet underneath, then simply remove the dressing. Keep the incision dry until you are 7 days out from the day of surgery. After 7 days you may remove the Silverlon dressing and shower with the gabby exposed. Let soapy water run over the gabby and pat them dry. Do not scrub or soak the incision. Things To Watch For: * Drainage from the incision site that occurs more than one week after your surgery. * Increased redness at the incision site. * Fever above 102 degrees Fahrenheit. * Unusual chest pain or shortness of breath. * Call [facility] at with any of the above problems Follow-Up Visit: Follow-up with Dr. Tong's PA (Milind Mendosa) 2-3 weeks after your day of surgery. He will remove your gabby and answer any questions. If you have any additional questions or concerns, Dr Tong is usually in the office at the same time and will be available An appointment was probably scheduled when you signed-up for surgery in the office. If you have any questions call More detailed instructions as well as Frequently Asked Questions were provided in a folder by our office when you signed-up for surgery. Please review these instructions when you get home. If you have any further questions or concerns, please feel free to call the office at [phone] Pending Studies at Discharge: No Stand-Alone Forms: [facility] Medications and DC Order Prescriptions: New oxycodone-acetaminophen 5-325 mg tablet 1 tab PO Q6H PRN (Reason: pain) Qty: 30 RF: 0 Continued clotrimazole [Lotrimin AF (clotrimazole)] 1 % cream 1 appln TOP BID Qty: 30 RF: 3 (DME) lancets [OneTouch Delica Lancets] 33 gauge misc See Dose Instructions .ROUTE .MEDSUPPLY Qty: 100 RF: 0 metformin 500 mg tablet 1,000 mg PO BID Qty: 360 RF: 3 (DME) OneTouch Ultra Test Strip See Rx Instructions .Route Qty: 300 RF: 3 (DME) pen needle, diabetic [BD Ultra-Fine Mini Pen Needle] 31 gauge x 3/16" needle See Rx Instructions .ROUTE .MEDSUPPLY Qty: 400 RF: 3 insulin lispro-aabc [Lyumjev KwikPen U-100 Insulin] 100 unit/mL insulin pen 5 unit subcut DAILY RF: 0 ascorbate calcium (vitamin C) 500 mg tablet 500 mg PO QAM RF: 0 carbidopa-levodopa [Sinemet] 25-100 mg tablet 2 tab PO QID 90 Days Qty: 720 RF: 3 (DME) FreeStyle Jim 2 Sensor Kit See Rx Instructions .Route Qty: 2 RF: 11 Basaglar KwikPen U-100 Insulin 100 unit/mL (3 mL) insulin pen 10 unit SUBCUT QAM 90 Days Qty: 15 RF: 3 duloxetine 60 mg capsule,delayed release(DR/EC) 60 mg PO QAM 90 Days Qty: 90 RF: 3 cyanocobalamin (vitamin B-12) [Vitamin B-12] 1,000 mcg Tablet 1,000 mcg PO QAM RF: 0 aspirin 81 mg Tablet,Delayed Release (Dr/Ec) 81 mg PO QAM RF: 0 cholecalciferol (vitamin D3) [Vitamin D3] 5,000 unit Tablet 5,000 unit PO QAM RF: 0 pantoprazole 20 mg tablet,delayed release (DR/EC) 20 mg PO QPM RF: 0 famotidine 20 mg tablet 20 mg PO QAM RF: 0 rosuvastatin 40 mg tablet 40 mg PO QAM RF: 0 magnesium oxide 400 mg magnesium capsule 400 mg PO QPM RF: 0 dapagliflozin 10 mg tablet 10 mg PO QAM RF: 0 Discharge Orders: Discharge Order (Routine); Ordered 05/05/22 Ordered By: Milind Tong Admission Data Admit Date/Time: 05/04/22 14:22 Attending Provider: Milind Tong Admit Provider: Milind Tong Primary Care Provider: Mila Martinez
[2022-05-05] MEDS: DOCUSATE SODIUM 100 MG CAP PO SCH (08:59)
[2022-05-05] MEDS: CARBIDOPA/LEVODOPA 25/100MG TAB PO SCH (08:59)
[2022-05-05] MEDS ORDERED: ROSUVASTATIN CALCIUM 20 MG TAB PO SCH (09:00)
[2022-05-05] MEDS: CLOTRIMAZOLE 1% CR 15 GM TUBE TOP SCH (09:00)
[2022-05-05] MEDS ORDERED: ASPIRIN 81 MG ECTAB PO SCH (09:00)
[2022-05-05] MEDS ORDERED: DULoxetine HCL 60 MG CAP PO SCH (09:00)
[2022-05-05] MEDS ORDERED: CHOLECALCIFEROL 5,000 UNITS 125 MCG TAB PO SCH (09:00)
[2022-05-05] MEDS ORDERED: FAMOTIDINE 20 MG TAB PO SCH (09:00)
[2022-05-05] MEDS ORDERED: MULTIVITAMIN TAB PO SCH (09:00)
[2022-05-05] MEDS ORDERED: INSULIN GLARGINE SOLOSTAR 100 UNITS/ML 3 ML PEN SC SCH (09:00)
[2022-05-05] MEDS ORDERED: LANTUS PER UNIT CHARGE SQ ONE (09:30)
[2022-05-05] MEDS ORDERED: PANTOprazole 40 MG TAB PO SCH (21:00)
== END 2022-05-05 12:35 | disposition home or self-care (01) ==
LOC: 3N 09:14 → ASU 09:14

== ENCOUNTER 2023-07-15 13:51 | Observation (INO) ==
[2023-07-15] MEDS ORDERED: LIDO/EPINEPHRINE/SOD BICARB 50 ML VIAL INFIL ONE (14:11)
[2023-07-15] MEDS ORDERED: SODIUM CHLORIDE 0.9% 500 ML IV SCH (14:15)
--- NOTE | 2023-07-15 14:18 | Emergency Department Note ---
Impression & Plan Weakness, Fall, Acute head trauma, Facial laceration, Facial fracture, Tachycardia, COVID-19, Subconjunctival hemorrhage ED Provider Note NAME: MARIO LAWRENCE AGE: 67 SEX: M : 1955 ARRIVES VIA: Ambulance INFORMANT: [Patient][ems, family, nursing] ED PROVIDER(S): [Adam Ordaz MD] CHIEF COMPLAINT: Fall, head trauma HISTORY OF PRESENT ILLNESS: The patient is a 67-year-old male who states that about an hour or so ago, he fell. He was dizzy and there was a presumed brief loss of consciousness. The patient did strike his head above the right eyebrow and there is some bleeding. He has a mild headache. No neck pain or difficulty with his vision. No arm or leg pain, no back pain, chest pain or abdominal pain. The patient states his tetanus is current. The patient states that his tested positive for COVID today. He has had no symptoms, no fever, chills. He felt normal today all day. The patient does have Parkinson's disease. He does sometimes get dizzy. He is not on any strong blood thinners, he does take a baby aspirin. As per EMS, the blood sugar was 238. The patient is diabetic PMHx/PSHx: See Below SOCIAL HISTORY: See Below. PHYSICAL EXAM: GENERAL: Patient is in no acute distress. HEENT: The patient has a 4 cm laceration in the area just superior to the right eyebrow. No active bleeding but there is some dried blood across his face and scalp. The patient's right globe has a large primarily inferior subchorionic hematoma. The right pupil appears reactive to light and normal, there is no hyphema. Extraocular muscles seem intact. He has excellent vision from this right eye. His bite is normal. NECK: No stridor, no adenopathy, nontender cervical spine, trachea is midline. LUNGS: Clear to auscultation bilaterally, no wheeze, no rhonchi, breath sounds equal. HEART: Mildly tachycardic, regular rhythm, no murmurs. ABDOMEN: Soft, nontender, bowel sounds positive, no peritonitis. EXTREMITIES: No cyanosis or edema, full range of motion of all the joints without pain or difficulty, no signs for acute trauma. NEUROLOGIC: Awake and alert, no acute motor or sensory deficits, no focal weakness. SKIN: No rash, no jaundice, no diaphoresis. DIFFERENTIAL DIAGNOSIS: Intracranial bleeding, skull or facial fracture, C-spine injury, electrolyte imbalance, anemia, UTI, viral illness, COVID-19, dysrhythmia, among others. EMERGENCY DEPARTMENT COURSE/PROCEDURES: Prior/Outside records reviewed: Previous neurology note. ECG per my interpretation: Indication was syncope and fall. ECG shows a sinus tachycardia with a rate of 112. There is some baseline artifact. There is a potential old septal infarct. There is no ST elevation, no PVCs. The QTc is 428. Continuous Cardiac Monitoring per my interpretation: An order was placed for c ontinuous cardiac monitoring. The monitor shows a rate of 110 with sinus tachycardia. Critical Care Note: I have personally spent 46 minutes of critical care time in the direct management of this patient. This includes bedside care, interpretation of diagnostic studies, and testing, discussion with consultants, patient, and family members, and other required patient management activities. This 46 minutes is in excess of all separately billable procedures. MEDICAL DECISION MAKING: There is a mild leukocytosis which could be consistent with infection or just the stress of his presentation. There was a very mild anemia noted. There was a normal platelet count. No renal failure. Magnesium was somewhat low at 1.6. No concerning liver enzyme elevation. The patient appeared to be in a euthyroid state. ECG showed a sinus tachycardia, no obvious acute ischemia. Cardiac enzyme testing x1 was not consistent with acute cardiac injury. Urinalysis showed dehydration, no findings of infection. COVID test returned positive. Influenza and RSV test returned negative. Chest x-ray did not show pneumonia or CHF per my review. Brain CT showed no acute bleed or mass effect. C-spine CT showed no acute fracture. Facial CT showed a right maxillary fracture which was nondisplaced. There was some blood in the right maxillary sinus. The patient had the right facial laceration repaired by my PA, please see his note. The patient was given a liter of IV saline for hydration. He received IV magnesium. The patient was weak, tachycardic, falling. He was COVID-positive. He was going to require a hospital stay. I spoke to the patient and his family. I spoke to case management, the on-call hospitalist was consulted. I was asked by the hospitalist to have ophthalmology see the right eye because of the trauma sustained. Dr. Downing of ophthalmology was consulted. The eye injury consisted of a subconjunctival hemorrhage, there was no deeper globe involvement. DISPOSITION: Patient's presentation and findings warrant a hospital stay. Past Med/Surg History Medical History Diabetes mellitus, type 2 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 Wilhelm Peripheral neuropathy Poor circulation IN THE FEET Restless leg syndrome Surgical History H/O elbow surgery History of amputation of lesser toe of left foot History of bunionectomy History of cataract surgery History of colonoscopy History of esophagogastroduodenoscopy (EGD) History of tonsillectomy History of tooth extraction Status post arterial stent Family History Family/Other No pertinent family history Brother Family history of diabetes mellitus Other No family history of adverse response to anesthesia Denies family history of Ovarian cancer Prostate cancer Myocardial infarction Breast cancer Colorectal cancer Social History Smoking Status: Never smoker Second Hand Exposure: Yes (IN THE PAST); Do You Dip or Chew Tobacco: No; Hx Alcohol Use: No (HX, NONE CURRENT) Hx Substance Use: No Preferred Language: Frisian Communication Ability: Effective Communication Ability Comment: JARAD SHULTZ HELPS WITH READING/PT HAS TROUBLE COMPREHENDING MEDICAL INFO Visual Impairment: Limited Hearing Ability: Hard of Hearing Lunchroom Worker Required: No Beliefs That Will Affect Care: None marital status: Life Partner Current Living Situation: Significant Other Current Living Situation Comment: lives with Yari his girlfriend current occupational status: retired current occupation: retired working at [employer] How many Children do You have: 3 other: GIRLFRIEND ABLE TO ASSIST WITH CARE NEEDED Feels Safe at Home: Yes Childhood Exposure to Second-Hand Smoke: Yes Diet: regular caffeine: Yes during the past year weight has: remained stable Dental Care, Regularly: No Physical Activity Frequency: Does not Exercise Seatbelt Use: never Sunscreen Use: No Do you think of yourself as: straight/heterosexual Gender Identity: Male Assistive Devices: Denture - Upper, Denture - Lower, Glasses and Special Shoe Allergies Allergies Allergy/AdvReac Type Severity Reaction Status Date / Time metoclopramide Allergy Unknown Tremor Verified 07/15/23 17:23 acetaminophen [From Percocet] AdvReac Intermediate " sick " Verified 07/15/23 17:23 oxycodone AdvReac Unknown Nausea Verified 07/15/23 17:23 sulfamethoxazole AdvReac Unknown Nausea Verified 07/15/23 17:23 trimethoprim AdvReac Unknown Nausea Verified 07/15/23 17:23 Home Meds Home Medications Medication Instructions Recorded Confirmed aspirin 81 mg tablet,delayed 81 mg PO QAM 12/24/18 07/15/23 release cholecalciferol (vitamin D3) 125 5,000 unit PO QAM 12/24/18 07/15/23 mcg (5,000 unit) tablet (Vitamin D3) cyanocobalamin (vitamin B-12) 1,000 mcg PO QAM 12/24/18 07/15/23 1,000 mcg tablet (Vitamin B-12) ascorbate calcium (vitamin C) 500 500 mg PO QAM 10/09/21 07/15/23 mg tablet magnesium oxide 400 mg PO QPM 04/10/22 07/15/23 Previous Rx's Medication Instructions Recorded carbidopa 25 mg-levodopa 100 mg 2 tab PO QID 90 days #720 tabs 01/09/22 tablet (Sinemet) famotidine 20 mg tablet 20 mg PO QAM #90 tabs 10/23/22 metformin 500 mg tablet 1,000 mg PO BID #360 tabs 12/20/22 pantoprazole 20 mg tablet,delayed 20 mg PO QPM #90 tabs 12/21/22 release rosuvastatin 40 mg tablet 40 mg PO QAM #90 tabs 03/26/23 insulin glargine 100 unit/mL (3 8 unit (0.08 mL) subcut QAM #15 mL 04/08/23 mL) subcutaneous pen (Basaglar KwikPen U-100 Insulin) insulin lispro-aabc 100 unit/mL 5 unit (0.05 mL) subcut TID #15 mL 04/10/23 subcutaneous pen (Lyumjev KwikPen U-100 Insulin) duloxetine 60 mg capsule,delayed 60 mg PO QAM 30 days #30 caps 06/15/23 release dapagliflozin propanediol 5 mg 5 mg PO DAILY #30 tabs 06/19/23 tablet (Farxiga) Results & Data (ED) Vital Signs Vital Signs - 24 hr 07/15/23 14:09 07/15/23 14:31 07/15/23 14:48 Temperature 36.9 C Temperature Source Oral Pulse Rate 112 H 115 H Pulse Rate [Apical] Pulse Rhythm [Apical] Pulse Strength [Apical] Respiratory Rate 18 Respiratory Effort / Characteristics Respiratory Depth Respiratory Pattern Blood Pressure 164/94 H Blood Pressure [Right Arm] Blood Pressure Mean 117 Blood Pressure Mean [Right Arm] Pulse Oximetry 93 98 Oxygen Delivery Method Room Air Sepsis Recent Fever Within 48 Hours No Sepsis New/Unexplained Change in Mental Status No Sepsis Action Taken by Nursing No Action Required 07/15/23 15:00 07/15/23 17:53 07/15/23 17:00 Temperature Temperature Source Pulse Rate 102 H Pulse Rate [Apical] 112 H 105 H Pulse Rhythm [Apical] Regular Pulse Strength [Apical] Normal Respiratory Rate 18 17 Respiratory Effort / Characteristics Non-Labored Respiratory Depth Normal Respiratory Pattern Regular Blood Pressure Blood Pressure [Right Arm] 154/84 H 137/84 Blood Pressure Mean Blood Pressure Mean [Right Arm] 107 101 Pulse Oximetry 98 93 Oxygen Delivery Method Room Air Room Air Sepsis Recent Fever Within 48 Hours Sepsis New/Unexplained Change in Mental Status Sepsis Action Taken by Residential Medications Current Medication List: was personally reviewed by me Laboratory Data Attestation: I reviewed the patient's lab results. 07/15/23 14:15 07/15/23 14:15 Lab Results 07/15/23 07/15/23 07/15/23 Range/Units 14:15 14:15 14:15 WBC 12.67 H (4.8-10.8) K/ul RBC 4.19 L (4.70-6.10) M/uL Hgb 13.6 L (14.0-18.0) g/dl Hct 40.2 L (42.0-52.0) % MCV 95.9 (80.0-100.0) fL MCH 32.5 (25.0-34.0) pg MCHC 33.8 (32.0-36.0) g/dL RDW Std Deviation 41.5 (36.4-46.3) fL RDW Coeff of Margarito 11.8 (11.5-14.5) % Plt Count 143 (130-400) K/uL MPV 11.6 (9.4-12.4) fL Immature Gran % (Auto) 0.4 % Neut % (Auto) 86.0 % Lymph % (Auto) 5.9 % Greene % (Auto) 6.7 % Eos % (Auto) 0.3 % Baso % (Auto) 0.7 % Neut # (Auto) 10.89 H (1.40-6.50) K/uL Lymph # (Auto) 0.75 L (1.2-3.4) K/uL Greene # (Auto) 0.85 H (0.11-0.59) K/uL Eos # (Auto) 0.04 (0-0.50) K/uL Baso # (Auto) 0.09 (0-0.2) K/uL Immature Gran # (Auto) 0.05 (0.01-0.20) K/uL Sodium 139 (136-145) mmol/L Potassium 4.4 (3.5-5.1) mmol/L Chloride 105 (98-107) mmol/L Carbon Dioxide 23 (21-32) mmol/L Anion Gap 11 (3-11) BUN 20 (6-23) mg/dl Creatinine 1.02 (0.6-1.4) mg/dl Est Cr Clr Drug Dosing Not Reportable Est GFR ( Amer) 87.7 ml/min Est GFR (Non-Af Amer) 75.7 ml/min BUN/Creatinine Ratio 19.6 (10-20) Glucose 215 H (70-99(Fasting)) mg/dl Lactate (0.4-2.0) mmol/L Calcium 9.2 (8.6-10.3) mg/dl Magnesium 1.6 L (1.7-2.4) mg/dl Total Bilirubin 0.7 (0.2-1.0) mg/dl AST 12 L (13-39) U/L ALT 15 (7-52) U/L Alkaline Phosphatase 67 (34-104) U/L Troponin I High Sens 9.6 (0-20) pg/ml Total Protein 6.9 (6.0-8.3) gm/dl Albumin 4.1 (3.4-5.0) gm/dl Globulin 2.8 (2.5-4.0) gm/dl Albumin/Globulin Ratio 1.5 (0.9-2) TSH 0.511 (0.300-4.500) uIu/ml Urine Color Urine Appearance (Clear) Urine pH (4.5-7.5) Ur Specific [place] (1.000-1.030) Urine Protein (Negative) Urine Glucose (UA) (Negative) Urine Ketones (Negative) Urine Blood (Negative) Urine Nitrite (Negative) Urine Bilirubin (Negative) Urine Urobilinogen (Negative) Ur Leukocyte Esterase (Negative) SARS-CoV-2 (PCR) (Negative) Influenza Type A (PCR) (Neg) Influenza Type B (PCR) (Neg) RSV (RT-PCR) (Neg) 07/15/23 07/15/23 07/15/23 Range/Units 14:40 14:47 16:35 WBC (4.8-10.8) K/ul RBC (4.70-6.10) M/uL Hgb (14.0-18.0) g/dl Hct (42.0-52.0) % MCV (80.0-100.0) fL MCH (25.0-34.0) pg MCHC (32.0-36.0) g/dL RDW Std Deviation (36.4-46.3) fL RDW Coeff of Margarito (11.5-14.5) % Plt Count (130-400) K/uL MPV (9.4-12.4) fL Immature Gran % (Auto) % Neut % (Auto) % Lymph % (Auto) % Greene % (Auto) % Eos % (Auto) % Baso % (Auto) % Neut # (Auto) (1.40-6.50) K/uL Lymph # (Auto) (1.2-3.4) K/uL Greene # (Auto) (0.11-0.59) K/uL Eos # (Auto) (0-0.50) K/uL Baso # (Auto) (0-0.2) K/uL Immature Gran # (Auto) (0.01-0.20) K/uL Sodium (136-145) mmol/L Potassium (3.5-5.1) mmol/L Chloride (98-107) mmol/L Carbon Dioxide (21-32) mmol/L Anion Gap (3-11) BUN (6-23) mg/dl Creatinine (0.6-1.4) mg/dl Est Cr Clr Drug Dosing Est GFR ( Amer) ml/min Est GFR (Non-Af Amer) ml/min BUN/Creatinine Ratio (10-20) Glucose (70-99(Fasting)) mg/dl Lactate 1.1 (0.4-2.0) mmol/L Calcium (8.6-10.3) mg/dl Magnesium (1.7-2.4) mg/dl Total Bilirubin (0.2-1.0) mg/dl AST (13-39) U/L ALT (7-52) U/L Alkaline Phosphatase (34-104) U/L Troponin I High Sens (0-20) pg/ml Total Protein (6.0-8.3) gm/dl Albumin (3.4-5.0) gm/dl Globulin (2.5-4.0) gm/dl Albumin/Globulin Ratio (0.9-2) TSH (0.300-4.500) uIu/ml Urine Color Yellow Urine Appearance Clear (Clear) Urine pH 6.5 (4.5-7.5) Ur Specific [place] 1.030 (1.000-1.030) Urine Protein Negative (Negative) Urine Glucose (UA) 3+ H (Negative) Urine Ketones 2+ H (Negative) Urine Blood Negative (Negative) Urine Nitrite Negative (Negative) Urine Bilirubin Negative (Negative) Urine Urobilinogen Negative (Negative) Ur Leukocyte Esterase Negative (Negative) SARS-CoV-2 (PCR) POSITIVE A* (Negative) Influenza Type A (PCR) Negative (Neg) Influenza Type B (PCR) Negative (Neg) RSV (RT-PCR) Negative (Neg) Administered Medications Discontinued Medications Sodium Chloride (Nss) 500 mls @ 999 mls/hr IV .Q31M JOESPH Stop: 07/15/23 14:45 Last Admin: 07/15/23 14:49 Dose: 999 mls/hr Documented By: HNB Magnesium Sulfate/Dextrose (Magnesium Sulfate / D5w) 1 gm in 100 mls @ 100 mls/hr IV NOW STA Stop: 07/15/23 16:15 Last Admin: 07/15/23 16:09 Dose: 100 mls/hr Documented By: ACC Sodium Chloride (Nss 1000ml) 500 mls @ 999 mls/hr IV .Q31M ONE Stop: 07/15/23 16:59 Last Admin: 07/15/23 17:26 Dose: 999 mls/hr Documented By: ACC Lidocaine/Epinephrine (Lido/Epinephrine/Sod Bicarb 50 Ml Vial) 20 ml INFIL NOW ONE Stop: 07/15/23 14:12 Last Admin: 07/15/23 14:49 Dose: 20 ml Documented By: HNB Tropicamide (Tropicamide 0.5% Op Soln 15 Ml Btl) 2 drops OP NOW ONE Stop: 07/15/23 17:19 Last Admin: 07/15/23 17:23 Dose: 2 drops Documented By: ACC Imaging Data Radiologist's Impression: Cervical Spine CT 07/15/23 14:11 CT cervical spine wo con CLINICAL HISTORY: fall, trauma TECHNIQUE: Multidetector row helical CT of the cervical spine was performed without administration of intravenous contrast. Coronal and sagittal reforma tions were obtained. Automated dose lowering techniques and/or adjustment according to patient size were utilized for this exam. Comparison: None available at the time of this dictation. FINDINGS: No acute fractures or subluxations are identified. Degenerative changes are seen in the visualized spine. The alignment is normal. Right maxillary sinus disease is seen. IMPRESSION: Degenerative changes without evidence of acute bony injury. ACT 112: Negative or not required by law. Electronically signed by: Darion Reynoso M.D. 07/15/2023 4:[address] 07/15/23 14:11 CT facial bones wo con CLINICAL HISTORY: 67 years-old Male presenting with fall, trauma. Acute facial trauma status post fall COMPARISON STUDY: CT head and cervical spine studies of same day TECHNIQUE: High-resolution CT scan of the facial bones is performed. Images are reviewed in the axial, sagittal, and coronal planes. IV contrast was not administered for this examination. A dose lowering technique was utilized adhering to the principles of ALARA. FINDINGS: Acute fractures of the anterior and posterior nelson of the right maxillary sinus. Small amount of layering hemorrhage within the right maxillary sinus without air-fluid level. No acute bone fracture identified. Similar bowing spurring of the nasal septum. Pterygoid plates appear intact. The patient is edentulous. Degenerative changes of the imaged cervical spine. Moderate size right mastoid effusion. The left mastoid air cells are clear. Mild degeneration of the temporal mandibular joints. No additional acute fracture or dislocation identified. Small right parietal contusions with lacerations. Deep tissue air surrounding the right maxillary sinus fractures. Bilateral lens repair. IMPRESSION: 1. Acute nondisplaced right maxillary fractures with layering hemorrhage within the right maxillary sinus. 2. Periorbital contusions with laceration. 3. Right mastoid effusion. ACT 112: Negative or not required by law. The above report was generated using voice recognition software. It may contain grammatical, syntax or spelling errors. Electronically signed by: Kaz Lei M.D. 07/15/2023 4:[address] 07/15/23 14:11 CT SCAN OF THE BRAIN WITHOUT IV CONTRAST CLINICAL HISTORY: Trauma. Fall. COMPARISON STUDY: CT of the brain dated 08/08/2019. MRI of the brain dated 01/17/2022. TECHNIQUE: Unenhanced axial CT scan of the brain is performed from the vertex to the skull base. A dose lowering technique was utilized adhering to the princi ples of GIORGIO. CT DOSE: 1388.11 mGy.cm FINDINGS: Brain parenchyma: There is age-related involutional change noting mild s ubcortical and periventricular microangiopathic disease. There is no hemorrhage, mass effect, or evidence of acute territorial ischemia by CT criteria. Cain- white matter differentiation is preserved. No extra-axial fluid collection is seen. Ventricles, sulci, cisterns: Prominent secondary to involutional change. Intracranial vasculature: There is atherosclerotic calcification of the cavernous carotid and vertebral arteries. Calvarium: The skeletal structures are osteopenic. No depressed calvarial fracture is identified. Sinuses and mastoids: There is fracture of the right maxillary antrum with layering blood products within the sinus. Trace mucosal thickening seen within the left maxillary sinus. There is also mild mucosal thickening within the ethmoid sinuses. There is a right mastoid effusion. The left mastoid air cells are well pneumatized. Orbits: The bony orbits are grossly intact. There are bilateral ocular lens implants. IMPRESSION: 1. There is no hemorrhage, mass effect, or evidence of acute territorial ischemia by CT criteria. 2. Fracture through the wall of the right maxillary antrum with blood products in the right maxillary sinus. ACT 112: Negative or not required by law. Electronically signed by: Adam Culp M.D. 07/15/2023 3:55 PM Chest X-Ray 07/15/23 14:12 SINGLE VIEW CHEST CLINICAL HISTORY: Generalized weakness. FINDINGS: An AP, portable, upright chest radiograph is compared to study dated 05/26/2022. The cardiomediastinal silhouette is unremarkable noting atherosclerotic calcification of the thoracic aorta. Chronic interstitial thickening is similar to previous. There is bibasilar scarring/atelectasis. The lungs and pleural spaces are otherwise clear. No pneumothorax is seen. The skeletal structures are osteopenic. The bony thorax is grossly intact. A left shoulder arthroplasty is in place. IMPRESSION: No acute cardiopulmonary abnormality. ACT 112: Negative or not required by law. Electronically signed by: Adam Culp M.D. 07/15/2023 2:30 PM Discharge Plan Visit Data Chief Complaint: Fall ED Provider: Adam Ordaz Discharge Problem: Weakness, Fall, Acute head trauma, Facial laceration, Facial fracture, Tachycardia, COVID-19, Subconjunctival hemorrhage Patient Disposition: Admitted As Inpatient Condition: Fair Discharge Instructions Interventions: ED Discharge Assessment Last Done: 07/15/23 19:53
--- NOTE | 2023-07-15 14:32 | XRay Report ---
SINGLE VIEW CHEST CLINICAL HISTORY: Generalized weakness. FINDINGS: An AP, portable, upright chest radiograph is compared to study dated 05/26/2022. The cardiome diastinal silhouette is unremarkable noting atherosclerotic calcification of the thoracic aorta. Mental Measurements Teacher leticia interstitial thickening is similar to previous. There is bibasilar scarring/atelectasis. The lung s and pleural spaces are otherwise clear. No pneumothorax is seen. The skeletal structures are osteop enic. The bony thorax is grossly intact. A left shoulder arthroplasty is in place. IMPRESSION: No acute cardiopulmonary abnormality. ACT 112: Negative or not required by law. Electronically signed by: Adam Culp M.D. 07/15/2023 2:30 PM
[2023-07-15 14:47] LABS: Basophils # (auto) 0.09 K/uL (0-0.2); Basophils % (auto) 0.7 %; Eosinophils # (auto) 0.04 K/uL (0-0.50); Eosinophils % (auto) 0.3 %; Hematocrit (blood only) 40.2 % (42.0-52.0); Hemoglobin 13.6 g/dl (14.0-18.0); Immature Granulocytes # (auto) 0.05 K/uL (0.01-0.20); Immature Granulocytes % (auto) 0.4 %; Lymphocytes # (auto) 0.75 K/uL (1.2-3.4); Lymphocytes % (auto) 5.9 %; Mean Corpuscular Hemoglobin 32.5 pg (25.0-34.0); Mean Corpuscular Hgb Conc 33.8 g/dL (32.0-36.0); Mean Corpuscular Volume 95.9 fL (80.0-100.0); Mean Platelet Volume 11.6 fL (9.4-12.4); Monocytes # (auto) 0.85 K/uL (0.11-0.59); Monocytes % (auto) 6.7 %; Neutrophils # (auto) 10.89 K/uL (1.40-6.50); Platelet Count 143 K/uL (130-400); RDW Coefficient of Variation 11.8 % (11.5-14.5); RDW Standard Deviation 41.5 fL (36.4-46.3); Red Blood Count 4.19 M/uL (4.70-6.10); White Blood Count 12.67 K/ul (4.8-10.8)
[2023-07-15 14:58] LABS: Alanine Aminotransferase 15 U/L (7-52); Albumin Globulin Ratio 1.5 (0.9-2); Albumin Level 4.1 gm/dl (3.4-5.0); Alkaline Phosphatase 67 U/L (34-104); Anion Gap 11 (3-11); Aspartate Aminotransferase 12 U/L (13-39); BUN Creatinine Ratio 19.6 (10-20); Bilirubin,Total 0.7 mg/dl (0.2-1.0); Blood Urea Nitrogen 20 mg/dl (6-23); Calcium 9.2 mg/dl (8.6-10.3); Carbon Dioxide 23 mmol/L (21-32); Chloride 105 mmol/L (98-107); Est GFR (African American) 87.7 ml/min; Est GFR (Non-African American) 75.7 ml/min; Globulin 2.8 gm/dl (2.5-4.0); Glucose 215 mg/dl (70-99(Fasting)); Magnesium 1.6 mg/dl (1.7-2.4); Potassium 4.4 mmol/L (3.5-5.1); Sodium 139 mmol/L (136-145); Total Protein 6.9 gm/dl (6.0-8.3)
[2023-07-15 15:04] LABS: Troponin I High Sensitivity 9.6 pg/ml (0-20)
[2023-07-15] MEDS ORDERED: MAGNESIUM SULFATE / D5W 1 GM/100 ML BAG IV STA (15:16)
--- NOTE | 2023-07-15 15:28 | Emergency Department Note ---
ED Visit Note Patient was seen and evaluated by Dr. Ordaz. Please refer to his note regarding chief complaint, HPI, ROS, PE, MDM, decision making/plan regarding this patient. I was involved in the patient's care for right facial wound management. Patient has a rather large laceration to the right side of the face involving the right lateral eyebrow region. The laceration does not involve the eyelid or globe. Patient does have a subconjunctival hemorrhage on the right. Risks and benefits of performing primary wound closure versus no repair were discussed with the patient who verbalizes understanding. Verbal consent was obtained prior to performing the procedure. Four cc of 1% buffered lidocaine with epinephrine was used to anesthetize the right-sided facial laceration. The wound was cleansed and prepped in the typical sterile fashion utilizing normal saline and Betadine. The wound was sterilely draped. Once proper anesthetization was established, the wound was further examined and demonstrated no evidence of bony injury or retained foreign body. No significant musculature disruption. The wound was copiously irrigated with normal saline and dilute Betadine. Initial layers were closed utilizing 3, 5-0 Vicryl sutures with the wound edges being well approximated. Then the wound was closed using 11 simple, 6-0 nylon sutures with the wound edges being well approximated. Patient tolerated the procedure well. No complications were met. The wound was cleansed and dressed with a layer of bacitracin ointment. Please refer to further documentation regarding his stay. .
[2023-07-15 15:39] LABS: Influenza A virus by PCR Negative (Neg); Influenza B virus by PCR Negative (Neg); RSV by PCR Negative (Neg)
[2023-07-15 15:45] LABS: SARS CoV2 RNA(COVID-19) Ceph POSITIVE (Negative)
--- NOTE | 2023-07-15 15:56 | CT Scan Report ---
CT SCAN OF THE BRAIN WITHOUT IV CONTRAST CLINICAL HISTORY: Trauma. Fall. COMPARISON STUDY: CT of the brain dated 08/08/2019. MRI of the brain dated 01/17/2022. TECHNIQUE: Unenhanced axial CT scan of the brain is performed from the vertex to the skull base. A do se lowering technique was utilized adhering to the principles of ALARA. CT DOSE: 1388.11 mGy.cm FINDINGS: Brain parenchyma: There is age-related involutional change noting mild subcortical and periventricula r microangiopathic disease. There is no hemorrhage, mass effect, or evidence of acute territorial isc hemia by CT criteria. Cain-white matter differentiation is preserved. No extra-axial fluid collection is seen. Ventricles, sulci, cisterns: Prominent secondary to involutional change. Intracranial vasculature: There is atherosclerotic calcification of the cavernous carotid and vertebr al arteries. Calvarium: The skeletal structures are osteopenic. No depressed calvarial fracture is identified. Sinuses and mastoids: There is fracture of the right maxillary antrum with layering blood products wi thin the sinus. Trace mucosal thickening seen within the left maxillary sinus. There is also mild muc osal thickening within the ethmoid sinuses. There is a right mastoid effusion. The left mastoid air c ells are well pneumatized. Orbits: The bony orbits are grossly intact. There are bilateral ocular lens implants. IMPRESSION: 1. There is no hemorrhage, mass effect, or evidence of acute territorial ischemia by CT criteria. 2. Fracture through the wall of the right maxillary antrum with blood products in the right maxillary sinus. ACT 112: Negative or not required by law. Electronically signed by: Adam Culp M.D. 07/15/2023 3:55 PM
--- NOTE | 2023-07-15 16:03 | CT Scan Report ---
CT cervical spine wo con CLINICAL HISTORY: fall, trauma TECHNIQUE: Multidetector row helical CT of the cervical spine was performed without administration of intravenous contrast. Coronal and sagittal reformations were obtained. Automated dose lowering techn iques and/or adjustment according to patient size were utilized for this exam. Comparison: None available at the time of this dictation. FINDINGS: No acute fractures or subluxations are identified. Degenerative changes are seen in the visualized sp ine. The alignment is normal. Right maxillary sinus disease is seen. IMPRESSION: Degenerative changes without evidence of acute bony injury. ACT 112: Negative or not required by law. Electronically signed by: Dairon Reynoso M.D. 07/15/2023 4:02 PM
--- NOTE | 2023-07-15 16:04 | CT Scan Report ---
CT facial bones wo con CLINICAL HISTORY: 67 years-old Male presenting with fall, trauma. Acute facial trauma status post fal l COMPARISON STUDY: CT head and cervical spine studies of same day TECHNIQUE: High-resolution CT scan of the facial bones is performed. Images are reviewed in the axia l, sagittal, and coronal planes. IV contrast was not administered for this examination. A dose lower ing technique was utilized adhering to the principles of ALARA. FINDINGS: Acute fractures of the anterior and posterior nelson of the right maxillary sinus. Small amount of lay ering hemorrhage within the right maxillary sinus without air-fluid level. No acute bone fracture [place] ntified. Similar bowing spurring of the nasal septum. Pterygoid plates appear intact. The patient is edentulous. Degenerative changes of the imaged cervical spine. Moderate size right mastoid effusion. The left mastoid air cells are clear. Mild degeneration of the temporal mandibular joints. No additio nal acute fracture or dislocation identified. Small right parietal contusions with lacerations. Deep tissue air surrounding the right maxillary sinus fractures. Bilateral lens repair. IMPRESSION: 1. Acute nondisplaced right maxillary fractures with layering hemorrhage within the right maxillary s inus. 2. Periorbital contusions with laceration. 3. Right mastoid effusion. ACT 112: Negative or not required by law. The above report was generated using voice recognition software. It may contain grammatical, syntax o r spelling errors. Electronically signed by: Kaz Lei M.D. 07/15/2023 4:03 PM
[2023-07-15] MEDS ORDERED: POTASSIUM CHLORIDE / WTR 10 MEQ/100 ML PLCT IV ONE (16:20)
[2023-07-15] MEDS ORDERED: SODIUM CHLORIDE 0.9% 1000ML 500 ML IV ONE (16:29)
[2023-07-15 16:57] LABS: Appearance Urine Clear (Clear); Bilirubin Urine Negative (Negative); Blood Urine Negative (Negative); Color Urine Yellow; Glucose Urine UA 3+ (Negative); Ketones Urine 2+ (Negative); Leukocyte Esterase Urine Negative (Negative); Nitrite Urine Negative (Negative); Protein Urine Negative (Negative); Urobilinogen Urine Negative (Negative); pH Urine 6.5 (4.5-7.5)
[2023-07-15] MEDS ORDERED: TROPICAMIDE 0.5% OP SOLN 15 ML BTL OP ONE (17:18)
--- NOTE | 2023-07-15 17:53 | Ophthalmology Consultation ---
Date of Consultation July 15, 2023 Assessment & Plan (1) Subconjunctival bleed: The patient has a large subconjunctival hemorrhage but no sign of any more significant globe injury. This should resolve in one week to two weeks. If there is any discomfort than artificial tears can be used as needed. Follow up as outpatient prn. History of Present Illness Reason for Consultation: trauma to the right eye History of Present Illness The patient is a 67 yo man who fell earlier today after feeling dizzy. He tested positive for COVID at the ER. He struck his right eye and brow. He was noted by the ER staff to have a right brow laceration and conjunctival hemorrhage on the right eye. The patient denies any change in vision or double vision. CT of the face did not show any orbital fractures but there are fractures of the right maxillary sinus. He denies any eye pain. His past ocular surgery is notable for cataract surgery approximately a year ago. He denies any other eye disease or eye injuries. Allergies Allergy/AdvReac Type Severity Reaction Status Date / Time metoclopramide Allergy Unknown Tremor Verified 07/15/23 17:23 acetaminophen [From Percocet] AdvReac Intermediate " sick " Verified 07/15/23 17:23 oxycodone AdvReac Unknown Nausea Verified 07/15/23 17:23 sulfamethoxazole AdvReac Unknown Nausea Verified 07/15/23 17:23 trimethoprim AdvReac Unknown Nausea Verified 07/15/23 17:23 Home Medications Medication Instructions Recorded Confirmed Type aspirin 81 mg tablet,delayed 81 mg PO QAM 12/24/18 07/15/23 History release cholecalciferol (vitamin D3) 125 5,000 unit PO QAM 12/24/18 07/15/23 History mcg (5,000 unit) tablet (Vitamin D3) cyanocobalamin (vitamin B-12) 1,000 mcg PO QAM 12/24/18 07/15/23 History 1,000 mcg tablet (Vitamin B-12) ascorbate calcium (vitamin C) 500 500 mg PO QAM 10/09/21 07/15/23 History mg tablet carbidopa 25 mg-levodopa 100 mg 2 tab PO QID 90 days #720 tabs 01/09/22 07/15/23 Rx tablet (Sinemet) magnesium oxide 400 mg PO QPM 04/10/22 07/15/23 History famotidine 20 mg tablet 20 mg PO QAM #90 tabs 10/23/22 07/15/23 Rx metformin 500 mg tablet 1,000 mg PO BID #360 tabs 12/20/22 07/15/23 Rx pantoprazole 20 mg tablet,delayed 20 mg PO QPM #90 tabs 12/21/22 07/15/23 Rx release rosuvastatin 40 mg tablet 40 mg PO QAM #90 tabs 03/26/23 07/15/23 Rx insulin glargine 100 unit/mL (3 8 unit (0.08 mL) subcut QAM #15 mL 04/08/23 07/15/23 Rx mL) subcutaneous pen (Basaglar KwikPen U-100 Insulin) insulin lispro-aabc 100 unit/mL 5 unit (0.05 mL) subcut TID #15 mL 04/10/23 07/15/23 Rx subcutaneous pen (Lyumjev KwikPen U-100 Insulin) duloxetine 60 mg capsule,delayed 60 mg PO QAM 30 days #30 caps 06/15/23 07/15/23 Rx release dapagliflozin propanediol 5 mg 5 mg PO DAILY #30 tabs 06/19/23 07/15/23 Rx tablet (Farxiga) Patient History Medical History (Updated 07/15/23 @ 18:01 by Noble Hernandez MD) Diabetes mellitus, type 2 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 Wilhelm Peripheral neuropathy Poor circulation IN THE FEET Restless leg syndrome Surgical History H/O elbow surgery History of amputation of lesser toe of left foot History of bunionectomy History of cataract surgery History of colonoscopy History of esophagogastroduodenoscopy (EGD) History of tonsillectomy History of tooth extraction Status post arterial stent Family History Family/Other No pertinent family history Brother Family history of diabetes mellitus Other No family history of adverse response to anesthesia Denies family history of Ovarian cancer Prostate cancer Myocardial infarction Breast cancer Colorectal cancer Social History (Updated 12/26/22 @ 10:51 by Lucita Madrigal) Smoking Status: Never smoker Second Hand Exposure: Yes (IN THE PAST); Do You Dip or Chew Tobacco: No; Hx Alcohol Use: No (HX, NONE CURRENT) Hx Substance Use: No Preferred Language: Greek Communication Ability: Effective Communication Ability Comment: JARAD SHULTZ HELPS WITH READING/PT HAS TROUBLE COMPREHENDING MEDICAL INFO Visual Impairment: Limited Hearing Ability: Hard of Hearing Piano Sounding Board Matcher Required: No Beliefs That Will Affect Care: None marital status: Life Partner Current Living Situation: Significant Other Current Living Situation Comment: lives with Yari his girlfriend current occupational status: retired current occupation: retired working at [employer] How many Children do You have: 3 other: GIRLFRIEND ABLE TO ASSIST WITH CARE NEEDED Feels Safe at Home: Yes Childhood Exposure to Second-Hand Smoke: Yes Diet: regular caffeine: Yes during the past year weight has: remained stable Dental Care, Regularly: No Physical Activity Frequency: Does not Exercise Seatbelt Use: never Sunscreen Use: No Do you think of yourself as: straight/heterosexual Gender Identity: Male Assistive Devices: Denture - Upper, Denture - Lower, Glasses and Special Shoe Physical Exam Physical Exam: Vision on a near card without correction 20/200 OU. Pupils - PERRL. Motility was full with no diplopia on any field of gaze. There is a right brow laceration with some ecchymosis and swelling of both the upper and lower right lids. Slit lamp exam- Large subconjunctival hemorrhage, anterior chamber is deep and quiet, iris is round without defects, well centered lens implant, cornea is clear. IOP measured with a tonopen - 15 right eye. 10 left eye. Dilated fundoscopic exam right eye was normal with normal retina, retinal vessels, macula, and optic nerve. Results & Data Vital Signs (Past 12 Hours) Vital Signs Temp Pulse Pulse Resp BP BP Pulse Ox 07/15/23 15:00 112 H 18 154/84 H 98 07/15/23 14:48 98 07/15/23 14:31 115 H 07/15/23 14:09 36.9 C 112 H 18 164/94 H 93 O2 Del Method 07/15/23 15:00 Room Air 07/15/23 14:48 07/15/23 14:31 07/15/23 14:09 Room Air
[2023-07-15] MEDS ORDERED: GLUCOSE 40% GEL 15 GM TUBE PO PRN (18:26)
[2023-07-15] MEDS ORDERED: DEXTROSE 50% 50 ML SYRINGE IV PRN (18:26)
[2023-07-15] MEDS ORDERED: GLUCAGON FOR INJ 1 MG VIAL SQ PRN (18:26)
[2023-07-15] MEDS ORDERED: GLUCOSE 10 TAB/TUBE PO PRN (18:26)
[2023-07-15] MEDS ORDERED: CARBOHYDRATES FOR HYPOGLYCEMIA PO PRN (18:26)
--- NOTE | 2023-07-15 18:45 | History & Physical Report ---
Date of Service July 15, 2023 Assessment & Plan (1) Subconjunctival bleed: (2) GERD (gastroesophageal reflux disease): (3) Parkinson disease: (4) Controlled type 2 diabetes mellitus with diabetic neuropathy, with long-term current use of insulin: (5) Hypercholesterolemia: (6) COVID-19: (7) Maxillary fracture, right side, initial encounter for closed fracture: (8) Syncope: (9) Facial laceration: (10) Orthostasis: Plan Pt is a 67 yo male with a past medical history of DMT2 on insulin, parkinsonism, and GERD who presents to the hospital on 07/15/2023 for fall. #Fall / syncope - CT face showed acute nondisplaced right maxillary fractures with layering hem orrhage within the right maxillary sinus - stitches placed above R brow for laceration - remove in 7-10 days (July 22 - ) either in ER or f/u PCP - no other trauma noted, CT neck and CT head wnl - pt notes falling due to dizziness upon going from laying to standing position, no recent med changes - based on symptom presentation, suspect fall is orthostatic in nature - will get orthostatic vital signs qshift starting tomorrow - EKG in ED sinus tachy, HR has been 100-110s in ED, monitor for arrthymia on telemetry - PT/OT #Subconjunctival hemorrhage of R eye - s/p fall with trauma to R eye - pt denies pain with eye ROM or blurred/double vision - ophthalmology consulted and recommending outpatient f/u and artificial tears for subconjunctival hemorrhage of R eye if needed for discomfort - will resolve on own in 1-2 weeks #COVID19 positive - pt placed on covid precautions, asymptomatic therefore no treatment recommended for covid at this time and O2 sat has been 98% on RA #DMT2 on insulin HbA1C 9.0 in March, repeat with AM labs - Continue Farxiga, metformin - Switch Lantus 8 units daily to 4 units BID. - Switch regular 5 units Novolog to: --Goal BSG Range: Low 110 mg/dL, High 140 mg/dL --Correction Factor: 50 mg/dL/unit --Carbohydrate ratio = 15 g/unit --BSGs ACHS if eating, q6h if npo #Parkinsons - continue home carbidopa-levodopa #GERD - continue home famotidine and pantoprazole #HLD - continue home rosuvastatin VTE: on hold due to trauma Dispo: Medsurg with tele Consults: ophthalmology History of Present Illness Chief Complaint: Fall, dizziness Primary Care Provider: BECKY Machado Pt is a 67 yo male with a past medical history of DMT2 on insulin, parkinsonism, and GERD who presents to the hospital on 07/15/2023 for fall. Pt states that this morning around 10 am he when he got up out of bed he suddenly became dizzy and fell, hitting his R brow against his door. He states that he had a similar episode about 4-5 months ago where he stood up, felt like the room was spinning, and then had to sit down to avoid a fall. He states that he did not have any chest pain, palpitations, or SOB prior to feeling dizzy and falling. He denies a loss of consciousness. He states that he has not had any medication changes in the last year that he recalls. He states that after the fall he did experience a headache over the area of trauma and vomited once in the ambulance on the way to the hospital. He denies trauma elsewhere and states that he felt fine yesterday and this morning prior to getting up suddenly out of bed and experienced the dizziness seconds after standing upright. Now, he mostly complains of a headache, but otherwise feels fine. Social Hx: - Alcohol: denies - Smoking: denies past or current use - Other drug use: denies No hx LA or CVA. Allergies Allergy/AdvReac Type Severity Reaction Status Date / Time metoclopramide Allergy Unknown Tremor Verified 07/15/23 17:23 acetaminophen [From Percocet] AdvReac Intermediate " sick " Verified 07/15/23 17:23 oxycodone AdvReac Unknown Nausea Verified 07/15/23 17:23 sulfamethoxazole AdvReac Unknown Nausea Verified 07/15/23 17:23 trimethoprim AdvReac Unknown Nausea Verified 07/15/23 17:23 Home Medications Medication Instructions Recorded Confirmed Type aspirin 81 mg tablet,delayed 81 mg PO QAM 12/24/18 07/15/23 History release cholecalciferol (vitamin D3) 125 5,000 unit PO QAM 12/24/18 07/15/23 History mcg (5,000 unit) tablet (Vitamin D3) cyanocobalamin (vitamin B-12) 1,000 mcg PO QAM 12/24/18 07/15/23 History 1,000 mcg tablet (Vitamin B-12) ascorbate calcium (vitamin C) 500 500 mg PO QAM 10/09/21 07/15/23 History mg tablet carbidopa 25 mg-levodopa 100 mg 2 tab PO QID 90 days #720 tabs 01/09/22 07/15/23 Rx tablet (Sinemet) magnesium oxide 400 mg PO QPM 04/10/22 07/15/23 History famotidine 20 mg tablet 20 mg PO QAM #90 tabs 10/23/22 07/15/23 Rx metformin 500 mg tablet 1,000 mg PO BID #360 tabs 12/20/22 07/15/23 Rx pantoprazole 20 mg tablet,delayed 20 mg PO QPM #90 tabs 12/21/22 07/15/23 Rx release rosuvastatin 40 mg tablet 40 mg PO QAM #90 tabs 03/26/23 07/15/23 Rx insulin glargine 100 unit/mL (3 8 unit (0.08 mL) subcut QAM #15 mL 04/08/23 07/15/23 Rx mL) subcutaneous pen (Basaglar KwikPen U-100 Insulin) insulin lispro-aabc 100 unit/mL 5 unit (0.05 mL) subcut TID #15 mL 04/10/23 07/15/23 Rx subcutaneous pen (Lyumjev KwikPen U-100 Insulin) duloxetine 60 mg capsule,delayed 60 mg PO QAM 30 days #30 caps 06/15/23 07/15/23 Rx release dapagliflozin propanediol 5 mg 5 mg PO DAILY #30 tabs 06/19/23 07/15/23 Rx tablet (Farxiga) Past Med/Surg History Medical History Diabetes mellitus, type 2 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 Wilhelm Peripheral neuropathy Poor circulation IN THE FEET Restless leg syndrome Surgical History H/O elbow surgery History of amputation of lesser toe of left foot History of bunionectomy History of cataract surgery History of colonoscopy History of esophagogastroduodenoscopy (EGD) History of tonsillectomy History of tooth extraction Status post arterial stent Family History Family/Other No pertinent family history Brother Family history of diabetes mellitus Other No family history of adverse response to anesthesia Denies family history of Ovarian cancer Prostate cancer Myocardial infarction Breast cancer Colorectal cancer Social History Smoking Status: Never smoker Second Hand Exposure: No; Do You Dip or Chew Tobacco: No; Tobacco Cessation Education Requested by Patient: No Hx Alcohol Use: No Hx Substance Use: No Preferred Language: Hungarian Communication Ability: Effective Communication Ability Comment: JARAD SHULTZ HELPS WITH READING/PT HAS TROUBLE COMPREHENDING MEDICAL INFO Visual Impairment: Limited Hearing Ability: Hard of Hearing Engineering Project Manager Required: No Beliefs That Will Affect Care: None marital status: Life Partner Current Living Situation: Spouse Current Living Situation Comment: live with girlfriend current occupational status: retired current occupation: retired working at [employer] How many Children do You have: 3 Other Information That Helps Us Care for You: No other: GIRLFRIEND ABLE TO ASSIST WITH CARE NEEDED Feels Safe at Home: Yes Safety Concerns: Feels Safe At This Time Childhood Exposure to Second-Hand Smoke: Yes Diet: regular caffeine: Yes during the past year weight has: remained stable Dental Care, Regularly: No Physical Activity Frequency: Does not Exercise Seatbelt Use: never Sunscreen Use: No Do you think of yourself as: straight/heterosexual Gender Identity: Male Assistive Devices: None Review of Systems Review of Systems: Constitutional: denies fever, chills, HEENT: denies congestion, sore throat Cardio: denies chest pain, palpitations Resp: denies shortness of breath, cough GI: denies abdominal pain, denies blood in stool : denies pain with urination, denies hematuria Physical Exam Physical Exam: General: Alert and oriented, no acute distress, HEENT: Multiple stitches noted over the R brow with a subconjunctival bleed of the R eye, no pain or dizziness noted with R eye ROM Cardio: Regular rate and rhythm, Resp: Lungs clear to auscultation b/l, GI: Soft and nontender, nondistended, bowel sounds active Skin: Warm, pink, dry, Psych: Mood-affect congruence. Results & Data Results & Data Vital Signs (Past 12 Hours) Vital Signs Temp Pulse Pulse Resp BP BP Pulse Ox 07/15/23 17:53 102 H 07/15/23 15:00 112 H 18 154/84 H 98 07/15/23 14:48 98 07/15/23 14:31 115 H 07/15/23 14:09 36.9 C 112 H 18 164/94 H 93 O2 Del Method 07/15/23 17:53 07/15/23 15:00 Room Air 07/15/23 14:48 07/15/23 14:31 07/15/23 14:09 Room Air Laboratory Results Abnormal lab results 07/15/23 07/15/23 07/15/23 Range/Units 14:15 14:15 14:47 WBC 12.67 H (4.8-10.8) K/ul RBC 4.19 L (4.70-6.10) M/uL Hgb 13.6 L (14.0-18.0) g/dl Hct 40.2 L (42.0-52.0) % Neut # (Auto) 10.89 H (1.40-6.50) K/uL Lymph # (Auto) 0.75 L (1.2-3.4) K/uL Gem # (Auto) 0.85 H (0.11-0.59) K/uL Glucose 215 H (70-99(Fasting)) mg/dl POC Glucose (70-99) mg/dl Magnesium 1.6 L (1.7-2.4) mg/dl AST 12 L (13-39) U/L Urine Glucose (UA) (Negative) Urine Ketones (Negative) SARS-CoV-2 (PCR) POSITIVE A* (Negative) 07/15/23 07/15/23 Range/Units 16:35 19:55 WBC (4.8-10.8) K/ul RBC (4.70-6.10) M/uL Hgb (14.0-18.0) g/dl Hct (42.0-52.0) % Neut # (Auto) (1.40-6.50) K/uL Lymph # (Auto) (1.2-3.4) K/uL Gem # (Auto) (0.11-0.59) K/uL Glucose (70-99(Fasting)) mg/dl POC Glucose 169 H (70-99) mg/dl Magnesium (1.7-2.4) mg/dl AST (13-39) U/L Urine Glucose (UA) 3+ H (Negative) Urine Ketones 2+ H (Negative) SARS-CoV-2 (PCR) (Negative) Diagnostic Findings CT SCAN OF THE BRAIN WITHOUT IV CONTRAST CLINICAL HISTORY: Trauma. Fall. COMPARISON STUDY: CT of the brain dated 08/08/2019. MRI of the brain dated 01/17/2022. TECHNIQUE: Unenhanced axial CT scan of the brain is performed from the vertex to the skull base. A dose lowering technique was utilized adhering to the principles of ALARA. CT DOSE: 1388.11 mGy.cm FINDINGS: Brain parenchyma: There is age-related involutional change noting mild subcortical and periventricular microangiopathic disease. There is no hemorrhage, mass effect, or evidence of acute territorial ischemia by CT criteria. Cain-white matter differentiation is preserved. No extra-axial fluid collection is seen. Ventricles, sulci, cisterns: Prominent secondary to involutional change. Intracranial vasculature: There is atherosclerotic calcification of the christian nous carotid and vertebral arteries. Calvarium: The skeletal structures are osteopenic. No depressed calvarial fracture is identified. Sinuses and mastoids: There is fracture of the right maxillary antrum with layering blood products within the sinus. Trace mucosal thickening seen within the left maxillary sinus. There is also mild mucosal thickening within the ethmoid sinuses. There is a right mastoid effusion. The left mastoid air cells are well pneumatized. Orbits: The bony orbits are grossly intact. There are bilateral ocular lens implants. IMPRESSION: 1. There is no hemorrhage, mass effect, or evidence of acute territorial ischemia by CT criteria. 2. Fracture through the wall of the right maxillary antrum with blood products in the right maxillary sinus. CT cervical spine wo con CLINICAL HISTORY: fall, trauma TECHNIQUE: Multidetector row helical CT of the cervical spine was performed without administration of intravenous contrast. Coronal and sagittal refo rmations were obtained. Automated dose lowering techniques and/or adjustment according to patient size were utilized for this exam. Comparison: None available at the time of this dictation. FINDINGS: No acute fractures or subluxations are identified. Degenerative changes are seen in the visualized spine. The alignment is normal. Right maxillary sinus disease is seen. IMPRESSION: Degenerative changes without evidence of acute bony injury. CT facial bones wo con CLINICAL HISTORY: 67 years-old Male presenting with fall, trauma. Acute facial trauma status post fall COMPARISON STUDY: CT head and cervical spine studies of same day TECHNIQUE: High-resolution CT scan of the facial bones is performed. Images are reviewed in the axial, sagittal, and coronal planes. IV contrast was not administered for this examination. A dose lowering technique was utilized adhering to the principles of ALARA. FINDINGS: Acute fractures of the anterior and posterior nelson of the right maxillary sinus. Small amount of layering hemorrhage within the right maxillary sinus without air-fluid level. No acute bone fracture identified. Similar bowing spurring of the nasal septum. Pterygoid plates appear intact. The patient is edentulous. Degenerative changes of the imaged cervical spine. Moderate size right mastoid effusion. The left mastoid air cells are clear. Mild degeneration of the temporal mandibular joints. No additional acute fracture or dislocation identified. Small right parietal contusions with lacerations. Deep tissue air surrounding the right maxillary sinus fractures. Bilateral lens repair. IMPRESSION: 1. Acute nondisplaced right maxillary fractures with layering hemorrhage within the right maxillary sinus. 2. Periorbital contusions with laceration. 3. Right mastoid effusion. SINGLE VIEW CHEST CLINICAL HISTORY: Generalized weakness. FINDINGS: An AP, portable, upright chest radiograph is compared to study dated 05/26/2022. The cardiomediastinal silhouette is unremarkable noting atherosclerotic calcification of the thoracic aorta. Chronic interstitial thickening is similar to previous. There is bibasilar scarring/atelectasis. The lungs and pleural spaces are otherwise clear. No pneumothorax is seen. The skeletal structures are osteopenic. The bony thorax is grossly intact. A left shoulder arthroplasty is in place. IMPRESSION: No acute cardiopulmonary abnormality. Medications Administered ER Medications Given: NSS 500ml bolus Magnesium sulfate 1g IV Lidocaine/epinephrine for suturing Supervising Physician Co-Signing Physician Notes I personally saw and examined the patient. I verified all jo points and agree with resident physician Dr Joyce Robins ([id number]), with the following exceptions and/or additions: 67 year old male presents to the ER after syncopal event preceded by dizziness. Longstanding history of similar occurrences but do not happen frequently. Apart from headache he is back to baseline. No vision changes despite bullous subconjunctival hemorrhage of right eye. O/E A&Ox3, HS RRR, no murmurs, Chest CTAB, Abdo SNT, left sided subconjunctival hemorrhage with mild bullous phenomenon, EOMI intact, visual acuity normal, facial laceration above left eye sutured A/P Fall, Syncope - orthostatics tomorrow once doing better from the fall, monitor on telemetry, suspect related to his Parkinson's and if not orthostatic it occurs so infrequently unlikely to benefit from medications. PT/OT assessments. Not on any anti-hypertensives. Face laceration - remove sutures in 7-10 days as above Subconjunctival hemorrhage - appreciate ophthalmology evaluation for other globe injury given extent of hemorrhage with no other injury found. COVID - not symptomatic, no medications therefore recommended Resident Activity Tracking Resident Involvement: Resident Care Provided Care Provided: Adult Hospital Medicine (8) Syncope Syncope type: unspecified Qualified Code(s): R55 - Syncope and collapse (9) Facial laceration Encounter type: initial encounter Qualified Code(s): S01.81XA - Laceration without foreign body of other part of head, initial encounter
[2023-07-15] MEDS ORDERED: CARBIDOPA/LEVODOPA 25/100MG TAB PO STA (19:34)
[2023-07-15] MEDS ORDERED: MAGNESIUM SULFATE / D5W 1 GM/100 ML BAG IV ONE (19:53)
[2023-07-15] MEDS: INSULIN ASPART PER UNIT CHARGE SC SCH (21:52)
[2023-07-15] MEDS: LANTUS PER UNIT CHARGE SQ SCH (21:52)
[2023-07-15] MEDS: metFORMIN HCL 500 MG TAB PO SCH (21:54)
[2023-07-15] MEDS: MAGNESIUM OXIDE 400 MG TAB PO SCH (21:54)
[2023-07-15] MEDS: CARBIDOPA/LEVODOPA 25/100MG TAB PO SCH (21:54)
[2023-07-15] MEDS: PANTOprazole 40 MG TAB PO SCH (21:55)
--- NOTE | 2023-07-16 06:07 | Electrocardiogram Report ---
Test Reason : Blood Pressure : / mmHG Vent. Rate : 112 BPM Atrial Rate : 112 BPM P-R Int : 208 ms QRS Dur : 082 ms QT Int : 314 ms P-R-T Axes : 069 -26 064 degrees QTc Int : 428 ms Sinus tachycardia Septal infarct , age undetermined Abnormal ECG When compared with ECG of 02-OCT-2021 08:23, Septal infarct is now Present Confirmed by Ever Casper ([id number]) on 07/16/2023 6:07:32 AM Referred By: REFERRED SELF Confirmed By:Ever Casper
[2023-07-16] MEDS: INSULIN ASPART PER UNIT CHARGE SC SCH ×4 (08:35→20:33)
[2023-07-16] MEDS: LANTUS PER UNIT CHARGE SQ SCH ×2 (08:36→20:32)
[2023-07-16] MEDS: ACETAMINOPHEN 325 MG TAB PO PRN ×2 (08:47→20:27)
[2023-07-16] MEDS: SODIUM CHLORIDE 0.9% 1000ML 1,000 ML IV SCH ×2 (08:47→21:14)
[2023-07-16] MEDS: CHOLECALCIFEROL 5,000 UNITS 125 MCG TAB PO SCH (08:48)
[2023-07-16] MEDS: FAMOTIDINE 20 MG TAB PO SCH (08:48)
[2023-07-16] MEDS: metFORMIN HCL 500 MG TAB PO SCH ×2 (08:48→17:48)
[2023-07-16] MEDS: DULoxetine HCL 60 MG CAP PO SCH (08:48)
[2023-07-16] MEDS: CARBIDOPA/LEVODOPA 25/100MG TAB PO SCH ×4 (08:48→20:32)
[2023-07-16] MEDS: CYANOCOBALAMIN (B-12) 500 MCG TABLET PO SCH (08:48)
[2023-07-16] MEDS: MAGNESIUM OXIDE 400 MG TAB PO SCH ×2 (08:48→20:31)
[2023-07-16] MEDS: ROSUVASTATIN CALCIUM 20 MG TAB PO SCH (08:48)
[2023-07-16 10:04] LABS: A calco-baum cmplx NotReported Not Detected (NotDetected); Bact fragilis Not Reported Not Detected (NotDetected); C auris Not Reported Not Detected (NotDetected); Calbicans Not Reported Not Detected (NotDetected); Candida glabrata Not Reported Not Detected (NotDetected); Candida krusei Not Reported Not Detected (NotDetected); Cneoformans/gatti Not Reported Not Detected (NotDetected); Cparapsilosis Not Reported Not Detected (NotDetected); Ctropicalis Not Reported Not Detected (NotDetected); E cloacae compx Not Reported Not Detected (NotDetected); Efaecalis Not Reported Not Detected (NotDetected); Efaecium Not Reported Not Detected (NotDetected); Enterobacterales Not Reported Not Detected (NotDetected); Escherichia coli Not Reported Not Detected (NotDetected); H influenzae Not Reported Not Detected (NotDetected); K aerogenes Not Reported Not Detected (NotDetected); Koxytoca Not Reported Not Detected (NotDetected); Kpneumoniae grp Not Reported Not Detected (NotDetected); Lmonocyt Not Reported Not Detected (NotDetected); N meningitidis Not Reported Not Detected (NotDetected); P aeruginosa Not Reported Not Detected (NotDetected); Proteus spp Not Reported Not Detected (NotDetected); Salmonella spp Not Reported Not Detected (NotDetected); Smarcescens Not Reported Not Detected (NotDetected); Staph lugdunensis Not Reported Not Detected (NotDetected); Staphaureus Not Reported Not Detected (NotDetected); Staphepi Not Reported Not Detected (NotDetected); Staphylococcus spp. DETECTED (NotDetected); Stenmaltophilia Not Reported Not Detected (NotDetected); Strep agal(GrpB) Not Reported Not Detected (NotDetected); Strep pneum Not Reported Not Detected (NotDetected); Strep pyog (GrpA) Not Reported Not Detected (NotDetected); Strep spp Not Reported Not Detected (NotDetected)
[2023-07-16 10:22] LABS: Staph spp. Not Reported DETECTED (NotDetected)
--- NOTE | 2023-07-16 11:45 | Billing Data ---
Date of Service July 15, 2023 Coding Level of Care Code 62696 INT INP/OBS CARE
[2023-07-16] MEDS ORDERED: MIDODRINE HCL 2.5 MG TAB PO ONE (13:20)
--- NOTE | 2023-07-16 15:48 | Hospitalist Progress Note ---
Date of Service July 16, 2023 Assessment & Plan (1) Syncope: Plan: Appears to be due to orthostatic hypotension. Midodrine has been started. Continue IV fluids for now. Telemetry (2) Subconjunctival bleed: Plan: Right eye. Local care. Vision has not been impaired. Should resolve over time (3) Facial laceration: Plan: Right eye brow laceration has been sutured with hemostasis achieved (4) COVID-19: Plan: Nasal swab positivity. No current symptoms (5) Orthostasis: Plan: Midodrine has been started (6) Maxillary fracture, right side, initial encounter for closed fracture: Plan: No intervention necessary (7) Parkinson disease: Plan: Stable. Continue current medical (8) Controlled type 2 diabetes mellitus with diabetic neuropathy, with long-term current use of insulin: Plan: ADA diet. Basal insulin therapy. Sliding scale coverage as needed Plan Hopeful discharge to home soon. Admission and Anticipated Discharge Date Admission Date: July 15, 2023 Subjective Alert and oriented. No acute distress. He continues to have orthostasis which she has had in the past. Midodrine has been started. 1 of 4 blood cultures positive for gram-positive cocci. He is now on Ancef until final identification is known but this is probably a contaminant. The right eyebrow laceration has been sutured and hemostasis achieved. He has a right maxillary fracture that does not need intervention. The right eye Sub conjunctival hemorrhage should resolve with time. There is no intraocular bleeding and his vision has not been impaired. OT and PT assessments ordered. He is on IV fluids for now. Review of Systems Review of Systems: Constitutional-no fever or chills ENT-no blurred vision, no double vision, no epistaxis, no sore throat Respiratory-no cough, no wheezing, no shortness of breath Cardiac-no palpitations, no chest pain, no syncope GI-no nausea, vomiting, diarrhea, melena, hematochezia -no urinary retention, no urinary incontinence, no dysuria, no hematuria Musculoskeletal-no joint pain, no muscle tenderness Skin-no bruising, no rashes, no pruritus Neuro-no isolated weakness, no paresthesia Psych-no depression, no anxiety Physical Exam Physical Exam: General-alert and oriented x3, no fevers, no chills HEENT-head atraumatic and normocephalic, pupils equal and reactive to light, extraocular muscles intact. Circumferential right eye subconjunctival hemorrhage. Right eye brow laceration has been sutured with hemostasis achieved Neck-no lymphadenopathy or thyromegaly, trachea midline Chest-clear to auscultation percussion. No rales wheezing or rhonchi Cardiac-regular rate and rhythm, normal S1 and S2, no murmurs Abdomen-normal bowel sounds, nontender, no hepatosplenomegaly Extremities-no cyanosis, clubbing, or edema Neuro-cranial nerves II through XII intact, motor and sensory function within normal limits, strength symmetrical , no focal deficits Psych-normal affect, normal mood Results & Data Results & Data Vital Signs (Past 12 Hours) Vital Signs Temp Pulse Pulse Resp BP Pulse Ox O2 Del Method 07/16/23 10:56 78 07/16/23 07:50 37.3 C 85 19 134/69 95 Room Air Laboratory Results 07/15/23 14:15 07/15/23 14:15 PG Care Time/CCT Total # of Minutes Spent Total Time Spent with Patient: Total time spent is greater than 50% in coordination of care (as documented) at patient's floor/unit and/or counseling patient: Coding Level of Care Code 03456 SUB INP/OBS CARE 3/50MIN Diagnoses Syncope R55 Syncope type: unspecified Subconjunctival bleed H11.30 Facial laceration S01.81XA Encounter type: initial encounter COVID-19 U07.1 Orthostasis I95.1 Maxillary fracture, right side, initial encounter for closed fracture S02.40CA Parkinson disease G20 Controlled type 2 diabetes mellitus with diabetic neuropathy, with long-term current use of insulin E11.40; Z79.4 (1) Syncope Syncope type: unspecified Qualified Code(s): R55 - Syncope and collapse (3) Facial laceration Encounter type: initial encounter Qualified Code(s): S01.81XA - Laceration without foreign body of other part of head, initial encounter
[2023-07-16] MEDS: ceFAZolin 2000MG 2,000 MG/15 ML SYR IV SCH ×2 (15:57→21:15)
[2023-07-16] MEDS: PANTOprazole 40 MG TAB PO SCH (20:31)
[2023-07-17] MEDS: ACETAMINOPHEN 325 MG TAB PO PRN (03:19)
[2023-07-17] MEDS: ceFAZolin 2000MG 2,000 MG/15 ML SYR IV SCH (05:31)
[2023-07-17 07:24] LABS: Basophils # (auto) 0.06 K/uL (0-0.2); Basophils % (auto) 0.7 %; Eosinophils # (auto) 0.06 K/uL (0-0.50); Eosinophils % (auto) 0.7 %; Hematocrit (blood only) 38.9 % (42.0-52.0); Immature Granulocytes # (auto) 0.03 K/uL (0.01-0.20); Immature Granulocytes % (auto) 0.4 %; Lymphocytes # (auto) 1.42 K/uL (1.2-3.4); Lymphocytes % (auto) 16.8 %; Mean Corpuscular Hemoglobin 32.3 pg (25.0-34.0); Mean Corpuscular Hgb Conc 33.4 g/dL (32.0-36.0); Mean Corpuscular Volume 96.5 fL (80.0-100.0); Mean Platelet Volume 11.4 fL (9.4-12.4); Monocytes # (auto) 0.86 K/uL (0.11-0.59); Monocytes % (auto) 10.2 %; Neutrophils # (auto) 6.02 K/uL (1.40-6.50); Neutrophils % (auto) 71.2 %; Platelet Count 129 K/uL (130-400); RDW Coefficient of Variation 11.7 % (11.5-14.5); RDW Standard Deviation 41.3 fL (36.4-46.3); Red Blood Count 4.03 M/uL (4.70-6.10); White Blood Count 8.45 K/ul (4.8-10.8)
[2023-07-17 07:48] LABS: BUN Creatinine Ratio 19.3 (10-20); Calcium 8.8 mg/dl (8.6-10.3); Creatinine Clr Calc Pharmacy 97.6 ml/min; Est GFR (African American) 105.5 ml/min; Potassium 4.8 mmol/L (3.5-5.1)
[2023-07-17] MEDS: INSULIN ASPART PER UNIT CHARGE SC SCH ×2 (08:40→12:22)
[2023-07-17] MEDS: LANTUS PER UNIT CHARGE SQ SCH (08:40)
[2023-07-17] MEDS: CARBIDOPA/LEVODOPA 25/100MG TAB PO SCH ×2 (08:53→12:30)
[2023-07-17] MEDS: FAMOTIDINE 20 MG TAB PO SCH (08:54)
[2023-07-17] MEDS: MAGNESIUM OXIDE 400 MG TAB PO SCH (08:54)
[2023-07-17] MEDS: CYANOCOBALAMIN (B-12) 500 MCG TABLET PO SCH (08:54)
[2023-07-17] MEDS: CHOLECALCIFEROL 5,000 UNITS 125 MCG TAB PO SCH (08:54)
[2023-07-17] MEDS: ROSUVASTATIN CALCIUM 20 MG TAB PO SCH (08:55)
[2023-07-17] MEDS: metFORMIN HCL 500 MG TAB PO SCH (08:55)
[2023-07-17] MEDS: DULoxetine HCL 60 MG CAP PO SCH (08:55)
[2023-07-17] MEDS: SODIUM CHLORIDE 0.9% 1000ML 1,000 ML IV SCH (10:02)
--- NOTE | 2023-07-17 11:14 | Discharge Summary ---
Date of Service July 17, 2023 Admission HPI Per Admitting Provider Pt is a 67 yo male with a past medical history of DMT2 on insulin, parkinsonism, and GERD who presents to the hospital on 07/15/2023 for fall. Pt states that this morning around 10 am he when he got up out of bed he suddenly became dizzy and fell, hitting his R brow against his door. He states that he had a similar episode about 4-5 months ago where he stood up, felt like the room was spinning, and then had to sit down to avoid a fall. He states that he did not have any chest pain, palpitations, or SOB prior to feeling dizzy and falling. He denies a loss of consciousness. He states that he has not had any medication changes in the last year that he recalls. He states that after the fall he did experience a headache over the area of trauma and vomited once in the ambulance on the way to the hospital. He denies trauma elsewhere and states that he felt fine yesterday and this morning prior to getting up suddenly out of bed and experienced the dizziness seconds after standing upright. Now, he mostly complains of a headache, but otherwise feels fine. Social Hx: - Alcohol: denies - Smoking: denies past or current use - Other drug use: denies No hx [place] or CVA. Principal Diagnosis Orthostatic hypotension causing syncope, mechanical fall with right facial maxillary fracture, right eyebrow laceration, right eyes subconjunctival hemorrhage, COVID positivity by swab without symptoms Discharge Exam General-alert and oriented x3, no fevers, no chills HEENT-head atraumatic and normocephalic, pupils equal and reactive to light, extraocular muscles intact. Circumferential right eye subconjunctival hemorrhage. Right eye brow laceration has been sutured with hemostasis achieved Neck-no lymphadenopathy or thyromegaly, trachea midline Chest-clear to auscultation percussion. No rales wheezing or rhonchi Cardiac-regular rate and rhythm, normal S1 and S2, no murmurs Abdomen-normal bowel sounds, nontender, no hepatosplenomegaly Extremities-no cyanosis, clubbing, or edema Neuro-cranial nerves II through XII intact, motor and sensory function within normal limits, strength symmetrical , no focal deficits Psych-normal affect, normal mood Discharge Data Allergies Allergy/AdvReac Type Severity Reaction Status Date / Time metoclopramide Allergy Unknown Tremor Verified 07/15/23 17:23 acetaminophen [From Percocet] AdvReac Intermediate " sick " Verified 07/15/23 17:23 oxycodone AdvReac Unknown Nausea Verified 07/15/23 17:23 sulfamethoxazole AdvReac Unknown Nausea Verified 07/15/23 17:23 trimethoprim AdvReac Unknown Nausea Verified 07/15/23 17:23 Consultations 07/15/23 16:45 ED Decision to Admit Stat Ordered Studies 07/15/23 14:11 CT cervical spine wo con Stat CT face [CT facial bones wo con] Stat CT head/brain wo con Stat Hospital Course (1) Syncope: Appears to be due to orthostatic hypotension. Midodrine has been started and blood pressure has remained stable. Treated while hospitalized with IV fluids. Telemetry (2) Subconjunctival bleed: Right eye. Local care. Vision has not been impaired. Should resolve over time (3) Facial laceration: Right eye brow laceration has been sutured with hemostasis achieved. Sutures should be removed 6 or 7 days after they were put in (4) COVID-19: Nasal swab positivity. No current symptoms (5) Orthostasis: Midodrine has been started. Blood pressure is stable (6) Maxillary fracture, right side, initial encounter for closed fracture: No intervention necessary (7) Parkinson disease: Stable. Continue current medical (8) Controlled type 2 diabetes mellitus with diabetic neuropathy, with long-term current use of insulin: ADA diet. Basal insulin therapy. Sliding scale coverage as needed Plan Home today on midodrine, July 17 . Total Time Total Time Spent Total Time Spent (In Minutes): 45 Discharge Plan Discharge Items Patient Disposition: Home - Self-Care Reason For Visit: FALL WITH TRAUMA Discharge Diagnosis: Syncope due to orthostatic hypotension, mechanical fall, right maxillary fracture, right eyebrow laceration, right eye Sub conjunctival hemorrhage Condition on Discharge: Good Activity: Resume your previous activity Non-emergency contact: Primary Care Provider Call non-emergency contact if: your symptoms worsen Follow-up/Referrals: Mila Martinez CRNP [Primary Care Provider] - Diet: Carb Consistent or DM2 and Heart Healthy Addtl Attending Provider Instructions: Take midodrine 3 times a day to support blood pressure and hopefully prevent any further episodes of passing out Pending Studies at Discharge: No Stand-Alone Forms: My [facility], Smoking Cessation Medications and DC Order Prescriptions: New midodrine 5 mg tablet 5 mg PO TID Qty: 90 0RF Rx Instructions: do not give last dose of day after 6PM or within 4 hrs of bedtime Continued famotidine 20 mg tablet 20 mg PO QAM Qty: 90 3RF rosuvastatin 40 mg tablet 40 mg PO QAM Qty: 90 1RF insulin glargine [Basaglar KwikPen U-100 Insulin] 100 unit/mL (3 mL) insulin pen 8 unit SUBCUT QAM Qty: 15 3RF Lyumjev KwikPen U-100 Insulin 100 unit/mL insulin pen 5 unit subcut TID MDD 15 units Qty: 15 3RF duloxetine 60 mg capsule,delayed release(DR/EC) 60 mg PO QAM 30 Days Qty: 30 3RF metformin 500 mg tablet 1,000 mg PO BID Qty: 360 3RF Rx Instructions: Automatic refills ascorbate calcium (vitamin C) 500 mg tablet 500 mg PO QAM carbidopa-levodopa [Sinemet] 25-100 mg tablet 2 tab PO QID 90 Days Qty: 720 3RF pantoprazole 20 mg tablet,delayed release (DR/EC) 20 mg PO QPM Qty: 90 3RF Farxiga 5 mg tablet 5 mg PO DAILY Qty: 30 7RF cyanocobalamin (vitamin B-12) [Vitamin B-12] 1,000 mcg Tablet 1,000 mcg PO QAM aspirin 81 mg Tablet,Delayed Release (Dr/Ec) 81 mg PO QAM cholecalciferol (vitamin D3) [Vitamin D3] 5,000 unit Tablet 5,000 unit PO QAM magnesium oxide 400 mg magnesium capsule 400 mg PO QPM Patient Comments: NOT CURRENTLY TAKING Discharge Orders: Discharge Order (Routine); Ordered 07/17/23 Ordered By: Vikram Sanz/Other Patient Handouts: Managing Type 2 Diabetes, Special [facility] for Diabetes Admission Data Admit Date/Time: 07/15/23 18:22 Attending Provider: Vikram Aguilera Admit Provider: Joyce Robins Primary Care Provider: Mila Martinez Other Providers: Geovanny Angel Coding Level of Care Code 74030 INP/OBS DISCH >30 MIN Diagnoses Syncope R55 Syncope type: unspecified Subconjunctival bleed H11.30 Facial laceration S01.81XA Encounter type: initial encounter COVID-19 U07.1 Orthostasis I95.1 Maxillary fracture, right side, initial encounter for closed fracture S02.40CA Parkinson disease G20 Controlled type 2 diabetes mellitus with diabetic neuropathy, with long-term current use of insulin E11.40; Z79.4
== END 2023-07-17 14:59 | disposition home or self-care (01) ==
LOC: ED 13:51 → SUATTDRO 18:22 → INTOOBSV 18:22 → EDINP 18:22 → 2S 22:42

== ENCOUNTER 2025-01-02 15:06 | Inpatient (IN) ==
[2025-01-02 16:18] LABS: Basophils # (auto) 0.05 K/uL (0.00-0.20); Basophils % (auto) 0.3 %; Eosinophils # (auto) 0.11 K/uL (0.00-0.50); Eosinophils % (auto) 0.7 %; Hematocrit (blood only) 44.2 % (42.0-52.0); Hemoglobin 14.7 g/dl (14.0-18.0); Immature Granulocytes # (auto) 0.08 K/uL (0.01-0.20); Immature Granulocytes % (auto) 0.5 %; Lymphocytes # (auto) 0.34 K/uL (1.20-3.40); Lymphocytes % (auto) 2.1 %; Mean Corpuscular Hgb Conc 33.3 g/dL (32.0-36.0); Mean Corpuscular Volume 96.1 fL (80.0-100.0); Mean Platelet Volume 11.6 fL (9.4-12.4); Monocytes # (auto) 1.02 K/uL (0.11-0.59); Monocytes % (auto) 6.4 %; Neutrophils # (auto) 14.34 K/uL (1.40-6.50); Platelet Count 163 K/uL (130-400); RDW Coefficient of Variation 12.2 % (11.5-14.5); White Blood Count 15.94 K/ul (4.8-10.8)
[2025-01-02 16:31] LABS: Albumin Globulin Ratio 1.4 (0.9-2); Albumin Level 4.3 gm/dl (3.4-5.0); BUN Creatinine Ratio 22.9 (10-20); Bilirubin,Total 0.5 mg/dl (0.2-1.0); Calcium 9.7 mg/dl (8.6-10.3); Creatinine Clr Calc Pharmacy 79.7 ml/min; Globulin 3.1 gm/dl (2.5-4.0); Magnesium 1.5 mg/dl (1.7-2.4); Potassium 5.4 mmol/L (3.5-5.1); Total Protein 7.4 gm/dl (6.0-8.3)
[2025-01-02 16:38] LABS: Troponin I High Sensitivity 9.7 pg/ml (0-20)
[2025-01-02 16:43] LABS: Prothrombin Time 10.6 Seconds (9.0-12.0)
--- NOTE | 2025-01-02 16:43 | Emergency Department Note ---
Impression & Plan Generalized weakness, Syncope and collapse, Fall, Elevated lactic acid level, Hypomagnesemia ED Provider Note HISTORY OF PRESENT ILLNESS: Patient is a 69-year-old male presenting after a fall at home. Patient reports that he was on the commode going to the bathroom when he stood up, and the next thing he remembers he was on the ground. Family member at bedside reports that she heard a commotion in the bathroom and went in there and found the patient stuck between the commode and the sink. She states that his arm was up on the seat of the commode and his face was "doing a weird twitching and he seemed to be staring off and unresponsive." Reports this lasted for about 5 to 10 seconds. Patient then came back to his baseline and was unable to get up off the ground by himself so they called 911. Patient is currently complaining of pain on his left flank region. He did have an episode of vomiting when he came to. He denies any numbness or tingling in his extremities. He denies any recent fevers. He does not think he hit his head. He is not on any anticoagulation other than a baby aspirin. He denies any chest pain, shortness of breath or lightheadedness prior to his fall. No reported abdominal pain. No recent fevers. Denies any dysuria or hematuria. ROS: as above PHYSICAL EXAM: Constitutional: Patient appears in no acute distress. HENT: Head: Normocephalic and atraumatic. Eyes: EOMI, PERRL Mouth/Throat: Mucous membranes moist. Neck: Trachea midline. Neck supple. No midline cervical spine tenderness to palpation. Cardiovascular: RRR, No murmurs, rubs or gallops. Intact distal pulses. Pulmonary/Chest: No respiratory distress. Breath sounds clear and equal bilaterally. No wheezes or rales. No chest wall tenderness to palpation. Abdominal: Abdomen soft, no tenderness, rebound or guarding. Back: No midline spinal tenderness, no paraspinal tenderness, no CVA tenderness. Musculoskeletal: No edema, tenderness or deformity noted. Skin: Warm and dry. No rash, erythema, pallor or cyanosis Psychiatric: Appropriate mood and affect for situation. Neurological: Alert and keenly responsive. CN II-XII grossly intact, moving all extremities equally and fully. MDM: - Vitals signs showed hypertension - History obtained via patient. History as above. - Chronic conditions affecting care: DM-2; diabetic neuropathy; GERD; peripheral arterial disease; HTN; HLD; Parkinsonism - Differential diagnoses include, but are not limited to: intracranial hemorrhage; ACS; pneumonia; UTI; viral syndrome; seizure; syncope; dysrhythmia - Order placed for continuous cardiac monitoring. At this time, monitor showed rate of 86 bpm with normal sinus rhythm, per my interpretation. - External medical records reviewed. Vascular medicine progress note dated 10/20/2024 was reviewed. Patient follows in their clinic for his peripheral arterial disease and is status post endovascular intervention in February 2024 in the setting of a nonhealing left foot ulcer. - EKG interpreted by myself showed normal sinus rhythm. Rate 91 bpm. QT 346. No acute ischemic changes. - Laboratory workup interpreted by myself showed leukocytosis (WBC 15.94) with neutrophil predominance; normal PT/INR; hyperkalemia (K 5.4); hypomagnesemia (Mg 1.5); elevated lactate (2.5); normal procalcitonin; normal troponin; normal lipase; normal TSH; normal CK - Viral respiratory panel negative - Patient given 500 cc NS - CT head wo contrast negative for acute pathology - CT cervical spine wo contrast negative for injury - CT lumbar spine wo contrast negative for acute pathology. - UA negative for infection. Noted to have significant glucosuria and ketonuria. - Repeat lactate after 500 cc NS improved to normal limits - Unclear etiology for patient's symptoms at this time. Unsure if he syncopized or if he had a seizure. Will admit to hospital service for further workup. - Given 1g IV magnesium for electrolyte replacement - Discussion was had with window caser about patient's case and need for admission - Hospitalist consulted for admission - Patient admitted to [facility] service for further evaluation and management. ASSESSMENT AND PLAN: Diagnosis: generalized weakness; syncope and collapse; fall; hypomagnesemia Plan: admit Past Med/Surg History Problem List Hypomagnesemia (Acute) Elevated lactic acid level (Acute) Fall (Acute) Syncope and collapse (Acute) Generalized weakness (Acute) Peripheral arterial disease (Chronic) GERD (gastroesophageal reflux disease) controlled, stable per pt Diabetic foot ulcer (Acute) Diabetic peripheral neuropathy Parkinson disease Gastroparesis Diabetes (Chronic) Peripheral arterial occlusive disease (Acute) Microalbuminuria (Acute) Lymphocytic gastritis (Acute) Diabetic nephropathy associated with type 2 diabetes mellitus Weight gain Diabetic ulcer of left foot associated with type 2 diabetes mellitus, limited to breakdown of skin (Acute) Ringworm Vitamin D deficiency Mixed action and resting tremor Skin lesion of left arm Neuropathy RLS (restless legs syndrome) Status post reverse total replacement of left shoulder (~04/2022) Medical History (Updated 01/02/25 @ 20:08 by Lucinda Clemons MD) Controlled type 2 diabetes mellitus with diabetic neuropathy, with long-term current use of insulin Poor circulation IN THE FEET Orthostatic dizziness Peripheral neuropathy History of anemia Hypertension HX BLOOD PRESSURE MED AND BP WAS DROPPING, GETTING DIZZY AND SINCE D/C'D Hyperlipidemia Restless leg syndrome Hiatal hernia Hypercholesterolemia Diabetes mellitus, type 2 IDDM/FREE STYLE SENSOR Parkinsonism Hand tremors, follows with Dr. Wilhelm Surgical History H/O elbow surgery L olecranon ORIF: 05/25/21: LMA#5. History of tooth extraction History of cataract surgery R/L History of amputation of lesser toe of left foot History of bunionectomy Status post arterial stent LLE History of esophagogastroduodenoscopy (EGD) History of colonoscopy History of tonsillectomy Family History Family/Other No pertinent family history Brother Family history of diabetes mellitus Other No family history of adverse response to anesthesia Denies family history of Ovarian cancer Prostate cancer Myocardial infarction Breast cancer Colorectal cancer Social History (Updated 01/10/24 @ 09:33 by Veda Nicole LPN) Smoking Status: Unknown if ever smoked Second Hand Exposure: No; Do You Dip or Chew Tobacco: No; Hx Alcohol Use: No Hx Substance Use: No Preferred Language: Slovenian Communication Ability: Effective Communication Ability Comment: JARAD SHULTZ HELPS WITH READING/PT HAS TROUBLE COMPREHENDING MEDICAL INFO Visual Impairment: Limited Hearing Ability: Hard of Hearing Tenterer Required: No Beliefs That Will Affect Care: None marital status: Life Partner Current Living Situation: Spouse Current Living Situation Comment: live with girlfriend current occupational status: retired current occupation: retired working at [employer] How many Children do You have: 3 other: GIRLFRIEND ABLE TO ASSIST WITH CARE NEEDED Feels Safe at Home: Yes Childhood Exposure to Second-Hand Smoke: Yes Diet: regular caffeine: Yes during the past year weight has: remained stable Dental Care, Regularly: No Physical Activity Frequency: Does not Exercise Seatbelt Use: never Sunscreen Use: No Do you think of yourself as: straight/heterosexual Gender Identity: Male Assistive Devices: None Allergies Allergies Allergy/AdvReac Type Severity Reaction Status Date / Time acetaminophen [From Percocet] AdvReac Intermediate " sick " Verified 10/20/24 08:34 metoclopramide AdvReac Intermediate Tremor Verified 10/20/24 08:34 oxycodone AdvReac Mild Nausea Verified 10/20/24 08:34 sulfamethoxazole AdvReac Mild Nausea Verified 10/20/24 08:34 trimethoprim AdvReac Mild Nausea Verified 10/20/24 08:34 Home Meds Home Medications Medication Instructions Recorded Confirmed aspirin 81 mg tablet,delayed 81 mg PO QAM 12/24/18 01/02/25 release cholecalciferol (vitamin D3) 125 5,000 unit PO QAM 12/24/18 01/02/25 mcg (5,000 unit) tablet (Vitamin D3) cyanocobalamin (vitamin B-12) 1,000 mcg PO QAM 12/24/18 01/02/25 1,000 mcg tablet (Vitamin B-12) ascorbate calcium (vitamin C) 500 500 mg PO QAM 10/09/21 01/02/25 mg tablet magnesium oxide 400 mg PO QAM 04/10/22 01/02/25 blood-glucose sensor (FreeStyle 06/29/24 10/20/24 Jim 3 Sensor device) famotidine 20 mg tablet 20 mg PO QAM 07/26/24 01/02/25 dapagliflozin propanediol 5 mg 0 mg PO DAILY 01/02/25 01/02/25 tablet (Farxiga) pantoprazole 20 mg tablet,delayed 20 mg PO QAM 01/02/25 01/02/25 release rosuvastatin 40 mg tablet 40 mg PO QPM 01/02/25 01/02/25 Previous Rx's Medication Instructions Recorded ondansetron 4 mg disintegrating 4 mg PO Q8H PRN nausea and 02/24/24 tablet vomiting #180 tabs insulin glargine 100 unit/mL (3 See Rx Instructions subcut QAM #15 04/23/24 mL) subcutaneous pen (Basaglar mL KwikPen U-100 Insulin) pen needle, diabetic, safety 30 #200 ea 07/06/24 gauge x 3/16" duloxetine 60 mg capsule,delayed 60 mg PO QAM 30 days #30 caps 07/07/24 release midodrine 5 mg tablet 5 mg PO TID #270 tabs 08/17/24 primidone 50 mg tablet 25 mg (1/2 x 50 mg) PO BID #60 tabs 10/09/24 metformin 500 mg tablet 1,000 mg (2 x 500 mg) PO BID #360 11/17/24 tabs carbidopa 25 mg-levodopa 100 mg 2 tab PO QID 10 days #80 tabs 11/20/24 tablet (Sinemet) insulin lispro-aabc 100 unit/mL 7 unit (0.07 mL) subcut TID #15 mL 12/14/24 subcutaneous pen (Lyumjev KwikPen U-100 Insulin) Results & Data (ED) Vital Signs Vital Signs - 24 hr 01/02/25 15:16 01/02/25 15:16 01/02/25 15:16 Temperature 36.9 C Temperature Source Oral Pulse Rate 93 H Pulse Rate [Apical] Pulse Rhythm Regular Pulse Rhythm [Apical] Pulse Strength Normal Pulse Strength [Apical] Respiratory Rate 18 Respiratory Effort / Characteristics Non-Labored Spontaneous Respiratory Depth Normal Respiratory Pattern Regular Blood Pressure [Left Arm] 131/103 H Blood Pressure Mean [Left Arm] 112 Blood Pressure Position [Left Arm] Lying Pulse Oximetry 96 97 97 Oxygen Delivery Method Room Air Room Air Room Air Sepsis Recent Fever Within 48 Hours No Sepsis New/Unexplained Change in Mental Status No Sepsis Action Taken by Nursing No Action Required 01/02/25 15:50 01/02/25 16:08 01/02/25 17:40 Temperature Temperature Source Pulse Rate 94 H 90 Pulse Rate [Apical] 86 Pulse Rhythm Regular Pulse Rhythm [Apical] Regular Pulse Strength Pulse Strength [Apical] Normal Respiratory Rate 20 18 Respiratory Effort / Characteristics Non-Labored Spontaneous Respiratory Depth Normal Respiratory Pattern Regular Blood Pressure [Left Arm] 139/72 Blood Pressure Mean [Left Arm] 94 Blood Pressure Position [Left Arm] Pulse Oximetry 97 94 Oxygen Delivery Method Room Air Room Air Sepsis Recent Fever Within 48 Hours Sepsis New/Unexplained Change in Mental Status Sepsis Action Taken by Nursing 01/02/25 19:00 01/02/25 19:33 Temperature Temperature Source Pulse Rate 82 Pulse Rate [Apical] 84 Pulse Rhythm Pulse Rhythm [Apical] Regular Pulse Strength Pulse Strength [Apical] Respiratory Rate 18 Respiratory Effort / Characteristics Non-Labored Spontaneous Respiratory Depth Normal Respiratory Pattern Regular Blood Pressure [Left Arm] 136/105 H Blood Pressure Mean [Left Arm] 115 Blood Pressure Position [Left Arm] Pulse Oximetry 96 Oxygen Delivery Method Room Air Sepsis Recent Fever Within 48 Hours Sepsis New/Unexplained Change in Mental Status Sepsis Action Taken by Nursing Laboratory Data 01/02/25 15:54 01/02/25 15:54 Lab Results 01/02/25 01/02/25 01/02/25 Range/Units 15:54 16:34 17:20 WBC 15.94 H (4.8-10.8) K/ul RBC 4.60 L (4.70-6.10) M/uL Hgb 14.7 (14.0-18.0) g/dl Hct 44.2 (42.0-52.0) % MCV 96.1 (80.0-100.0) fL MCH 32.0 (25.0-34.0) pg MCHC 33.3 (32.0-36.0) g/dL RDW Std Deviation 43.0 (36.4-46.3) fL RDW Coeff of Margarito 12.2 (11.5-14.5) % Plt Count 163 (130-400) K/uL MPV 11.6 (9.4-12.4) fL Immature Gran % (Auto) 0.5 % Neut % (Auto) 90.0 % Lymph % (Auto) 2.1 % [place] % (Auto) 6.4 % Eos % (Auto) 0.7 % Baso % (Auto) 0.3 % Neut # (Auto) 14.34 H (1.40-6.50) K/uL Lymph # (Auto) 0.34 L (1.20-3.40) K/uL [place] # (Auto) 1.02 H (0.11-0.59) K/uL Eos # (Auto) 0.11 (0.00-0.50) K/uL Baso # (Auto) 0.05 (0.00-0.20) K/uL Immature Gran # (Auto) 0.08 (0.01-0.20) K/uL PT 10.6 (9.0-12.0) Seconds INR 1.0 (0.9-1.1) Sodium 139 (136-145) mmol/L Potassium 5.4 H (3.5-5.1) mmol/L Chloride 103 (98-107) mmol/L Carbon Dioxide 28 (21-32) mmol/L Anion Gap 8 (3-11) BUN 22 (6-23) mg/dl Creatinine 0.96 (0.6-1.4) mg/dl Est Cr Clr Drug Dosing 79.7 ml/min eGFR 85.56 BUN/Creatinine Ratio 22.9 H (10-20) Glucose 220 H (70-99(Fasting)) mg/dl Lactate 2.5 H* (0.4-2.0) mmol/L Calcium 9.7 (8.6-10.3) mg/dl Magnesium 1.5 L (1.7-2.4) mg/dl Total Bilirubin 0.5 (0.2-1.0) mg/dl AST 17 (13-39) U/L ALT 9 (7-52) U/L Alkaline Phosphatase 68 (34-104) U/L Total Creatine Kinase 49 (30-223) U/L Troponin I High Sens 9.7 (0-20) pg/ml Total Protein 7.4 (6.0-8.3) gm/dl Albumin 4.3 (3.4-5.0) gm/dl Globulin 3.1 (2.5-4.0) gm/dl Albumin/Globulin Ratio 1.4 (0.9-2) Lipase 22 (11-82) U/L Procalcitonin 0.32 (0-0.5) ng/ml TSH 0.873 (0.300-4.500) uIu/ml Urine Color Urine Appearance (Clear) Urine pH (4.5-7.5) Ur Specific Moody (1.000-1.030) Urine Protein (Negative) Urine Glucose (UA) (Negative) Urine Ketones (Negative) Urine Blood (Negative) Urine Nitrite (Negative) Urine Bilirubin (Negative) Urine Urobilinogen (Negative) Ur Leukocyte Esterase (Negative) Urine WBC (Auto) (0-5) /hpf Urine RBC (Auto) (0-2) /hpf U Hyaline Cast (Auto) (0-2) /lpf U Epithel Cells (Auto) (0-2) /hpf Urine Bacteria (Auto) (None Seen) Urine Mucus (None Prsent) Adenovirus (PCR) Not Detected (NotDetected) B. pertussis DNA (PCR) Not Detected (NotDetected) B.parapertussis DNA PCR Not Detected (NotDetected) C. pneumoniae DNA (PCR) Not Detected (NotDetected) Coronavirus OC43 (PCR) Not Detected (NotDetected) Coronavirus HKU1 (PCR) Not Detected (NotDetected) Coronavirus 229E (PCR) Not Detected (NotDetected) SARS-CoV-2 (PCR) Not Detected (NotDetected) Coronavirus NL63 (PCR) Not Detected (NotDetected) Human Metapneumovir PCR Not Detected (NotDetected) Influenza Type A (PCR) Not Detected (NotDetected) Influenza Type B (PCR) Not Detected (NotDetected) M. pneumoniae (PCR) Not Detected (NotDetected) Parainfluenza 1 (PCR) Not Detected (NotDetected) Parainfluenza 2 (PCR) Not Detected (NotDetected) Parainfluenza 3 (PCR) Not Detected (NotDetected) Parainfluenza 4 (PCR) Not Detected (NotDetected) RSV (PCR) Not Detected (NotDetected) Entero/Rhino (PCR) Not Detected (NotDetected) 01/02/25 01/02/25 Range/Units 19:13 19:34 WBC (4.8-10.8) K/ul RBC (4.70-6.10) M/uL Hgb (14.0-18.0) g/dl Hct (42.0-52.0) % MCV (80.0-100.0) fL MCH (25.0-34.0) pg MCHC (32.0-36.0) g/dL RDW Std Deviation (36.4-46.3) fL RDW Coeff of Margarito (11.5-14.5) % Plt Count (130-400) K/uL MPV (9.4-12.4) fL Immature Gran % (Auto) % Neut % (Auto) % Lymph % (Auto) % [place] % (Auto) % Eos % (Auto) % Baso % (Auto) % Neut # (Auto) (1.40-6.50) K/uL Lymph # (Auto) (1.20-3.40) K/uL [place] # (Auto) (0.11-0.59) K/uL Eos # (Auto) (0.00-0.50) K/uL Baso # (Auto) (0.00-0.20) K/uL Immature Gran # (Auto) (0.01-0.20) K/uL PT (9.0-12.0) Seconds INR (0.9-1.1) Sodium (136-145) mmol/L Potassium (3.5-5.1) mmol/L Chloride (98-107) mmol/L Carbon Dioxide (21-32) mmol/L Anion Gap (3-11) BUN (6-23) mg/dl Creatinine (0.6-1.4) mg/dl Est Cr Clr Drug Dosing ml/min eGFR BUN/Creatinine Ratio (10-20) Glucose (70-99(Fasting)) mg/dl Lactate 1.8 (0.4-2.0) mmol/L Calcium (8.6-10.3) mg/dl Magnesium (1.7-2.4) mg/dl Total Bilirubin (0.2-1.0) mg/dl AST (13-39) U/L ALT (7-52) U/L Alkaline Phosphatase (34-104) U/L Total Creatine Kinase (30-223) U/L Troponin I High Sens (0-20) pg/ml Total Protein (6.0-8.3) gm/dl Albumin (3.4-5.0) gm/dl Globulin (2.5-4.0) gm/dl Albumin/Globulin Ratio (0.9-2) Lipase (11-82) U/L Procalcitonin (0-0.5) ng/ml TSH (0.300-4.500) uIu/ml Urine Color Yellow Urine Appearance Clear (Clear) Urine pH 6.0 (4.5-7.5) Ur Specific Moody 1.031 H (1.000-1.030) Urine Protein Trace H (Negative) Urine Glucose (UA) 3+ H (Negative) Urine Ketones 1+ H (Negative) Urine Blood Negative (Negative) Urine Nitrite Negative (Negative) Urine Bilirubin Negative (Negative) Urine Urobilinogen Negative (Negative) Ur Leukocyte Esterase Negative (Negative) Urine WBC (Auto) 0-5 (0-5) /hpf Urine RBC (Auto) 3-5 H (0-2) /hpf U Hyaline Cast (Auto) 6-10 H (0-2) /lpf U Epithel Cells (Auto) 0-2 (0-2) /hpf Urine Bacteria (Auto) None Seen (None Seen) Urine Mucus Present A (None Prsent) Adenovirus (PCR) (NotDetected) B. pertussis DNA (PCR) (NotDetected) B.parapertussis DNA PCR (NotDetected) C. pneumoniae DNA (PCR) (NotDetected) Coronavirus OC43 (PCR) (NotDetected) Coronavirus HKU1 (PCR) (NotDetected) Coronavirus 229E (PCR) (NotDetected) SARS-CoV-2 (PCR) (NotDetected) Coronavirus NL63 (PCR) (NotDetected) Human Metapneumovir PCR (NotDetected) Influenza Type A (PCR) (NotDetected) Influenza Type B (PCR) (NotDetected) M. pneumoniae (PCR) (NotDetected) Parainfluenza 1 (PCR) (NotDetected) Parainfluenza 2 (PCR) (NotDetected) Parainfluenza 3 (PCR) (NotDetected) Parainfluenza 4 (PCR) (NotDetected) RSV (PCR) (NotDetected) Entero/Rhino (PCR) (NotDetected) Administered Medications Discontinued Medications Acetaminophen (Ofirmev) 1,000 mg in 100 mls @ 400 mls/hr IV NOW STA Stop: 01/02/25 16:57 Last Admin: 01/02/25 17:17 Dose: 400 mls/hr Documented By: MARIA G Sodium Chloride (Nss) 500 mls @ 999 mls/hr IV .Q31M ONE Stop: 01/02/25 18:56 Last Admin: 01/02/25 18:29 Dose: 999 mls/hr Documented By: [facility] Imaging Data Radiologist's Impression: Chest X-Ray 01/02/25 15:58 EXAM: Radiograph of the Chest 1 View INDICATION: Syncope. TECHNIQUE: Frontal view of the chest. COMPARISON: 07/26/2024 FINDINGS: Lungs and pleural spaces: Stable mild air trapping and minimal right perihilar and basilar scarring. No consolidation or pulmonary edema. No pleural effusion or pneumothorax. Heart: Shape and configuration within normal limits allowing for technique. Mediastinum: Normal contour. Bones/joints: Visualized portion of left shoulder arthroplasty intact and well-seated. No acute osseous abnormality. Soft tissues: No abnormality noted. No radiopaque foreign body noted. Upper abdomen: No abnormality noted. IMPRESSION: No acute cardiopulmonary disease. ACT 112: Negative or not required by law. Electronically signed by Jamilah Denney 01-02-2025 4:[address] 01/02/25 16:40 EXAM: CT Head and Cervical Spine Without Intravenous Contrast INDICATION: Syncope. Fall. TECHNIQUE: Axial computed tomography images of the head/brain and cervical spine without intravenous contrast. Sagittal and coronal reformatted images were created and reviewed. This CT exam was performed using one or more of the following dose reduction techniques: automated exposure control, adjustment of the mA and/or kV according to patient size, and/or use of iterative reconstruction technique. COMPARISON: Cervical spine CT 07/15/2023 FINDINGS: Limitations: None. Brain and extra-axial spaces: There is age appropriate cortical atrophy and chronic ischemic periventricular white matter hypodensity. No acute infarct, hemorrhage or mass noted. Sinuses: No layering fluid in the visualized portions of the paranasal sinuses. Mastoid air cells: Stable chronic right mastoid air cells sclerosis and thickening. No mastoid effusion. Orbits: No significant abnormality noted. Vertebrae: No change mild to moderate facet arthrosis most notable proximally. Stable moderate spondylosis and uncal spurring C5-C6 and C6-C7. No fracture or subluxation. There is mild scattered calcific plaque in the proximal cervical right vertebral artery. Discs/spinal canal/neural foramina: Stable severe disc space narrowing C5-C6 and C6-C7. There is mild ventral and bilateral foraminal stenosis at C2-C3. There is asymmetric right mild ventral canal and cysts foraminal stenosis at C3-C4 there is a asymmetric disc bulge in the right lateral recess narrowing the orifice of the right foramen. There is moderate to severe canal and foraminal stenosis at C5-C6 and C6-C7. Soft tissues: No significant abnormality noted. Vasculature: There is moderate to marked atherosclerotic calcification of the cervical internal carotid arteries. Lung apices: No significant abnormality noted. Pleural space: No visualized pleural effusion or pneumothorax. IMPRESSION: 1. Cerebral atrophy. No acute changes. 2. Stable cervical degenerative changes without fracture. ACT 112: Negative or not required by law. Electronically signed by Jamilah Denney 01-02-2025 7:[address] 01/02/25 16:40 EXAM: CT Head and Cervical Spine Without Intravenous Contrast INDICATION: Syncope. Fall. TECHNIQUE: Axial computed tomography images of the head/brain and cervical spine without intravenous contrast. Sagittal and coronal reformatted images were created and reviewed. This CT exam was performed using one or more of the following dose reduction techniques: automated exposure control, adjustment of the mA and/or kV according to patient size, and/or use of iterative reconstruction technique. COMPARISON: Cervical spine CT 07/15/2023 FINDINGS: Limitations: None. Brain and extra-axial spaces: There is age appropriate cortical atrophy and chronic ischemic periventricular white matter hypodensity. No acute infarct, hemorrhage or mass noted. Sinuses: No layering fluid in the visualized portions of the paranasal sinuses. Mastoid air cells: Stable chronic right mastoid air cells sclerosis and thickening. No mastoid effusion. Orbits: No significant abnormality noted. Vertebrae: No change mild to moderate facet arthrosis most notable proximally. Stable moderate spondylosis and uncal spurring C5-C6 and C6-C7. No fracture or subluxation. There is mild scattered calcific plaque in the proximal cervical right vertebral artery. Discs/spinal canal/neural foramina: Stable severe disc space narrowing C5-C6 and C6-C7. There is mild ventral and bilateral foraminal stenosis at C2-C3. There is asymmetric right mild ventral canal and cysts foraminal stenosis at C3-C4 there is a asymmetric disc bulge in the right lateral recess narrowing the orifice of the right foramen. There is moderate to severe canal and foraminal stenosis at C5-C6 and C6-C7. Soft tissues: No significant abnormality noted. Vasculature: There is moderate to marked atherosclerotic calcification of the cervical internal carotid arteries. Lung apices: No significant abnormality noted. Pleural space: No visualized pleural effusion or pneumothorax. IMPRESSION: 1. Cerebral atrophy. No acute changes. 2. Stable cervical degenerative changes without fracture. ACT 112: Negative or not required by law. Electronically signed by Jamilah Denney 01-02-2025 7:[address] 01/02/25 16:40 EXAM: CT Lumbar Spine Without Intravenous Contrast INDICATION: Syncope. Fall. TECHNIQUE: Axial computed tomography images of the lumbar spine without intravenous contrast. Sagittal and coronal reformatted images were created and reviewed. This CT exam was performed using one or more of the following dose reduction techniques: automated exposure control, adjustment of the mA and/or kV according to patient size, and/or use of iterative reconstruction technique. COMPARISON: No relevant prior studies available. FINDINGS: Limitations: None. Vertebrae: The bones are demineralized. There is diffuse mild to moderate facet hypertrophic change. There is mild spondylosis at all levels. There is mild uncal spurring at L5-S1. No fracture or subluxation. Mild convex left bowing and pelvic tilt noted. Sacrum/coccyx: No significant abnormality noted. No acute change noted. Discs/spinal canal/neural foramina: There is moderate disc space narrowing and degeneration at L2-L3 and L5-S1. There is diffuse disc bulge at L2-L3 with moderate canal and foraminal stenosis. There is far lateral left disc bulge L3-L4 abutting the L4 nerve root. There is diffuse bulge with minimal flattening of the ventral thecal sac L4-L5. There is osteophyte disc complex L5-S1 with left foraminal stenosis. Soft tissues: No significant abnormality noted. Vasculature: There is moderate atherosclerotic calcification of the aorta and iliac arteries. The inferior mesenteric artery is calcified. No aneurysm. IMPRESSION: 1. Degenerative changes in the lumbar spine without fracture. 2. Marked atherosclerotic calcification of the aorta and branches including the inferior mesenteric artery. No aneurysm. ACT 112: Negative or not required by law. Electronically signed by Jamilah Denney 01-02-2025 7:00 PM Discharge Plan Visit Data Chief Complaint: Syncope ED Provider: Lucinda Clemons Discharge Problem: Generalized weakness, Syncope and collapse, Fall, Elevated lactic acid level, Hypomagnesemia Forms Stand Alone Forms: My [employer] Prescriptions Prescriptions: No Action insulin glargine [Basaglar KwikPen U-100 Insulin] 100 unit/mL (3 mL) insulin pen See Rx Instructions SUBCUT QAM Qty: 15 3RF Rx Instructions: Inject up to 16 units subcutaneously daily in the morning; (DME) pen needle, diabetic, safety 30 gauge x 3/16" needle See Rx Instructions .Route Qty: 200 11RF Rx Instructions: Use 4 per day to inject insulin duloxetine 60 mg capsule,delayed release(DR/EC) 60 mg PO QAM 30 Days Qty: 30 3RF midodrine 5 mg tablet 5 mg PO TID Qty: 270 3RF Rx Instructions: do not give last dose of day after 6PM or within 4 hrs of bedtime metformin 500 mg tablet 1,000 mg PO BID Qty: 360 3RF Rx Instructions: Automatic refills carbidopa-levodopa [Sinemet] 25-100 mg tablet 2 tab PO QID 10 Days Qty: 80 0RF Lyumjev KwikPen U-100 Insulin 100 unit/mL insulin pen 7 unit subcut TID Qty: 15 2RF ascorbate calcium (vitamin C) 500 mg tablet 500 mg PO QAM primidone 50 mg tablet 25 mg PO BID Qty: 60 5RF (DME) FreeStyle Jim 3 Sensor Device See Rx Instructions .Route Rx Instructions: As directed ondansetron 4 mg tablet,disintegrating 4 mg PO Q8H PRN (Reason: nausea and vomiting) Qty: 180 0RF cyanocobalamin (vitamin B-12) [Vitamin B-12] 1,000 mcg Tablet 1,000 mcg PO QAM aspirin 81 mg Tablet,Delayed Release (Dr/Ec) 81 mg PO QAM cholecalciferol (vitamin D3) [Vitamin D3] 5,000 unit Tablet 5,000 unit PO QAM magnesium oxide 400 mg magnesium capsule 400 mg PO QAM Patient Comments: NOT CURRENTLY TAKING pantoprazole 20 mg tablet,delayed release (DR/EC) 20 mg PO QAM Rx Instructions: TAKE 1 TABLET DAILY IN THE EVENING rosuvastatin 40 mg tablet 40 mg PO QPM dapagliflozin propanediol [Farxiga] 5 mg tablet 0 mg PO DAILY Rx Instructions: 5MG DAILY ON HOLD 01/02/25 famotidine 20 mg tablet 20 mg PO QAM Referrals Referrals: Mila Martinez CRNP [Primary Care Provider] -
[2025-01-02 16:47] LABS: Thyroid Stimulating Hormone 0.873 uIu/ml (0.300-4.500)
[2025-01-02] MEDS: ACETAMINOPHEN 1,000 MG/100 ML VIAL IV STA (17:17)
[2025-01-02 17:40] LABS: Adenovirus PCR Not Detected (NotDetected); Bordetella parapertussis PCR Not Detected (NotDetected); Bordetella pertussis PCR Not Detected (NotDetected); Chlamydia pneumoniae PCR Not Detected (NotDetected); Coronavirus 229E PCR Not Detected (NotDetected); Coronavirus CoV-2 (COVID19)PCR Not Detected (NotDetected); Coronavirus HKU1 PCR Not Detected (NotDetected); Coronavirus NL63 PCR Not Detected (NotDetected); Coronavirus OC43PCR Not Detected (NotDetected); Human Metapneumovirus PCR Not Detected (NotDetected); Influenza A PCR Not Detected (NotDetected); Influenza B PCR Not Detected (NotDetected); Mycoplasma pneumoniae PCR Not Detected (NotDetected); Parainfluenza Virus 1 PCR Not Detected (NotDetected); Parainfluenza Virus 2 PCR Not Detected (NotDetected); Parainfluenza Virus 3 PCR Not Detected (NotDetected); Parainfluenza Virus 4 PCR Not Detected (NotDetected); Respiratory Syncytial VirusPCR Not Detected (NotDetected); Rhinovirus/Enterovirus PCR Not Detected (NotDetected)
[2025-01-02] MEDS: SODIUM CHLORIDE 0.9% 500 ML IV ONE (18:29)
--- NOTE | 2025-01-02 19:00 | CT Scan Report ---
EXAM: CT Head and Cervical Spine Without Intravenous Contrast INDICATION: Syncope. Fall. TECHNIQUE: Axial computed tomography images of the head/brain and cervical spine without intravenous contrast. Sagittal and coronal reformatted images were created and reviewed. This CT exam was performed using one or more of the following dose reduction techniques: automated exposure control, adjustment of the mA and/or kV according to patient size, and/or use of iterative reconstruction technique. COMPARISON: Cervical spine CT 07/15/2023 FINDINGS: Limitations: None. Brain and extra-axial spaces: There is age appropriate cortical atrophy and chronic ischemic periventricular white matter hypodensity. No acute infarct, hemorrhage or mass noted. Sinuses: No layering fluid in the visualized portions of the paranasal sinuses. Mastoid air cells: Stable chronic right mastoid air cells sclerosis and thickening. No mastoid effusion. Orbits: No significant abnormality noted. Vertebrae: No change mild to moderate facet arthrosis most notable proximally. Stable moderate spondylosis and uncal spurring C5-C6 and C6-C7. No fracture or subluxation. There is mild scattered calcific plaque in the proximal cervical right vertebral artery. Discs/spinal canal/neural foramina: Stable severe disc space narrowing C5-C6 and C6-C7. There is mild ventral and bilateral foraminal stenosis at C2-C3. There is asymmetric right mild ventral canal and cysts foraminal stenosis at C3-C4 there is a asymmetric disc bulge in the right lateral recess narrowing the orifice of the right foramen. There is moderate to severe canal and foraminal stenosis at C5-C6 and C6-C7. Soft tissues: No significant abnormality noted. Vasculature: There is moderate to marked atherosclerotic calcification of the cervical internal carotid arteries. Lung apices: No significant abnormality noted. Pleural space: No visualized pleural effusion or pneumothorax. IMPRESSION: 1. Cerebral atrophy. No acute changes. 2. Stable cervical degenerative changes without fracture. ACT 112: Negative or not required by law. Electronically signed by Jamilah Denney 01-02-2025 7:00 PM
--- NOTE | 2025-01-02 19:00 | CT Scan Report ---
EXAM: CT Lumbar Spine Without Intravenous Contrast INDICATION: Syncope. Fall. TECHNIQUE: Axial computed tomography images of the lumbar spine without intravenous contrast. Sagittal and coronal reformatted images were created and reviewed. This CT exam was performed using one or more of the following dose reduction techniques: automated exposure control, adjustment of the mA and/or kV according to patient size, and/or use of iterative reconstruction technique. COMPARISON: No relevant prior studies available. FINDINGS: Limitations: None. Vertebrae: The bones are demineralized. There is diffuse mild to moderate facet hypertrophic change. There is mild spondylosis at all levels. There is mild uncal spurring at L5-S1. No fracture or subluxation. Mild convex left bowing and pelvic tilt noted. Sacrum/coccyx: No significant abnormality noted. No acute change noted. Discs/spinal canal/neural foramina: There is moderate disc space narrowing and degeneration at L2-L3 and L5-S1. There is diffuse disc bulge at L2-L3 with moderate canal and foraminal stenosis. There is far lateral left disc bulge L3-L4 abutting the L4 nerve root. There is diffuse bulge with minimal flattening of the ventral thecal sac L4-L5. There is osteophyte disc complex L5-S1 with left foraminal stenosis. Soft tissues: No significant abnormality noted. Vasculature: There is moderate atherosclerotic calcification of the aorta and iliac arteries. The inferior mesenteric artery is calcified. No aneurysm. IMPRESSION: 1. Degenerative changes in the lumbar spine without fracture. 2. Marked atherosclerotic calcification of the aorta and branches including the inferior mesenteric artery. No aneurysm. ACT 112: Negative or not required by law. Electronically signed by Jamilah Denney 01-02-2025 7:00 PM
[2025-01-02 19:46] LABS: Appearance Urine Clear (Clear); Bacteria Urine Automated None Seen (None Seen); Bilirubin Urine Negative (Negative); Blood Urine Negative (Negative); Color Urine Yellow; Epithelial Cell Urine Auto 0-2 /hpf (0-2); Glucose Urine UA 3+ (Negative); Ketones Urine 1+ (Negative); Leukocyte Esterase Urine Negative (Negative); Mucus Urine Present (None Prsent); Nitrite Urine Negative (Negative); Protein Urine Trace (Negative); Specific Gravity Urine 1.031 (1.000-1.030); Urobilinogen Urine Negative (Negative); WBC Urine Automated 0-5 /hpf (0-5)
[2025-01-02] MEDS: MAGNESIUM SULFATE / D5W 1 GM/100 ML BAG IV STA (20:28)
--- NOTE | 2025-01-02 20:31 | History & Physical Report ---
Date of Service January 02, 2025 Assessment & Plan (1) Syncope and collapse: (2) Hypomagnesemia: (3) Serum potassium elevated: Plan 69-year-old male PMHx Parkinson's disease, T2DM, PAD, GERD, and RLS presenting to the ED after syncopal episode at home. At admission, leukocytosis without clear source of infection, potassium 5.4, magnesium 1.5, initial lactate 2.5 but resolved to 1.8 after 500 mL NS, normal Pro-Eduardo, normal troponin, normal TSH. All imaging with chronic findings but no acute changes noted, EKG was normal sinus. Similar episode of syncope approximately 1 year ago in June 2024, thought to be from hypotension, but patient was also diagnosed with COVID at that time. #Syncopal event/Hypotension H/o of 1 syncopal event in June 2024, patient was getting out of bed and fell when he was walking down the hallway. Takes midodrine for hypotension. States that he tries to wait when moving from position to the next as to avoid dizziness, which is what he did on the day of arrival when he stood from the toilet he waited and then started to walk. Syncopal event following this, hit his head and back, no anticoag. Family reports lip twitching after the patient syncopized, but no additional seizure-like activity. Patient denying symptoms prior to the event, and did have an episode of emesis following the event. At time of admission, not highly suspicious that the patient had seizure-like activity, and he does not have a h/o seizures. H/o PD + neuropathy. No h/o arrhythmia. - CBC does reveal leukocytosis, but without clear source. Procalcitonin WNL, CXR without acute changes, BioFire negative; UA no clear identification of infection however does have a history of frequent UTIs, pending culture - defer abx at time of admission - Troponin WNL, EKG without ischemic changes and was normal sinus rhythm upon arrival; Echo pending - Mg 1.5, replaced in ED; TSH WNL - Continue midodrine - Orthostatic vitals pending - PT/OT consulted #Hypomagnesemia H/o the low magnesium, on mag oxide 400 mg outpatient. - Mg 1.5 admission, given magnesium sulfate 1 g IV in ED - BMP am #Hyperkalemia Asymptomatic currently. - K 5.4; No EKG changes; no AG - BMP am #DMT2 H/o DMT2, home regime, metformin, glargine 16U, lispro 7U TIDm; No longer on Farxiga given recurrent UTIs while on. - Most recent A1C 11/2024 @ 8.6% - Hold oral agents; SSI with target BSG range 110-140mg/dL, CF 35, carb ratio 10; basal 12u BID - BSG ACHS - Pharm glycemic management consult placed, appreciate assistance- adjust regimen as needed #Parkinson's- Carbidopa levodopa, primidone; follows with neurology (10/09/2024) #GERD- Famotidine, pantoprazole #HLD- Rosuvastatin Dispo: Admit, med/telemetry VTE prophylaxis: This document was dictated utilizing [employer]ik. Please excuse any grammatical errors that may be secondary to use of this software. Admission and Anticipated Discharge Date Admission Date: 01/02/2025 History of Present Illness Chief Complaint: Syncopal event Primary Care Provider: BECKY Machado 69-year-old male PMHx Parkinson's disease, T2DM, PAD, GERD, and RLS presenting to the ED after syncopal episode at home. Patient's family helps to provide history. Patient recalls that he was in the bathroom, stood up and turned around after urinating to walk out of the bathroom, and then remembers falling down. The family states that they heard a commotion in the bathroom, came in and found the patient between the toilet and the wall and states that he was having abnormal facial twitching at his lip for approximately 1 minute and he then came to, and was back to his normal self. Episode of vomiting following this episode, of digested contents from dinner the night before. Patient was on the ground for approximately 20 minutes until EMS came as the patient's did not want to move him in the instance that he had injured something. Patient states that he did not have dizziness, lightheadedness, chest pain, or shortness of breath prior to the episode. No complaints of weakness. Patient states he had a similar episode happen approximately 1 year ago in June 2024, with no clear reasoning behind the fall. Does take midodrine for baseline hypotension, he took his morning dose but then did not receive his additional doses throughout the day. Patient was recently diagnosed and treated for UTI 1 month ago, and states that he does often get UTIs. Questionable source of his leukocytosis at this time, however patient states that he is not having LUTS to include hematuria, dysuria, abdominal pain, or incontinence. He does occasionally have urgency, but this has not been exacerbated within the past week. No chest pain, shortness of breath, palpitations, cough, abdominal pain, diarrhea/constipation, fever/chills, or numbness/tingling. Patient takes his m edications as prescribed, but did not receive medications from noon on. ED evaluation reveals leukocytosis 15.94, neutrophils 14.34, CMP with K 5.4, BUN/creatinine ratio 22.9, initial lactate 2.5 and then 1.8 after 500 mL of NSS, Mg 1.5, CK 49, troponin 9.7, lipase 22, procalcitonin 0.32, TSH 0.873, UA without evidence of infection, and negative BioFire. CXR no acute findings; CT head, spine stable cervical degenerative changes and cerebral atrophy, no acute findings; cervical spine CT degenerative changes of the lumbar spine, marked atherosclerotic calcification of the aorta and branches including inferior mesenteric artery. EKG NSR, LAD, and rate 91 bpm otherwise WNL without ischemic changes. Provided with 500 NSS, magnesium sulfate 1 g, and acetaminophen 1 g IV in ED. Please see Dr. Rockwell's attestation for adjustments/additions to treatment plan. Allergies Allergy/AdvReac Type Severity Reaction Status Date / Time metoclopramide AdvReac Intermediate Tremor Verified 10/20/24 08:34 oxycodone AdvReac Mild Nausea Verified 10/20/24 08:34 sulfamethoxazole AdvReac Mild Nausea Verified 10/20/24 08:34 trimethoprim AdvReac Mild Nausea Verified 10/20/24 08:34 Home Medications Medication Instructions Recorded Confirmed Type aspirin 81 mg tablet,delayed 81 mg PO QAM 12/24/18 01/02/25 History release magnesium oxide 400 mg PO QAM 04/10/22 01/02/25 History insulin glargine 100 unit/mL (3 See Rx Instructions subcut QAM #15 04/23/24 01/02/25 Rx mL) subcutaneous pen (Basaglar mL KwikPen U-100 Insulin) blood-glucose sensor (FreeStyle 06/29/24 10/20/24 History Jim 3 Sensor device) pen needle, diabetic, safety 30 #200 ea 07/06/24 10/20/24 Rx gauge x 3/16" duloxetine 60 mg capsule,delayed 60 mg PO QAM 30 days #30 caps 07/07/24 01/02/25 Rx release famotidine 20 mg tablet 20 mg PO QAM 07/26/24 01/02/25 History midodrine 5 mg tablet 5 mg PO TID #270 tabs 08/17/24 01/02/25 Rx primidone 50 mg tablet 25 mg (1/2 x 50 mg) PO BID #60 tabs 10/09/24 01/02/25 Rx metformin 500 mg tablet 1,000 mg (2 x 500 mg) PO BID #360 11/17/24 01/02/25 Rx tabs carbidopa 25 mg-levodopa 100 mg 2 tab PO QID 10 days #80 tabs 11/20/24 01/02/25 Rx tablet (Sinemet) insulin lispro-aabc 100 unit/mL 7 unit (0.07 mL) subcut TID #15 mL 12/14/24 01/02/25 Rx subcutaneous pen (Lyumjev KwikPen U-100 Insulin) dapagliflozin propanediol 5 mg 0 mg PO DAILY 01/02/25 01/02/25 History tablet (Farxiga) pantoprazole 20 mg tablet,delayed 20 mg PO QAM 01/02/25 01/02/25 History release rosuvastatin 40 mg tablet 40 mg PO QPM 01/02/25 01/02/25 History Past Med/Surg History Problem List Hypomagnesemia (Acute) Elevated lactic acid level (Acute) Fall (Acute) Syncope and collapse (Acute) Generalized weakness (Acute) Peripheral arterial disease (Chronic) GERD (gastroesophageal reflux disease) controlled, stable per pt Diabetic foot ulcer (Acute) Diabetic peripheral neuropathy Parkinson disease Gastroparesis Diabetes (Chronic) Peripheral arterial occlusive disease (Acute) Microalbuminuria (Acute) Lymphocytic gastritis (Acute) Diabetic nephropathy associated with type 2 diabetes mellitus Weight gain Diabetic ulcer of left foot associated with type 2 diabetes mellitus, limited to breakdown of skin (Acute) Ringworm Vitamin D deficiency Mixed action and resting tremor Skin lesion of left arm Neuropathy RLS (restless legs syndrome) Status post reverse total replacement of left shoulder (~04/2022) Medical History Controlled type 2 diabetes mellitus with diabetic neuropathy, with long-term current use of insulin Poor circulation IN THE FEET Orthostatic dizziness Peripheral neuropathy History of anemia Hypertension HX BLOOD PRESSURE MED AND BP WAS DROPPING, GETTING DIZZY AND SINCE D/C'D Hyperlipidemia Restless leg syndrome Hiatal hernia Hypercholesterolemia Diabetes mellitus, type 2 IDDM/FREE STYLE SENSOR Parkinsonism Hand tremors, follows with Dr. Wilhelm Surgical History H/O elbow surgery L olecranon ORIF: 05/25/21: LMA#5. History of tooth extraction History of cataract surgery R/L History of amputation of lesser toe of left foot History of bunionectomy Status post arterial stent LLE History of esophagogastroduodenoscopy (EGD) History of colonoscopy History of tonsillectomy Family History Family/Other No pertinent family history Brother Family history of diabetes mellitus Other No family history of adverse response to anesthesia Denies family history of Ovarian cancer Prostate cancer Myocardial infarction Breast cancer Colorectal cancer Social History Smoking Status: Never smoker Second Hand Exposure: No; Do You Dip or Chew Tobacco: No; Hx Alcohol Use: No Hx Substance Use: No Preferred Language: French Communication Ability: Effective Communication Ability Comment: JARAD SHULTZ HELPS WITH READING/PT HAS TROUBLE COMPREHENDING MEDICAL INFO Visual Impairment: Limited Hearing Ability: Hard of Hearing 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: No Beliefs That Will Affect Care: None marital status: Life Partner Current Living Situation: Spouse Current Living Situation Comment: live with girlfriend current occupational status: retired current occupation: retired working at [employer] How many Children do You have: 3 Other Information That Helps Us Care for You: No other: GIRLFRIEND ABLE TO ASSIST WITH CARE NEEDED Feels Safe at Home: Yes Safety Concerns: Feels Safe At This Time Childhood Exposure to Second-Hand Smoke: Yes Diet: regular caffeine: Yes during the past year weight has: remained stable Dental Care, Regularly: No Physical Activity Frequency: Does not Exercise Seatbelt Use: never Sunscreen Use: No Do you think of yourself as: straight/heterosexual Gender Identity: Male Assistive Devices: Cane and Scooter/Electric Scooter Assistive Devices Comment: Has blood glucose monitor Review of Systems Review of Systems: All systems reviewed & are unremarkable except as noted in Subjective Physical Exam Physical Exam: General: No acute distress, well developed. Skin: Warm and dry, without rashes or lesions. No cyanosis or clubbing Head: Normocephalic, atraumatic Eyes: PERRL, conjunctivae clear, sclera non-icteric; EOM intact ENT: External ear and ear canal without swelling; nose atraumatic; good dentition, tongue normal appearance, pharynx normal without tonsillar swelling or exudate Neck: Supple, no LAD; no JVD Cardio: RRR, no M/G/R, S1 and S2 normal Resp: Chest wall symmetric, normal respiratory effort; No respiratory distress, Lungs CTA in all lobes bilaterally, no wheezes, rales, or rhonchi Abdomen: Soft, symmetric, nontender; No visible lesions or scars; no distention; No masses or hepatosplenomegaly; Bowel sounds normoactive MSK: No deformities, full ROM throughout; pulses palpable and equal; no edema. Neuro: Awake, alert; Muscle strength 5/5 bilaterally in UE/LE; Sensation intact bilaterally; CN intact Psych: Appropriate mood and affect; good judgement and insight. Results & Data Results & Data Vital Signs (Past 12 Hours) Vital Signs Temp Pulse Pulse Resp BP Pulse Ox O2 Del Method 01/02/25 19:33 82 01/02/25 19:00 84 18 136/105 H 96 Room Air 01/02/25 17:40 86 18 139/72 94 Room Air 01/02/25 16:08 90 20 97 Room Air 01/02/25 15:50 94 H 01/02/25 15:16 131/103 H 97 Room Air 01/02/25 15:16 97 Room Air 01/02/25 15:16 36.9 C 93 H 18 96 Room Air Laboratory Results 01/02/25 01/02/25 01/02/25 19:34 19:13 17:20 WBC RBC Hgb Hct MCV MCH MCHC RDW Std Deviation RDW Coeff of Margarito Plt Count MPV Immature Gran % (Auto) Neut % (Auto) Lymph % (Auto) [place] % (Auto) Eos % (Auto) Baso % (Auto) Neut # (Auto) Lymph # (Auto) [place] # (Auto) Eos # (Auto) Baso # (Auto) Immature Gran # (Auto) PT INR Sodium Potassium Chloride Carbon Dioxide Anion Gap BUN Creatinine Est Cr Clr Drug Dosing eGFR BUN/Creatinine Ratio Glucose Lactate 1.8 2.5 H* Calcium Magnesium Total Bilirubin AST ALT Alkaline Phosphatase Total Creatine Kinase Troponin I High Sens Total Protein Albumin Globulin Albumin/Globulin Ratio Lipase Procalcitonin TSH Urine Color Yellow Urine Appearance Clear Urine pH 6.0 Ur Specific [place] 1.031 H Urine Protein Trace H Urine Glucose (UA) 3+ H Urine Ketones 1+ H Urine Blood Negative Urine Nitrite Negative Urine Bilirubin Negative Urine Urobilinogen Negative Ur Leukocyte Esterase Negative Urine WBC (Auto) 0-5 Urine RBC (Auto) 3-5 H U Hyaline Cast (Auto) 6-10 H U Epithel Cells (Auto) 0-2 Urine Bacteria (Auto) None Seen Urine Mucus Present A Adenovirus (PCR) B. pertussis DNA (PCR) B.parapertussis DNA PCR C. pneumoniae DNA (PCR) Coronavirus OC43 (PCR) Coronavirus HKU1 (PCR) Coronavirus 229E (PCR) SARS-CoV-2 (PCR) Coronavirus NL63 (PCR) Human Metapneumovir PCR Influenza Type A (PCR) Influenza Type B (PCR) M. pneumoniae (PCR) Parainfluenza 1 (PCR) Parainfluenza 2 (PCR) Parainfluenza 3 (PCR) Parainfluenza 4 (PCR) RSV (PCR) Entero/Rhino (PCR) 01/02/25 01/02/25 16:34 15:54 WBC 15.94 H RBC 4.60 L Hgb 14.7 Hct 44.2 MCV 96.1 MCH 32.0 MCHC 33.3 RDW Std Deviation 43.0 RDW Coeff of Margarito 12.2 Plt Count 163 MPV 11.6 Immature Gran % (Auto) 0.5 Neut % (Auto) 90.0 Lymph % (Auto) 2.1 [place] % (Auto) 6.4 Eos % (Auto) 0.7 Baso % (Auto) 0.3 Neut # (Auto) 14.34 H Lymph # (Auto) 0.34 L [place] # (Auto) 1.02 H Eos # (Auto) 0.11 Baso # (Auto) 0.05 Immature Gran # (Auto) 0.08 PT 10.6 INR 1.0 Sodium 139 Potassium 5.4 H Chloride 103 Carbon Dioxide 28 Anion Gap 8 BUN 22 Creatinine 0.96 Est Cr Clr Drug Dosing 79.7 eGFR 85.56 BUN/Creatinine Ratio 22.9 H Glucose 220 H Lactate Calcium 9.7 Magnesium 1.5 L Total Bilirubin 0.5 AST 17 ALT 9 Alkaline Phosphatase 68 Total Creatine Kinase 49 Troponin I High Sens 9.7 Total Protein 7.4 Albumin 4.3 Globulin 3.1 Albumin/Globulin Ratio 1.4 Lipase 22 Procalcitonin 0.32 TSH 0.873 Urine Color Urine Appearance Urine pH Ur Specific [place] Urine Protein Urine Glucose (UA) Urine Ketones Urine Blood Urine Nitrite Urine Bilirubin Urine Urobilinogen Ur Leukocyte Esterase Urine WBC (Auto) Urine RBC (Auto) U Hyaline Cast (Auto) U Epithel Cells (Auto) Urine Bacteria (Auto) Urine Mucus Adenovirus (PCR) Not Detected B. pertussis DNA (PCR) Not Detected B.parapertussis DNA PCR Not Detected C. pneumoniae DNA (PCR) Not Detected Coronavirus OC43 (PCR) Not Detected Coronavirus HKU1 (PCR) Not Detected Coronavirus 229E (PCR) Not Detected SARS-CoV-2 (PCR) Not Detected Coronavirus NL63 (PCR) Not Detected Human Metapneumovir PCR Not Detected Influenza Type A (PCR) Not Detected Influenza Type B (PCR) Not Detected M. pneumoniae (PCR) Not Detected Parainfluenza 1 (PCR) Not Detected Parainfluenza 2 (PCR) Not Detected Parainfluenza 3 (PCR) Not Detected Parainfluenza 4 (PCR) Not Detected RSV (PCR) Not Detected Entero/Rhino (PCR) Not Detected Diagnostic Findings Laboratory Results WBC 15.94 K/ul (4.8-10.8) H 01/02/25 15:54 RBC 4.60 M/uL (4.70-6.10) L 01/02/25 15:54 Hgb 14.7 g/dl (14.0-18.0) 01/02/25 15:54 Hct 44.2 % (42.0-52.0) 01/02/25 15:54 MCV 96.1 fL (80.0-100.0) 01/02/25 15:54 MCH 32.0 pg (25.0-34.0) 01/02/25 15:54 MCHC 33.3 g/dL (32.0-36.0) 01/02/25 15:54 RDW Std Deviation 43.0 fL (36.4-46.3) 01/02/25 15:54 RDW Coeff of Margarito 12.2 % (11.5-14.5) 01/02/25 15:54 Plt Count 163 K/uL (130-400) 01/02/25 15:54 MPV 11.6 fL (9.4-12.4) 01/02/25 15:54 Immature Gran % (Auto) 0.5 % 01/02/25 15:54 Neut % (Auto) 90.0 % 01/02/25 15:54 Lymph % (Auto) 2.1 % 01/02/25 15:54 [place] % (Auto) 6.4 % 01/02/25 15:54 Eos % (Auto) 0.7 % 01/02/25 15:54 Baso % (Auto) 0.3 % 01/02/25 15:54 Neut # (Auto) 14.34 K/uL (1.40-6.50) H 01/02/25 15:54 Lymph # (Auto) 0.34 K/uL (1.20-3.40) L 01/02/25 15:54 [place] # (Auto) 1.02 K/uL (0.11-0.59) H 01/02/25 15:54 Eos # (Auto) 0.11 K/uL (0.00-0.50) 01/02/25 15:54 Baso # (Auto) 0.05 K/uL (0.00-0.20) 01/02/25 15:54 Immature Gran # (Auto) 0.08 K/uL (0.01-0.20) 01/02/25 15:54 PT 10.6 Seconds (9.0-12.0) 01/02/25 15:54 INR 1.0 (0.9-1.1) 01/02/25 15:54 Sodium 139 mmol/L (136-145) 01/02/25 15:54 Potassium 5.4 mmol/L (3.5-5.1) H 01/02/25 15:54 Chloride 103 mmol/L (98-107) 01/02/25 15:54 Carbon Dioxide 28 mmol/L (21-32) 01/02/25 15:54 Anion Gap 8 (3-11) 01/02/25 15:54 BUN 22 mg/dl (6-23) 01/02/25 15:54 Creatinine 0.96 mg/dl (0.6-1.4) 01/02/25 15:54 Est Cr Clr Drug Dosing 79.7 ml/min 01/02/25 15:54 eGFR 85.56 01/02/25 15:54 BUN/Creatinine Ratio 22.9 (10-20) H 01/02/25 15:54 Glucose 220 mg/dl (70-99(Fasting)) H 01/02/25 15:54 Lactate 1.8 mmol/L (0.4-2.0) 01/02/25 19:34 Calcium 9.7 mg/dl (8.6-10.3) 01/02/25 15:54 Magnesium 1.5 mg/dl (1.7-2.4) L 01/02/25 15:54 Total Bilirubin 0.5 mg/dl (0.2-1.0) 01/02/25 15:54 AST 17 U/L (13-39) 01/02/25 15:54 ALT 9 U/L (7-52) 01/02/25 15:54 Alkaline Phosphatase 68 U/L (34-104) 01/02/25 15:54 Total Creatine Kinase 49 U/L (30-223) 01/02/25 15:54 Troponin I High Sens 9.7 pg/ml (0-20) 01/02/25 15:54 Total Protein 7.4 gm/dl (6.0-8.3) 01/02/25 15:54 Albumin 4.3 gm/dl (3.4-5.0) 01/02/25 15:54 Globulin 3.1 gm/dl (2.5-4.0) 01/02/25 15:54 Albumin/Globulin Ratio 1.4 (0.9-2) 01/02/25 15:54 Lipase 22 U/L (11-82) 01/02/25 15:54 Procalcitonin 0.32 ng/ml (0-0.5) 01/02/25 15:54 TSH 0.873 uIu/ml (0.300-4.500) 01/02/25 15:54 Urine Color Yellow 01/02/25 19:13 Urine Appearance Clear (Clear) 01/02/25 19:13 Urine pH 6.0 (4.5-7.5) 01/02/25 19:13 Ur Specific [place] 1.031 (1.000-1.030) H 01/02/25 19:13 Urine Protein Trace (Negative) H 01/02/25 19:13 Urine Glucose (UA) 3+ (Negative) H 01/02/25 19:13 Urine Ketones 1+ (Negative) H 01/02/25 19:13 Urine Blood Negative (Negative) 01/02/25 19:13 Urine Nitrite Negative (Negative) 01/02/25 19:13 Urine Bilirubin Negative (Negative) 01/02/25 19:13 Urine Urobilinogen Negative (Negative) 01/02/25 19:13 Ur Leukocyte Esterase Negative (Negative) 01/02/25 19:13 Urine WBC (Auto) 0-5 /hpf (0-5) 01/02/25 19:13 Urine RBC (Auto) 3-5 /hpf (0-2) H 01/02/25 19:13 U Hyaline Cast (Auto) 6-10 /lpf (0-2) H 01/02/25 19:13 U Epithel Cells (Auto) 0-2 /hpf (0-2) 01/02/25 19:13 Urine Bacteria (Auto) None Seen (None Seen) 01/02/25 19:13 Urine Mucus Present (None Prsent) A 01/02/25 19:13 Adenovirus (PCR) Not Detected (NotDetected) 01/02/25 16:34 B. pertussis DNA (PCR) Not Detected (NotDetected) 01/02/25 16:34 B.parapertussis DNA PCR Not Detected (NotDetected) 01/02/25 16:34 C. pneumoniae DNA (PCR) Not Detected (NotDetected) 01/02/25 16:34 Coronavirus OC43 (PCR) Not Detected (NotDetected) 01/02/25 16:34 Coronavirus HKU1 (PCR) Not Detected (NotDetected) 01/02/25 16:34 Coronavirus 229E (PCR) Not Detected (NotDetected) 01/02/25 16:34 SARS-CoV-2 (PCR) Not Detected (NotDetected) 01/02/25 16:34 Coronavirus NL63 (PCR) Not Detected (NotDetected) 01/02/25 16:34 Human Metapneumovir PCR Not Detected (NotDetected) 01/02/25 16:34 Influenza Type A (PCR) Not Detected (NotDetected) 01/02/25 16:34 Influenza Type B (PCR) Not Detected (NotDetected) 01/02/25 16:34 M. pneumoniae (PCR) Not Detected (NotDetected) 01/02/25 16:34 Parainfluenza 1 (PCR) Not Detected (NotDetected) 01/02/25 16:34 Parainfluenza 2 (PCR) Not Detected (NotDetected) 01/02/25 16:34 Parainfluenza 3 (PCR) Not Detected (NotDetected) 01/02/25 16:34 Parainfluenza 4 (PCR) Not Detected (NotDetected) 01/02/25 16:34 RSV (PCR) Not Detected (NotDetected) 01/02/25 16:34 Entero/Rhino (PCR) Not Detected (NotDetected) 01/02/25 16:34 Impressions Chest X-Ray 01/02/25 15:58 EXAM: Radiograph of the Chest 1 View INDICATION: Syncope. TECHNIQUE: Frontal view of the chest. COMPARISON: 07/26/2024 FINDINGS: Lungs and pleural spaces: Stable mild air trapping and minimal right perihilar and basilar scarring. No consolidation or pulmonary edema. No pleural effusion or pneumothorax. Heart: Shape and configuration within normal limits allowing for technique. Mediastinum: Normal contour. Bones/joints: Visualized portion of left shoulder arthroplasty intact and well-seated. No acute osseous abnormality. Soft tissues: No abnormality noted. No radiopaque foreign body noted. Upper abdomen: No abnormality noted. IMPRESSION: No acute cardiopulmonary disease. ACT 112: Negative or not required by law. Electronically signed by Jamilah Denney 01-02-2025 4:[address] 01/02/25 16:40 EXAM: CT Head and Cervical Spine Without Intravenous Contrast INDICATION: Syncope. Fall. TECHNIQUE: Axial computed tomography images of the head/brain and cervical spine without intravenous contrast. Sagittal and coronal reformatted images were created and reviewed. This CT exam was performed using one or more of the following dose reduction techniques: automated exposure control, adjustment of the mA and/or kV according to patient size, and/or use of iterative reconstruction technique. COMPARISON: Cervical spine CT 07/15/2023 FINDINGS: Limitations: None. Brain and extra-axial spaces: There is age appropriate cortical atrophy and chronic ischemic periventricular white matter hypodensity. No acute infarct, hemorrhage or mass noted. Sinuses: No layering fluid in the visualized portions of the paranasal sinuses. Mastoid air cells: Stable chronic right mastoid air cells sclerosis and thickening. No mastoid effusion. Orbits: No significant abnormality noted. Vertebrae: No change mild to moderate facet arthrosis most notable proximally. Stable moderate spondylosis and uncal spurring C5-C6 and C6-C7. No fracture or subluxation. There is mild scattered calcific plaque in the proximal cervical right vertebral artery. Discs/spinal canal/neural foramina: Stable severe disc space narrowing C5-C6 and C6-C7. There is mild ventral and bilateral foraminal stenosis at C2-C3. There is asymmetric right mild ventral canal and cysts foraminal stenosis at C3-C4 there is a asymmetric disc bulge in the right lateral recess narrowing the orifice of the right foramen. There is moderate to severe canal and foraminal stenosis at C5-C6 and C6-C7. Soft tissues: No significant abnormality noted. Vasculature: There is moderate to marked atherosclerotic calcification of the cervical internal carotid arteries. Lung apices: No significant abnormality noted. Pleural space: No visualized pleural effusion or pneumothorax. IMPRESSION: 1. Cerebral atrophy. No acute changes. 2. Stable cervical degenerative changes without fracture. ACT 112: Negative or not required by law. Electronically signed by Jamilah Denney 01-02-2025 7:[address] 01/02/25 16:40 EXAM: CT Head and Cervical Spine Without Intravenous Contrast INDICATION: Syncope. Fall. TECHNIQUE: Axial computed tomography images of the head/brain and cervical spine without intravenous contrast. Sagittal and coronal reformatted images were created and reviewed. This CT exam was performed using one or more of the following dose reduction techniques: automated exposure control, adjustment of the mA and/or kV according to patient size, and/or use of iterative reconstruction technique. COMPARISON: Cervical spine CT 07/15/2023 FINDINGS: Limitations: None. Brain and extra-axial spaces: There is age appropriate cortical atrophy and chronic ischemic periventricular white matter hypodensity. No acute infarct, hemorrhage or mass noted. Sinuses: No layering fluid in the visualized portions of the paranasal sinuses. Mastoid air cells: Stable chronic right mastoid air cells sclerosis and thickening. No mastoid effusion. Orbits: No significant abnormality noted. Vertebrae: No change mild to moderate facet arthrosis most notable proximally. Stable moderate spondylosis and uncal spurring C5-C6 and C6-C7. No fracture or subluxation. There is mild scattered calcific plaque in the proximal cervical right vertebral artery. Discs/spinal canal/neural foramina: Stable severe disc space narrowing C5-C6 and C6-C7. There is mild ventral and bilateral foraminal stenosis at C2-C3. There is asymmetric right mild ventral canal and cysts foraminal stenosis at C3-C4 there is a asymmetric disc bulge in the right lateral recess narrowing the orifice of the right foramen. There is moderate to severe canal and foraminal stenosis at C5-C6 and C6-C7. Soft tissues: No significant abnormality noted. Vasculature: There is moderate to marked atherosclerotic calcification of the cervical internal carotid arteries. Lung apices: No significant abnormality noted. Pleural space: No visualized pleural effusion or pneumothorax. IMPRESSION: 1. Cerebral atrophy. No acute changes. 2. Stable cervical degenerative changes without fracture. ACT 112: Negative or not required by law. Electronically signed by Jamilah Denney 01-02-2025 7:[address] 01/02/25 16:40 EXAM: CT Lumbar Spine Without Intravenous Contrast INDICATION: Syncope. Fall. TECHNIQUE: Axial computed tomography images of the lumbar spine without intravenous contrast. Sagittal and coronal reformatted images were created and reviewed. This CT exam was performed using one or more of the following dose reduction techniques: automated exposure control, adjustment of the mA and/or kV according to patient size, and/or use of iterative reconstruction technique. COMPARISON: No relevant prior studies available. FINDINGS: Limitations: None. Vertebrae: The bones are demineralized. There is diffuse mild to moderate facet hypertrophic change. There is mild spondylosis at all levels. There is mild uncal spurring at L5-S1. No fracture or subluxation. Mild convex left bowing and pelvic tilt noted. Sacrum/coccyx: No significant abnormality noted. No acute change noted. Discs/spinal canal/neural foramina: There is moderate disc space narrowing and degeneration at L2-L3 and L5-S1. There is diffuse disc bulge at L2-L3 with moderate canal and foraminal stenosis. There is far lateral left disc bulge L3-L4 abutting the L4 nerve root. There is diffuse bulge with minimal flattening of the ventral thecal sac L4-L5. There is osteophyte disc complex L5-S1 with left foraminal stenosis. Soft tissues: No significant abnormality noted. Vasculature: There is moderate atherosclerotic calcification of the aorta and iliac arteries. The inferior mesenteric artery is calcified. No aneurysm. IMPRESSION: 1. Degenerative changes in the lumbar spine without fracture. 2. Marked atherosclerotic calcification of the aorta and branches including the inferior mesenteric artery. No aneurysm. ACT 112: Negative or not required by law. Electronically signed by Jamilah Denney 01-02-2025 7:00 PM Medications Administered NSS 500 mL Mag sulfate 1 g IV Acetaminophen 1 g IV ECG Additional Comments: NSR, LAD 91 bpm, [place] 152, QRS 84, QT/QTc 346/425, PRT 60/-39/48 Code Status & VTE Plan Code Status Conditional- No intubation; OK for cardiac intervention Supervising Physician Co-Signing Physician Notes Attending addendum: I have physically seen this patient, have supervised the CHRIS's activities, and agree with the H&P unless as otherwise noted. Assessment and Plan: The patient is a 69-year-old male with a past medical history including Parkinson's disease, diabetes mellitus type 2, PAD, GERD, and RLS, who presents to the emergency department after a syncopal episode, while in the bathroom, reportedly falling from the toilet and being found in between furniture in the bathroom. #Syncope- Family reportedly heard patient fall in the bathroom as he tried to get up off the commode, and found him on the floor there in between the toilet and the wa ll. He reportedly hit his head and back, and family reported they had seen his lip twitching after he had syncopized. He has no history of seizure or seizure- like activity. Patient reportedly did have a single episode of emesis following the event, however, likely the seizure has assessed at the time of admission was low. BioFire respiratory testing was negative CT scan of head and cervical spine showed mild cervical degenerative disc disease CT scan lumbar spine was negative Chest x-ray was negative #Hypomagnesemia- Magnesium 1.5 on admission Give magnesium 2 g IV, recheck laboratories in the a.m. #Parkinson's disease- Continue carbidopa-levodopa, primidone discussed with family possibilities of autonomic dysregulation as cause of symptoms #Hyperkalemia- Potassium 5.4 at admission Likely secondary to some mild dehydration, expect improved with hydration #Diabetes mellitus- Hold metformin and Farxiga Continue glargine and SSI as noted PG Care Time/CCT Total # of Minutes Spent Total Time Spent with Patient: Total time spent is greater than 50% in coordination of care (as documented) at patient's floor/unit and/or counseling patient: Coding Level of Care Code 93889 INT INP/OBS CARE 3/75MIN Diagnoses Syncope and collapse R55 Hypomagnesemia E83.42 Serum potassium elevated E87.5
[2025-01-02] MEDS ORDERED: PHARMACY GLYCEMIC MGMT CONSULT PRN (21:30)
[2025-01-02] MEDS ORDERED: CARBOHYDRATES FOR HYPOGLYCEMIA PO PRN (21:30)
[2025-01-02] MEDS ORDERED: GLUCAGON FOR INJ 1 MG VIAL SQ PRN (21:30)
[2025-01-02] MEDS ORDERED: DEXTROSE 50% 50 ML SYRINGE IV PRN (21:30)
[2025-01-02] MEDS ORDERED: GLUCOSE 40% GEL 15 GM TUBE PO PRN (21:30)
[2025-01-02] MEDS ORDERED: ACETAMINOPHEN 325 MG TAB PO PRN (22:13)
[2025-01-02] MEDS ORDERED: ONDANSETRON INJ 2 MG/ML 2 ML VIAL IV PRN (23:53)
[2025-01-02] MEDS ORDERED: MELATONIN 3 MG TAB PO PRN (23:53)
[2025-01-03] MEDS: INSULIN ASPART PER UNIT CHARGE SC SCH ×2 (00:39→04:23)
[2025-01-03 06:05] LABS: Hematocrit (blood only) 37.8 % (42.0-52.0); Hemoglobin 12.5 g/dl (14.0-18.0); Mean Corpuscular Hemoglobin 31.4 pg (25.0-34.0); Mean Corpuscular Hgb Conc 33.1 g/dL (32.0-36.0); Mean Platelet Volume 11.9 fL (9.4-12.4); Platelet Count 142 K/uL (130-400); RDW Coefficient of Variation 12.4 % (11.5-14.5); RDW Standard Deviation 43.3 fL (36.4-46.3); Red Blood Count 3.98 M/uL (4.70-6.10); White Blood Count 10.27 K/ul (4.8-10.8)
[2025-01-03 06:26] LABS: BUN Creatinine Ratio 25.5 (10-20); Potassium 4.4 mmol/L (3.5-5.1)
[2025-01-03] MEDS: ACETAMINOPHEN 325 MG TAB PO PRN (08:50)
[2025-01-03] MEDS: FAMOTIDINE 20 MG TAB PO SCH (08:50)
[2025-01-03] MEDS: PANTOprazole 40 MG TAB PO SCH (08:50)
[2025-01-03] MEDS: ASCORBIC ACID 500 MG TAB PO SCH (08:51)
[2025-01-03] MEDS: CARBIDOPA/LEVODOPA 25/100MG TAB PO SCH (08:51)
[2025-01-03] MEDS: PRIMIDONE 50 MG TAB PO SCH (08:51)
[2025-01-03] MEDS: CYANOCOBALAMIN (B-12) 500 MCG TABLET PO SCH (08:51)
[2025-01-03] MEDS: MIDODRINE HCL 2.5 MG TAB PO SCH (08:52)
[2025-01-03] MEDS: ASPIRIN 81 MG ECTAB PO SCH (08:52)
[2025-01-03] MEDS: MAGNESIUM OXIDE 400 MG TAB PO SCH (08:52)
[2025-01-03] MEDS: CHOLECALCIFEROL 125 MCG (5,000 UNITS) TAB PO SCH (08:52)
[2025-01-03] MEDS: DULoxetine HCL 60 MG CAP PO SCH (08:52)
[2025-01-03 08:54] LABS: Magnesium 1.9 mg/dl (1.7-2.4); Phosphorus 2.8 mg/dl (2.5-4.9)
[2025-01-03] MEDS: Continuous Glucose Monitor SCH (08:54)
[2025-01-03] MEDS ORDERED: PANTOprazole 40 MG TAB PO SCH (09:00)
[2025-01-03] MEDS: LANTUS PER UNIT CHARGE SQ SCH ×2 (09:13→21:31)
[2025-01-03] MEDS: ONDANSETRON 4 MG OD TAB PO PRN (10:22)
--- NOTE | 2025-01-03 10:23 | Discharge Summary ---
Discharge Summary Date of Service January 03, 2025 Principal Dx & Hospital Course #1 = Principal Diagnosis (1) Syncope and collapse: (2) Hypomagnesemia: (3) Serum potassium elevated: Plan 69 years old male with PMH of FULL CODE @ home, overweight with BMI 27.0 (height 182.9 cm; weight 90.4 kg), Parkinson's disease, T2DM, PAD, GERD, and RLS, who presented to [facility] ER on 01/02/2025 after suffering from 1 episode of urinary incontinence and fecal incontinence while sitting on the toilet, and then standing up and losing consciousness on 01/02/2025. At admission, leukocytosis without clear source of infection, potassium 5.4, magnesium 1.5, initial lactate 2.5 but resolved to 1.8 after 500 mL NS, normal Pro-Eduardo, normal troponin, normal TSH. All imaging with chronic findings but no acute changes noted, EKG was normal sinus. Similar episode of syncope approximately 1 year ago in June 2024, thought to be from hypotension, but patient was also diagnosed with COVID at that time. #Micturitional syncope. Defection syncope. RESOLVED with no recurrent urinary incontinence or fecal incontinence while in [facility] from 01/02/2025 to 01/03/2025. H/o of 1 syncopal event in June 2024, patient was getting out of bed and fell when he was walking down the hallway. Takes midodrine for hypotension. States that he tries to wait when moving from position to the next as to avoid dizziness, which is what he did on the day of arrival when he stood from the toilet he waited and then started to walk. Syncopal event following this, hit his head and back, no anticoag. Family reports lip twitching after the patient syncopized, but no additional seizure-like activity. Patient denying symptoms prior to the event, and did have an episode of emesis following the event. At time of admission, not highly suspicious that the patient had seizure-like activity, and he does not have a h/o seizures. H/o PD + neuropathy. No h/o arrhythmia. - CBC does reveal leukocytosis, but without clear source. Procalcitonin WNL, CXR without acute changes, BioFire negative; UA no clear identification of infection however does have a history of frequent UTIs, pending culture - defer abx at time of admission - Troponin WNL, EKG without ischemic changes and was normal sinus rhythm upon arrival; Echo pending - Mg 1.5, replaced in ED; TSH WNL - Continue midodrine - Orthostatic vitals pending - PT/OT consulted #Acute hypomagnesemia with Mg 1.5 mg/dL (01/02/2025, 3:54pm). H/o low magnesium, on mag oxide 400 mg PO daily as an outpatient. Patient received magnesium sulfate 1 g IV x 1 dose (01/02/2025, 8:07pm) in [facility] ER. Acute hypomagnesemia RESOLVED with post-supplement Mg 1.9 mg/dL ( 025, 8:24am). Observe. #Acute hyperkalemia with K 5.4 mmol/L (01/02/2025, 3:54pm). Asymptomatic while in [facility] from 01/02/2025 to 01/03/2025. No EKG changes. cf., discharge K 4.4 mmol/L (01/03/2025, 5:29am). Observe. #DMT2 H/o DMT2, home regime, metformin, glargine 16U, lispro 7U TIDm; longer on Farxiga given recurrent UTIs while on. - Most recent A1C 11/2024 @ 8.6% - Hold oral agents; SSI with target BSG range 110-140mg/dL, CF 35, carb ratio 10; basal 12u BID - BSG ACHS Hold off home-scheduled metformin 1000mg PO bid until patient sees PCP BECKY Menendez, given the potential for this medication to cause dyspepsia in this patient who reported fecal incontinence on the bathroom toilet on 01/02/2025. Hold off home-scheduled dapagliflozin 5mg PO daily until patient sees PCP BECKY Menendez, as this medication is associated with an increased incidence of acute UTI. #Parkinson's- Carbidopa levodopa, primidone; follows with neurology (10/09/2024) #GERD- Famotidine, pantoprazole. Hold OFF home-scheduled pantoprazole 20mg PO daily until patient sees PCP BECKY Menendez, as this medication is associated with an increased incidence of falls (potentially very bad for this patient with Parkinson's disease and now micturitional/defecation syncope on 01/02/2025), fractures, aspiration pneumonia, hyponatremia, and thrombocytopenia. #HLD- Rosuvastatin. Hold OFF home-scheduled rosuvastatin 20mg PO qpm until patient sees PCP BECKY Menendez, as this medication is associated with an increased incidence of myopathy, and which can increase the risk of falls in this patient with Parkinson's disease. Dispo: Admit, med/telemetry VTE prophylaxis: This document was dictated utilizing Ti Knight. Please excuse any grammatical errors that may be secondary to use of this software. Discharge time, 35 minutes. Of this time period, 18 minutes were spent in coordinating patient's discharge. Admission HPI Per Admitting Provider 69 years old male with PMH of FULL CODE @ home, overweight with BMI 27.0 (height 182.9 cm; weight 90.4 kg), Parkinson's disease, T2DM, PAD, GERD, and RLS, who presented to [facility] ER on 01/02/2025 after suffering from 1 episode of urinary incontinence and fecal incontinence while sitting on the toilet, and then standing up and losing consciousness on 01/02/2025. Patient's family helps to provide history. Patient recalls that he was in the bathroom, stood up and turned around after urinating to walk out of the bathroom, and then remembers falling down. The family states that they heard a commotion in the bathroom, came in and found the patient between the toilet and the wall and states that he was having abnormal facial twitching at his lip for approximately 1 minute and he then came to, and was back to his normal self. Episode of vomiting following this episode, of digested contents from dinner the night before. Patient was on the ground for approximately 20 minutes until EMS came as the patient's did not want to move him in the instance that he had injured something. Patient states that he did not have dizziness, lightheadedness, chest pain, or shortness of breath prior to the episode. No complaints of weakness. Patient states he had a similar episode happen approximately 1 year ago in June 2024, with no clear reasoning behind the fall. Does take midodrine for baseline hypotension, he took his morning dose but then did not receive his additional doses throughout the day. Patient was recently diagnosed and treated for UTI 1 month ago, and states that he does often get UTIs. Questionable source of his leukocytosis at this time, however patient states that he is not having LUTS to include hematuria, dysuria, abdominal pain, or incontinence. He does occasionally have urgency, but this has not been exacerbated within the past week. No chest pain, shortness of breath, palpitations, cough, abdominal pain, diarrhea/constipation, fever/chills, or numbness/tingling. Patient takes his medications as prescribed, but did not receive medications from noon on. ED evaluation reveals leukocytosis 15.94, neutrophils 14.34, CMP with K 5.4, BUN/creatinine ratio 22.9, initial lactate 2.5 and then 1.8 after 500 mL of NSS, Mg 1.5, CK 49, troponin 9.7, lipase 22, procalcitonin 0.32, TSH 0.873, UA without evidence of infection, and negative BioFire. CXR no acute findings; CT head, spine stable cervical degenerative changes and cerebral atrophy, no acute findings; cervical spine CT degenerative changes of the lumbar spine, marked atherosclerotic calcification of the aorta and branches including inferior mesenteric artery. EKG NSR, LAD, and rate 91 bpm otherwise WNL without ischemic changes. Provided with 500 NSS, magnesium sulfate 1 g, and acetaminophen 1 g IV in ED. Please see Dr. Rockwell's attestation for adjustments/additions to treatment plan. Discharge Exam NOT orthostatic: cf., BP 89/51, HR 85 (supine) cf., BP 112/69, HR 110 (sitting) cf., BP 98/59, HR 102 (standing) Constitutional General: Comfortable, coherent, cooperative. Wide awake and alert. Not confused, lethargic, or obtunded. Patient speaks in complete, fluent, and articulate sentences without pause, interruption, cough, or wheeze. HEENT: NC/AT. EOMI, PERRL. No nystagmus, gaze paresis, anisocoria, miosis, mydriasis, hyphema, chemosis, scleral icterus, conjunctivitis, or pterygium. No otorrhea, no rhinorrhea. No pharyngeal discharge or erythema. Neck: Supple, no stridor, bruit, goiter, or hepatojugular reflux. Jugular venous pressure is estimated to be 8 cm above the sternal angle of Jt, which is typically 5 cm above the level of the right atrium. Hence, there is no jugular venous distention noted on 01/03/2025. Lymphatics: No pre-post auricular, anterior/posterior cervical, supraclavicular/infraclavicular, axillary, epitrochlear, or inguinal adenopathy. Chest: Symmetric rise and fall with respirations. Non-tender to palpation. Heart: RRR, S1 and S2 noted. No S3 or S4 summation gallop noted. No tripartite friction rub. Grade II/ early systolic murmur @ LLSB without radiation to the carotids, axilla, or back, and which remains invariant in regards to the respiratory cycle. Lungs: Clear to auscultation. No audible expiratory wheeze, egophony, pectoriloquy, increase in tactile fremitus, or flatness/dullness to percussion at the bases. Abdomen: Soft, non-tender, non-distended. No rebound, guarding, Shell's sign, or organomegaly. Bowel sounds auscultated in all 4 quadrants. Extremities: No clubbing, cyanosis, or edema. 2+ pedal pulses bilaterally. Skin: No exanthem or enanthem or decubitus ulcer. Neurology: Alert and oriented in regards to person, place, time, and situation. DTR+ and symmetric. 5/5 motor strength in all 4 extremities, both proximally and distally. Urology: No shukla catheter. No urethral discharge. Psychiatry: Appropriate affect. Smiles occasionally. No homicidal/suicidal ideation Discharge Plan Discharge Items Patient Disposition: Home - Self-Care Reason For Visit: SYNCOPE Discharge Diagnosis: Micturitional syncope and defecation syncope Activity: Resume your previous activity Lifting: No more than 5 pounds Bathing: No limitations Exercise/Sports: None Weightbearing: Full weightbearing Non-emergency contact: Primary Care Provider Call non-emergency contact if: you have any medication questions Follow-up/Referrals: Mila Martinez CRNP [Primary Care Provider] - Diet: Carb Consistent or DM2, Heart Healthy, Low Fat and Low Sodium (2gm) Addtl Attending Provider Instructions: See your PCP BECKY Menendez, within 7 days of hospital discharge. Pending Studies at Discharge: No Stand-Alone Forms: My [facility], Smoking Cessation Medications and DC Order Prescriptions: Continued insulin glargine [Basaglar KwikPen U-100 Insulin] 100 unit/mL (3 mL) insulin pen See Rx Instructions SUBCUT QAM Qty: 15 3RF Rx Instructions: Inject up to 16 units subcutaneously daily in the morning; (DME) pen needle, diabetic, safety 30 gauge x 3/16" needle See Rx Instructions .Route Qty: 200 11RF Rx Instructions: Use 4 per day to inject insulin duloxetine 60 mg capsule,delayed release(DR/EC) 60 mg PO QAM 30 Days Qty: 30 3RF midodrine 5 mg tablet 5 mg PO TID Qty: 270 3RF Rx Instructions: do not give last dose of day after 6PM or within 4 hrs of bedtime carbidopa-levodopa [Sinemet] 25-100 mg tablet 2 tab PO QID 10 Days Qty: 80 0RF Lyumjev KwikPen U-100 Insulin 100 unit/mL insulin pen 7 unit subcut TID Qty: 15 2RF primidone 50 mg tablet 25 mg PO BID Qty: 60 5RF (DME) FreeStyle Jim 3 Sensor Device See Rx Instructions .Route Rx Instructions: As directed aspirin 81 mg Tablet,Delayed Release (Dr/Ec) 81 mg PO QAM magnesium oxide 400 mg magnesium capsule 400 mg PO QAM Patient Comments: NOT CURRENTLY TAKING famotidine 20 mg tablet 20 mg PO QAM Held metformin 500 mg tablet 1,000 mg PO BID Qty: 360 3RF Hold Instructions: Resume on 01/11/25. Hold off metformin 1000mg PO bid until you see your PCP. Rx Instructions: Automatic refills pantoprazole 20 mg tablet,delayed release (DR/EC) 20 mg PO QAM Hold Instructions: Resume on 01/11/25. Hold off pantoprazole 20mg PO daily until you see your PCP. Rx Instructions: TAKE 1 TABLET DAILY IN THE EVENING rosuvastatin 40 mg tablet 40 mg PO QPM Hold Instructions: Resume on 01/11/25. Hold off rosuvastatin 40mg PO qpm until you see your PCP. dapagliflozin propanediol [Farxiga] 5 mg tablet 0 mg PO DAILY Hold Instructions: Resume on 01/11/25. Hold off dapagliflozin 5mg PO daily until you see your PCP. Rx Instructions: 5MG DAILY ON HOLD 01/02/25 Discontinued ascorbate calcium (vitamin C) 500 mg tablet 500 mg PO QAM ondansetron 4 mg tablet,disintegrating 4 mg PO Q8H PRN (Reason: nausea and vomiting) Qty: 180 0RF cyanocobalamin (vitamin B-12) [Vitamin B-12] 1,000 mcg Tablet 1,000 mcg PO QAM cholecalciferol (vitamin D3) [Vitamin D3] 5,000 unit Tablet 5,000 unit PO QAM Discharge Orders: Discharge Order (Routine); Ordered 01/03/25 Ordered By: Rodolfo Galeas Admission Data Admit Date/Time: 01/02/25 21:08 Attending Provider: Rodolfo Galeas Admit Provider: Thomas Rockwell Primary Care Provider: Mila Martinez Other Providers: Thomas Rockwell Hospital Stay Data Consultations 01/02/25 20:06 ED Decision to Admit Stat Diagnostic Imagining Performed 01/02/25 16:40 CT cervical spine wo con Stat CT head/brain wo con Stat CT lumbar spine wo con Stat Pending Results Patient Have Any Pending Studies at Discharge: No Discharge Instructions Given to Patient (Per Discharging Provider) See your PCP BECKY Menendez, within 7 days of hospital discharge. Total Time Total Time Spent Total Time Spent (In Minutes): 35 minutes Coding Level of Care Code 22285 INP/OBS DISCH >30 MIN Diagnoses Syncope and collapse R55 Hypomagnesemia E83.42 Serum potassium elevated E87.5
--- NOTE | 2025-01-03 12:13 | XCELERA ---
[id number] [id number]
--- NOTE | 2025-01-03 14:22 | Pharmacy Report ---
Pharmacy Glycemic Short Note 2 - Date of Service January 03, 2025 - Glycemic Short BSG Results (Last 24 hours): 01/02/25 01/02/25 01/03/25 15:54 23:59 00:02 Glucose 220 H POC Glucose 324 H* 292 H 01/03/25 01/03/25 01/03/25 00:08 04:10 05:29 Glucose 176 H POC Glucose 294 H 209 H 01/03/25 01/03/25 08:17 12:21 Glucose POC Glucose 160 H 248 H OUTPATIENT ANTIDIABETIC REGIMEN: * Lantus 16 units SQ QAM * Humalog 7 units SQ TID * metformin 1000mg BID * Farxiga 5mg daily (held) * HbA1c 8.6% (11/27/24) ASSESSMENT: * Ugo is a 69 YOM admitted with syncope and a history of T2DM. Pharmacy has been consulted to assist with glycemic management while in patient. * Fasting BSG this AM acceptable, received 7 units of correctional insulin overnight, will give home basal dose in AM and add as scale at bedtime if BSGs significantly elevated. * NovoLog initiated at a weight based stress of 2, tightened carbohydrate ratio as BSG at lunchtime elevated. No glycemic stressors noted at this time. PLAN FOR INPATIENT GLYCEMIC CONTROL: * Hold outpatient oral diabetes medications * Basal insulin * Lantus 16 units SQ QAM * Lantus 0-10 units SQ HS based off of BSG (see eMAR for additional details) * Bolus insulin * NovoLog per scale ACHS or Q6hrs while NPO * Goal Range: Low 110 mg/dL - High 140 mg/dL * Correction Factor: 25 mg/dL/unit * Nutritional / Prandial insulin per carb ratio of 1 unit per 7 grams CHO consumed
[2025-01-03] MEDS: PROMETHAZINE 6.25 MG/50.25 ML BAG IV PRN (14:47)
--- NOTE | 2025-01-03 20:48 | Electrocardiogram Report ---
Test Reason : Blood Pressure : */* mmHG Vent. Rate : 91 BPM Atrial Rate : 91 BPM P-R Int : 152 ms QRS Dur : 84 ms QT Int : 346 ms P-R-T Axes : 60 -39 48 degrees QTcB Int : 425 ms Normal sinus rhythm Left axis deviation Abnormal ECG When compared with ECG of 15-Jul-2023 14:07, Criteria for Septal infarct are no longer Present Confirmed by Mateo Tejada ([id number]) on 01/03/2025 8:47:40 PM Referred By: REFERRED SELF Confirmed By: Mateo Tejada
[2025-01-03] MEDS: ROSUVASTATIN CALCIUM 20 MG TAB PO SCH (21:02)
--- NOTE | 2025-01-04 02:10 | Magnetic Resonance Report ---
EXAM: MR hip LT wo con CLINICAL HISTORY: s/p fall: left posterior hip pain TECHNIQUE: Multiplanar, multisequence MR imaging of the bilateral hip with left hip small FOV was performed without contrast. COMPARISON: none FINDINGS: There is no joint effusion or trochanteric bursitis. The femoral head has normal contours and is well seated in the acetabulum, with no evidence of avascular necrosis or fracture. There is no bone marrow edema. The hamstring, sartorius, and rectus femoris origins are intact. The iliopsoas and gluteus medius/minimus insertions are intact. Adductor origins at the pubic symphysis are intact. Pelvic alignment is normal. The sacroiliac joints and pubic symphysis are within normal limits. Limited evaluation of the intrapelvic organs reveals no significant abnormality. The visualized lower lumbar spine is unremarkable. IMPRESSION: 1. No significant abnormality Electronically signed by Garrett Roca 01-04-2025 02:10 AM
--- NOTE | 2025-01-04 13:50 | Hospitalist Progress Note ---
Date of Service January 04, 2025 Assessment & Plan (1) Syncope and collapse: (2) Hypomagnesemia: (3) Serum potassium elevated: Plan 69-year-old male PMHx Parkinson's disease, T2DM, PAD, GERD, and RLS presenting to the ED after syncopal episode at home. At admission, leukocytosis without clear source of infection, potassium 5.4, magnesium 1.5, initial lactate 2.5 but resolved to 1.8 after 500 mL NS, normal Pro-Eduardo, normal troponin, normal TSH. All imaging with chronic findings but no acute changes noted, EKG was normal sinus. Similar episode of syncope approximately 1 year ago in June 2024, thought to be from hypotension, but patient was also diagnosed with COVID at [facility] t time. #Syncopal event/Hypotension H/o of 1 syncopal event in June 2024, patient was getting out of bed and fell when he was walking down the hallway. Takes midodrine for hypotension. States that he tries to wait when moving from position to the next as to avoid dizziness, which is what he did on the day of arrival when he stood from the toilet he waited and then started to walk. Syncopal event following this, hit his head and back, no anticoag. Family reports lip twitching after the patient syncopized, but no additional seizure-like activity. Patient denying symptoms prior to the event, and did have an episode of emesis following the event. Etiology is most likely from orthostatic BP changes (BP lying down 145/70, sitting 107/70, standing 88/52) Dysautonomia from Parkinson also a possiblity Patient has been counselled on getting up in stages from a lying position 2 d ECHO did not show ant structural heart abnormality - CBC does reveal leukocytosis, but without clear source. Procalcitonin WNL, CXR without acute changes, BioFire negative; UA no clear identification of infection however does have a history of frequent UTIs, pending culture - defer abx at time of admission - Troponin WNL, EKG without ischemic changes and was normal sinus rhythm upon arrival; Echo pending - Mg 1.5, replaced in ED; TSH WNL - Continue midodrine - Orthostatic vitals pending - PT/OT consulted #Hypomagnesemia H/o the low magnesium, on mag oxide 400 mg outpatient. - Mg 1.5 admission, given magnesium sulfate 1 g IV in ED - BMP am #Hyperkalemia Asymptomatic currently. - K 5.4; No EKG changes; no AG - BMP am #DMT2 H/o DMT2, home regime, metformin, glargine 16U, lispro 7U TIDm; No longer on Farxiga given recurrent UTIs while on. - Most recent A1C 11/2024 @ 8.6% - Hold oral agents; SSI with target BSG range 110-140mg/dL, CF 35, carb ratio 10; basal 12u BID - BSG ACHS - Pharm glycemic management consult placed, appreciate assistance- adjust regimen as needed #Parkinson's - Carbidopa levodopa, primidone; follows with neurology #GERD- Famotidine, pantoprazole #HLD- Rosuvastatin Dispo: Admit, med/telemetry VTE prophylaxis: Patient needs to rehab Admission and Anticipated Discharge Date Admission Date: January 03, 2025 Subjective Patient seen and examined, no new complaints Review of Systems Review of Systems: All systems reviewed are negative, apart from the ones contained in the history. Physical Exam Physical Exam: The patient is awake, alert and oriented 3, well developed and well nourished, normocephalic and atraumatic, lying in bed and in no acute distress. HEENT--PERRL, EOMI, mucous membranes and oropharynx mildly dry Neck--supple. No JVD. No bruits. Thyroid normal, trachea midline, no adenopathy. Heart--normal S1 and S2. No murmurs, rubs or gallops. Lungs--clear bilaterally, no respiratory distress, no accessory muscle use. Abdomen--normal bowel sounds and soft. Extremities--no cyanosis or clubbing. No edema. Dermatologic--normal skin turgor, normal color, no abnormal lymph nodes, no rash. Neurologic--cranial nerves II through XII grossly intact. coarse tremors Rheumatologic--normal range of motion. Psychiatric--normal affect. Results & Data Results & Data Vital Signs (Past 12 Hours) Vital Signs Temp Pulse Pulse Pulse Resp BP Pulse Ox 01/04/25 11:07 98.4 F 72 18 128/76 96 01/04/25 07:56 68 01/04/25 07:45 97.9 F 68 16 149/72 H 95 01/04/25 03:03 97.3 F L 67 18 150/78 H 95 01/04/25 02:47 52 L O2 Del Method 01/04/25 11:07 Room Air 01/04/25 07:56 01/04/25 07:45 Room Air 01/04/25 03:03 Room Air 01/04/25 02:47 PG Care Time/CCT Total # of Minutes Spent Total Time Spent with Patient: Total time spent is greater than 50% in coordination of care (as documented) at patient's floor/unit and/or counseling patient: Coding Level of Care Code 04856 SUB INP/OBS CARE 2/35MIN Diagnoses Syncope and collapse R55 Hypomagnesemia E83.42 Serum potassium elevated E87.5 Time Spent (min) 35
[2025-01-05] MEDS: LANTUS PER UNIT CHARGE SQ SCH (09:09)
--- NOTE | 2025-01-05 09:47 | Pharmacy Report ---
Pharmacy Glycemic Short Note 2 - Date of Service January 05, 2025 - Glycemic Short BSG Results (Last 24 hours): 01/04/25 01/04/25 01/04/25 11:40 16:45 20:39 POC Glucose 230 H 122 H 127 H 01/05/25 08:34 POC Glucose 150 H OUTPATIENT ANTIDIABETIC REGIMEN: * Lantus 16 units SQ QAM * Humalog 7 units SQ TID * metformin 1000mg BID * Farxiga 5mg daily (held) * HbA1c 8.6% (11/27/24) ASSESSMENT: 01/05: * Ugo received 42 units of insulin yesterday, 16 of which were basal. BSGs were: 230-244-691-127 mg/dL. * Fasting BSG was 150 mg/dL this AM. Will increase basal dose by ~20% today. * Carb ratio was tightened at lunchtime yesterday. Will continue with these parameters today. If lunchtime BSG continues to be the isolated high BSG, may consider tightening CF and CR with breakfast only tomorrow. 01/03: * Ugo is a 69 YOM admitted with syncope and a history of T2DM. Pharmacy has been consulted to assist with glycemic management while in patient. * Fasting BSG this AM acceptable, received 7 units of correctional insulin overnight, will give home basal dose in AM and add as scale at bedtime if BSGs significantly elevated. * NovoLog initiated at a weight based stress of 2, tightened carbohydrate ratio as BSG at lunchtime elevated. No glycemic stressors noted at this time. PLAN FOR INPATIENT GLYCEMIC CONTROL: * Hold outpatient oral diabetes medications * Basal insulin * Lantus 20 units SC AM * Bolus insulin * NovoLog per scale ACHS or Q6hrs while NPO * Goal Range: Low 110 mg/dL - High 140 mg/dL * Correction Factor: 25 mg/dL/unit * Nutritional / Prandial insulin per carb ratio of 1 unit per 6 grams CHO consumed
--- NOTE | 2025-01-05 12:31 | Hospitalist Progress Note ---
Date of Service January 05, 2025 Assessment & Plan (1) Syncope and collapse: (2) Hypomagnesemia: (3) Serum potassium elevated: Plan 69-year-old male PMHx Parkinson's disease, T2DM, PAD, GERD, and RLS presenting to the ED after syncopal episode at home. At admission, leukocytosis without clear source of infection, potassium 5.4, magnesium 1.5, initial lactate 2.5 but resolved to 1.8 after 500 mL NS, normal Pro-Eduardo, normal troponin, normal TSH. All imaging with chronic findings but no acute changes noted, EKG was normal sinus. Similar episode of syncope approximately 1 year ago in June 2024, thought to be from hypotension, but patient was also diagnosed with COVID at [facility] time. #Syncopal event/Hypotension Possible Neurogenic orthostatic hypotension d/t Parkinson's Disease H/o of 1 syncopal event in June 2024, patient was getting out of bed and fell when he was walking down the hallway. Takes midodrine for hypotension. States that he tries to wait when moving from position to the next as to avoid dizziness, which is what he did on the day of arrival when he stood from the toilet he waited and then started to walk. Syncopal event following this, hit his head and back, no anticoag. Family reports lip twitching after the patient syncopized, but no additional seizure-like activity. Patient denying symptoms prior to the event, and did have an episode of emesis following the event. Etiology is most likely from orthostatic BP changes (BP lying down 145/70, sitting 107/70, standing 88/52) Dysautonomia from Parkinson also a possiblity Patient has been counselled on getting up in stages from a lying position 2 d ECHO did not show ant structural heart abnormality #elevated wbc - CBC does reveal leukocytosis, but without clear source. Procalcitonin WNL, CXR without acute changes, BioFire negative; UA no clear identification of infection however does have a history of frequent UTIs, pending culture - defer abx at time of admission - Troponin WNL, EKG without ischemic changes and was normal sinus rhythm upon arrival; Echo pending - Mg 1.5, replaced in ED; TSH WNL - Continue midodrine - Orthostatic vitals pending - PT/OT consulted #Hypomagnesemia H/o the low magnesium, on mag oxide 400 mg outpatient. - Mg 1.5 admission, given magnesium sulfate 1 g IV in ED - BMP am #Hyperkalemia Asymptomatic currently. - K 5.4; No EKG changes; no AG - BMP am #DMT2 H/o DMT2, home regime, metformin, glargine 16U, lispro 7U TIDm; No longer on Farxiga given recurrent UTIs while on. - Most recent A1C 11/2024 @ 8.6% - Hold oral agents; SSI with target BSG range 110-140mg/dL, CF 35, carb ratio 10; basal 12u BID - BSG ACHS - Pharm glycemic management consult placed, appreciate assistance- adjust regimen as needed #Parkinson's - Carbidopa levodopa, primidone; follows with neurology #GERD- Famotidine, pantoprazole #HLD- Rosuvastatin Dispo: Admit, med/telemetry VTE prophylaxis: Patient needs rehab, auth pending Admission and Anticipated Discharge Date Admission Date: January 03, 2025 Subjective Patient seen and examined, no new complaints Review of Systems Review of Systems: All systems reviewed are negative, apart from the ones contained in the history. Physical Exam Physical Exam: The patient is awake, alert and oriented 3, well developed and well nourished, normocephalic and atraumatic, lying in bed and in no acute distress. HEENT--PERRL, EOMI, mucous membranes and oropharynx mildly dry Neck--supple. No JVD. No bruits. Thyroid normal, trachea midline, no adenopathy. Heart--normal S1 and S2. No murmurs, rubs or gallops. Lungs--clear bilaterally, no respiratory distress, no accessory muscle use. Abdomen--normal bowel sounds and soft. Extremities--no cyanosis or clubbing. No edema. Dermatologic--normal skin turgor, normal color, no abnormal lymph nodes, no rash. Neurologic--cranial nerves II through XII grossly intact. coarse tremors Rheumatologic--normal range of motion. Psychiatric--normal affect. Results & Data Results & Data Vital Signs (Past 12 Hours) Vital Signs Temp Pulse Pulse Resp BP Pulse Ox O2 Del Method 01/05/25 11:05 112 H 18 111/70 01/05/25 07:30 98.4 F 71 16 131/76 95 Room Air PG Care Time/CCT Total # of Minutes Spent Total Time Spent with Patient: Total time spent is greater than 50% in coordination of care (as documented) at patient's floor/unit and/or counseling patient: Coding Level of Care Code 71275 SUB INP/OBS CARE 2/35MIN Diagnoses Syncope and collapse R55 Hypomagnesemia E83.42 Serum potassium elevated E87.5 Time Spent (min) 35
[2025-01-06 08:01] LABS: Hematocrit (blood only) 37.1 % (42.0-52.0); Hemoglobin 12.4 g/dl (14.0-18.0); Mean Corpuscular Hemoglobin 31.9 pg (25.0-34.0); Mean Corpuscular Hgb Conc 33.4 g/dL (32.0-36.0); Mean Corpuscular Volume 95.4 fL (80.0-100.0); Mean Platelet Volume 11.4 fL (9.4-12.4); Platelet Count 149 K/uL (130-400); RDW Coefficient of Variation 12.3 % (11.5-14.5); RDW Standard Deviation 43.1 fL (36.4-46.3); Red Blood Count 3.89 M/uL (4.70-6.10); White Blood Count 7.09 K/ul (4.8-10.8)
[2025-01-06 08:18] LABS: Anion Gap 4 (3-11); Blood Urea Nitrogen 22 mg/dl (6-23); Calcium 9.1 mg/dl (8.6-10.3); Carbon Dioxide 30 mmol/L (21-32); Chloride 103 mmol/L (98-107); Creatinine Clr Calc Pharmacy 72.9 ml/min; Glucose 159 mg/dl (70-99(Fasting)); Sodium 137 mmol/L (136-145)
--- NOTE | 2025-01-06 11:51 | Hospitalist Progress Note ---
Date of Service January 06, 2025 Assessment & Plan (1) Syncope and collapse: Plan: Possible Neurogenic orthostatic hypotension d/t Parkinson's Disease 2 d ECHO did not show ant structural heart abnormality patient has been counselled on getting up in stages from a lying positio Plan Patient to be placed in rehab, authorization pending Admission and Anticipated Discharge Date Admission Date: January 03, 2025 Subjective No events overnight. Pt resting comfortably in bed. Review of Systems Review of Systems: CONST: Negative for fever, body aches and chills. HENT: Negative for neck pain/stiffness, headache, congestion, sore throat, swelling. EYES: Negative for discharge/pain or vision changes. RESP: Negative for cough/hemoptysis and shortness of breath. CV: Negative chest pain, difficulty breathing, palpitations. ABD: Negative pain, nausea, vomiting. : Negative increase frequency, dysuria, blood in urine or stool. MUSC: Negative for muscle aches, edema. SKIN: Negative rash, lesions/sores. NEURO: Negative headache, dizziness, weakness. Physical Exam Physical Exam: GENERAL APPEARANCE NAD, activity normal for age, well developed/ well nourished, no cyanosis, pallor, or diaphoresis. EYES lids/conjunctiva normal. EARS/NOSE/THROAT Mucous membranes moist, nares normal, lips/teeth normal uvula midline without oral pharyngeal erythema, exudate or swelling TMs normal bilaterally. No lymphangitis/lymphedema. HEAD/NECK normocephalic atraumatic, no facial trauma, neck is supple. RESPIRATORY respiratory effort normal, speaks in full sentences, no tripod position, no accessory muscle use. Lungs clear to auscultation without rhonchi, wheezes, rales CARDIAC Regular rate and rhythm, no edema. ABDOMINAL Soft, ND/NT. No evidence of fluid wave. No pulsatile masses on exam, rebound tenderness, Shell sign or pain over Mcburney's point. MUSCLES/EXTREMITIES No abnormal range of motion, no swelling. SKIN Warm, pink and dry. No rashes, dermatoses, petechiae or lesions. NEUROLOGICAL Speech is clear and appropriate. Normal level of consciousness. Gait and coordination are normal. 5/5 strength in all extremities. PSYCH Normal mood and affect. Judgement/competence is appropriate Results & Data Results & Data Vital Signs (Past 12 Hours) Vital Signs Temp Pulse Resp BP Pulse Ox O2 Del Method 01/06/25 07:47 36.6 C 69 16 117/66 94 Room Air PG Care Time/CCT Total # of Minutes Spent Total Time Spent with Patient: Total time spent is greater than 50% in coordination of care (as documented) at patient's floor/unit and/or counseling patient: Coding Level of Care Code 61279 SUB INP/OBS CARE 2/35MIN Diagnoses Syncope and collapse R55
[2025-01-06] MEDS: GLUCOSE 10 TAB/TUBE PO PRN (20:48)
[2025-01-07] MEDS: INSULIN ASPART PER UNIT CHARGE SC ONE (03:01)
[2025-01-07] MEDS: POLYETHYLENE (MIRALAX) 17 GM PACK PO PRN (08:37)
[2025-01-07] MEDS: INSULIN ASPART PER UNIT CHARGE SC SCH (09:02)
--- NOTE | 2025-01-07 10:47 | Hospitalist Progress Note ---
Date of Service January 07, 2025 Assessment & Plan (1) Syncope and collapse: Plan: Possible Neurogenic orthostatic hypotension d/t Parkinson's Disease 2 d ECHO did not show ant structural heart abnormality patient has been counselled on getting up in stages from a lying positio Plan Patient to be placed in rehab, authorization pending Admission and Anticipated Discharge Date Admission Date: January 03, 2025 Subjective No events overnight. Pt resting comfortably in bed. Review of Systems Review of Systems: CONST: Negative for fever, body aches and chills. HENT: Negative for neck pain/stiffness, headache, congestion, sore throat, swelling. EYES: Negative for discharge/pain or vision changes. RESP: Negative for cough/hemoptysis and shortness of breath. CV: Negative chest pain, difficulty breathing, palpitations. ABD: Negative pain, nausea, vomiting. : Negative increase frequency, dysuria, blood in urine or stool. MUSC: Negative for muscle aches, edema. SKIN: Negative rash, lesions/sores. NEURO: Negative headache, dizziness, weakness. Physical Exam Physical Exam: GENERAL APPEARANCE NAD, activity normal for age, well developed/ well nourished, no cyanosis, pallor, or diaphoresis. EYES lids/conjunctiva normal. EARS/NOSE/THROAT Mucous membranes moist, nares normal, lips/teeth normal uvula midline without oral pharyngeal erythema, exudate or swelling TMs normal bilaterally. No lymphangitis/lymphedema. HEAD/NECK normocephalic atraumatic, no facial trauma, neck is supple. RESPIRATORY respiratory effort normal, speaks in full sentences, no tripod position, no accessory muscle use. Lungs clear to auscultation without rhonchi, wheezes, rales CARDIAC Regular rate and rhythm, no edema. ABDOMINAL Soft, ND/NT. No evidence of fluid wave. No pulsatile masses on exam, rebound tenderness, Shell sign or pain over Mcburney's point. MUSCLES/EXTREMITIES No abnormal range of motion, no swelling. SKIN Warm, pink and dry. No rashes, dermatoses, petechiae or lesions. NEUROLOGICAL Speech is clear and appropriate. Normal level of consciousness. Gait and coordination are normal. 5/5 strength in all extremities. PSYCH Normal mood and affect. Judgement/competence is appropriate Results & Data Results & Data Vital Signs (Past 12 Hours) Vital Signs Temp Pulse Resp BP Pulse Ox O2 Del Method 01/07/25 07:47 36.4 C L 70 16 126/74 94 Room Air PG Care Time/CCT Total # of Minutes Spent Total Time Spent with Patient: Total time spent is greater than 50% in coordination of care (as documented) at patient's floor/unit and/or counseling patient: Coding Level of Care Code 21734 SUB INP/OBS CARE 2/35MIN Diagnoses Syncope and collapse R55
--- NOTE | 2025-01-07 12:36 | Pharmacy Report ---
Pharmacy Glycemic Short Note 2 - Date of Service January 07, 2025 - Glycemic Short BSG Results (Last 24 hours): 01/06/25 01/06/25 01/06/25 16:21 17:34 20:32 POC Glucose 109 H 89 58 L* 01/06/25 01/06/25 01/06/25 20:36 20:59 21:11 POC Glucose 63 L* 69 L* 78 01/07/25 01/07/25 01/07/25 02:52 07:13 11:15 POC Glucose 136 H 178 H 220 H OUTPATIENT ANTIDIABETIC REGIMEN: * Lantus 16 units SQ QAM * Humalog 7 units SQ TID * metformin 1000mg BID * Farxiga 5mg daily (held) * HbA1c 8.6% (11/27/24) ASSESSMENT: 01/07: * Patient received total of 45 units of insulin yesterday, of which 20 units we re basal insulin * BSGs trending down yesterday at HS time, hypoglycemic - novolog parameters loosened last evening * Fasting BSG 178 mg/dL - will continue current basal and parameters for today 01/05: * Ugo received 42 units of insulin yesterday, 16 of which were basal. BSGs were: 293-508-019-127 mg/dL. * Fasting BSG was 150 mg/dL this AM. Will increase basal dose by ~20% today. * Carb ratio was tightened at lunchtime yesterday. Will continue with these parameters today. If lunchtime BSG continues to be the isolated high BSG, may consider tightening CF and CR with breakfast only tomorrow. 01/03: * Ugo is a 69 YOM admitted with syncope and a history of T2DM. Pharmacy has been consulted to assist with glycemic management while in patient. * Fasting BSG this AM acceptable, received 7 units of correctional insulin overnight, will give home basal dose in AM and add as scale at bedtime if BSGs significantly elevated. * NovoLog initiated at a weight based stress of 2, tightened carbohydrate ratio as BSG at lunchtime elevated. No glycemic stressors noted at this time. PLAN FOR INPATIENT GLYCEMIC CONTROL: * Hold outpatient oral diabetes medications * Basal insulin * Lantus 20 units SC AM * Bolus insulin * NovoLog per scale ACHS or Q6hrs while NPO * Goal Range: Low 110 mg/dL - High 140 mg/dL * Correction Factor: 30 mg/dL/unit * Nutritional / Prandial insulin per carb ratio of 1 unit per 7 grams CHO consumed
--- NOTE | 2025-01-08 10:45 | Discharge Summary ---
Discharge Summary Date of Service January 08, 2025 Principal Dx & Hospital Course #1 = Principal Diagnosis (1) Syncope and collapse: Possible Neurogenic orthostatic hypotension d/t Parkinson's Disease 2 d ECHO did not show ant structural heart abnormality patient has been counselled on getting up in stages from a lying positio Plan Patient to be placed in rehab, authorization pending Admission HPI Per Admitting Provider 69 years old male with PMH of FULL CODE @ home, overweight with BMI 27.0 (height 182.9 cm; weight 90.4 kg), Parkinson's disease, T2DM, PAD, GERD, and RLS, who presented to [facility] ER on 01/02/2025 after suffering from 1 episode of urinary incontinence and fecal incontinence while sitting on the toilet, and then standing up and losing consciousness on 01/02/2025. Patient's family helps to provide history. Patient recalls that he was in the bathroom, stood up and turned around after urinating to walk out of the bathroom, and then remembers falling down. The family states that they heard a commotion in the bathroom, came in and found the patient between the toilet and the wall and states that he was having abnormal facial twitching at his lip for approximately 1 minute and he then came to, and was back to his normal self. Episode of vomiting following this episode, of digested contents from dinner the night before. Patient was on the ground for approximately 20 minutes until EMS came as the patient's did not want to move him in the instance that he had injured something. Patient states that he did not have dizziness, lightheadedness, chest pain, or shortness of breath prior to the episode. No complaints of weakness. Patient states he had a similar episode happen approximately 1 year ago in June 2024, with no clear reasoning behind the fall. Does take midodrine for baseline hypotension, he took his morning dose but then did not receive his additional doses throughout the day. Patient was recently diagnosed and treated for UTI 1 month ago, and states that he does often get UTIs. Questionable source of his leukocytosis at this time, however patient states that he is not having LUTS to include hematuria, dysuria, abdominal pain, or incontinence. He does occasionally have urgency, but this has not been exacerbated within the past week. No chest pain, shortness of breath, palpitations, cough, abdominal pain, diarrhea/constipation, fever/chills, or numbness/tingling. Patient takes his medications as prescribed, but did not receive medications from noon on. ED evaluation reveals leukocytosis 15.94, neutrophils 14.34, CMP with K 5.4, BUN/creatinine ratio 22.9, initial lactate 2.5 and then 1.8 after 500 mL of NSS, Mg 1.5, CK 49, troponin 9.7, lipase 22, procalcitonin 0.32, TSH 0.873, UA without evidence of infection, and negative [employer]. CXR no acute findings; CT head, spine stable cervical degenerative changes and cerebral atrophy, no acute findings; cervical spine CT degenerative changes of the lumbar spine, marked atherosclerotic calcification of the aorta and branches including inferior mesenteric artery. EKG NSR, LAD, and rate 91 bpm otherwise WNL without ischemic changes. Provided with 500 NSS, magnesium sulfate 1 g, and acetaminophen 1 g IV in ED. Please see Dr. Rockwell's attestation for adjustments/additions to treatment plan. Discharge Exam GENERAL APPEARANCE NAD, activity normal for age, well developed/ well nourished, no cyanosis, pallor, or diaphoresis. EYES lids/conjunctiva normal. EARS/NOSE/THROAT Mucous membranes moist, nares normal, lips/teeth normal uvula midline without oral pharyngeal erythema, ex udate or swelling TMs normal bilaterally. No lymphangitis/lymphedema. HEAD/NECK normocephalic atraumatic, no facial trauma, neck is supple. RESPIRATORY respiratory effort normal, speaks in full sentences, no tripod position, no accessory muscle use. Lungs clear to auscultation without rhonchi, wheezes, rales CARDIAC Regular rate and rhythm, no edema. ABDOMINAL Soft, ND/NT. No evidence of fluid wave. No pulsatile masses on exam, rebound tenderness, Shell sign or pain over Mcburney's point. MUSCLES/EXTREMITIES No abnormal range of motion, no swelling. SKIN Warm, pink and dry. No rashes, dermatoses, petechiae or lesions. NEUROLOGICAL Speech is clear and appropriate. Normal level of consciousness. Gait and coordination are normal. 5/5 strength in all extremities. PSYCH Normal mood and affect. Judgement/competence is appropriate Discharge Plan Discharge Items Patient Disposition: Transfer Inpatient Rehab Fac Reason For Visit: SYNCOPE Discharge Diagnosis: Micturitional syncope and defecation syncope Activity: Resume your previous activity Lifting: No more than 5 pounds Bathing: No limitations Exercise/Sports: None Weightbearing: Full weightbearing Non-emergency contact: Primary Care Provider Call non-emergency contact if: you have any medication questions Follow-up/Referrals: Mila Martinez CRNP [Primary Care Provider] - 01/11/25 2:00 pm Diet: Carb Consistent or DM2, Heart Healthy, Low Fat and Low Sodium (2gm) Addtl Attending Provider Instructions: See your PCP BECKY Duque, within 7 days of hospital discharge. Pending Studies at Discharge: No Stand-Alone Forms: My [employer], Smoking Cessation Skilled Items Patient informed of condition?: Yes DNR: No Discharge Level of Care: Acute rehab Communicable Disease: No Discharge Prognosis: Stable Lines: None Urinary Catheter: No Medications and DC Order Prescriptions: Continued insulin glargine [Basaglar KwikPen U-100 Insulin] 100 unit/mL (3 mL) insulin pen See Rx Instructions SUBCUT QAM Qty: 15 3RF Rx Instructions: Inject up to 16 units subcutaneously daily in the morning; (DME) pen needle, diabetic, safety 30 gauge x 3/16" needle See Rx Instructions .Route Qty: 200 11RF Rx Instructions: Use 4 per day to inject insulin duloxetine 60 mg capsule,delayed release(DR/EC) 60 mg PO QAM 30 Days Qty: 30 3RF midodrine 5 mg tablet 5 mg PO TID Qty: 270 3RF Rx Instructions: do not give last dose of day after 6PM or within 4 hrs of bedtime carbidopa-levodopa [Sinemet] 25-100 mg tablet 2 tab PO QID 10 Days Qty: 80 0RF Lyumjev KwikPen U-100 Insulin 100 unit/mL insulin pen 7 unit subcut TID Qty: 15 2RF primidone 50 mg tablet 25 mg PO BID Qty: 60 5RF (DME) FreeStyle Jim 3 Sensor Device See Rx Instructions .Route Rx Instructions: As directed aspirin 81 mg Tablet,Delayed Release (Dr/Ec) 81 mg PO QAM magnesium oxide 400 mg magnesium capsule 400 mg PO QAM Patient Comments: NOT CURRENTLY TAKING famotidine 20 mg tablet 20 mg PO QAM Held metformin 500 mg tablet 1,000 mg PO BID Qty: 360 3RF Hold Instructions: Resume on 01/11/25. Hold off metformin 1000mg PO bid until you see your PCP. Rx Instructions: Automatic refills pantoprazole 20 mg tablet,delayed release (DR/EC) 20 mg PO QAM Hold Instructions: Resume on 01/11/25. Hold off pantoprazole 20mg PO daily until you see your PCP. Rx Instructions: TAKE 1 TABLET DAILY IN THE EVENING rosuvastatin 40 mg tablet 40 mg PO QPM Hold Instructions: Resume on 01/11/25. Hold off rosuvastatin 40mg PO qpm until you see your PCP. dapagliflozin propanediol [Farxiga] 5 mg tablet 0 mg PO DAILY Hold Instructions: Resume on 01/11/25. Hold off dapagliflozin 5mg PO daily until you see your PCP. Rx Instructions: 5MG DAILY ON HOLD 01/02/25 Discontinued ascorbate calcium (vitamin C) 500 mg tablet 500 mg PO QAM ondansetron 4 mg tablet,disintegrating 4 mg PO Q8H PRN (Reason: nausea and vomiting) Qty: 180 0RF cyanocobalamin (vitamin B-12) [Vitamin B-12] 1,000 mcg Tablet 1,000 mcg PO QAM cholecalciferol (vitamin D3) [Vitamin D3] 5,000 unit Tablet 5,000 unit PO QAM Discharge Orders: Discharge Order (Routine); Ordered 01/08/25 Ordered By: Kenneth Sanz/Other Patient Handouts: Managing Type 2 Diabetes Admission Data Admit Date/Time: 01/03/25 12:24 Attending Provider: Kenneth Das Admit Provider: Thomas Rockwell Primary Care Provider: Mial Martinez Other Providers: Thomas Rockwell; [facility]; [facility] [address] Stay Data Consultations 01/02/25 20:06 ED Decision to Admit Stat Diagnostic Imagining Performed 01/02/25 16:40 CT cervical spine wo con Stat CT head/brain wo con Stat CT lumbar spine wo con Stat 01/03/25 12:23 MR hip LT wo con Routine Pending Results Patient Have Any Pending Studies at Discharge: No Discharge Instructions Given to Patient (Per Discharging Provider) See your PCP BECKY Menendez, within 7 days of hospital discharge. Total Time Total Time Spent Total Time Spent (In Minutes): 50 Coding Level of Care Code 72495 INP/OBS DISCH >30 MIN Diagnoses Syncope and collapse R55
[2025-01-08 19:47] VITALS: RESP 16; TEMP 97.7
[2025-01-09 07:24] VITALS: BP 146/83; PULSE 73; O2SAT 94
--- NOTE | 2025-01-09 09:48 | Hospitalist Progress Note ---
Date of Service January 09, 2025 Assessment & Plan (1) Syncope and collapse: Plan: Possible Neurogenic orthostatic hypotension d/t Parkinson's Disease 2 d ECHO did not show ant structural heart abnormality patient has been counselled on getting up in stages from a lying positio Plan Patient to be placed in rehab, leaving for [place] with today. Admission and Anticipated Discharge Date Admission Date: January 03, 2025 Subjective No events overnight. Pt resting comfortably in bed. Review of Systems Review of Systems: CONST: Negative for fever, body aches and chills. HENT: Negative for neck pain/stiffness, headache, congestion, sore throat, swelling. EYES: Negative for discharge/pain or vision changes. RESP: Negative for cough/hemoptysis and shortness of breath. CV: Negative chest pain, difficulty breathing, palpitations. ABD: Negative pain, nausea, vomiting. : Negative increase frequency, dysuria, blood in urine or stool. MUSC: Negative for muscle aches, edema. SKIN: Negative rash, lesions/sores. NEURO: Negative headache, dizziness, weakness. Physical Exam Physical Exam: GENERAL APPEARANCE NAD, activity normal for age, well developed/ well nourished, no cyanosis, pallor, or diaphoresis. EYES lids/conjunctiva normal. EARS/NOSE/THROAT Mucous membranes moist, nares normal, lips/teeth normal uvula midline without oral pharyngeal erythema, exudate or swelling TMs normal bilaterally. No lymphangitis/lymphedema. HEAD/NECK normocephalic atraumatic, no facial trauma, neck is supple. RESPIRATORY respiratory effort normal, speaks in full sentences, no tripod position, no accessory muscle use. Lungs clear to auscultation without rhonchi, wheezes, rales CARDIAC Regular rate and rhythm, no edema. ABDOMINAL Soft, ND/NT. No evidence of fluid wave. No pulsatile masses on exam, rebound tenderness, Shell sign or pain over Mcburney's point. MUSCLES/EXTREMITIES No abnormal range of motion, no swelling. SKIN Warm, pink and dry. No rashes, dermatoses, petechiae or lesions. NEUROLOGICAL Speech is clear and appropriate. Normal level of consciousness. Gait and coordination are normal. 5/5 strength in all extremities. PSYCH Normal mood and affect. Judgement/competence is appropriate Results & Data Results & Data Vital Signs (Past 12 Hours) Vital Signs Temp Pulse Resp BP Pulse Ox O2 Del Method 02/15/25 07:22 36.5 C 73 16 146/83 H 94 Room Air PG Care Time/CCT Total # of Minutes Spent Total Time Spent with Patient: Total time spent is greater than 50% in coordination of care (as documented) at patient's floor/unit and/or counseling patient: Coding Level of Care Code 71004 SUB INP/OBS CARE 2/35MIN Diagnoses Syncope and collapse R55
== END 2025-01-09 10:35 | DRG 57 ==
LOC: ED 15:06 → 2N 15:06 → SUATTDRO 21:08 → 2N 22:59 → SUATTDRO 01-03 12:24 → 3N 01-05 20:49

== ENCOUNTER 2025-05-03 16:12 | Observation (INO) ==
--- NOTE | 2025-05-03 16:53 | Emergency Department Note ---
ED Provider Note History of Present Illness Chief Complaint: Fall Stated Complaint: FELL AND HURT RIGHT ANKLE Time Seen by Provider: 05/03/25 16:34 69-year-old male, history of diabetic peripheral neuropathy and Parkinson's disease, who presents to the emergency department for evaluation of an injury to his right ankle. The patient reports that he was trying to walk from his living room into his kitchen. He reports that his foot was asleep. When he tried to walk, his leg collapsed, and he fell onto the leg. The patient complains of pain over the ankle region. He denies any pain of the leg, knee, hip or back. He denies head injury. The patient rates his discomfort an 8 out of 10. Home Medications Medication Instructions Recorded Confirmed Type aspirin 81 mg tablet,delayed 81 mg PO QAM 12/24/18 05/03/25 History release blood-glucose sensor (FreeStyle 06/29/24 01/26/25 History Jim 3 Sensor device) famotidine 20 mg tablet 20 mg PO QAM 07/26/24 05/03/25 History midodrine 5 mg tablet 5 mg PO TID #270 tabs 08/17/24 05/03/25 Rx primidone 50 mg tablet 25 mg (1/2 x 50 mg) PO BID #60 tabs 10/09/24 05/03/25 Rx metformin 500 mg tablet 1,000 mg (2 x 500 mg) PO BID #360 11/17/24 05/03/25 Rx tabs pantoprazole 20 mg tablet,delayed 20 mg PO QAM 01/02/25 05/03/25 History release magnesium oxide 400 mg PO BID #1 cap 01/18/25 05/03/25 Rx pen needle,diabetic dual safty 30 #400 ea 01/18/25 01/26/25 Rx gauge x 3/16" TRANSFER BENCH FOR SHOWER #1 ea 01/20/25 01/26/25 Rx ascorbate calcium (vitamin C) 500 500 mg PO DAILY #30 tabs 02/02/25 05/03/25 Rx mg tablet cholecalciferol (vitamin D3) 125 125 mcg PO DAILY #30 caps 02/02/25 05/03/25 Rx mcg (5,000 unit) capsule mecobalamin (vitamin B12) 1,000 1,000 mcg PO DAILY #30 tabs 02/02/25 05/03/25 Rx mcg chewable tablet rosuvastatin 40 mg tablet 40 mg PO QPM #90 tabs 03/03/25 05/03/25 Rx duloxetine 60 mg capsule,delayed 60 mg PO QAM 30 days #30 caps 03/29/25 05/03/25 Rx release carbidopa 25 mg-levodopa 100 mg 2 tab PO QID 90 days #720 tabs 05/03/25 05/03/25 Rx tablet (Sinemet) insulin glargine 100 unit/mL (3 15 unit subcut QAM 05/03/25 05/03/25 History mL) subcutaneous pen (Basaglar KwikPen U-100 Insulin) insulin lispro-aabc 100 unit/mL 7 unit subcut TIDM 05/03/25 05/03/25 History subcutaneous pen (Lyumjev KwikPen U-100 Insulin) Allergies Allergy/AdvReac Type Severity Reaction Status Date / Time metoclopramide AdvReac Intermediate Tremor Verified 05/03/25 19:18 oxycodone AdvReac Mild Nausea Verified 05/03/25 19:18 sulfamethoxazole AdvReac Mild Nausea Verified 05/03/25 19:18 trimethoprim AdvReac Mild Nausea Verified 05/03/25 19:18 Past Med/Surg History Problem List Fracture of ankle, trimalleolar, right, closed (Acute) Fracture dislocation of right ankle (Acute) Bimalleolar fracture of right ankle Peripheral arterial disease (Chronic) GERD (gastroesophageal reflux disease) controlled, stable per pt Diabetic foot ulcer (Acute) Diabetic peripheral neuropathy Parkinson disease Gastroparesis Diabetes (Chronic) Peripheral arterial occlusive disease (Acute) Microalbuminuria (Acute) Lymphocytic gastritis (Acute) Diabetic nephropathy associated with type 2 diabetes mellitus Weight gain Diabetic ulcer of left foot associated with type 2 diabetes mellitus, limited to breakdown of skin (Acute) Ringworm Vitamin D deficiency Mixed action and resting tremor Neuropathy RLS (restless legs syndrome) Status post reverse total replacement of left shoulder (~04/2022) Medical History Hypomagnesemia Elevated lactic acid level Fall Syncope and collapse Generalized weakness Controlled type 2 diabetes mellitus with diabetic neuropathy, with long-term current use of insulin Poor circulation IN THE FEET Orthostatic dizziness Peripheral neuropathy History of anemia Hypertension HX BLOOD PRESSURE MED AND BP WAS DROPPING, GETTING DIZZY AND SINCE D/C'D Hyperlipidemia Restless leg syndrome Hiatal hernia Hypercholesterolemia Diabetes mellitus, type 2 IDDM/FREE STYLE SENSOR Parkinsonism Hand tremors, follows with Dr. Wilhelm Surgical History H/O elbow surgery L olecranon ORIF: 05/25/21: LMA#5. History of tooth extraction History of cataract surgery R/L History of amputation of lesser toe of left foot History of bunionectomy Status post arterial stent LLE History of esophagogastroduodenoscopy (EGD) History of colonoscopy History of tonsillectomy Family History Family/Other No pertinent family history Brother Family history of diabetes mellitus Other No family history of adverse response to anesthesia Denies family history of Ovarian cancer Prostate cancer Myocardial infarction Breast cancer Colorectal cancer Social History Smoking Status: Never smoker Second Hand Exposure: No; Do You Dip or Chew Tobacco: No; Hx Alcohol Use: No Hx Substance Use: No Preferred Language: Mohawk Communication Ability: Effective Communication Ability Comment: JARAD BURGERLIS HELPS WITH READING/PT HAS TROUBLE COMPREHENDING MEDICAL INFO Visual Impairment: Limited Hearing Ability: Hard of Hearing Parts Identifier Required: No Beliefs That Will Affect Care: None marital status: Life Partner Current Living Situation: Spouse Current Living Situation Comment: live with girlfriend current occupational status: retired current occupation: retired working at [employer] How many Children do You have: 3 other: GIRLFRIEND ABLE TO ASSIST WITH CARE NEEDED Feels Safe at Home: Yes Childhood Exposure to Second-Hand Smoke: Yes Diet: regular caffeine: Yes during the past year weight has: remained stable Dental Care, Regularly: No Physical Activity Frequency: Does not Exercise Seatbelt Use: never Sunscreen Use: No Do you think of yourself as: straight/heterosexual Gender Identity: Male Assistive Devices: Cane and Scooter/Electric Scooter Physical Exam Vital Signs Vital Signs - 24 hr 05/03/25 16:13 05/03/25 18:41 05/03/25 18:45 Temperature 36 C L Temperature Source Temporal Artery Scan Pulse Rate 89 85 86 Pulse Rate from SpO2 Sensor Respiratory Rate 18 20 Respiratory Effort / Characteristics Non-Labored Respiratory Depth Normal Respiratory Pattern Regular Blood Pressure 131/69 Blood Pressure [Left Arm] 127/79 Blood Pressure Mean 89 Pulse Oximetry 99 99 Oxygen Delivery Method Room Air Nasal Cannula Oxygen Flow Rate 2 Sepsis Recent Fever Within 48 Hours No Sepsis New/Unexplained Change in Mental Status N/A Sepsis Action Taken by Nursing No Action Required End-Tidal CO2 End Tidal CO2 (18-54mmHg) 44 05/03/25 18:50 05/03/25 18:53 05/03/25 18:55 Temperature Temperature Source Pulse Rate 88 87 Pulse Rate from SpO2 Sensor Respiratory Rate 20 20 Respiratory Effort / Characteristics Respiratory Depth Respiratory Pattern Blood Pressure Blood Pressure [Left Arm] 144/78 H 141/80 H Blood Pressure Mean Pulse Oximetry 99 100 Oxygen Delivery Method Nasal Cannula Nasal Cannula Nasal Cannula Oxygen Flow Rate 2 2 2 Sepsis Recent Fever Within 48 Hours Sepsis New/Unexplained Change in Mental Status Sepsis Action Taken by Nursing End-Tidal CO2 End Tidal CO2 (18-54mmHg) 43 45 05/03/25 19:00 05/03/25 19:00 05/03/25 19:05 Temperature Temperature Source Pulse Rate 84 85 Pulse Rate from SpO2 Sensor Respiratory Rate 20 20 Respiratory Effort / Characteristics Respiratory Depth Respiratory Pattern Blood Pressure 153/78 H Blood Pressure [Left Arm] 153/78 H 150/81 H Blood Pressure Mean 125 Pulse Oximetry 100 100 Oxygen Delivery Method Nasal Cannula Nasal Cannula Oxygen Flow Rate 2 2 Sepsis Recent Fever Within 48 Hours Sepsis New/Unexplained Change in Mental Status Sepsis Action Taken by Nursing End-Tidal CO2 End Tidal CO2 (18-54mmHg) 43 43 05/03/25 19:05 05/03/25 19:05 05/03/25 19:05 Temperature Temperature Source Pulse Rate Pulse Rate from SpO2 Sensor Respiratory Rate Respiratory Effort / Characteristics Respiratory Depth Respiratory Pattern Blood Pressure 150/81 H 150/81 H 150/81 H Blood Pressure [Left Arm] Blood Pressure Mean 123 123 123 Pulse Oximetry Oxygen Delivery Method Oxygen Flow Rate Sepsis Recent Fever Within 48 Hours Sepsis New/Unexplained Change in Mental Status Sepsis Action Taken by Nursing End-Tidal CO2 End Tidal CO2 (18-54mmHg) 05/03/25 19:06 05/03/25 19:09 05/03/25 19:10 Temperature Temperature Source Pulse Rate 84 86 85 Pulse Rate from SpO2 Sensor 85 86 Respiratory Rate 18 20 20 Respiratory Effort / Characteristics Respiratory Depth Respiratory Pattern Blood Pressure Blood Pressure [Left Arm] 155/80 H Blood Pressure Mean Pulse Oximetry 100 99 100 Oxygen Delivery Method Nasal Cannula Oxygen Flow Rate 2 Sepsis Recent Fever Within 48 Hours Sepsis New/Unexplained Change in Mental Status Sepsis Action Taken by Nursing End-Tidal CO2 44 42 End Tidal CO2 (18-54mmHg) 42 05/03/25 19:10 05/03/25 19:10 05/03/25 19:12 Temperature Temperature Source Pulse Rate 83 Pulse Rate from SpO2 Sensor 83 Respiratory Rate 19 Respiratory Effort / Characteristics Respiratory Depth Respiratory Pattern Blood Pressure 155/80 H 155/80 H Blood Pressure [Left Arm] Blood Pressure Mean 116 116 Pulse Oximetry 100 Oxygen Delivery Method Oxygen Flow Rate Sepsis Recent Fever Within 48 Hours Sepsis New/Unexplained Change in Mental Status Sepsis Action Taken by Nursing End-Tidal CO2 41 End Tidal CO2 (18-54mmHg) 05/03/25 19:15 05/03/25 19:15 05/03/25 19:18 Temperature Temperature Source Pulse Rate 83 Pulse Rate from SpO2 Sensor Respiratory Rate 20 Respiratory Effort / Characteristics Respiratory Depth Respiratory Pattern Blood Pressure 157/86 H 143/74 H Blood Pressure [Left Arm] 157/86 H Blood Pressure Mean 130 101 Pulse Oximetry 100 Oxygen Delivery Method Nasal Cannula Oxygen Flow Rate 2 Sepsis Recent Fever Within 48 Hours Sepsis New/Unexplained Change in Mental Status Sepsis Action Taken by Nursing End-Tidal CO2 End Tidal CO2 (18-54mmHg) 42 05/03/25 19:30 05/03/25 19:30 05/03/25 19:30 Temperature Temperature Source Pulse Rate Pulse Rate from SpO2 Sensor Respiratory Rate Respiratory Effort / Characteristics Respiratory Depth Respiratory Pattern Blood Pressure 159/81 H 159/81 H 159/81 H Blood Pressure [Left Arm] Blood Pressure Mean 123 123 123 Pulse Oximetry Oxygen Delivery Method Oxygen Flow Rate Sepsis Recent Fever Within 48 Hours Sepsis New/Unexplained Change in Mental Status Sepsis Action Taken by Nursing End-Tidal CO2 End Tidal CO2 (18-54mmHg) 05/03/25 19:33 05/03/25 19:39 05/03/25 19:45 Temperature Temperature Source Pulse Rate 82 80 Pulse Rate from SpO2 Sensor 81 79 Respiratory Rate 15 15 Respiratory Effort / Characteristics Respiratory Depth Respiratory Pattern Blood Pressure 148/86 H Blood Pressure [Left Arm] Blood Pressure Mean 128 Pulse Oximetry 100 100 Oxygen Delivery Method Room Air Oxygen Flow Rate Sepsis Recent Fever Within 48 Hours Sepsis New/Unexplained Change in Mental Status Sepsis Action Taken by Nursing End-Tidal CO2 45 44 End Tidal CO2 (18-54mmHg) 05/03/25 19:45 05/03/25 20:00 05/03/25 20:03 Temperature Temperature Source Pulse Rate 77 Pulse Rate from SpO2 Sensor 78 Respiratory Rate 16 Respiratory Effort / Characteristics Respiratory Depth Respiratory Pattern Blood Pressure 148/86 H 162/83 H Blood Pressure [Left Arm] Blood Pressure Mean 128 115 Pulse Oximetry 98 Oxygen Delivery Method Oxygen Flow Rate Sepsis Recent Fever Within 48 Hours Sepsis New/Unexplained Change in Mental Status Sepsis Action Taken by Nursing End-Tidal CO2 End Tidal CO2 (18-54mmHg) CONSTITUTIONAL: Healthy and well nourished. Alert and oriented X 3. GCS 15. Patient appears in moderate discomfort. HEENT: Normocephalic, atraumatic. MUSCULOSKELETAL: Examination of the right ankle shows edema with skin blanching medially. No open wounds, obvious deformity or skin tenting. Pedal pulses are intact. No additional focal tenderness to palpation through the dorsal midfoot, calcaneus, Achilles tendon, leg or knee region. INTEGUMENTARY: No rash or other significant dermatologic conditions noted. HEMATOLOGIC: No ecchymosis or petechiae. PSYCHIATRIC: Positive affect. NEUROLOGIC: Right dorsal, medial and lateral foot are grossly sensory intact. Course Course Patient history and physical exam were performed. Nursing notes were reviewed. Vital signs were reviewed and were normal. The patient was administered Oxy IR for pain control. X-rays of the right ankle confirms at least a bimalleolar ankle fracture with dislocation. Findings were discussed with Dr. Mitchell, ED attending physician. I then discussed the case with Dr. Oliveira, orthopedic surgeon on-call, who reviewed the patient's history, and requested close reduction with conscious sedation to be performed by ED staff. He also has requested hospitalist admission, and he will discuss further treatment options with the patient tomorrow. The patient was in agreement with this plan. After sedation was administered by Dr. Mitchell, and I reduced the ankle, including assistance with posterior and stirrup Ortho- Glass splinting. Neurovascular checks were frequently performed while in the emergency department, and remained intact. Postreduction x-rays also shows adequate reduction. The case was then discussed with the [facility] hospitalist service, who agreed to admit the patient. Dr. Oliveira also requested that I order CT scan of the ankle, which was ordered. I did order additional preoperative labs, ECG and portable chest x-ray, all (except ECG that had not been completed at the time of this dictation) of which were reviewed without any concerning findings. Please see hospitalist and orthopedic dictations for further treatment and final disposition. Administered Medications Carbidopa/Levodopa (Carbidopa/Levodopa 25/100mg Tab) 2 tab PO QID JOESPH Stop: 06/02/25 21:46 Last Admin: 05/03/25 21:59 Dose: Not Given Documented By: MINERVA Morphine Sulfate (Morphine Sulfate 4 Mg/Ml 1 Ml Carp\\Vial) 4 mg IV Q3H PRN PRN Reason: Pain (6,7,8,9,10) Stop: 05/17/25 20:11 Last Admin: 05/03/25 21:18 Dose: 4 mg Documented By: DANIEL Primidone (Primidone 50 Mg Tab) 25 mg PO BID JOESPH Stop: 06/02/25 21:46 Last Admin: 05/03/25 21:59 Dose: Not Given Documented By: MINERVA Discontinued Medications Carbidopa/Levodopa (Carbidopa/Levodopa 25/100mg Tab) 2 tab PO NOW ONE Stop: 05/03/25 20:55 Last Admin: 05/03/25 21:18 Dose: 2 tab Documented By: DANIEL Fentanyl Citrate (Fentanyl Citrate Pf 100 Mcg/2 Ml Vial) 50 mcg IV NOW STA Stop: 05/03/25 18:31 Last Admin: 05/03/25 18:38 Dose: 50 mcg Documented By: YE Fentanyl Citrate (Fentanyl Citrate Pf 100 Mcg/2 Ml Vial) Confirm Administered Dose 100 mcg .ROUTE .STK-MED ONE Stop: 05/03/25 18:32 Last Admin: 05/03/25 19:39 Dose: Not Given Documented By: DANIEL Sodium Chloride (Nss) 1,000 mls @ 999 mls/hr IV .Q1H1M ONE Stop: 05/03/25 19:31 Last Infusion: 05/03/25 21:12 Dose: Infused Documented By: Admin: 05/03/25 18:39 Dose: 999 mls/hr Documented By: YE Midodrine (Midodrine Hcl 2.5 Mg Tab) 5 mg PO NOW ONE Stop: 05/03/25 20:54 Last Admin: 05/03/25 21:18 Dose: 5 mg Documented By: DANIEL Miscellaneous (Patient's Height &/Or Weight Needed) 1 each N/A Q30M JOESPH Stop: 06/02/25 20:14 Last Admin: 05/03/25 21:48 Dose: Not Given Documented By: Admin: 05/03/25 21:47 Dose: 1 each Documented By: Admin: 05/03/25 20:38 Dose: Not Given Documented By: MARYSE Ondansetron HCl (Ondansetron Inj 2 Mg/Ml 2 Ml Vial) 4 mg IV NOW STA Stop: 05/03/25 18:31 Last Admin: 05/03/25 18:38 Dose: 4 mg Documented By: YE Ondansetron HCl (Ondansetron Inj 2 Mg/Ml 2 Ml Vial) Confirm Administered Dose 4 mg .ROUTE .STK-MED ONE Stop: 05/03/25 18:33 Last Admin: 05/03/25 19:39 Dose: Not Given Documented By: DANIEL Oxycodone HCl (Oxycodone Hcl Ir 5 Mg Tab (Immediate Release)) 5 mg PO NOW STA Stop: 05/03/25 16:49 Last Admin: 05/03/25 16:54 Dose: Not Given Documented By: ANDI Primidone (Primidone 50 Mg Tab) 50 mg PO HS ONE Stop: 05/03/25 20:54 Last Admin: 05/03/25 21:18 Dose: 50 mg Documented By: DANIEL Propofol (Propofol Iv Emulsion 10 Mg/Ml 20 Ml Vial) Confirm Administered Dose 200 mg IV .STK-MED ONE Stop: 05/03/25 18:31 Last Admin: 05/03/25 19:39 Dose: Not Given Documented By: DANIEL Propofol (Propofol Iv Emulsion 10 Mg/Ml 20 Ml Vial) 100 mg IV NOW STA Stop: 05/03/25 18:31 Last Admin: 05/03/25 18:43 Dose: 50 mg Documented By: YE Co-signed By: ANDI Medical Decision Making Medical Records Attestation: I reviewed the patient's medical records. Home Medications was personally reviewed by Laboratory Data Attestation: I reviewed the patient's lab results. 05/03/25 18:32 05/03/25 18:32 Lab Results 05/03/25 Range/Units 18:32 WBC 9.49 (4.8-10.8) K/ul RBC 3.98 L (4.70-6.10) M/uL Hgb 12.8 L (14.0-18.0) g/dl Hct 38.6 L (42.0-52.0) % MCV 97.0 (80.0-100.0) fL MCH 32.2 (25.0-34.0) pg MCHC 33.2 (32.0-36.0) g/dL RDW Std Deviation 43.8 (36.4-46.3) fL RDW Coeff of Margarito 12.2 (11.5-14.5) % Plt Count 160 (130-400) K/uL MPV 11.3 (9.4-12.4) fL Immature Gran % (Auto) 0.2 % Neut % (Auto) 74.6 % Lymph % (Auto) 17.5 % [place] % (Auto) 6.3 % Eos % (Auto) 0.8 % Baso % (Auto) 0.6 % Neut # (Auto) 7.07 H (1.40-6.50) K/uL Lymph # (Auto) 1.66 (1.20-3.40) K/uL [place] # (Auto) 0.60 H (0.11-0.59) K/uL Eos # (Auto) 0.08 (0.00-0.50) K/uL Baso # (Auto) 0.06 (0.00-0.20) K/uL Immature Gran # (Auto) 0.02 (0.01-0.20) K/uL Sodium 138 (136-145) mmol/L Potassium 5.3 H (3.5-5.1) mmol/L Chloride 104 (98-107) mmol/L Carbon Dioxide 28 (21-32) mmol/L Anion Gap 6 (3-11) BUN 20 (6-23) mg/dl Creatinine 0.96 (0.6-1.4) mg/dl Est Cr Clr Drug Dosing Not Reportable eGFR 85.56 BUN/Creatinine Ratio 20.8 H (10-20) Glucose 226 H (70-99(Fasting)) mg/dl Calcium 9.7 (8.6-10.3) mg/dl Total Creatine Kinase 105 (30-223) U/L Imaging Data Attestation: I personally reviewed and interpreted this imaging study as follows: My Impression: My interpretation of right ankle x-rays shows a bimalleolar ankle fracture dislocation. My interpretation of a postreduction x-ray shows adequate reduction. My interpretation of reportable chest x-ray does not show cardiomegaly, pneumonia or other concerning intrathoracic findings. My interpretation of a noncontrast CT of the ankle (postreduction) shows evidence for a trimalleolar fracture. Radiologist reports were also reviewed with concurrence. Radiologist's Impression: Ankle X-Ray 05/03/25 16:48 Study: Right ankle 3 views History: Trauma Comparison: 11/28/2021 Findings/impression: Fracture dislocation injury, with both medial and lateral malleoli are fractures seen. There is eversion of the foot noted. The distal portion of the fibula appears significantly dislocated laterally. Possible slight defect of the posterior malleolus on the lateral view as well. The talar dome appears grossly intact. Electronically signed by Cameron Nicole 05-03-2025 6:26 PM Chest X-Ray 05/03/25 18:24 Chest radiograph, one view History: Pre-op Comparison: 01/02/2025 Findings: Single AP view of the chest performed. No focal consolidation or pleural effusion. Unchanged small area of atelectasis at the lingula. No pneumothorax. The cardiomediastinal silhouette is within normal limits. Normal pulmonary vascularity. No evidence for lymphadenopathy. No visualized bony or soft tissue abnormality. Left shoulder arthroplasty. Impression: Normal chest radiograph Electronically signed by Cameron Nicole 05-03-2025 7:47 PM Ankle X-Ray 05/03/25 18:25 Study: Right ankle 3 views History: Fracture, post reduction Comparison: Same day Findings impression: Casting material has been placed. Improved alignment of the medial and lateral malleolus. The lateral malleolus remains laterally displaced. A small posterior malleolar fracture, is again not excluded. Electronically signed by Cameron Nicole 05-03-2025 7:44 PM Prescription Drug Monitoring [place] Drug Monitoring Program reviewed and no issues identified MDM Narrative Definitive Fracture Care: Left ankle trimalleolar fracture dislocation, closed, no neurovascular compromise. Plan: Ortho-Glass immobilization, and admission for further orthopedic consultation/management. Splint Care: After the Orthoglass splint was applied by the ED energy technician, I examined the splint and confirmed proper application/placement/position. Neurovascular status was intact both proximal and distal to the splinted area. See ED Course section for further details of today's visit. The patient presents with complaint of a mechanical fall, landing on his right leg. Initial x-rays confirms a bimalleolar ankle fracture dislocation. After discussing the case with orthopedics, it was recommended that the patient undergo close reduction under sedation, which was performed by Dr. Mitchell, ED attending physician. I did perform the reduction, and also assisted with Ortho-Glass splint placement as recommended by Dr. Oliveira. Patient does have an extensive orthopedic history, and will be reevaluated in the morning by Dr. Oliveira for possible surgical management, or referral to [facility]. I do not suspect any other concerning etiologies for the patient's fall, although he does suffer from frequent falls. Initial lab work and chest x-ray were normal. ECG had not been completed prior to this dictation, and transferred to the surgical floor. Impression Fracture dislocation of right ankle, Fracture of ankle, trimalleolar, right, closed Discharge Plan Visit Data Chief Complaint: Fall Stated Complaint: FELL AND HURT RIGHT ANKLE ED Provider: Ketan Mitchell ED Midlevel Provider: Amaury Avendaño Discharge Problem: Fracture dislocation of right ankle, Fracture of ankle, trimalleolar, right, closed Patient Disposition: Admitted As Inpatient Condition: Fair Discharge Instructions Interventions: ED Discharge Assessment Last Done: 05/03/25 21:11 ED DC CONDITION Conditon at Discharge Condition at Discharge: Fair Discharge Problem: Fracture dislocation of right ankle Qualifiers: Encounter type: initial encounter Fracture type: closed Qualified Code(s): S 82.891A - Other fracture of right lower leg, initial encounter for closed fracture Fracture of ankle, trimalleolar, right, closed Qualifiers: Encounter type: initial encounter Qualified Code(s): S82.851A - Displaced trimalleolar fracture of right lower leg, initial encounter for closed fracture
[2025-05-03] MEDS: oxyCODONE HCL IR 5 MG TAB (IMMEDIATE RELEASE) PO STA (16:54)
--- NOTE | 2025-05-03 18:27 | XRay Report ---
Study: Right ankle 3 views History: Trauma Comparison: 11/28/2021 Findings/impression: Fracture dislocation injury, with both medial and lateral malleoli are fractures seen. There is eversion of the foot noted. The distal portion of the fibula appears significantly dislocated laterally. Possible slight defect of the posterior malleolus on the lateral view as well. The talar dome appears grossly intact. Electronically signed by Cameron Nicole 05-03-2025 6:26 PM
[2025-05-03] MEDS: ONDANSETRON INJ 2 MG/ML 2 ML VIAL IV STA (18:38)
[2025-05-03] MEDS: fentaNYL citrate PF 100 MCG/2 ML VIAL IV STA (18:38)
[2025-05-03] MEDS: SODIUM CHLORIDE 0.9% 1,000 ML IV ONE (18:39)
[2025-05-03] MEDS: PROPOFOL IV EMULSION 10 MG/ML 20 ML VIAL IV STA (18:43)
[2025-05-03 18:45] LABS: Basophils # (auto) 0.06 K/uL (0.00-0.20); Basophils % (auto) 0.6 %; Eosinophils # (auto) 0.08 K/uL (0.00-0.50); Eosinophils % (auto) 0.8 %; Hematocrit (blood only) 38.6 % (42.0-52.0); Hemoglobin 12.8 g/dl (14.0-18.0); Immature Granulocytes # (auto) 0.02 K/uL (0.01-0.20); Immature Granulocytes % (auto) 0.2 %; Lymphocytes # (auto) 1.66 K/uL (1.20-3.40); Lymphocytes % (auto) 17.5 %; Mean Corpuscular Hemoglobin 32.2 pg (25.0-34.0); Mean Corpuscular Hgb Conc 33.2 g/dL (32.0-36.0); Mean Platelet Volume 11.3 fL (9.4-12.4); Monocytes % (auto) 6.3 %; Neutrophils # (auto) 7.07 K/uL (1.40-6.50); Neutrophils % (auto) 74.6 %; Platelet Count 160 K/uL (130-400); RDW Coefficient of Variation 12.2 % (11.5-14.5); RDW Standard Deviation 43.8 fL (36.4-46.3); Red Blood Count 3.98 M/uL (4.70-6.10); White Blood Count 9.49 K/ul (4.8-10.8)
[2025-05-03 19:02] LABS: Anion Gap 6 (3-11); BUN Creatinine Ratio 20.8 (10-20); Blood Urea Nitrogen 20 mg/dl (6-23); Calcium 9.7 mg/dl (8.6-10.3); Carbon Dioxide 28 mmol/L (21-32); Chloride 104 mmol/L (98-107); Glucose 226 mg/dl (70-99(Fasting)); Potassium 5.3 mmol/L (3.5-5.1); Sodium 138 mmol/L (136-145)
--- NOTE | 2025-05-03 19:07 | Emergency Department Note ---
ED Visit Note The patient was seen and examined with kateryna. I performed a substantive portion of all aspects of the medical decision making and agree with the hi story, physical and findings. Please see the note for disposition and details. 69-year-old male with Parkinson's with right ankle fracture. Fracture was reduced by Kateryna, see his procedure note. After procedure splint was applied. After splint application patient had capillary fill less than 2 seconds and sensation was intact. Sedation performed by me. Patient to be admitted to be evaluated by orthopedics. Procedural Sedation Indication: Closed reduction right ankle. Total time: 17 minutes. Written consent was obtained after the risks and benefits were explained to the patient and fianc, including, but not limited to aspiration, allergic reaction, breathing difficulties, cardiac complications, vomiting, pain, event recall, bleeding, and/or infection. Pre-sedation examination and paperwork completed. The patient was on 100% oxygen via NRB prior to the procedure. Continous end tidal CO2 monitoring, pulse oximetry, and cardiac monitoring were utilized. Suction, airway equipment, medications, respiratory equipment, and appropriate personnel were prepared prior to the initiation of the procedure. A time out was taken. Sedation was achieved utilizing 50 mg of propofol. After I observed the patient had reached the appropriate level of sedation the main procedure was performed without complication. Sedation was discontinued and the monitoring continued. The patient recovered quickly from the effects of the medication without complication or adverse event. .
--- NOTE | 2025-05-03 19:09 | Emergency Department Note ---
Post Sedation Assessment Vital Signs Temp Pulse Resp BP BP Pulse Ox O2 Del Method 05/03/25 18:53 Nasal Cannula 05/03/25 18:50 88 20 144/78 H 99 Nasal Cannula 05/03/25 18:45 86 20 127/79 99 Nasal Cannula 05/03/25 18:41 85 05/03/25 16:13 36 C L 89 18 131/69 99 Room Air O2 Flow Rate 05/03/25 18:53 2 05/03/25 18:50 2 05/03/25 18:45 2 05/03/25 18:41 05/03/25 16:13 Post Sedation Plan On clinical assessment, the patient appears to have tolerated the sedation without complications. Patient is recovering as anticipated. Patient will continue to be monitored by nursing and may be discharged when sedation discharge criteria are met per below protocol. Upon Completions of procedure up to 15 minutes continue every 5 minute vital signs and the P.A.R. score; then discharge to a Phase I or Fast Track to Phase II per the following guidelines: * Discharge Patient to appropriate Phase II area if PAR is 8 or greater or return to pre- procedure baseline. The post - procedure orders will be as directed. * If PAR score is less than 8 or not return to pre-procedure baseline then patient will follow Phase I monitoring till PAR is reached for Phase II. The Phase I may be done in procedure room or may call to secure a Phase I area. * If naloxone or flumazenil are used for reversal, hold in Phase I for continued monitoring from when last reversal dose was given for a minimum of 60 minutes or longer pending the nurse and/or physician discretion of patient condition before discharge to Phase II. Please call the Sedation Physician to re-evaluate and complete post-note for discharge to Phase II area. Do NOT discharge from procedure sedation or Phase 1 until post- sedation evaluation note is complete by procedure /sedation MD Sedation Discharge Instructions to be given to the patient at discharge to home. Sedation Data Sedation Times Sedation Start Date: 05/03/25 Sedation Start Time: 18:43 Sedation End Date: 05/03/25 Sedation End Time: 19:00 Total Sedation Time: 17 Procedure Times Procedure Start Time:: 18:44 Procedure End Time: 18:53
--- NOTE | 2025-05-03 19:09 | Emergency Department Note ---
Pre Sedation Assessment Vital Signs Temp Pulse Resp BP BP Pulse Ox O2 Del Method 05/03/25 18:53 Nasal Cannula 05/03/25 18:50 88 20 144/78 H 99 Nasal Cannula 05/03/25 18:45 86 20 127/79 99 Nasal Cannula 05/03/25 18:41 85 05/03/25 16:13 36 C L 89 18 131/69 99 Room Air O2 Flow Rate 05/03/25 18:53 2 05/03/25 18:50 2 05/03/25 18:45 2 05/03/25 18:41 05/03/25 16:13 Cardiovascular RRR, no murmur, no edema Respiratory normal respiratory effort, lungs clear to auscultation Pre-Sedation Airway Assessment Smoking Status: Never smoker Hx Sleep Apnea: No Hx Difficult Intubation: No Short, Thick Neck: No Thyromental Distance: < 3.5 Finger Breadths Oral Cavity: + WNL Mallampati Class: III ASA: ASA2 NPO Status Date of Last Intake of Fluids: 05/03/25 Time of Last Intake of Fluids: 12:45 Last Oral Intake of Fluids Comment: 1245 Date of Last Intake of Solid Food: 05/03/25 Time of Last Intake of Solid Foods: 12:45 Notes The planned sedation has been discussed with the patient. Informed Consent was obtained. I have identified the patient, determined the appropriateness of sedation and have assessed the patient immediately prior to the procedure. All medicine(s) and interventions are by my order.
[2025-05-03] MEDS: PROPOFOL IV EMULSION 10 MG/ML 20 ML VIAL IV ONE (19:39)
[2025-05-03] MEDS: fentaNYL citrate PF 100 MCG/2 ML VIAL ONE (19:39)
[2025-05-03] MEDS: ONDANSETRON INJ 2 MG/ML 2 ML VIAL ONE (19:39)
--- NOTE | 2025-05-03 19:39 | History & Physical Report ---
Date of Service May 03, 2025 Assessment & Plan (1) Bimalleolar fracture of right ankle: (2) Serum potassium elevated: Plan 69-year-old male PMHx PD, T2DM with neuropathy, PAD, GERD, and RLS presenting after fall at home. His recent hospital admission 01/02/2025 until 01/08/2025 for syncope and collapse, thought to be secondary to orthostatic hypotension. ED evaluation reveals no leukocytosis, H&H 12.8/38.6; CMP potassium 5.3, BUN/creatinine ratio 20.8, glucose 226, calcium 9.7; ankle XR medial and lateral malleoli fracture, distal portion fibula dislocated; CXR pending official read; repeat XR pending; EKG pending; Provided with 1L NSS, oxycodone 5 mg p.o., ondansetron 4 mg IV, and fentanyl 50 mcg in ED. Procedural sedation with closed reduction of R ankle completed in ED and splint was applied. #Malleolar fractures/Fall Presenting s/p fall at home, rolling on R ankle and unable to bear weight after fall. History of PAD, T2DM with neuropathy, and recurrent syncope likely secondary to orthostatic hypotension which did require prior admission. Went from sitting/lying to standing quickly and did not take time to acclimate. Fall to ground, did not hit head, not on blood thinners. Patient has been taking midodrine as prescribed. Patient does follow with [facility], most recent visit being 03/15/2025 who is out of [place]. Patient and family prefer that any surgical interventions be taken place at [place]. - CBC w/o leukocytosis, H/H 12.8/38.6; K 5.3; CK 105 - CBC am - Ankle XR medial and lateral malleolar fractures, distal portion of fibula dislocated laterally, possible slight defect in posterior malleolus on lateral view; talar dome grossly intact; R XR post reduction with improved alignment of medial and lateral malleolus with lateral malleolus laterally displaced and posterior malleolar fracture not excluded - Ankle CT pending - NPO midnight - IVF start at midnight - LR @ 80 mL/hr x 1L - BMP am - Acetaminophen prn, morphine prn severe pain/when npo - No abx at admission - Ortho consulted - PLEASE CALL Yari Carr ([phone]) DURING EVALUATION SO SHE IS ABLE TO PARTICIPATION IN CONVERSATION - appreciate all input + recs #Hyperkalemia With prior history of hyperkalemia. No acute symptoms. No crush injury, no concern for compartment syndrome at time of admission. - K 5.3, no AG; CK 105 - EKG pending - BMP am #T2DM w/ neuropathy H/o DMT2; Home regimen includes prior metformin which is currently on hold but does still utilize glargine 15U and lispro 7U TIDm. - Most recent A1C 11/2024 @8.6% - Glucose on arrival 226 - SSI with target BSG range 110-140mg/dL, CF 30, carb ratio 7 (per last admission requirements) - Lantus 20U daily - BSG ACHS while eating, NPO midnight - Pharm glycemic management consult placed, appreciate assistance - Adjust regimen as needed #PD- Follows with neurology, most recent visit 10/09/2024; Carbidopa levodopa, primidone - continue #PVD/HLD- Stent in L posterior tibial artery, no longer following with vascular surgery unless ulcers develop; Statin + ASA - HOLD ASA at admission, continue rosuvastatin #GERD- Famotidine, pantoprazole - continue #Psych- Duloxetine - continue Dispo: Admit, med/sx VTE prophylaxis: HELD at admission pending ? Sx intervention - add as appropriate This document was dictated utilizing [employer]. Please excuse any grammatical errors that may be secondary to use of this software. Admission and Anticipated Discharge Date Admission Date: 05/03/2025 History of Present Illness Chief Complaint: Fall, ankle pain Primary Care Provider: BECKY Machado 69-year-old male PMHx PD, T2DM with neuropathy, PAD, GERD, and RLS presenting after fall at home. His recent hospital admission 01/02/2025 until 01/08/2025 for syncope and collapse, thought to be secondary to orthostatic hypotension. Patient states that he was at taking a nap at home and when he got up and tried to walk into the kitchen his R foot was asleep. He was able to crawl onto nearby surface but did end up falling. Family members heard an audible crack when he rolled over his R ankle. Patient does have neuropathy at baseline and often has foot numbness, and this was not much different than normal. Patient does have prior history of collapse, often when he is changing positions too quickly. He admits that he went from a laying/sitting to a standing position rather quick and felt some dizziness just after that which had resolved after a few seconds however he had fallen because of it. He denies chest pain, shortness of breath, palpitations, or LOC at this time. Once he fell, he was unable to get up on his own because he could not put weight on the R ankle. Family members were able to get him to a seated rolling computer chair, but he was still unable to bear weight. Patient states his pain is well-managed at time of admission. He has baseline numbness and tingling in BLE. Overall denies again, chest pain, SOB, palpitations, abdominal pain, N/V/D/C, fever/chills, LUTS, URI symptoms, syncope, or LOC. Patient took all morning medications, but does need his nightly medications. ED evaluation reveals no leukocytosis, H&H 12.8/38.6; CMP potassium 5.3, BUN/creatinine ratio 20.8, glucose 226, calcium 9.7; ankle XR medial and lateral malleoli fracture, distal portion fibula dislocated; CXR pending official read; repeat XR pending; EKG pending; Provided with 1L NSS, oxycodone 5 mg p.o., ondansetron 4 mg IV, and fentanyl 50 mcg in ED. Procedural sedation with closed reduction of R ankle completed in ED and splint was applied. Please see Dr. Tan's attestation for adjustments/additions to treatment plan. Allergies Allergy/AdvReac Type Severity Reaction Status Date / Time metoclopramide AdvReac Intermediate Tremor Verified 05/03/25 19:18 oxycodone AdvReac Mild Nausea Verified 05/03/25 19:18 sulfamethoxazole AdvReac Mild Nausea Verified 05/03/25 19:18 trimethoprim AdvReac Mild Nausea Verified 05/03/25 19:18 Home Medications Medication Instructions Recorded Confirmed Type aspirin 81 mg tablet,delayed 81 mg PO QAM 12/24/18 05/03/25 History release blood-glucose sensor (FreeStyle 06/29/24 01/26/25 History Jim 3 Sensor device) famotidine 20 mg tablet 20 mg PO QAM 07/26/24 05/03/25 History midodrine 5 mg tablet 5 mg PO TID #270 tabs 08/17/24 05/03/25 Rx primidone 50 mg tablet 25 mg (1/2 x 50 mg) PO BID #60 tabs 10/09/24 05/03/25 Rx metformin 500 mg tablet 1,000 mg (2 x 500 mg) PO BID #360 11/17/24 05/03/25 Rx tabs pantoprazole 20 mg tablet,delayed 20 mg PO QAM 01/02/25 05/03/25 History release magnesium oxide 400 mg PO BID #1 cap 01/18/25 05/03/25 Rx pen needle,diabetic dual safty 30 #400 ea 01/18/25 01/26/25 Rx gauge x 3/16" TRANSFER BENCH FOR SHOWER #1 ea 01/20/25 01/26/25 Rx ascorbate calcium (vitamin C) 500 500 mg PO DAILY #30 tabs 02/02/25 05/03/25 Rx mg tablet cholecalciferol (vitamin D3) 125 125 mcg PO DAILY #30 caps 02/02/25 05/03/25 Rx mcg (5,000 unit) capsule mecobalamin (vitamin B12) 1,000 1,000 mcg PO DAILY #30 tabs 02/02/25 05/03/25 Rx mcg chewable tablet rosuvastatin 40 mg tablet 40 mg PO QPM #90 tabs 03/03/25 05/03/25 Rx duloxetine 60 mg capsule,delayed 60 mg PO QAM 30 days #30 caps 03/29/25 05/03/25 Rx release carbidopa 25 mg-levodopa 100 mg 2 tab PO QID 90 days #720 tabs 05/03/25 05/03/25 Rx tablet (Sinemet) insulin glargine 100 unit/mL (3 15 unit subcut QAM 05/03/25 05/03/25 History mL) subcutaneous pen (Basaglar KwikPen U-100 Insulin) insulin lispro-aabc 100 unit/mL 7 unit subcut TIDM 05/03/25 05/03/25 History subcutaneous pen (Lyumjev KwikPen U-100 Insulin) Past Med/Surg History Problem List Bimalleolar fracture of right ankle Peripheral arterial disease (Chronic) GERD (gastroesophageal reflux disease) controlled, stable per pt Diabetic foot ulcer (Acute) Diabetic peripheral neuropathy Parkinson disease Gastroparesis Diabetes (Chronic) Peripheral arterial occlusive disease (Acute) Microalbuminuria (Acute) Lymphocytic gastritis (Acute) Diabetic nephropathy associated with type 2 diabetes mellitus Weight gain Diabetic ulcer of left foot associated with type 2 diabetes mellitus, limited to breakdown of skin (Acute) Ringworm Vitamin D deficiency Mixed action and resting tremor Neuropathy RLS (restless legs syndrome) Status post reverse total replacement of left shoulder (~04/2022) Medical History Hypomagnesemia Elevated lactic acid level Fall Syncope and collapse Generalized weakness Controlled type 2 diabetes mellitus with diabetic neuropathy, with long-term current use of insulin Poor circulation IN THE FEET Orthostatic dizziness Peripheral neuropathy History of anemia Hypertension HX BLOOD PRESSURE MED AND BP WAS DROPPING, GETTING DIZZY AND SINCE D/C'D Hyperlipidemia Restless leg syndrome Hiatal hernia Hypercholesterolemia Diabetes mellitus, type 2 IDDM/FREE STYLE SENSOR Parkinsonism Hand tremors, follows with Dr. Wilhelm Surgical History H/O elbow surgery L olecranon ORIF: 05/25/21: LMA#5. History of tooth extraction History of cataract surgery R/L History of amputation of lesser toe of left foot History of bunionectomy Status post arterial stent LLE History of esophagogastroduodenoscopy (EGD) History of colonoscopy History of tonsillectomy Family History Family/Other No pertinent family history Brother Family history of diabetes mellitus Other No family history of adverse response to anesthesia Denies family history of Ovarian cancer Prostate cancer Myocardial infarction Breast cancer Colorectal cancer Social History Smoking Status: Never smoker Second Hand Exposure: No; Do You Dip or Chew Tobacco: No; Hx Alcohol Use: No Hx Substance Use: No Preferred Language: Hebrew Communication Ability: Effective Communication Ability Comment: JARAD SHULTZ HELPS WITH READING/PT HAS TROUBLE COMPREHENDING MEDICAL INFO Visual Impairment: Limited Hearing Ability: Hard of Hearing Operator Maintainer Required: No Beliefs That Will Affect Care: None marital status: Life Partner Current Living Situation: Spouse Current Living Situation Comment: live with girlfriend current occupational status: retired current occupation: retired working at [employer] How many Children do You have: 3 other: GIRLFRIEND ABLE TO ASSIST WITH CARE NEEDED Feels Safe at Home: Yes Childhood Exposure to Second-Hand Smoke: Yes Diet: regular caffeine: Yes during the past year weight has: remained stable Dental Care, Regularly: No Physical Activity Frequency: Does not Exercise Seatbelt Use: never Sunscreen Use: No Do you think of yourself as: straight/heterosexual Gender Identity: Male Assistive Devices: Cane and Scooter/Electric Scooter Review of Systems Review of Systems: All systems reviewed & are unremarkable except as noted in Subjective Physical Exam Physical Exam: General: No acute distress Skin: Warm and dry Head: Normocephalic, atraumatic Eyes: PERRL, conjunctivae clear, sclera non-icteric ENT: External ear and ear canal without swelling; nose atraumatic; good dentition, tongue normal appearance, pharynx normal Neck: Supple, no LAD Cardio: RRR, no M/G/R, S1 and S2 normal Resp: No respiratory distress, Lungs CTA in all lobes bilaterally, no wheezes, rales, or rhonchi Abdomen: Soft, symmetric, nontender; No masses or hepatosplenomegaly; Bowel sounds normoactive MSK: RLE splinted, with good vascularity and ROM at level of toes; LLE 2 dime sized ecchymotic areas at calf, not causing any pain; pulses palpable and equal; no edema. Neuro: Awake, alert; Sensation intact bilaterally; CN grossly intact Psych: Appropriate mood and affect; good judgement and insight. 2 family members present in room at time of visit. Results & Data Results & Data Vital Signs (Past 12 Hours) Vital Signs Temp Pulse Resp BP BP Pulse Ox O2 Del Method 05/03/25 19:15 83 20 157/86 H 100 Nasal Cannula 05/03/25 19:10 85 20 155/80 H 100 Nasal Cannula 05/03/25 19:05 85 20 150/81 H 100 Nasal Cannula 05/03/25 19:00 84 20 153/78 H 100 Nasal Cannula 05/03/25 18:55 87 20 141/80 H 100 Nasal Cannula 05/03/25 18:53 Nasal Cannula 05/03/25 18:50 88 20 144/78 H 99 Nasal Cannula 05/03/25 18:45 86 20 127/79 99 Nasal Cannula 05/03/25 18:41 85 05/03/25 16:13 36 C L 89 18 131/69 99 Room Air O2 Flow Rate 05/03/25 19:15 2 05/03/25 19:10 2 05/03/25 19:05 2 05/03/25 19:00 2 05/03/25 18:55 2 05/03/25 18:53 2 05/03/25 18:50 2 05/03/25 18:45 2 05/03/25 18:41 05/03/25 16:13 Laboratory Results 05/03/25 18:32 WBC 9.49 RBC 3.98 L Hgb 12.8 L Hct 38.6 L MCV 97.0 MCH 32.2 MCHC 33.2 RDW Std Deviation 43.8 RDW Coeff of Margarito 12.2 Plt Count 160 MPV 11.3 Immature Gran % (Auto) 0.2 Neut % (Auto) 74.6 Lymph % (Auto) 17.5 [place] % (Auto) 6.3 Eos % (Auto) 0.8 Baso % (Auto) 0.6 Neut # (Auto) 7.07 H Lymph # (Auto) 1.66 [place] # (Auto) 0.60 H Eos # (Auto) 0.08 Baso # (Auto) 0.06 Immature Gran # (Auto) 0.02 Sodium 138 Potassium 5.3 H Chloride 104 Carbon Dioxide 28 Anion Gap 6 BUN 20 Creatinine 0.96 Est Cr Clr Drug Dosing Not Reportable eGFR 85.56 BUN/Creatinine Ratio 20.8 H Glucose 226 H Calcium 9.7 Diagnostic Findings Ankle X-Ray 05/03/25 16:48 Study: Right ankle 3 views History: Trauma Comparison: 11/28/2021 Findings/impression: Fracture dislocation injury, with both medial and lateral malleoli are fractures seen. There is eversion of the foot noted. The distal portion of the fibula appears significantly dislocated laterally. Possible slight defect of the posterior malleolus on the lateral view as well. The talar dome appears grossly intact. Electronically signed by Cameron Nicole 05-03-2025 6:26 PM Chest X-Ray 05/03/25 18:24 Chest radiograph, one view History: Pre-op Comparison: 01/02/2025 Findings: Single AP view of the chest performed. No focal consolidation or pleural effusion. Unchanged small area of atelectasis at the lingula. No pneumothorax. The cardiomediastinal silhouette is within normal limits. Normal pulmonary vascularity. No evidence for lymphadenopathy. No visualized bony or soft tissue abnormality. Left shoulder arthroplasty. Impression: Normal chest radiograph Electronically signed by Cameron Nicole 05-03-2025 7:47 PM Ankle X-Ray 05/03/25 18:25 Study: Right ankle 3 views History: Fracture, post reduction Comparison: Same day Findings impression: Casting material has been placed. Improved alignment of the medial and lateral malleolus. The lateral malleolus remains laterally displaced. A small posterior malleolar fracture, is again not excluded. Electronically signed by Cameron Nicole 05-03-2025 7:44 PM Medications Administered 1L NSS Oxycodone 5 mg p.o. Ondansetron 4 mg IV Fentanyl citrate 50 mcg IV Propofol 100 mg IV Code Status & VTE Plan Code Status Conditional- Patient desires to have cardiac interventions, does not want any form of mechanical ventilation requiring a machine. Discussed in detail what "conditional code" entails; patient and 2 family members understood fully. All questions asked and answered. Patient wishes to proceed with conditional code status. Supervising Physician Co-Signing Physician Notes Patient seen and examined, chart reviewed, case discussed with Dalton Davis PA-C and I agree with the assessment and plan as above except as otherwise noted Labs and images reviewed Ugo Sheldon is a 69-year-old male with past medical history of Parkinson's dis ease, type 2 diabetes, PAD, GERD, restless leg syndrome, syncope and recent hospital admission 01/02/2025 - 01/08/2025 for syncope and collapse suspected to be due to neurogenic orthostatic hypotension with Parkinson's disease who was subsequently discharged to rehab. He presents to the ER for a right ankle injury. Patient reports that he stood up attempted to walk to his kitchen but his foot was asleep and his leg collapsed under him when he tried to put weight on it causing him to roll his ankle. On ER evaluation, x-ray showed a bimalleolar fracture with right ankle E version, significant dislocation of the distal fibula, and slight suspected defect of the posterior malleolus. Patient underwent conscious sedation and fracture reduction in the ER, and a splint was applied. Tissue perfusion was noted to be intact on ER exam post reduction and splint application. Neurovascularly intact, cap refill intact Bimalleolar right ankle fracture Ortho consulted. Recommended admission. Has had sx at [facility] on the LEFT foot previously, pt/family prefer intervention at [facility] if possible. Case to be reviewed by Ortho w/ [facility] in the AM, and make further recommendations at that time. - NWB - Multimodal pain control - Neurovascular checks q1h Hyperkalemia Mild, 5.3. No VIKI. CK wnl. Repeat pending IVFM - +numbness/neuropathy at baseline in the toes unchanged. Sensation to soft touch intact in the calf b/l. Cap refill brisk <2 sec in the toes and dorsum of the foot b/l on admitting exam. Parkinson's Continue Sinemet, primidone With some neurogenic orthostasis Type II DM Hold metformin Continue basal bolus Goal BSG 129342 Glucose checks AC/at bedtime, or every 6 hours while NPO PG Care Time/CCT Total # of Minutes Spent Total Time Spent with Patient: Total time spent is greater than 50% in coordination of care (as documented) at patient's floor/unit and/or counseling patient: Coding Level of Care Code 35637 INT INP/OBS CARE 3/75MIN Diagnoses Bimalleolar fracture of right ankle S82.841A Serum potassium elevated E87.5
--- NOTE | 2025-05-03 19:44 | XRay Report ---
Study: Right ankle 3 views History: Fracture, post reduction Comparison: Same day Findings impression: Casting material has been placed. Improved alignment of the medial and lateral malleolus. The lateral malleolus remains laterally displaced. A small posterior malleolar fracture, is again not excluded. Electronically signed by Cameron Nicole 05-03-2025 7:44 PM
--- NOTE | 2025-05-03 19:47 | XRay Report ---
Chest radiograph, one view History: Pre-op Comparison: 01/02/2025 Findings: Single AP view of the chest performed. No focal consolidation or pleural effusion. Unchanged small area of atelectasis at the lingula. No pneumothorax. The cardiomediastinal silhouette is within normal limits. Normal pulmonary vascularity. No evidence for lymphadenopathy. No visualized bony or soft tissue abnormality. Left shoulder arthroplasty. Impression: Normal chest radiograph Electronically signed by Cameron Nicole 05-03-2025 7:47 PM
[2025-05-03 20:03] LABS: Creatine Kinase 105 U/L (30-223)
[2025-05-03] MEDS ORDERED: NALOXONE HCL 0.4 MG/1 ML VIAL/CARP IV PRN (20:12)
[2025-05-03] MEDS: Patient's HEIGHT &/or WEIGHT Needed SCH (20:38)
[2025-05-03] MEDS: PRIMIDONE 50 MG TAB PO ONE (21:18)
[2025-05-03] MEDS: MIDODRINE HCL 2.5 MG TAB PO ONE (21:18)
[2025-05-03] MEDS: MoRPHine SULFATE 4 MG/ML 1 ML CARP\\VIAL IV PRN (21:18)
[2025-05-03] MEDS: CARBIDOPA/LEVODOPA 25/100MG TAB PO ONE (21:18)
[2025-05-03] MEDS ORDERED: GLUCOSE 10 TAB/TUBE PO PRN (21:47)
[2025-05-03] MEDS ORDERED: GLUCOSE 40% GEL 15 GM TUBE PO PRN (21:47)
[2025-05-03] MEDS ORDERED: ONDANSETRON INJ 2 MG/ML 2 ML VIAL IV PRN (21:47)
[2025-05-03] MEDS ORDERED: MELATONIN 3 MG TAB PO PRN (21:47)
[2025-05-03] MEDS ORDERED: CARBOHYDRATES FOR HYPOGLYCEMIA PO PRN (21:47)
[2025-05-03] MEDS ORDERED: GLUCAGON FOR INJ 1 MG VIAL SQ PRN (21:47)
[2025-05-03] MEDS ORDERED: DEXTROSE 50% 50 ML SYRINGE IV PRN (21:47)
[2025-05-03] MEDS ORDERED: PHARMACY GLYCEMIC MGMT CONSULT PRN (21:47)
[2025-05-03] MEDS ORDERED: ACETAMINOPHEN 325 MG TAB PO PRN (21:47)
--- NOTE | 2025-05-03 21:47 | CT Scan Report ---
CT right ankle without contrast History: Fracture Comparison: Same-day radiograph Technique: CT performed of the extremity without IV contrast. 3D reconstructions performed. Dose reduction techniques were achieved by using automatic exposure control and/or adjustment of mA and/or kV according to patient size and/or use of iterative reconstruction technique. Findings: Trimalleolar fracture is seen. Distal fibular fracture, demonstrates an oblique as well as more horizontal transverse component and is comminuted. Medial malleolar fracture is noted obliquely through the base of the medial malleolus. There is a small, comminuted posterior malleolar fracture as well. The bones appear osteopenic. The talar dome is intact. The calcaneus appears intact. Soft tissue swelling. No aggressive osseous lesion. Impression: Trimalleolar fracture, as above Electronically signed by Cameron Nicole 05-03-2025 9:46 PM
[2025-05-03] MEDS: CARBIDOPA/LEVODOPA 25/100MG TAB PO SCH (21:59)
[2025-05-03] MEDS: PRIMIDONE 50 MG TAB PO SCH (21:59)
[2025-05-03] MEDS: INSULIN ASPART PER UNIT CHARGE SC SCH (23:05)
[2025-05-03 23:28] LABS: BUN Creatinine Ratio 18.9 (10-20); Calcium 9.4 mg/dl (8.6-10.3); Creatinine Clr Calc Pharmacy 89.8 ml/min; Potassium 4.6 mmol/L (3.5-5.1)
[2025-05-03] MEDS: LACTATED RINGER'S 1,000 ML IV SCH (23:33)
[2025-05-03] MEDS: ROSUVASTATIN CALCIUM 20 MG TAB PO SCH (23:33)
[2025-05-03] MEDS: MAGNESIUM OXIDE 400 MG TAB PO SCH (23:33)
[2025-05-04] MEDS: MoRPHine SULFATE 2 MG/ML CARP IV PRN (06:09)
[2025-05-04] MEDS ORDERED: Nursing to Pharmacy Communication SCH (07:15)
[2025-05-04] MEDS: DULoxetine HCL 60 MG CAP PO SCH (08:19)
[2025-05-04] MEDS: PANTOprazole 40 MG TAB PO SCH (08:20)
[2025-05-04] MEDS: MIDODRINE HCL 2.5 MG TAB PO SCH (08:20)
[2025-05-04] MEDS: FAMOTIDINE 20 MG TAB PO SCH (08:25)
[2025-05-04] MEDS: INSULIN ASPART PER UNIT CHARGE SC SCH (08:25)
[2025-05-04] MEDS: LANTUS PER UNIT CHARGE SQ SCH ×2 (08:26→20:27)
--- NOTE | 2025-05-04 09:24 | Pharmacy Report ---
Pharmacy Glycemic Short Note 2 - Date of Service May 04, 2025 - Glycemic Short BSG Results (Last 24 hours): 05/03/25 05/03/25 05/03/25 18:32 22:45 22:57 Glucose 226 H 171 H POC Glucose 156 H 05/04/25 05/04/25 06:03 07:48 Glucose POC Glucose 182 H 141 H OUTPATIENT ANTIDIABETIC REGIMEN: * Basaglar 15 units SC daily * Insulin lispro 7 units SC TIDM * Metformin 1 g PO BIDM HbA1c: 8.6% (11/27/24), reordered for 05/05/25 ASSESSMENT: * TB is a 69 year old male who presents s/p fall w/ bimalleolar fracture of right ankle * Of note, patient prefers that any surgical interventions occur at [facility] * Originally NPO after midnight, but now ordered diet * 50% of home basal dose given this morning PLAN FOR INPATIENT GLYCEMIC CONTROL: * Hold outpatient oral diabetes medications * Basal insulin * Lantus 8 units SC daily * Lantus 0-5-8 units SC HS * Reassess in AM * Bolus insulin * NovoLog per scale ACHS or Q6hrs while NPO * Goal Range: Low 110 mg/dL - High 140 mg/dL * Correction Factor: 25 mg/dL/unit * Nutritional / Prandial insulin per carb ratio of 1 unit per 8 grams CHO consumed
[2025-05-04 09:52] LABS: Hematocrit (blood only) 34.2 % (42.0-52.0); Hemoglobin 11.3 g/dl (14.0-18.0); Mean Corpuscular Hemoglobin 31.9 pg (25.0-34.0); Mean Corpuscular Volume 96.6 fL (80.0-100.0); Platelet Count 144 K/uL (130-400); RDW Coefficient of Variation 12.2 % (11.5-14.5); RDW Standard Deviation 43.9 fL (36.4-46.3); Red Blood Count 3.54 M/uL (4.70-6.10); White Blood Count 7.75 K/ul (4.8-10.8)
[2025-05-04 10:05] LABS: Calcium 9.1 mg/dl (8.6-10.3); Creatinine Clr Calc Pharmacy 94.8 ml/min; Potassium 4.6 mmol/L (3.5-5.1)
--- NOTE | 2025-05-04 12:35 | Hospitalist Progress Note ---
Date of Service May 04, 2025 Assessment & Plan (1) Bimalleolar fracture of right ankle: (2) Serum potassium elevated: Plan 69-year-old male PMHx PD, T2DM with neuropathy, PAD, GERD, and RLS presenting after fall at home. His recent hospital admission 01/02/2025 until 01/08/2025 for syncope and collapse, thought to be secondary to orthostatic hypotension. ED evaluation reveals no leukocytosis, H&H 12.8/38.6; CMP potassium 5.3, BUN/creatinine ratio 20.8, glucose 226, calcium 9.7; ankle XR medial and lateral malleoli fracture, distal portion fibula dislocated; CXR pending official read; repeat XR pending; EKG pending; Provided with 1L NSS, oxycodone 5 mg p.o., ondansetron 4 mg IV, and fentanyl 50 mcg in ED. Procedural sedation with closed reduction of R ankle completed in ED and splint was applied. Age-related osteoporosis with current pathologic fracture, R ankle #Malleolar fractures/Fall Presenting s/p fall at home, rolling on R ankle and unable to bear weight after fall. History of PAD, T2DM with neuropathy, and recurrent syncope likely secondary to orthostatic hypotension which did require prior admission. found to have Ankle XR medial and lateral malleolar fractures, distal portion of fibula dislocated laterally, possible slight defect in posterior malleolus on lateral view; talar dome grossly intact; R XR post reduction with improved alignment of medial and lateral malleolus with lateral malleolus laterally displaced and posterior malleolar fracture not exclude Leg now in cast Patient and family prefer that any surgical interventions be taken place at [place]. - Transfer center called to initiate transfer to [place], however, says the transfer will require insurance authorization, which may take a while - Ortho consulted - PLEASE CALL Yari Carr ([phone]) DURING EVALUATION SO SHE IS ABLE TO PARTICIPATION IN CONVERSATION - appreciate all input + recs #Hyperkalemia resolved #T2DM w/ neuropathy H/o DMT2; Home regimen includes prior metformin which is currently on hold but does still utilize glargine 15U and lispro 7U TIDm. - Most recent A1C 11/2024 @8.6% - Glucose on arrival 226 - SSI with target BSG range 110-140mg/dL, CF 30, carb ratio 7 (per last admission requirements) - Lantus 20U daily - BSG ACHS while eating, NPO midnight - Pharm glycemic management consult placed, appreciate assistance - Adjust regimen as needed #PD- Follows with neurology, most recent visit 10/09/2024; Carbidopa levodopa, primidone - continue #PVD/HLD- Stent in L posterior tibial artery, no longer following with vascular surgery unless ulcers develop; Statin + ASA - HOLD ASA at admission, continue rosuvastatin #GERD- Famotidine, pantoprazole - continue #Psych- Duloxetine - continue Dispo: awaiting insurance authorization for transfer to [place] VTE prophylaxis: HELD at admission pending ? Sx intervention - add as appropriate Admission and Anticipated Discharge Date Admission Date: May 03, 2025 Subjective patient seen and examined, stable post reduction of fracture, still some pain Review of Systems Review of Systems: The patient is awake, alert and oriented 3, well developed and well nourished, normocephalic and atraumatic, lying in bed and in no acute distress. HEENT--PERRL, EOMI, mucous membranes and oropharynx mildly dry Neck--supple. No JVD. No bruits. Thyroid normal, trachea midline, no adenopathy. Heart--normal S1 and S2. No murmurs, rubs or gallops. Lungs--clear bilaterally, no respiratory distress, no accessory muscle use. Abdomen--normal bowel sounds and soft. Extremities--no cyanosis or clubbing. No edema. Dermatologic--normal skin turgor, normal color, no abnormal lymph nodes, no rash. Neurologic--cranial nerves II through XII grossly intact. Rheumatologic--normal range of motion. Psychiatric--normal affect. Results & Data Results & Data Vital Signs (Past 12 Hours) Vital Signs Temp Pulse Resp BP Pulse Ox O2 Del Method 05/04/25 11:04 98.1 F 73 17 134/73 95 Room Air 05/04/25 07:49 98.2 F 69 14 135/73 95 Room Air 05/04/25 03:20 98.4 F 75 16 133/76 95 Room Air PG Care Time/CCT Total # of Minutes Spent Total Time Spent with Patient: Total time spent is greater than 50% in coordination of care (as documented) at patient's floor/unit and/or counseling patient: Coding Level of Care Code 91464 SUB INP/OBS CARE 35MIN Diagnoses Bimalleolar fracture of right ankle S82.841A Serum potassium elevated E87.5 Time Spent (min) 35
--- NOTE | 2025-05-04 18:02 | Orthopedic Consultation ---
Date of Consultation May 04, 2025 Assessment & Plan (1) Fracture of ankle, trimalleolar, right, closed: Finding discussed with patient and girlfriend. He has an unstable ankle fracture with poor bone quality, peripheral neuropathy, peripheral arterial disease and significant neuropathy. His ankle fracture is unstable and would require surgical intervention. Traditional fixation would include ORIF of the medial and lateral malleoli. This may be associated with an increased risk due to the after mentioned comorbidities. He may be a candidate for a tibiocalcaneal nail which would best be done by foot and ankle specialist at a tertiary care Medical Center. He actually has requested to be transferred to [place]. I have attempted to make contact with Dr. Yane Webb at [place] to get his recommendations. In the meantime the patient is to be nonweightbearing on the right with the leg elevated and iced. He is at risk for skin breakdown. PT and OT consult to assess what his ability is to transfer and mobilize using nonweightbearing. Given the fracture blisters presently he would require some time for this to resolve prior to proceeding with surgical intervention. This could be 1 to 2 weeks. I have ordered Lovenox 30 mg SQ twice daily for DVT prophylaxis. Pre and postreduction radiographs reviewed along with the CT scan which show probable diminished bone quality with a comminuted small posterior malleolus fracture and comminuted fracture of the lateral malleolus. The ankle is r easonably centered and realigned in both the AP and lateral planes. (2) Peripheral arterial disease: (3) Diabetic peripheral neuropathy: History of Present Illness Attending Physician: Prerna Lee MD History of Present Illness Rodrigue is a 69 years old. He fell yesterday after getting lightheaded injuring his right ankle. He was seen in the ER and diagnosed with a fracture dislocation of the right ankle. This was reduced splinted and he was admitted to the hospital. CT scan was obtained. He has a history of parkinsonism as well as diabetes and neuropathy. He reports that he cannot feel his feet. He has had previous diabetic related left foot toe amputation and has had reconstructions of both of the feet done with Dr. Yane Webb at [place]. Allergies Allergy/AdvReac Type Severity Reaction Status Date / Time metoclopramide AdvReac Intermediate Tremor Verified 05/03/25 19:18 oxycodone AdvReac Mild Nausea Verified 05/03/25 19:18 sulfamethoxazole AdvReac Mild Nausea Verified 05/03/25 19:18 trimethoprim AdvReac Mild Nausea Verified 05/03/25 19:18 Home Medications Medication Instructions Recorded Confirmed Type aspirin 81 mg tablet,delayed 81 mg PO QAM 12/24/18 05/03/25 History release blood-glucose sensor (FreeStyle 06/29/24 01/26/25 History Jim 3 Sensor device) famotidine 20 mg tablet 20 mg PO QAM 07/26/24 05/03/25 History midodrine 5 mg tablet 5 mg PO TID #270 tabs 08/17/24 05/03/25 Rx primidone 50 mg tablet 25 mg (1/2 x 50 mg) PO BID #60 tabs 10/09/24 05/03/25 Rx metformin 500 mg tablet 1,000 mg (2 x 500 mg) PO BID #360 11/17/24 05/03/25 Rx tabs pantoprazole 20 mg tablet,delayed 20 mg PO QAM 01/02/25 05/03/25 History release magnesium oxide 400 mg PO BID #1 cap 01/18/25 05/03/25 Rx pen needle,diabetic dual safty 30 #400 ea 01/18/25 01/26/25 Rx gauge x 3/16" TRANSFER BENCH FOR SHOWER #1 ea 01/20/25 01/26/25 Rx ascorbate calcium (vitamin C) 500 500 mg PO DAILY #30 tabs 02/02/25 05/03/25 Rx mg tablet cholecalciferol (vitamin D3) 125 125 mcg PO DAILY #30 caps 02/02/25 05/03/25 Rx mcg (5,000 unit) capsule mecobalamin (vitamin B12) 1,000 1,000 mcg PO DAILY #30 tabs 02/02/25 05/03/25 Rx mcg chewable tablet rosuvastatin 40 mg tablet 40 mg PO QPM #90 tabs 03/03/25 05/03/25 Rx duloxetine 60 mg capsule,delayed 60 mg PO QAM 30 days #30 caps 03/29/25 05/03/25 Rx release carbidopa 25 mg-levodopa 100 mg 2 tab PO QID 90 days #720 tabs 05/03/25 05/03/25 Rx tablet (Sinemet) insulin glargine 100 unit/mL (3 15 unit subcut QAM 05/03/25 05/03/25 History mL) subcutaneous pen (Basaglar KwikPen U-100 Insulin) insulin lispro-aabc 100 unit/mL 7 unit subcut TIDM 05/03/25 05/03/25 History subcutaneous pen (Lyumjev KwikPen U-100 Insulin) Patient History Medical History Hypomagnesemia Elevated lactic acid level Fall Syncope and collapse Generalized weakness Controlled type 2 diabetes mellitus with diabetic neuropathy, with long-term current use of insulin Poor circulation IN THE FEET Orthostatic dizziness Peripheral neuropathy History of anemia Hypertension HX BLOOD PRESSURE MED AND BP WAS DROPPING, GETTING DIZZY AND SINCE D/C'D Hyperlipidemia Restless leg syndrome Hiatal hernia Hypercholesterolemia Diabetes mellitus, type 2 IDDM/FREE STYLE SENSOR Parkinsonism Hand tremors, follows with Dr. Wilhelm Surgical History H/O elbow surgery L olecranon ORIF: 05/25/21: LMA#5. History of tooth extraction History of cataract surgery R/L History of amputation of lesser toe of left foot History of bunionectomy Status post arterial stent LLE History of esophagogastroduodenoscopy (EGD) History of colonoscopy History of tonsillectomy Family History Family/Other No pertinent family history Brother Family history of diabetes mellitus Other No family history of adverse response to anesthesia Denies family history of Ovarian cancer Prostate cancer Myocardial infarction Breast cancer Colorectal cancer Social History Smoking Status: Never smoker Second Hand Exposure: No; Do You Dip or Chew Tobacco: No; Hx Alcohol Use: No Hx Substance Use: No Preferred Language: Fijian Communication Ability: Effective Communication Ability Comment: JARAD SHULTZ HELPS WITH READING/PT HAS TROUBLE COMPREHENDING MEDICAL INFO Visual Impairment: Limited Hearing Ability: Hard of Hearing Washing Machine Repairer Required: No Beliefs That Will Affect Care: None marital status: Life Partner Current Living Situation: Spouse Current Living Situation Comment: live with girlfriend current occupational status: retired current occupation: retired working at [employer] How many Children do You have: 3 other: GIRLFRIEND ABLE TO ASSIST WITH CARE NEEDED Feels Safe at Home: Yes Childhood Exposure to Second-Hand Smoke: Yes Diet: regular caffeine: Yes during the past year weight has: remained stable Dental Care, Regularly: No Physical Activity Frequency: Does not Exercise Seatbelt Use: never Sunscreen Use: No Do you think of yourself as: straight/heterosexual Gender Identity: Male Assistive Devices: Cane, Scooter/Electric Scooter, Stair Lift and Walker Physical Exam Physical Exam: His leg is splinted and elevated. He can wiggle his toes slightly up and down. He can slightly flex and extend the ankle. The foot is nontender. The splint is taken down inasmuch as to see it anteriorly and remove the U stirrup. There is no evidence of skin breakdown in the foot area. I had the nurse inspect the heel as I lifted up his foot and there was no redness or blackness of the heel. An extra ABD was placed in the heel cavity and also to ABDs around the forefoot. The splint was rewrapped with cast padding and reapplied. Pedal pulses were not palpable. Capillary refills less than 2 seconds. Both DP and PT pulses were dopplerable. There is tenderness around the ankle area but not of the foot or leg. There was swelling around the ankle with several small fracture blisters anteriorly and 2 large fracture blisters located medial and lateral. There was some bruising and mild redness present as well as some moderate swelling of the ankle. The foot was not swollen. Strength is 4- out of 5 to ankle and toe plantarflexion dorsiflexion. Results & Data Vital Signs (Past 12 Hours) Vital Signs Temp Pulse Resp BP Pulse Ox O2 Del Method 05/04/25 15:30 36.8 C 75 15 164/77 H 93 Room Air 05/04/25 11:04 36.7 C 73 17 134/73 95 Room Air 05/04/25 07:49 36.8 C 69 14 135/73 95 Room Air (1) Fracture of ankle, trimalleolar, right, closed Encounter type: initial encounter Qualified Code(s): S82.851A - Displaced trimalleolar fracture of right lower leg, initial encounter for closed fracture
[2025-05-04] MEDS: ENOXAPARIN INJ 30 MG/0.3 ML SYR SQ SCH (18:10)
[2025-05-05 07:38] LABS: Estimated Average Glucose 180 mg/dl; Hemoglobin A1C 7.9 % (4.5-5.6)
[2025-05-05] MEDS: LANTUS PER UNIT CHARGE SQ SCH (08:34)
--- NOTE | 2025-05-05 10:01 | Orthopedic Progress Note ---
Date of Service May 05, 2025 Assessment & Plan (1) Fracture of ankle, trimalleolar, right, closed: Plan: Findings discussed. Lovenox started. PT and OT eval. Nonweightbearing right leg. Surgical intervention likely needs delayed 1 to 2 weeks because of swel ling and blisters. The splint is well-padded around the heel malleolus and forefoot. Likely will require a tibiotalar calcaneal nail. This would best be done with Dr. Kong Webb. I am in agreement with the transfer. This likely will need to be coordinated with whoever is hearing care professional for orthopedics at [place]. I have been in contact with the patient, his significant other, the hospitalist here and the spring encaser. I do not think that it will be safe for him to go home. His significant other is working from 02-02. He would be at high risk for falls and further injury and should likely remain in inpatient for monitoring. (2) Peripheral arterial disease: (3) Diabetic peripheral neuropathy: Admission and Anticipated Discharge Date Admission Date: May 03, 2025 Subjective Rodrigue is resting comfortably in bed. His leg is elevated. He reports no significant complaints. His significant other contacted Dr. Yane Webb's nurse yesterday and she reports to me that Dr. Yane Webb would like him to be transferred to [place]. I spoke with Dr. FLY zamarripa by [place] text message yesterday and conveyed the situation. He tentatively seemed to be in agreement with the plan for transfer and possible nailing. Physical Exam Physical Exam: The right foot is elevated. The toes are not swollen. He can wiggle his toes.Gross neurovascular intact with Results & Data Vital Signs (Past 12 Hours) Vital Signs Temp Pulse Resp BP Pulse Ox O2 Del Method 05/05/25 08:28 80 132/50 L 05/05/25 07:39 36.8 C 76 18 150/79 H 91 Room Air (1) Fracture of ankle, trimalleolar, right, closed Encounter type: initial encounter Qualified Code(s): S82.851A - Displaced trimalleolar fracture of right lower leg, initial encounter for closed fracture
--- NOTE | 2025-05-05 14:27 | Hospitalist Progress Note ---
Date of Service May 05, 2025 Assessment & Plan (1) Bimalleolar fracture of right ankle: (2) Serum potassium elevated: Plan 69-year-old male PMHx PD, T2DM with neuropathy, PAD, GERD, and RLS presenting after fall at home. His recent hospital admission 01/02/2025 until 01/08/2025 for syncope and collapse, thought to be secondary to orthostatic hypotension. ED evaluation reveals no leukocytosis, H&H 12.8/38.6; CMP potassium 5.3, BUN/creatinine ratio 20.8, glucose 226, calcium 9.7; ankle XR medial and lateral malleoli fracture, distal portion fibula dislocated; CXR pending official read; repeat XR pending; EKG pending; Provided with 1L NSS, oxycodone 5 mg p.o., ondansetron 4 mg IV, and fentanyl 50 mcg in ED. Procedural sedation with closed reduction of R ankle completed in ED and splint was applied. Age-related osteoporosis with current pathologic fracture, R ankle #Malleolar fractures/Fall -Presenting s/p fall at home, rolling on R ankle and unable to bear weight after fall. -History of PAD, T2DM with neuropathy, and recurrent syncope likely secondary to orthostatic hypotension which did require prior admission. -found to have Ankle XR medial and lateral malleolar fractures, distal portion of fibula dislocated laterally, possible slight defect in posterior malleolus on lateral view; talar dome grossly intact; R XR post reduction with improved - alignment of medial and lateral malleolus with lateral malleolus laterally displaced and posterior malleolar fracture not exclude -Leg now in cast -Evaluated by orthopedic and the consensus is that he will be better served in [place] -We attempted to transfer the patient to [place] on 05/04/25, but the doctor (dr Manuel Christina) declined, citing no urgency for the surgery -We attempted another transfer today, 05/05/[address] Vikram Fletcher agreed that there is no urgent need for transfer since the surgery is not likely going to take place earlier that 1 week -Plan is for him to go to [facility], and from there, he will be transported for his outpatient appointment on 05/[address] Aguilar -PT/OT will evaluate him -He will be non weight bearing on the right leg per ortho #Hyperkalemia resolved #T2DM w/ neuropathy H/o DMT2; Home regimen includes prior metformin which is currently on hold but does still utilize glargine 15U and lispro 7U TIDm. - Most recent A1C 11/2024 @8.6% - Glucose on arrival 226 - SSI with target BSG range 110-140mg/dL, CF 30, carb ratio 7 (per last admission requirements) - Lantus 20U daily - BSG ACHS while eating, NPO midnight - Pharm glycemic management consult placed, appreciate assistance - Adjust regimen as needed #PD- Follows with neurology, most recent visit 10/09/2024; Carbidopa levodopa, primidone - continue #PVD/HLD- Stent in L posterior tibial artery, no longer following with vascular surgery unless ulcers develop; Statin + ASA - HOLD ASA at admission, continue rosuvastatin #GERD- Famotidine, pantoprazole - continue #Psych- Duloxetine - continue Dispo: awaiting insurance authorization for transfer to [place] VTE prophylaxis: HELD at admission pending ? Sx intervention - add as appropriate PLEASE CALL Yari Carr ([phone]) and update her Admission and Anticipated Discharge Date Admission Date: May 03, 2025 Subjective patient seen and examined, no new complaints today Review of Systems Review of Systems: All systems reviewed are negative, apart from the ones contained in the history. Physical Exam Physical Exam: The patient is awake, alert and oriented 3, well developed and well nourished, normocephalic and atraumatic, lying in bed and in no acute distress. HEENT--PERRL, EOMI, mucous membranes and oropharynx mildly dry Neck--supple. No JVD. No bruits. Thyroid normal, trachea midline, no adenopathy. Heart--normal S1 and S2. No murmurs, rubs or gallops. Lungs--clear bilaterally, no respiratory distress, no accessory muscle use. Abdomen--normal bowel sounds and soft. Extremities--no cyanosis or clubbing. No edema. right leg in cast Dermatologic--normal skin turgor, normal color, no abnormal lymph nodes, no rash. Neurologic--cranial nerves II through XII grossly intact. Rheumatologic--normal range of motion. Psychiatric--normal affect. Results & Data Results & Data Vital Signs (Past 12 Hours) Vital Signs Temp Pulse Resp BP Pulse Ox O2 Del Method 05/05/25 12:37 97 H 132/64 96 Room Air 05/05/25 08:28 80 132/50 L 05/05/25 07:39 98.2 F 76 18 150/79 H 91 Room Air PG Care Time/CCT Total # of Minutes Spent Total Time Spent with Patient: Total time spent is greater than 50% in coordination of care (as documented) at patient's floor/unit and/or counseling patient: Coding Level of Care Code 69249 SUB INP/OBS CARE 2/35MIN Diagnoses Bimalleolar fracture of right ankle S82.841A Serum potassium elevated E87.5 Time Spent (min) 35
[2025-05-06 07:07] LABS: Hematocrit (blood only) 33.3 % (42.0-52.0); Mean Corpuscular Hemoglobin 31.4 pg (25.0-34.0); Mean Corpuscular Volume 95.1 fL (80.0-100.0); Mean Platelet Volume 11.2 fL (9.4-12.4); Platelet Count 144 K/uL (130-400); RDW Standard Deviation 41.8 fL (36.4-46.3); White Blood Count 7.31 K/ul (4.8-10.8)
[2025-05-06 07:27] LABS: BUN Creatinine Ratio 19.8 (10-20); Creatinine Clr Calc Pharmacy 88.9 ml/min; Potassium 4.3 mmol/L (3.5-5.1)
[2025-05-06] MEDS: POLYETHYLENE (MIRALAX) 17 GM PACK PO PRN (10:07)
--- NOTE | 2025-05-06 10:18 | Orthopedic Progress Note ---
Date of Service May 06, 2025 Assessment & Plan (1) Fracture of ankle, trimalleolar, right, closed: Plan: The patient was educated regarding today's findings. Conservative care measures were discussed. His ankle was rewrapped with the original Ortho-Glass in place. Importance of elevation and ice to the ankle was discussed with the patient. He is waiting for placement at this time. He would prefer [facility] but will go to [facility] if available. Follow-up in [place] next week with Dr. Fletcher and Dr. Flores. He is stable from an orthopedic standpoint at this time. Continue nonweightbearing status on the right leg. Continue Lovenox. Admission and Anticipated Discharge Date Admission Date: May 03, 2025 Subjective This 69-year-old male is seen today in his room. He states the pain in his right ankle is controlled. No new complaints. He is waiting for placement at a long-term facility. Physical Exam Physical Exam: General: Well-developed, well-nourished, middle-aged male, in no acute distress. Laying in bed. Alert and oriented. Skin: Warm and dry with good turgor. An Ortho-Glass splint is present on his right ankle. Upon removal of the John wrap's, he still has swelling in the lower leg and ankle. Fracture blisters remain evident. 1 on the anterior medial surface has ruptured. The rest are intact. Musculoskeletal: The patient has intact motor function of his right toes. No hip pain with logrolling of the hip. He is able to perform a straight leg raise. Neurologic: The patient has intact sensation to the great toe. He is absent of sensation at the heel as well as the 2nd through 5th toes. He states this is his baseline and is not new. Intact sensation to the dorsum of the foot as well as the lower leg. DP pulse is 1+. Results & Data Vital Signs (Past 12 Hours) Vital Signs Temp Pulse Resp BP Pulse Ox O2 Del Method 05/06/25 07:13 36.8 C 73 16 117/65 94 Room Air Laboratory Results CBC obtained today shows a white count of 7.3. H&H of 11.0 and 33.3. Platelets normal at 144,000. Electrolytes obtained today are unremarkable. Normal BUN and creatinine. Glucose today is 158. (1) Fracture of ankle, trimalleolar, right, closed Encounter type: initial encounter Qualified Code(s): S82.851A - Displaced trimalleolar fracture of right lower leg, initial encounter for closed fracture
--- NOTE | 2025-05-06 18:55 | Hospitalist Progress Note ---
Date of Service May 06, 2025 Assessment & Plan (1) Pathological fracture of ankle due to age-related osteoporosis: (2) Fracture of ankle, trimalleolar, right, closed: (3) Peripheral arterial disease: (4) GERD (gastroesophageal reflux disease): (5) Parkinson disease: (6) Serum potassium elevated: (7) RLS (restless legs syndrome): (8) Orthostatic dizziness: Plan 69yo male with PD, T2DM with neuropathy, PAD, GERD, and RLS presenting after a fall at home. x-rays of right ankle with trimalleolar fracture. In the ER procedural sedation with closed reduction of R ankle completed and splint was applied. #Age-related osteoporosis with current pathologic fracture, RIGHT ankle // tri- malleolar fracture - -s/p fall at home, rolling on R ankle and unable to bear weight after fall -x-rays confirmed trimalleolar fracture -s/p splint in ER -seen by [facility] orth[facility]ics - after much discussion patient desired that his definitive surgery be performed at [facility] -attempts to transfer the patient on 05/04 and 05/05 were declined by [place] (Dr Manuel Christina on 05/04, Dr Vikram Fletcher on 05/05) -[facility] felt there was no urgent need for transfer since the surgery is not likely going to take place in the next week -has appointment IN [place] on 05/11/[address] Williams Flores -prior to that appointment he will go stay at [facility] - accepted by [facility], bed to be available on 05/08 -PT, OT as tolerated -cont NWB status to the [facility] -25-OH vit D level in 11/2024 was robust in the upper 60s -pain control - -stop morphine IV -schedule tylenol 500mg TID -norco 7.5's q6h prn #Hyperkalemia - -present on admission - 5.3 -hemolysis?? -was not on K supplements, ANDI or ARB, etc -no VIKI -either way it is resolved #T2DM w/ neuropathy - -home regimen - metformin + lantus 15 units daily + novolog 7 units with meals -most recent A1C 11/2024 - 8.6% -Pharmacy glycemic team providing glycemic oversite -cont basal-bolus insulins #PD - -Follows with neurology, most recent visit 10/09/2024 -cont Carbidopa levodopa, primidone #orthostatic hypotension - -likely 2nd to parkinson's -cont midodrine TID #PAD/Hyperlipidemia - -has stent in Left posterior tibial artery -no longer following with vascular surgery unless ulcers develop -cont Statin -aspirin placed on hold by admitting team but can likely resume it since surgery is not planned for at least a couple of weeks #GERD - -cont Famotidine, pantoprazole #Psych - -cont Duloxetine #constipation - -add senna -add miralax -add dulcolax suppos prn #DVT proph - -cont lovenox 30mg BID contact - Yari Carr ([phone]) dispo - [facility] - hopefully Sat, 05/08 Admission and Anticipated Discharge Date Admission Date: May 03, 2025 Subjective no new issues overnight resting comfortably in bed pain in right ankle - mild at times, but with laying in bed it is controlled no stool since admission despite such eating well he is aware of potential transfer to [facility] on Saturday Review of Systems Review of Systems: CV - no chest pain pulm - no dyspnea GI - no N/V musculo - other than the right ankle no other musculoskeletal site of pain Physical Exam Physical Exam: gen - resting in bed, NAD, pleasant neck - no JVD mouth - MMM heart - RRR, s1 s2, no murmur lungs - CTA b/l abd - soft NT ND BS+ ext - right foot/ankle/tib-fib in splint, toes exposed R foot - cap refill brisk; he is able to wiggle all toes on right foot; left foot without edema; pulses b/l feet 2+ Results & Data Results & Data Vital Signs (Past 12 Hours) Vital Signs Temp Pulse Resp BP Pulse Ox O2 Del Method 05/06/25 14:48 36.5 C 86 18 171/83 H 95 Room Air 05/06/25 07:13 36.8 C 73 16 117/65 94 Room Air Laboratory Results Laboratory Results - last 24 hr 05/06/25 05/06/25 05/06/25 06:42 07:31 11:52 WBC 7.31 RBC 3.50 L Hgb 11.0 L Hct 33.3 L MCV 95.1 MCH 31.4 MCHC 33.0 RDW Std Deviation 41.8 RDW Coeff of Margarito 12.0 Plt Count 144 MPV 11.2 Sodium 138 Potassium 4.3 Chloride 103 Carbon Dioxide 28 Anion Gap 7 BUN 19 Creatinine 0.96 Est Cr Clr Drug Dosing 88.9 eGFR 85.56 BUN/Creatinine Ratio 19.8 Glucose 158 H POC Glucose 161 H 183 H Calcium 9.0 PG Care Time/CCT Total # of Minutes Spent Total Time Spent with Patient: Total time spent is greater than 50% in coordination of care (as documented) at patient's floor/unit and/or counseling patient: Coding Level of Care Code 57602 SUB INP/OBS CARE MIN Diagnoses Pathological fracture of ankle due to age-related osteoporosis M80.079A Fracture of ankle, trimalleolar, right, closed S82.851A Encounter type: initial encounter Peripheral arterial disease I73.9 GERD (gastroesophageal reflux disease) K21.9 Parkinson disease G20 Serum potassium elevated E87.5 RLS (restless legs syndrome) G25.81 Orthostatic dizziness R42 (2) Fracture of ankle, trimalleolar, right, closed Encounter type: initial encounter Qualified Code(s): S82.851A - Displaced trimalleolar fracture of right lower leg, initial encounter for closed fracture
[2025-05-07] MEDS ORDERED: HYDROCODONE/ACETAMINOPHEN 7.5/325MG TAB PO PRN (03:29)
[2025-05-07] MEDS ORDERED: bisacodyL 10 MG SUPP PR PRN (03:29)
[2025-05-07] MEDS: ACETAMINOPHEN 500 MG TAB PO SCH (08:09)
[2025-05-07] MEDS: POLYETHYLENE (MIRALAX) 17 GM PACK PO SCH (08:13)
[2025-05-07] MEDS: SENNA 8.6 MG TAB PO SCH (08:13)
--- NOTE | 2025-05-07 09:04 | Pharmacy Report ---
Pharmacy Glycemic Short Note 2 - Date of Service May 07, 2025 - Glycemic Short BSG Results (Last 24 hours): 05/06/25 05/06/25 05/06/25 11:52 16:26 20:23 POC Glucose 183 H 119 H 112 H 05/07/25 07:34 POC Glucose 152 H OUTPATIENT ANTIDIABETIC REGIMEN: * Basaglar 15 units SC daily * Insulin lispro 7 units SC TIDM * Metformin 1 g PO BIDM HbA1c: 8.6% (11/27/24), reordered for 05/05/25 ASSESSMENT: 05/07/25: * Blood sugars have been reasonably well-controlled over past 72 hours * Do not anticipate any changes to glycemic regimen today * Likely discharge tomorrow to [facility] 05/04/25: * TB is a 69 year old male who presents s/p fall w/ bimalleolar fracture of right ankle * Of note, patient prefers that any surgical interventions occur at [facility] * Originally NPO after midnight, but now ordered diet * 50% of home basal dose given this morning PLAN FOR INPATIENT GLYCEMIC CONTROL: * Hold outpatient oral diabetes medications * Basal insulin * Lantus 15 units SC daily * Bolus insulin * NovoLog per scale ACHS or Q6hrs while NPO * Goal Range: Low 110 mg/dL - High 140 mg/dL * Correction Factor: 25 mg/dL/unit * Nutritional / Prandial insulin per carb ratio of 1 unit per 8 grams CHO consumed
--- NOTE | 2025-05-07 10:28 | Orthopedic Progress Note ---
Date of Service May 07, 2025 Assessment & Plan (1) Fracture of ankle, trimalleolar, right, closed: Plan: Nonweightbearing on right lower extremity. Keep splint in place Lovenox for DVT prophylaxis Pain control with p.o. medication Medicine is primary service Orthopedically patient is stable for discharge to [facility] when bed is available Follow-up with foot and ankle specialist in [place] as scheduled Admission and Anticipated Discharge Date Admission Date: May 03, 2025 Subjective This 69-year-old male seen today for follow-up of a right ankle trimalleolar fracture. Patient reports that he stood up attempted to walk to his kitchen but his foot was asleep and his leg collapsed under him when he tried to put weight on it causing him to roll his ankle. Patient states that he has had foot surgery and ankle surgery performed by Dr. Flores in [place] on 2 separate occasions. He states that it it is his understanding that he will be discharged to [facility] either today or early tomorrow. He has an appointment scheduled in [place] for May 13 for an evaluation of his ankle. Currently he denies any significant pain. He denies chest pain or shortness of breath. He denies fever chills sweats or numbness or tingling in his right lower extremity. Review of Systems Review of Systems: All systems reviewed & are unremarkable except as noted in Subjective Physical Exam Physical Exam: Right lower extremity: Splint that is clean dry and intact left in place. Patient is able to reach terminal extension in his knee and flex beyond 115 degrees. He is able to detect light sensation to touch over the pads of all digits. Dorsalis pedis is 2+. Patient is neurovascularly intact. Results & Data Vital Signs (Past 12 Hours) Vital Signs Temp Pulse Resp BP Pulse Ox O2 Del Method 05/07/25 07:04 36.5 C 89 18 111/56 L 94 Room Air Diagnostic Findings Laboratory Results WBC 7.31 K/ul (4.8-10.8) 05/06/25 06:42 RBC 3.50 M/uL (4.70-6.10) L 05/06/25 06:42 Hgb 11.0 g/dl (14.0-18.0) L 05/06/25 06:42 Hct 33.3 % (42.0-52.0) L 05/06/25 06:42 MCV 95.1 fL (80.0-100.0) 05/06/25 06:42 MCH 31.4 pg (25.0-34.0) 05/06/25 06:42 MCHC 33.0 g/dL (32.0-36.0) 05/06/25 06:42 RDW Std Deviation 41.8 fL (36.4-46.3) 05/06/25 06:42 RDW Coeff of Margarito 12.0 % (11.5-14.5) 05/06/25 06:42 Plt Count 144 K/uL (130-400) 05/06/25 06:42 MPV 11.2 fL (9.4-12.4) 05/06/25 06:42 Immature Gran % (Auto) 0.2 % 05/03/25 18:32 Neut % (Auto) 74.6 % 05/03/25 18:32 Lymph % (Auto) 17.5 % 05/03/25 18:32 Dade % (Auto) 6.3 % 05/03/25 18:32 Eos % (Auto) 0.8 % 05/03/25 18:32 Baso % (Auto) 0.6 % 05/03/25 18:32 Neut # (Auto) 7.07 K/uL (1.40-6.50) H 05/03/25 18:32 Lymph # (Auto) 1.66 K/uL (1.20-3.40) 05/03/25 18:32 Dade # (Auto) 0.60 K/uL (0.11-0.59) H 05/03/25 18:32 Eos # (Auto) 0.08 K/uL (0.00-0.50) 05/03/25 18:32 Baso # (Auto) 0.06 K/uL (0.00-0.20) 05/03/25 18:32 Immature Gran # (Auto) 0.02 K/uL (0.01-0.20) 05/03/25 18:32 Sodium 138 mmol/L (136-145) 05/06/25 06:42 Potassium 4.3 mmol/L (3.5-5.1) 05/06/25 06:42 Chloride 103 mmol/L (98-107) 05/06/25 06:42 Carbon Dioxide 28 mmol/L (21-32) 05/06/25 06:42 Anion Gap 7 (3-11) 05/06/25 06:42 BUN 19 mg/dl (6-23) 05/06/25 06:42 Creatinine 0.96 mg/dl (0.6-1.4) 05/06/25 06:42 Est Cr Clr Drug Dosing 88.9 ml/min 05/06/25 06:42 eGFR 85.56 05/06/25 06:42 BUN/Creatinine Ratio 19.8 (10-20) 05/06/25 06:42 Glucose 158 mg/dl (70-99(Fasting)) H 05/06/25 06:42 POC Glucose 152 mg/dl (70-99) H 05/07/25 07:34 Estimat Average Glucose 180 mg/dl 05/05/25 05:10 Hemoglobin A1c 7.9 % (4.5-5.6) H 05/05/25 05:10 Calcium 9.0 mg/dl (8.6-10.3) 05/06/25 06:42 Total Creatine Kinase 105 U/L (30-223) 05/03/25 18:32 Impressions Chest X-Ray 05/03/25 18:24 Chest radiograph, one view History: Pre-op Comparison: 01/02/2025 Findings: Single AP view of the chest performed. No focal consolidation or pleural effusion. Unchanged small area of atelectasis at the lingula. No pneumothorax. The cardiomediastinal silhouette is within normal limits. Normal pulmonary vascularity. No evidence for lymphadenopathy. No visualized bony or soft tissue abnormality. Left shoulder arthroplasty. Impression: Normal chest radiograph Electronically signed by Cameron Nicole 05-03-2025 7:47 PM Ankle X-Ray 05/03/25 18:25 Study: Right ankle 3 views History: Fracture, post reduction Comparison: Same day Findings impression: Casting material has been placed. Improved alignment of the medial and lateral malleolus. The lateral malleolus remains laterally displaced. A small posterior malleolar fracture, is again not excluded. Electronically signed by Cameron Nicole 05-03-2025 7:[address] 05/03/25 20:32 CT right ankle without contrast History: Fracture Comparison: Same-day radiograph Technique: CT performed of the extremity without IV contrast. 3D reconstructions performed. Dose reduction techniques were achieved by using automatic exposure control and/or adjustment of mA and/or kV according to patient size and/or use of iterative reconstruction technique. Findings: Trimalleolar fracture is seen. Distal fibular fracture, demonstrates an oblique as well as more horizontal transverse component and is comminuted. Medial malleolar fracture is noted obliquely through the base of the medial malleolus. There is a small, comminuted posterior malleolar fracture as well. The bones appear osteopenic. The talar dome is intact. The calcaneus appears intact. Soft tissue swelling. No aggressive osseous lesion. Impression: Trimalleolar fracture, as above Electronically signed by Cameron Nicole 05-03-2025 9:46 PM (1) Fracture of ankle, trimalleolar, right, closed Encounter type: initial encounter Qualified Code(s): S82.851A - Displaced trimalleolar fracture of right lower leg, initial encounter for closed fracture
--- NOTE | 2025-05-07 10:50 | Hospitalist Progress Note ---
Date of Service May 07, 2025 Assessment & Plan (1) Pathological fracture of ankle due to age-related osteoporosis: (2) Fracture of ankle, trimalleolar, right, closed: (3) Peripheral arterial disease: (4) Parkinson disease: Plan 69yo male with PD, T2DM with neuropathy, PAD, GERD, and RLS presenting after a fall at home. x-rays of right ankle with trimalleolar fracture. In the ER procedural sedation with closed reduction of R ankle completed and splint was applied. #Age-related osteoporosis with current pathologic fracture, RIGHT ankle // tri- malleolar fracture - -s/p fall at home, rolling on R ankle and unable to bear weight after fall -x-rays confirmed trimalleolar fracture -s/p splint in ER -seen by [facility] - after much discussion patient desired that his definitive [place] [facility] [place]attempts to transfer the patient on 05/04 and 05/05 were declined by [place] (Dr Manuel Christina on 05/04, Dr Vikram Fletcher on 05/05) -[facility] [place] there was no urgent need for transfer since the surgery is not likely going to take place in the next week -has appointment IN [place] on 05/11/[address] Williams Flores -prior to that appointment he will go stay at [facility] - accepted by [facility] to be available on 05/08 -PT, OT as tolerated -cont NWB status to the E -25-OH vit D level in 11/2024 was robust in the upper 60s -pain control - -schedule tylenol 500mg TID -norco 7.5's q6h prn #Hyperkalemia - -present on admission - 5.3 -hemolysis?? -was not on K supplements, ANDI or ARB, etc -no VIKI -either way it is resolved #T2DM w/ neuropathy - -home regimen - metformin + lantus 15 units daily + novolog 7 units with meals -most recent A1C 11/2024 - 8.6% -Pharmacy glycemic team providing glycemic oversite -cont basal-bolus insulins #PD/orthostatic hypotension - -Follows with neurology, most recent visit 10/09/2024 -cont Carbidopa levodopa, primidone -cont midodrine TID #PAD/Hyperlipidemia - -has stent in Left posterior tibial artery -no longer following with vascular surgery unless ulcers develop -cont Statin -aspirin placed on hold by admitting team but can likely resume it since surgery is not planned for at least a couple of weeks #GERD - -cont Famotidine, pantoprazole #Psych - -cont Duloxetine #constipation - -add senna -add miralax -add dulcolax suppos prn -enema on 05/07 #DVT proph - -cont lovenox 30mg BID contact - Yari Carr ([phone]) dispo - [facility] [place] - hopefully Sat, 05/08 Admission and Anticipated Discharge Date Admission Date: May 03, 2025 Subjective Patient seen on daily rounds this morning. He sustained a trimalleolar R ankle fx secondary to a fall. He has an appt [place] [facility] [place] and is to be discharged to [facility] for rehab on 05/08. He reports that his pain is controlled, denies cp or dyspnea. He hasn't had a BM in days and had an enema this AM without any result as of yet. Review of Systems Review of Systems: All systems reviewed and are unremarkable except as noted in HPI and below. Denies fever, chills, fatigue, headache, nasal congestion, sore throat, cough, chest pain, shortness of breath, palpitations, orthopnea, PND, abdominal pain, n/v/d, dysuria, hematuria, frequency, back pain, easy bruising or bleeding, skin lesions or rashes. Physical Exam Physical Exam: GENERAL: 69 yo pleasant well-nourished WM. A&Ox3. No distress. LUNGS: Clear to auscultation bilaterally. No W/R/R. CARDIOVASCULAR: Regular rate and rhythm. ABDOMEN: Soft, non-tender and non-distended. Bowel sounds normoactive x 4 quad. EXTREMITIES: Distal RLE in splint wrapped in ANDI. Able to move toes, toes are warm. LLE w/o edema or tenderness. Peripheral pulses +2/4. NEURO: +resting tremor SKIN: Warm, dry, intact. No rashes or lesions. Results & Data Results & Data Vital Signs (Past 12 Hours) Vital Signs Temp Pulse Resp BP Pulse Ox O2 Del Method 05/07/25 07:04 36.5 C 89 18 111/56 L 94 Room Air PG Care Time/CCT Total # of Minutes Spent Total Time Spent with Patient: Total time spent is greater than 50% in coordination of care (as documented) at patient's floor/unit and/or counseling patient: 36 minutes Coding Level of Care Code 11478 SUB INP/OBS CARE 2/35MIN Diagnoses Pathological fracture of ankle due to age-related osteoporosis M80.079A Fracture of ankle, trimalleolar, right, closed S82.851A Encounter type: initial encounter Peripheral arterial disease I73.9 Parkinson disease G20 (2) Fracture of ankle, trimalleolar, right, closed Encounter type: initial encounter Qualified Code(s): S82.851A - Displaced trimalleolar fracture of right lower leg, initial encounter for closed fracture
[2025-05-08 07:20] VITALS: PULSE 80; RESP 18; TEMP 97.9; O2SAT 95
--- NOTE | 2025-05-08 07:47 | Discharge Summary ---
Discharge Summary Date of Service May 08, 2025 Principal Dx & Hospital Course #1 = Principal Diagnosis (1) Pathological fracture of ankle due to age-related osteoporosis: (2) Fracture of ankle, trimalleolar, right, closed: (3) Peripheral arterial disease: (4) Parkinson disease: Plan #Age-related osteoporosis with current pathologic fracture, RIGHT ankle // tri- malleolar fracture - 69yo male with Parkinson's, T2DM with neuropathy, PAD, GERD, and RLS presenting after a fall for a right ankle injury, inability to bear weigh -reports that he stood up attempted to walk to his kitchen but his foot was asleep and his leg collapsed under him when he tried to put weight on it causing him to roll his ankle. * Prior hospitalization earlier this year for fall suspected to be due to neurogenic orthostatic hypotension with Parkinson's disease who was subsequently discharged to rehab. x-ray showed a RIGHT bimalleolar fracture , significant dislocation of the distal fibula, and slight suspected defect of the posterior malleolus. Patient underwent conscious sedation and fracture reduction in the ER, and a splint was applied. Perfusion intact post reduction/splint application Seen by [facility] orth[facility]ics - after much discussion patient desired that his definitive surgery be performed at [facility] Attempts to transfer the patient on 05/04 and 05/05 were declined by [facility] (Dr Manuel Christina on 05/04, Dr Vikram Fletcher on 05/05) [facility] felt there was no urgent need for transfer since the surgery is not likely going to take place in the next week -has appointment IN [place] on 05/11/[address] Williams Flores -prior to that appointment he will go stay at [facility] - [facility] and to transport PT, OT as tolerated - cont NWB status to the [facility] , splint remains in place 25-OH vit D level in 11/2024 was robust in the upper 60s Pain control -schedule tylenol 500mg TID, norco as needed with bowel regimen. Lovenox SQ BID for DVT prophylaxis #T2DM w/ neuropathy - A1c 8.6 in November, on metformin, lantus/novolog at baseline. Pharmacy consulted while inpatient and continued basal/bolus w/ acceptable BSGs and can resume home regimen at ak and f/u PCP #PD/orthostatic hypotension - Follows with neurology, most recent visit 10/09/2024. Cont Carbidopa levodopa, primidone , midodrine TID #PAD/Hyperlipidemia - has stent in Left posterior tibial artery, no longer following with vascular surgery unless ulcers develop Remained on statin, aspirin initially placed on hold by admitting team but given no surgery has been resumed and can be held in f/u discussion with orthopedics [facility] #GERD -cont Famotidine, pantoprazole (increased to 40mg w/ lovenox SQ for DVT proph above for now) #Psych -cont Duloxetine #constipation - bowel regimen added, enema on 05/07 with + BM. Has utilized less norco and rec to continue as needed for bowel regimen at rehab #DVT proph -cont lovenox 30mg BID until follow up with orthopedics for definitive ankle surgery #Hyperkalemia - present on admission - 5.3, ?hemolysis vs other, not on K supplements/ANDI or ARB, no VIKI, has resolved and unclear etiology. Spot check next week contact - Yari Carr ([phone]) [facility] to [facility] Notes For Next Care Provider Ensure follow up [facility] for definitive ankle surgery, has been continued on lovenox SQ for now Rec spot check chemistries next week to ensure stable Medication Changes From Visit Lovenox SQ BID for DVT proph Tylenol 500mg TID, norco prn MIralax, senna daily Protonix increased to 40mg daily Admission HPI Per Admitting Provider 69-year-old male PMHx PD, T2DM with neuropathy, PAD, GERD, and RLS presenting after fall at home. His recent hospital admission 01/02/2025 until 01/08/2025 for syncope and collapse, thought to be secondary to orthostatic hypotension. Patient states that he was at taking a nap at home and when he got up and tried to walk into the kitchen his R foot was asleep. He was able to crawl onto nearby surface but did end up falling. Family members heard an audible crack when he rolled over his R ankle. Patient does have neuropathy at baseline and often has foot numbness, and this was not much different than normal. Patient does have prior history of collapse, often when he is changing positions too quickly. He admits that he went from a laying/sitting to a standing position rather quick and felt some dizziness just after that which had resolved after a few seconds however he had fallen because of it. He denies chest pain, shortness of breath, palpitations, or LOC at this time. Once he fell, he was unable to get up on his own because he could not put weight on the R ankle. Family members were able to get him to a seated rolling computer chair, but he was still unable to bear weight. Patient states his pain is well-managed at time of admission. He has baseline numbness and tingling in BLE. Overall denies again, chest pain, SOB, palpitations, abdominal pain, N/V/D/C, fever/chills, LUTS, URI symptoms, syncope, or LOC. Patient took all morning medications, but does need his nightly medications. ED evaluation reveals no leukocytosis, H&H 12.8/38.6; CMP potassium 5.3, BUN/creatinine ratio 20.8, glucose 226, calcium 9.7; ankle XR medial and lateral malleoli fracture, distal portion fibula dislocated; CXR pending official read; repeat XR pending; EKG pending; Provided with 1L NSS, oxycodone 5 mg p.o., ondansetron 4 mg IV, and fentanyl 50 mcg in ED. Procedural sedation with closed reduction of R ankle completed in ED and splint was applied. Please see Dr. Tan's attestation for adjustments/additions to treatment plan. Admission Exam Per Admitting Provider General: No acute distress Skin: Warm and dry Head: Normocephalic, atraumatic Eyes: PERRL, conjunctivae clear, sclera non-icteric ENT: External ear and ear canal without swelling; nose atraumatic; good dentition, tongue normal appearance, pharynx normal Neck: Supple, no LAD Cardio: RRR, no M/G/R, S1 and S2 normal Resp: No respiratory distress, Lungs CTA in all lobes bilaterally, no wheezes, rales, or rhonchi Abdomen: Soft, symmetric, nontender; No masses or hepatosplenomegaly; Bowel sounds normoactive MSK: RLE splinted, with good vascularity and ROM at level of toes; LLE 2 dime sized ecchymotic areas at calf, not causing any pain; pulses palpable and equal; no edema. Neuro: Awake, alert; Sensation intact bilaterally; CN grossly intact Psych: Appropriate mood and affect; good judgement and insight. 2 family members present in room at time of visit. Discharge Exam GENERAL: 69 yo pleasant well-nourished sitting up in bed, just got tylenol, NAD, alert/oriented, cooperative HEENT: head atraumatic, normocephalic, mmm, trachea midline LUNGS: CTA, no wheezing/rales, on room air CARDIOVASCULAR: regular, no significant m/r/g, no pitting edema/calf tenderness, cap refill wnl ABDOMEN: +BS, soft/no overt tenderness/guarding EXTREMITIES: Distal RLE in splint wrapped in ANDI. Able to move toes, toes are warm. LLE w/o edema or tenderness. Peripheral pulses +2/4. NEURO: +resting tremor, otherwise answering questions appropriately/not confused, follows commands as able SKIN: Warm, dry, intact. No rashes or lesions. Discharge Plan Discharge Items Patient Disposition: Transfer Snf Fac Reason For Visit: MALLEOLAR Fx Discharge Diagnosis: Right Ankle Fracture Condition on Discharge: Fair Goals: You have been hospitalized for an acute medical problem. During your stay at [facility], we have made an effort to correct the problem that brought you to the hospital while keeping you as comfortable as possible. Medications were used to bring your condition under control and your discharge instructions will include directions for any medications you should take after leaving the hospital. Please make sure you see your Primary Care Provider as part of your follow up plan. Activity: As commented below Activity Comment: non weight-beating RLE Non-emergency contact: Primary Care Provider and Surgeon Call non-emergency contact if: you have any medication questions, your symptoms worsen, your pain is not controlled, your pain is concerning for you and you have a fever Follow-up/Referrals: Mila Martinez CRNP [Primary Care Provider] - Manuel Christina MD [Outside Practitioners] - (Per [facility] if you have not heard from the ortho clinic by May 06 please call [phone] and request a follow up. Dr. Manuel Christina made a consult to the clinic. ) Diet: Carb Consistent or DM2 Addtl Attending Provider Instructions: You have been hospitalized after a fall and rolling your right ankle. Imaging was positive for RIGHT ankle fractures and were reduced in the ER and placed in a splint. Per orthopedics, you are to continue non-weight bearing on the RLE at this time and continue pain control/splint and arrangements have been made for [facility] for rehab/residential until able to follow up with orthopedics at [facility] on 05/[address] Flores. You should continue tylenol 500mg three times daily and norco for pain control every 6 hours as needed. Continue with ice/elevation to help with swelling. Please continue a bowel regimen if any issues with constipation while on pain medications. Please continue lovenox twice daily for blood clot prevention and can contact Dr Flores's office for recommendations to hold prior to procedure in follow up appointment. Please follow up with PCP and orthopedics at discharge. Please return to the ER with any increased pain, fever/chills, or for any other symptoms concerning for you. It has been a pleasure being a part of the medical team providing for you while you have been in the hospital. Take care! Pending Studies at Discharge: No Stand-Alone Forms: My [facility] Skilled Items Patient informed of condition?: Yes DNR: No Discharge Level of Care: Skilled Communicable Disease: No Discharge Prognosis: Stable Lines: None Urinary Catheter: No Medications and DC Order Prescriptions: New enoxaparin [Lovenox] 30 mg/0.3 mL Syringe 30 mg subcut Q12H 14 Days Qty: 8.4 0RF acetaminophen [Tylenol Extra Strength] 500 mg Tablet 500 mg PO TID Qty: 30 0RF hydrocodone-acetaminophen 7.5-325 mg Tablet 1 tab PO Q6H PRN (Reason: pain) Qty: 10 0RF polyethylene glycol 3350 [Miralax] 17 gram Powder In Packet 17 g PO DAILY Qty: 14 0RF pantoprazole 40 mg Tablet,Delayed Release (Dr/Ec) 40 mg PO QAM Qty: 30 0RF sennosides [Senokot] 8.6 mg Tablet 17.2 mg PO QAM Qty: 30 0RF Continued midodrine 5 mg tablet 5 mg PO TID Qty: 270 3RF Rx Instructions: do not give last dose of day after 6PM or within 4 hrs of bedtime metformin 500 mg tablet 1,000 mg PO BID Qty: 360 3RF Hold Instructions: Resume on 01/11/25. Hold off metformin 1000mg PO bid until you see your PCP. Rx Instructions: Automatic refills rosuvastatin 40 mg tablet 40 mg PO QPM Qty: 90 3RF Hold Instructions: Resume on 01/11/25. Hold off rosuvastatin 40mg PO qpm until you see your PCP. duloxetine 60 mg capsule,delayed release(DR/EC) 60 mg PO QAM 30 Days Qty: 30 3RF carbidopa-levodopa [Sinemet] 25-100 mg tablet 2 tab PO QID 90 Days Qty: 720 1RF magnesium oxide 400 mg magnesium capsule 400 mg PO BID Qty: 1 0RF primidone 50 mg tablet 25 mg PO BID Qty: 60 5RF ascorbate calcium (vitamin C) 500 mg tablet 500 mg PO DAILY Qty: 30 0RF mecobalamin (vitamin B12) 1,000 mcg tablet,chewable 1,000 mcg PO DAILY Qty: 30 0RF cholecalciferol (vitamin D3) 125 mcg (5,000 unit) capsule 125 mcg PO DAILY Qty: 30 0RF aspirin 81 mg Tablet,Delayed Release (Dr/Ec) 81 mg PO QAM famotidine 20 mg tablet 20 mg PO QAM insulin glargine [Basaglar KwikPen U-100 Insulin] 100 unit/mL (3 mL) insulin pen 15 unit SUBCUT QAM Lyumjev KwikPen U-100 Insulin 100 unit/mL insulin pen 7 unit subcut TIDM Discontinued pantoprazole 20 mg tablet,delayed release (DR/EC) 20 mg PO QAM Hold Instructions: Resume on 01/11/25. Hold off pantoprazole 20mg PO daily until you see your PCP. No Action (DME) pen needle,diabetic dual safty 30 gauge x 3/16" needle See Rx Instructions .Route Qty: 400 3RF Rx Instructions: use 4 a day with insulin injections (DME) TRANSFER BENCH FOR SHOWER See Rx Instructions .Route .MEDSUPPLY Qty: 1 0RF Rx Instructions: As directed (DME) FreeStyle Jim 3 Sensor Device See Rx Instructions .Route Rx Instructions: As directed Discharge Orders: Discharge Order (Routine); Ordered 05/08/25 Ordered By: Ilana Sanz/Other Patient Handouts: Managing Type 2 Diabetes Admission Data Admit Date/Time: 05/03/25 20:12 Attending Provider: Vikram Aguilera Admit Provider: Ronaldo Tan Primary Care Provider: Mila Martinez Other Providers: Ronaldo Oliveira; Ronaldo Tan; Kyung Shaw at [facility] Other Interventions: Discharge Summary Assessment (RN) Last Done: 05/08/25 09:54 Hospital Stay Data Consultations 05/03/25 19:41 Consult Orthopedic Surgery Stat ED Decision to Admit Stat Diagnostic Imagining Performed Ankle X-Ray 05/03/25 16:48 Study: Right ankle 3 views History: Trauma Comparison: 11/28/2021 Findings/impression: Fracture dislocation injury, with both medial and lateral malleoli are fractures seen. There is eversion of the foot noted. The distal portion of the fibula appears significantly dislocated laterally. Possible slight defect of the posterior malleolus on the lateral view as well. The talar dome appears grossly intact. Electronically signed by Cameron Nicole 05-03-2025 6:26 PM Chest X-Ray 05/03/25 18:24 Chest radiograph, one view History: Pre-op Comparison: 01/02/2025 Findings: Single AP view of the chest performed. No focal consolidation or pleural effusion. Unchanged small area of atelectasis at the lingula. No pneumothorax. The cardiomediastinal silhouette is within normal limits. Normal pulmonary vascularity. No evidence for lymphadenopathy. No visualized bony or soft tissue abnormality. Left shoulder arthroplasty. Impression: Normal chest radiograph Electronically signed by Cameron Nicole 05-03-2025 7:47 PM Ankle X-Ray 05/03/25 18:25 Study: Right ankle 3 views History: Fracture, post reduction Comparison: Same day Findings impression: Casting material has been placed. Improved alignment of the medial and lateral malleolus. The lateral malleolus remains laterally displaced. A small posterior malleolar fracture, is again not excluded. Electronically signed by Cameron Nicole 05-03-2025 7:[address] 05/03/25 20:32 CT right ankle without contrast History: Fracture Comparison: Same-day radiograph Technique: CT performed of the extremity without IV contrast. 3D reconstructions performed. Dose reduction techniques were achieved by using automatic exposure control and/or adjustment of mA and/or kV according to patient size and/or use of iterative reconstruction technique. Findings: Trimalleolar fracture is seen. Distal fibular fracture, demonstrates an oblique as well as more horizontal transverse component and is comminuted. Medial malleolar fracture is noted obliquely through the base of the medial malleolus. There is a small, comminuted posterior malleolar fracture as well. The bones appear osteopenic. The talar dome is intact. The calcaneus appears intact. Soft tissue swelling. No aggressive osseous lesion. Impression: Trimalleolar fracture, as above Electronically signed by Cameron Nicole 05-03-2025 9:46 PM Discharge Instructions Given to Patient (Per Discharging Provider) You have been hospitalized after a fall and rolling your right ankle. Imaging was positive for RIGHT ankle fractures and were reduced in the ER and placed in a splint. Per orthopedics, you are to continue non-weight bearing on the RLE at this time and continue pain control/splint and arrangements have been made for [facility] for rehab/residential until able to follow up with orthopedics at [facility] on 05/[address] Flores. You should continue tylenol 500mg three times daily and norco for pain control every 6 hours as needed. Continue with ice/elevation to help with swelling. Please continue a bowel regimen if any issues with constipation while on pain medications. Please continue lovenox twice daily for blood clot prevention and can contact Dr Flores's office for recommendations to hold prior to procedure in follow up appointment. Please follow up with PCP and orthopedics at discharge. Please return to the ER with any increased pain, fever/chills, or for any other symptoms concerning for you. It has been a pleasure being a part of the medical team providing for you while you have been in the hospital. Take care! Supervising Physician Co-Signing Physician Notes The patient was not seen by me. The chart was reviewed. Case discussed with HENRIQUE Ribeiro. Agree with assessment and plan Total Time Total Time Spent Total Time Spent (In Minutes): 40 Coding Level of Care Code 14626 INP/OBS DISCH >30 MIN Diagnoses Pathological fracture of ankle due to age-related osteoporosis M80.079A Fracture of ankle, trimalleolar, right, closed S82.851A Encounter type: initial encounter Peripheral arterial disease I73.9 Parkinson disease G20
[2025-05-08 09:20] VITALS: BP 139/79
== END 2025-05-08 10:27 | DRG 544 ==
LOC: ED 16:12 → INTOOBSV 20:12 → SUATTDRO 20:12 → 3N 20:12